=== PATIENT | male | born 1955 | race Caucasian/White ===

== ENCOUNTER 2017-05-28 07:50 | Outpatient (CLI) | payer OTHER ==
[2017-05-28 09:04] LABS: #Eosinphils 0.1 thou/uL (0.0-0.7); #Lymphocytes 1.3 thou/uL (1.20-3.40); #Monocytes 0.7 thou/uL (0.11-0.59); #Neutrophils 6.2 thou/uL (1.40-6.50); %Basophils 0.5 % (0.0-1.0); %Eosinophils 1.7 % (0.0-10.0); %Lymphocytes 15.6 % (21.0-51.0); %Monocytes 8.7 % (0.0-10.0); Hematocrit 50.6 % (42.0-52.0); Mean Platelet Volume 9.2 fL (7.4-10.4); Red Blood Cell (RBC) Count 5.65 mill/uL (4.70-6.10); White Blood Cell (WBC) Count 8.5 thou/uL (4.8-10.8)
[2017-05-28 09:27] LABS: Anion Gap 15 mmol/L (10-20); BUN (Urea Nitrogen) 13 mg/dL (8.4-25.7); Calc. Creatinine Clearance 0 mL/min (70-130); Calcium 10.2 mg/dL (7.8-10.44); Carbon Dioxide 27 mmol/L (23-31); Chloride 104 mmol/L (98-107); Estimated GFR-MDRD 80
--- NOTE | 2017-05-28 12:26 | EKG ---
Test Reason : Blood Pressure : / mmHG Vent. Rate : 074 BPM Atrial Rate : 074 BPM P-R Int : 146 ms QRS Dur : 100 ms QT Int : 386 ms P-R-T Axes : 024 037 -07 degrees QTc Int : 428 ms Normal sinus rhythm Normal ECG When compared with ECG of 24-APR-2015 13:36, Criteria for Inferior infarct are no longer Present Confirmed by ZELALEM DE LOS SANTOS ([id number]) on 05/28/2017 12:26:42 PM Referred By: [facility] Confirmed By:ZELALEM DE LOS SANTOS
== END 2017-05-28 07:51 | disposition home or self-care (01) ==
LOC: LABBT 07:50
PROVIDERS: ATTEND Surgery
DX: Z01.812 Encounter for preprocedural laboratory examination (principal); K56.699 Other intestinal obstruction unspecified as to partial versus complete obstruction
CPT/HCPCS: 80048; 85025; 93005; 93010

== ENCOUNTER 2017-05-28 08:00 | Inpatient (IN) | payer OTHER ==
[2017-05-28 08:17] VITALS: BMI 32.5
[2017-06-07] MEDS ORDERED: Propofol 200 MG/20 ML VIAL ONE (09:35)
[2017-06-07] MEDS ORDERED: Ondansetron HCl/PF 4 MG/2 ML Vial ONE (09:35)
[2017-06-07] MEDS ORDERED: Lidocaine 1% PF 5 ML VIAL ONE (09:35)
[2017-06-07] MEDS ORDERED: Dexamethasone 20 MG/5 ML VIAL ONE (09:35)
[2017-06-07] MEDS ORDERED: Ketorolac Tromethamine 30 MG/ML VIAL ONE (09:35)
[2017-06-07] MEDS ORDERED: cefOXitin Sodium 2 GM, Syringe 1 ML in Sterile Water 10 ML SLOW IVP SCH (13:00)
[2017-06-07] MEDS ORDERED: Fentanyl 250 MCG/5 ML VIAL ONE (13:18)
[2017-06-07] MEDS ORDERED: Ondansetron HCl/PF 4 MG/2 ML Vial IVP PRN ×2 (15:12→16:42)
[2017-06-07] MEDS ORDERED: HYDROmorphone 2 MG/ML VIAL SLOW IVP PRN (15:12)
[2017-06-07] MEDS ORDERED: Promethazine HCl 25 MG/ML VIAL SLOW IVP PRN (15:12)
[2017-06-07] MEDS ORDERED: Promethazine HCl 25 MG/ML VIAL IM PRN ×2 (15:12→16:42)
[2017-06-07] MEDS ORDERED: Fentanyl 100 MCG/2 ML VIAL ONE ×2 (15:18→16:03)
[2017-06-07] MEDS ORDERED: hydrALAZINE 20 MG/ML VIAL SLOW IVP PRN (16:42)
[2017-06-07] MEDS ORDERED: Ketorolac Tromethamine 30 MG/ML VIAL IVP PRN (16:42)
[2017-06-07] MEDS ORDERED: Fentanyl 100 MCG/2 ML VIAL SLOW IVP PRN (16:42)
[2017-06-07] MEDS ORDERED: Dextrose 5% in Water 1,000 ML IV PRN (18:13)
[2017-06-07] MEDS ORDERED: Dextrose 50% Abboject 50 ML SYRINGE IVP PRN (18:13)
[2017-06-07] MEDS: Acetaminophen 1,000 MG in Premix Bag 1 BAG IVPB SCH (18:27)
[2017-06-07] MEDS: Fentanyl 100 MCG/2 ML VIAL SLOW IVP PRN ×2 (18:57→21:20)
--- NOTE | 2017-06-07 19:03 | OP ---
PREOPERATIVE DIAGNOSES: History of colon cancer and rectal anastomotic stricture diverted with loop ileostomy. POSTOPERATIVE DIAGNOSES: History of colon cancer and rectal anastomotic stricture diverted with loop ileostomy. PROCEDURE: Loop ileostomy takedown with small-bowel resection and anastomosis. SURGEON: Jong Martinez M.D ANESTHESIA: General. ESTIMATED BLOOD LOSS: Minimal. COMPLICATIONS: None. SPECIMEN: Small-bowel. INDICATION: The patient is a 61-year-old male, who presents with a history of left colectomy for obs tructing colon cancer diverted with loop ileostomy. He did have a leak at that time even with the di version because his colon was not able to be prepped. He got over that surgery without any difficult y but developed a severe low rectal stricture. He had one attempted redo low anterior by . Nisha valladares the stricture was so tight, he was sent to Dr. Cannon in [place], where he had a stent placed, an d now the stricture is improved to the point where he is safe for ileostomy takedown. TECHNIQUE: The patient was taken to the operating room and placed supine on the operating table. Af ter general anesthetic was obtained, a Gracia was placed. The abdomen was shaved, prepped, and draped in a sterile fashion. The ileostomy mucosa was ellipsed out in the right lower quadrant. Cautery d issected down along the ileostomy and all the way to the level of the muscle. The abdominal cavity w as entered. All adhesions were taken down. A [id number] anastomosis was performed on the antimese nteric surface of the small-bowel proximal and distal to the skin mucosa. The common enterotomy was closed using TA-60. The skin segment and its mesentery was taken using Hannah clamps and silk ties. Crotch stitch in all corners were oversewn using silk pop-off. Silk was used to close the mesenteric defect. The small-bowel anastomosis was placed back into the abdominal cavity. The posterior fasci a was closed with #1 PDS. Anterior fascia closed with #1 PDS. Subcutaneous tissues were irrigated. The skin was closed using pursestring of Prolene. A [place] drain was left in the middle of the wou nd. Sterile dressings were placed. The patient was en route to recovery in stable condition. All i nstrument counts, needle counts, and lap counts were correct.
[2017-06-07] MEDS: Enoxaparin Sodium 40 MG/0.4 ML SYRINGE SC SCH (21:09)
[2017-06-07] MEDS: buPROPion HCl 75 MG TAB PO SCH (21:09)
[2017-06-07] MEDS: cefOXitin Sodium 2 GM, Syringe 1 ML in Sterile Water 10 ML SLOW IVP SCH (21:20)
[2017-06-08] MEDS: Acetaminophen 1,000 MG in Premix Bag 1 BAG IVPB SCH ×3 (00:02→12:14)
[2017-06-08] MEDS: Fentanyl 100 MCG/2 ML VIAL SLOW IVP PRN ×2 (01:44→04:51)
[2017-06-08] MEDS: Sodium Chloride 0.9% 1,000 ML IV SCH ×9 (05:28→21:08)
[2017-06-08] MEDS: cefOXitin Sodium 2 GM, Syringe 1 ML in Sterile Water 10 ML SLOW IVP SCH (05:28)
[2017-06-08 05:30] LABS: #Lymphocytes 0.8 thou/uL (1.20-3.40); #Monocytes 0.8 thou/uL (0.11-0.59); #Neutrophils 12.7 thou/uL (1.40-6.50); %Basophils 0.1 % (0.0-1.0); %Eosinophils 0.1 % (0.0-10.0); %Lymphocytes 5.8 % (21.0-51.0); %Monocytes 5.5 % (0.0-10.0); Mean Platelet Volume 10.6 fL (7.4-10.4); Red Blood Cell (RBC) Count 4.04 mill/uL (4.70-6.10); White Blood Cell (WBC) Count 14.4 thou/uL (4.8-10.8)
[2017-06-08 05:33] LABS: Anion Gap 14 mmol/L (10-20); BUN (Urea Nitrogen) 21 mg/dL (8.4-25.7); Calc. Creatinine Clearance 117 mL/min (70-130); Calcium 8.4 mg/dL (7.8-10.44); Carbon Dioxide 19 mmol/L (23-31); Chloride 107 mmol/L (98-107); Estimated GFR-MDRD 74
[2017-06-08] MEDS ORDERED: traMADol HCl 50 MG TAB PO PRN ×2 (08:27)
[2017-06-08] MEDS: Insulin Regular 300 UNITS/3 ML VIAL SC PRN ×2 (08:47→12:27)
[2017-06-08] MEDS ORDERED: Lisinopril/Hydrochlorothiazide 20 mg/12.5 mg Tablet PO SCH (09:00)
--- NOTE | 2017-06-08 09:10 | PRG ---
DATE OF SERVICE: 06/08/2017 SUBJECTIVE: Postop day #1, ileostomy takedown. Mr. Costa has had borderline blood pressures overnig ht, started when he rolled over in the middle of the night and felt faint. This morning, his blood p ressures are in the 80s to low 90s systolic. Pulse is right at 100. He denies pain. He has had 2 s mall voids, he does not think he voided that much. He does not feel urgency. He had mild nausea thi s morning and had Zofran for that. He had Fentanyl this morning for the pain. PHYSICAL EXAMINATION: VITAL SIGNS: His blood pressure 81/57, pulse 88, respirations 16. He is afebrile. HEART: Regular rate. CHEST: Clear. ABDOMEN: Minimally distended. Right lower quadrant dressings, the 4 x 4s were soaked with serosangu ineous fluid. LABORATORY: White blood cell count is 14, hemoglobin 11, platelet count is 194. Sodium 134, potassi um 5.7, creatinine 1.02, glucose is 226. ASSESSMENT: 1. Postop day #1 ileostomy takedown. 2. Hypotension, likely vasovagal but with IV fluids. Stop fentanyl. 3. Continue clear liquids. 4. His potassium was 5.7 this morning. His creatinine is normal. There is no potassium in his IV f luids. We will recheck a chemistry this afternoon. We will also bladder scan and if significant res idual urine will in and out cath.
[2017-06-08] MEDS: buPROPion HCl 75 MG TAB PO SCH ×2 (09:16→20:54)
[2017-06-08 15:51] LABS: Anion Gap 12 mmol/L (10-20); BUN (Urea Nitrogen) 25 mg/dL (8.4-25.7); Calc. Creatinine Clearance 100 mL/min (70-130); Calcium 8.1 mg/dL (7.8-10.44); Carbon Dioxide 23 mmol/L (23-31); Chloride 105 mmol/L (98-107); Estimated GFR-MDRD 62
[2017-06-08] MEDS ORDERED: Dextrose 5% in Water 1,000 ML IV PRN (16:16)
[2017-06-08] MEDS ORDERED: Dextrose 50% Abboject 50 ML SYRINGE SLOW IVP PRN (16:16)
[2017-06-08] MEDS: HumaLOG 300 UNITS/3 ML VIAL SC PRN (17:36)
[2017-06-08] MEDS: Enoxaparin Sodium 40 MG/0.4 ML SYRINGE SC SCH (20:54)
[2017-06-09 05:22] LABS: #Eosinphils 0.1 thou/uL (0.0-0.7); #Lymphocytes 1.8 thou/uL (1.20-3.40); #Monocytes 1.4 thou/uL (0.11-0.59); #Neutrophils 10.8 thou/uL (1.40-6.50); %Basophils 0.1 % (0.0-1.0); %Eosinophils 0.8 % (0.0-10.0); %Lymphocytes 12.4 % (21.0-51.0); %Monocytes 9.8 % (0.0-10.0); Hematocrit 23.4 % (42.0-52.0); Mean Platelet Volume 9.5 fL (7.4-10.4); Red Blood Cell (RBC) Count 2.59 mill/uL (4.70-6.10); White Blood Cell (WBC) Count 14.1 thou/uL (4.8-10.8)
[2017-06-09 05:29] LABS: Anion Gap 10 mmol/L (10-20); BUN (Urea Nitrogen) 19 mg/dL (8.4-25.7); Calc. Creatinine Clearance 147 mL/min (70-130); Calcium 8.1 mg/dL (7.8-10.44); Carbon Dioxide 23 mmol/L (23-31); Chloride 105 mmol/L (98-107); Estimated GFR-MDRD Greater than 90
[2017-06-09] MEDS: Sodium Chloride 0.9% 1,000 ML IV SCH (05:45)
[2017-06-09] MEDS: HumaLOG 300 UNITS/3 ML VIAL SC PRN ×4 (06:25→21:26)
[2017-06-09] MEDS: buPROPion HCl 75 MG TAB PO SCH ×2 (08:21→21:17)
[2017-06-09] MEDS ORDERED: HYDROcodone/Acetaminophen 10/325 mg Tablet PO PRN ×2 (09:18)
[2017-06-09] MEDS ORDERED: Tamsulosin HCl 0.4 MG CAP PO SCH (10:00)
--- NOTE | 2017-06-09 14:20 | PRG ---
DATE OF SERVICE: 06/09/2017 SUBJECTIVE: Mr. Costa is postop day #2, ileostomy takedown. Mr. Costa' pressures were in the 90s. He is urinating at easier now. He is tolerating the liquid diet without any nausea. He is passing g as. PHYSICAL EXAMINATION: VITAL SIGNS: Blood pressure is 90/62, his pulse is still 80. He is afebrile. ABDOMEN: Soft. He does have bowel sounds. Right lower quadrant dressings are intact. LABORATORY: Hemoglobin this morning was 7. ASSESSMENT: Postop day #2 ileostomy takedown, likely postop hypovolemia secondary to dehydration and blood loss. PLAN: We will check one more H&H tomorrow morning. If stable, he can be discharged then.
--- NOTE | 2017-06-09 15:21 | PQF ---
DATE: 06-09-17 ATTN: DR. DAVID RICHARDSON Please exercise your independent, professional judgment in responding to the clarification form. Clinical indicators are provided on the bottom of this form for your review Please check appropriate box(s): [ ] Acute blood loss anemia [ ] Post-op anemia related to acute blood loss [ ] Other diagnosis [ ] Unable to determine In addition, please specify: Present on Admission (POA): [ ] Yes [ ] No [ ] Unable to determine For continuity of documentation, please document condition throughout progress notes and discharge summary. Thank You. CLINICAL INDICATORS - SIGNS / SYMPTOMS / LABS PROGRESS NOTE DR. RICHARDSON 06-09-17: POSTOP DAY #2 ILEOSTOMY, LIKELY POSTOP HYPOVOLEMIA SECONDARY TO DEHYDRATION AND BLOOD LOSS HEMOGLOBIN: 06-08-17: 11.3, 9.1 06-09-17: 7.4 HEMATOCRIT: 06-08-17: 36.0 06-09-17: 23.4 TACHYCARDIA: 06-08-17: 107, 104 RISK FACTORS: 06-07-17: ILEOSTOMY CLOSURE/REVERSAL, ILEOSTOMY TAKEDOWN TREATMENTS: PROGRESS NOTE DR. RICHARDSON 06-09-17: WE WILL CHECK ONE MORE H&H TOMORROW MORNING PROGRESS NOTE DR. RICHARDSON 06-09-17: POSTOP DAY #2 ILEOSTOMY, LIKELY POSTOP HYPOVOLEMIA SECONDARY TO DEHYDRATION AND BLOOD LOSS (This form is maintained as a part of the permanent medical record) 2014 [employer] All Rights Reserved [email or web address] Office: [phone] [facility]
[2017-06-09] MEDS: Enoxaparin Sodium 40 MG/0.4 ML SYRINGE SC SCH (21:17)
[2017-06-10] MEDS: HumaLOG 300 UNITS/3 ML VIAL SC PRN ×3 (05:55→21:27)
[2017-06-10] MEDS: buPROPion HCl 75 MG TAB PO SCH ×2 (09:13→20:36)
[2017-06-10] MEDS: Tamsulosin HCl 0.4 MG CAP PO SCH (09:14)
[2017-06-10] MEDS ORDERED: Tamsulosin HCl 0.4 MG CAP PO SCH (09:19)
--- NOTE | 2017-06-10 12:52 | PRG ---
DATE OF SERVICE: 06/10/2017 SUBJECTIVE: Mr. Costa has some shortness of breath when he is up and ambulating, otherwise has no co mplaints. No pain. He is tolerating regular food, having multiple bowel movements. PHYSICAL EXAMINATION: VITAL SIGNS: Pulse is 100, blood pressure 104/64, temperature 98.2. Multiple voids, multiple bowel movements. ABDOMEN: Soft, nontender, nondistended with active bowel sounds. Right lower quadrant wounds are re dressed and the Diamond drain was removed. LABORATORY DATA: Hemoglobin was 7.4 yesterday, 6.5 today. ASSESSMENT: 1. Postop anemia from bleeding, most likely slow drop of H&H. Because of the symptoms, we will go a head and give him a unit of blood. 2. Resolved ileus. PLAN: Discharged home later today after unit of blood.
[2017-06-11] MEDS: HumaLOG 300 UNITS/3 ML VIAL SC PRN (05:58)
[2017-06-11 08:21] VITALS: BP 124/81; TEMP 99.1
--- NOTE | 2017-06-11 08:33 | DIS ---
DATE OF ADMISSION: 06/07/2017 DATE OF DISCHARGE: 06/11/2017 ADMISSION DIAGNOSES: History of colon stricture, status post loop ileostomy. POSTOPERATIVE DIAGNOSES: History of colon stricture, status post loop ileostomy. PROCEDURES: Ileostomy takedown by Dr. Martinez, complicated by postop anemia and required blood trans fusion. CONDITION ON DISCHARGE: Improved. STAFF: Dr. Jong Martinez . HOSPITAL COURSE: The patient was admitted postop on a clear liquid diet. His bowel function returne d very quickly. On postop day 2 and 3 his hemoglobin slowly decreased. Yesterday his hemoglobin was 6.5. He was stable, but did have some shortness of breath when he was trying to walk. The decision was made to give 1 unit of blood. Today his hemoglobin is improved. He feels better. He is ready for discharge. Prescriptions for [place] and Zofran sent to [facility] on [address]. The patient is okay to shower. He is going to change his dressing to the right lower quadrant wound after. He will follow up with me malachi gerard 2 weeks.
[2017-06-11] MEDS: Tamsulosin HCl 0.4 MG CAP PO SCH (08:58)
[2017-06-11] MEDS: buPROPion HCl 75 MG TAB PO SCH (08:58)
== END 2017-06-11 12:22 | disposition home or self-care (01) | DRG 330 ==
LOC: SURG A 06-07 11:33 → SURG B 06-07 16:04
PROVIDERS: ADMIT Surgery; ATTEND Surgery
PROC: 0DBB0ZZ Excision of Ileum, Open Approach (ICD-10-PCS; principal; 2017-06-07)
PROC: 30233N1 Transfusion of Nonautologous Red Blood Cells into Peripheral Vein, Percutaneous Approach (ICD-10-PCS; 2017-06-10)
DX: Z43.2 Encounter for attention to ileostomy (principal); K56.7 Ileus, unspecified; I95.9 Hypotension, unspecified; D64.9 Anemia, unspecified; E86.1 Hypovolemia; E86.0 Dehydration; Z85.038 Personal history of other malignant neoplasm of large intestine
CPT/HCPCS: 36415; 36416; 36430; 80048; 85018; 85025; 86850; 86900; 86901; 88304; A4216; J0131; J0694; J1100; J1650; J1885; J2001; J2405; J2704; J3010; P9016

== ENCOUNTER 2017-06-17 16:01 | Inpatient (IN) | payer OTHER ==
[~2017-06-17 16:01] MED LIST: Calcium Chloride 1 GM/10 ML Abboject SYRINGE ONE; Heparin 1,000 UNITS/ML VIAL ONE; ISOVUE-370 76%-LOCM 1 ML ONE; PHENYLEPHRINE-NS 100 MCG/ML 10 ML SYRINGE ONE; Succinylcholine Chloride 20 MG/ML 10 ml SYRINGE FS ONE; Vecuronium 10 MG VIAL ONE
[2017-06-17] MEDS ORDERED: Fentanyl 100 MCG/2 ML VIAL ONE ×3 (16:07→17:26)
[2017-06-17 16:42] LABS: Blood, Urine Moderate (Negative); Clarity CLOUDY (Clear); Leukocyte Small (Negative); Specific Gravity, Urine 1.028 (1.002-1.036)
[2017-06-17 16:45] LABS: Bacteria/HPF None Seen HPF (None Seen)
[2017-06-17 16:46] LABS: Glucose, Urine (Dipstick) 500 mg/dL (Negative); Nitrite Unable to Interpret (Negative); Pathc Cast-AUWi Flag 5.01 (0-2.49); Yeast-AUWi Flag 73.1 (0-25.0)
[2017-06-17 16:47] LABS: Bilirubin Large (Negative); Protein, Urine (Dipstick) 30 mg/dL (Neg-Trace)
[2017-06-17 16:53] LABS: Base Excess-Venous -6.1 mmol/L (-30.0-30.0); Bicarbonate (HCO3v) 17.8 mmol/L (1.0-85.0); CO2 Tension (PvCO2) 29.8 mmHg (41.0-51.0); Calcium, Ionized 1.04 mmol/L (1.12-1.32); Hemoglobin - Calc 12.7 g/dL (12.0-18.0); Potassium 3.9 mmol/L (3.4-4.7); T. Carbon Dioxide 18.7 mmol/L (1.0-85.0); pH (Venous) 7.384 (7.35-7.45); vO2 Saturation-calc 94.7 % (0.0-100.0)
[2017-06-17 17:08] LABS: Hemoglobin 10.9 g/dL (14.0-18.0); Mean Corpuscular HGB CONC 29.8 g/dL (32.0-36.0); Mean Corpuscular Hemoglobin 28.1 pg (27.0-31.0); Mean Corpuscular Volume 94.4 fl (80.0-94.0); Mean Platelet Volume 8.6 fL (7.4-10.4); Platelet Count 425 thou/uL (130-400); RBC Distribution Width 17.6 % (11.5-14.5); Red Blood Cell (RBC) Count 3.88 mill/uL (4.70-6.10); White Blood Cell (WBC) Count 19.8 thou/uL (4.8-10.8)
[2017-06-17 17:09] LABS: Crystals/HPF 1+ AMORPH URATES HPF (Negative); RBC/HPF 0-3 HPF (0-3); Yeast-All Forms None Seen HPF (None Seen)
[2017-06-17 17:10] LABS: Hyaline Casts/LPF 0-3 HYALINE CAST LPF (0-3 Hyaline); Other Casts/LPF 4-6 COARSE GRAN LPF (0-3 Hyaline)
--- NOTE | 2017-06-17 17:14 | RAD ---
PORTABLE CHEST ONE VIEW: 06/17/17 at 4:14 p.m. HISTORY: Chest pain. Sepsis, hypotension. FINDINGS/IMPRESSION: There is elevation of the right hemidiaphragm with air underneath the right hemidiaphragm which coul d either represent free air or air within the colon. This should be evaluated with CT scan. No lobar consolidation, pneumothoraces or large effusions are seen. the heart size is borderline. Discussed over the telephone with ER physician, Dr. Pisano at 4:22 p.m. POS: [facility]
[2017-06-17] MEDS ORDERED: Piperacillin/Tazobactam 4.5 GM in Sodium Chloride 0.9% 100 ML IVPB ONE (17:15)
[2017-06-17] MEDS ORDERED: Fentanyl 250 MCG/5 ML VIAL ONE (17:17)
[2017-06-17] MEDS ORDERED: Phenylephrine 10 MG/NS 250 ML 250 ML ONE (17:17)
[2017-06-17 17:24] LABS: Band 50 % (5-11); Burr Cells MODERATE= 6-15 cells (100X) (0-1/hpf); Lymphocytes 4 % (21-51); MDiff Complete? YES; Metamyelocyte 1 % (0-0); Monocytes 4 % (0-10); Neutrophil 41 % (42-75); Nucleated RBC 2 % (0); PLT Morphology Comment Appears Increased; Polychromasia MODERATE = 3-4 cells (100X) (0-2/hpf); Reflex for Review?? NO
[2017-06-17] MEDS ORDERED: Ketamine 50 MG/ML VIAL ONE (17:24)
[2017-06-17] MEDS ORDERED: Midazolam HCl 5 mg/5 ml Vial ONE (17:24)
[2017-06-17] MEDS ORDERED: Norepinephrine 8 MG/0.9% NS 250 ML ONE (17:25)
[2017-06-17 17:27] LABS: ALT (SGPT) 27 U/L (8-55); AST (SGOT) 37 U/L (5-34); Albumin 2.2 g/dL (3.4-4.8); Alkaline Phosphatase 109 U/L (40-150); Anion Gap 15 mmol/L (10-20); BUN (Urea Nitrogen) 21 mg/dL (8.4-25.7); Bilirubin, Total 5.5 mg/dL (0.2-1.2); Calc. Creatinine Clearance 0 mL/min (70-130); Calcium 7.8 mg/dL (7.8-10.44); Carbon Dioxide 18 mmol/L (23-31); Chloride 100 mmol/L (98-107); Estimated GFR-MDRD Greater than 90; Globulin 2.6 g/dL (2.4-3.5); Glucose 279 mg/dL (80-115); Protein, Total 4.8 g/dL (5.8-8.1); Sodium 129 mmol/L (136-145)
[2017-06-17 17:32] LABS: CKMB 0.6 ng/mL (0-6.6); Troponin I 0.013 ng/mL (< 0.028)
--- NOTE | 2017-06-17 17:36 | CT ---
CT ABDOMEN AND PELVIS WITH CONTRAST: 06/17/17 COMPARISON: 08/09/16 CLINICAL HISTORY: Hypotension. FINDINGS: There is diffuse abnormal free intra-abdominal air interspersed with complex ascites. Loops of dilate d bowel with wall thickening present, incompletely assessed given the unopacified state of the bowel. Findings do indicate perforated viscus. There is bilateral pleural effusion with adjacent atelectasi s, partially visualized. Gallbladder wall thickening cholelithiasis present. No hydronephrosis of eit her kidney. Redemonstration of bilateral renal hypodensities as well as punctate calcifications of ea ch kidney, nonobstructive. There are hyperdensities adjacent the aorta, nonspecific. IMPRESSION: Findings indicative of perforated viscus with diffuse free air as well as complex ascites. There are areas of dilated bowel with wall thickening notably involving colon, although the bowel is incomplete ly assessed without enteric contrast administration. Recommend emergent surgical consultation. Windy patel telephoned to care provider, Charmaine Elam in the ER at time of interpretation, 1702 hours, . Code CR
--- NOTE | 2017-06-17 17:41 | HP ---
CHIEF COMPLAINT: Abdominal pain and shock. HISTORY OF PRESENT ILLNESS: This is a 61-year-old male with 8-day status post ileostomy reversal. 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 This was complicated b y chronic anastomotic stricture. He did receive radiation post-surgery. He had redo low anterior re section and had another stenosis. I had performed ileostomy at some point in that process. The swapna ent most recently has had multiple stents placed in [place] and now has open pelvic anastomosis to e point where he was cleared by the gastrologist for ileostomy takedown. Ileostomy takedown was perf ormed on 06/07/2017. Postop, the patient did have hemoglobin that dropped and he became slightly tac hycardic. He did get 1 unit of blood. He has had increasing abdominal pain over the course of the l ast few days, became more severe this morning. He had a fall this morning, but straight down onto ut s backside not onto his side or to his front of his abdomen. Now presents in septic shock. PAST MEDICAL HISTORY: Includes hypertension, sigmoid colon cancer T3 N2. PAST SURGICAL HISTORY: Redo left colectomy with ileostomy, ileostomy takedown, back and lumbar spine surgery. ALLERGIES: Includes MORPHINE. SOCIAL HISTORY: No smoking, alcohol or other drugs. He is . REVIEW OF SYSTEMS: Otherwise, negative. PHYSICAL EXAMINATION: VITAL SIGNS: His blood pressure is 85/45, his pulse is 135, respirations are 18, temperature 101. HEENT: He has icteric sclerae. His oropharynx is clear. NECK: No lymphadenopathy. HEART: Increased rate, regular rhythm without murmur. ABDOMEN: Diffusely tender with peritoneal signs. Right lower quadrant wound shows no evidence of in fection. LABORATORY DATA: White blood cell count is 19, hemoglobin is 10, and platelet count is 425. Sodium 134, potassium 3.9, creatinine on quick check was 1.22. IMAGING DATA: CT scan shows evidence of free air or free fluid, likely perforation or anastomotic le ak. ASSESSMENT: Likely anastomotic leak status post ileostomy takedown. PLAN: Exploratory laparotomy, abdominal washout and associated with procedures. Risks, benefits wer e discussed with the patient and his family and his at the bedside. They understand the need fo r emergency surgery this afternoon. We will do this today.
[2017-06-17] MEDS ORDERED: Sedation Protocol FS ONE (20:39)
[2017-06-17] MEDS ORDERED: Dextrose 5% in Water 1,000 ML IV PRN (20:39)
[2017-06-17] MEDS ORDERED: Ondansetron ODT 4 MG TAB PO PRN (20:39)
[2017-06-17] MEDS ORDERED: Dextrose 50% Abboject 50 ML SYRINGE SLOW IVP PRN (20:39)
[2017-06-17] MEDS ORDERED: Promethazine HCl 25 MG/ML VIAL IM PRN (20:39)
[2017-06-17] MEDS ORDERED: hydrALAZINE 20 MG/ML VIAL SLOW IVP PRN (20:39)
[2017-06-17] MEDS ORDERED: Sodium Chloride 0.9% 1,000 ML IV SCH ×2 (20:39)
[2017-06-17] MEDS ORDERED: Ondansetron HCl/PF 4 MG/2 ML Vial IVP PRN (20:39)
[2017-06-17 20:41] LABS: Actual Bicarbonate (HCO3a) 21.1 mEq/L (22-26); Base Excess (BEa) -6.4 mEq/L (0 (+/-) 2.5); CO2 Tension 50.6 mmHg (35.0-45.0); Calcium, Ionized 1.1 mmol/L (1.12-1.30); Hemoglobin (Hb) 11.2 g/dL (14.0-18.0); O2 Tension (PaO2) 95.2 mmHg (80.0-100.0)
[2017-06-17 20:47] LABS: pH, Arterial 7.24 (7.35-7.45)
[2017-06-17 20:48] LABS: Puncture Site LINE
[2017-06-17] MEDS ORDERED: DISCONTINUE PREVIOUS NARCOTIC PAIN MEDICATIONS AND BENZODIAZEPINES FS SCH (20:48)
[2017-06-17] MEDS ORDERED: Morphine 4 MG/ML VIAL SLOW IVP PRN (21:00)
--- NOTE | 2017-06-17 21:02 | RAD ---
PORTABLE CHEST: 06/17/17 HISTORY: Line placement. COMPARISON: Earlier exam the same day. Endotracheal and NG tubes are in satisfactory position. A right jugular line is seen with catheter ti p overlying the superior vena cava. No signs of pneumothorax. Atelectatic changes are seen in the bas es. IMPRESSION: Endotracheal and NG tubes in satisfactory position. No signs of pneumothorax. POS: [facility]
[2017-06-17 21:07] LABS: Lactic Acid 3.6 mmol/L (0.5-2.2)
--- NOTE | 2017-06-17 21:22 | OP ---
PREOPERATIVE DIAGNOSIS: Peritonitis. POSTOPERATIVE DIAGNOSIS: Anastomotic leak from a prior ileostomy takedown with large infected intra- abdominal hematoma. PROCEDURE: Exploratory laparotomy, lysis of adhesions, repair of enterotomy, x2, oversew of leak at small bowel anastomosis with diverting loop ileostomy. SURGEON: Jong Martinez M.D. ANESTHESIA: General. ESTIMATED BLOOD LOSS: 50 mL of new blood. Large amount of old hematoma in the abdomen. INDICATION: The patient is a 61-year-old male with 8 days postop ileostomy takedown. He had a prior history of T3 N2 left colon cancer treated and everted. He had postop radiation and so he developed an anastomotic stricture. This was dilated and had a stent placed by GI doctor in [place]. He was cleared for ileostomy takedown. Earlier today, he developed more severe abdominal pain and seen in e mergency room where he was found to be septic this afternoon. TECHNIQUE: The patient was taken to the operating room emergently and laid on operating room table. After general anesthetic was obtained, a Gracia was placed, art-line, central line were placed by Tianna hirsch. Abdomen is prepped and draped in a sterile fashion. Midline incision is made on entering t abdomen and enterotomy was made in the small bowel, fused to the posterior midline. This was over sewn using 3-0 Vicryl suture and then 3-0 silk suture. The rest of the previous midline incision is able to be opened without further injury. There was a lot of old infected hematoma in the abdomen. This was all irrigated out. There was a foul smell. Multiple acute and chronic adhesions had to be taken down sharply in order to dissect into the right abdomen. The previous anastomosis was found. There was a pinpoint opening at the crotch of it where there was a leak. This was oversewn using Christos ryl suture. Small bowel proximal to this was freed up by lysing multiple adhesions in order to be br ought up for another ostomy. The abdomen was irrigated with 20 liters of sterile solution until retu rns were clear. All 4 quadrants and the abdomen were irrigated. NG tube was felt to be in good posi tion in the stomach. There was no intraabdominal bleeding. There was no other obvious injury to any intraabdominal structures. After the abdomen was irrigated, all returns became more clear. The pre vious right lower quadrant ostomy and a skin incision was opened. The muscle splitting incision was reopened and the PDS removed. A loop of more proximal small bowel was able to be brought up through this and held in place using a 16 [place] red rubber. All instrument counts, needle counts, and lap c ounts were correct. Midline fascia was closed using #1 PDS from the top and the bottom and tied in t he middle. Subcutaneous tissues were irrigated. A 2-0 Prolene was used to reapproximate the skin in the area of the umbilicus. The ostomy was matured in the usual fashion and loop fashion around the red rubber using 3-0 Vicryl suture. Wound VAC was placed intraoperatively and then an ostomy device was placed over the top of that dressing. The patient had 2 round 19 drains brought out through sepa rate stab incisions left in the right abdomen and up over the liver. The patient was en route to the ICU in critical condition.
[2017-06-17] MEDS ORDERED: Potassium Phosphate 15 MMOL in Sodium Chloride 0.9% 250 ML 250 ML IV PRN (21:42)
[2017-06-17] MEDS ORDERED: Potassium Chloride 40 MEQ in Sodium Chloride 0.9% 250 ML 250 ML IVPB PRN (21:42)
[2017-06-17] MEDS ORDERED: CCU ELECTROLYTE REPLACEMENT PROTOCOL FS PRN (21:42)
[2017-06-17] MEDS ORDERED: Potassium Phosphate 12 MMOL in Sodium Chloride 0.9% 250 ML 250 ML IV PRN (21:42)
[2017-06-17] MEDS ORDERED: Magnesium Oxide 400 MG TAB PO PRN ×2 (21:42)
[2017-06-17] MEDS ORDERED: Magnesium 2 GM/NS 0.9% 100 ML 2 GM in Premix Bag 1 BAG IVPB PRN (21:42)
[2017-06-17] MEDS: Phenylephrine 10 MG/NS 250 ML 250 ML IVPB PRN ×2 (21:55→23:25)
[2017-06-17] MEDS: Sodium Chloride 0.9% 1,000 ML IV SCH (22:08)
[2017-06-17] MEDS: Famotidine/PF 20 mg/2ml Vial SLOW IVP SCH (22:08)
[2017-06-17] MEDS: fentaNYL Citrate/PF 2,000 MCG in Sodium Chloride 0.9% 60 ML IV SCH (22:12)
[2017-06-17] MEDS: HumaLOG 300 UNITS/3 ML VIAL SC PRN (22:53)
[2017-06-17] MEDS: Piperacillin/Tazobactam 3.375 GM in Sodium Chloride 0.9% 100 ML IVPB SCH (23:28)
[2017-06-18] MEDS: Phenylephrine 10 MG/NS 250 ML 250 ML IVPB PRN ×3 (00:30→02:29)
[2017-06-18] MEDS: Norepinephrine 8 MG/0.9% NS 250 ML IVPB SCH ×5 (01:35→21:31)
[2017-06-18] MEDS ORDERED: Phenylephrine HCL 20 MG in Sodium Chloride 0.9% 250 ML 250 ML IVPB PRN (03:05)
[2017-06-18] MEDS: Sodium Chloride 0.9% 1,000 ML IV SCH ×6 (03:43→20:56)
[2017-06-18] MEDS: HumaLOG 300 UNITS/3 ML VIAL SC PRN ×4 (04:58→21:18)
[2017-06-18] MEDS: Piperacillin/Tazobactam 3.375 GM in Sodium Chloride 0.9% 100 ML IVPB SCH ×4 (05:28→23:42)
[2017-06-18 05:59] LABS: Band 43 % (5-11); Hemoglobin 10.3 g/dL (14.0-18.0); Lymphocytes 3 % (21-51); MDiff Complete? YES; Mean Corpuscular Hemoglobin 28.6 pg (27.0-31.0); Mean Corpuscular Volume 95.4 fl (80.0-94.0); Metamyelocyte 1 % (0-0); Monocytes 6 % (0-10); Myelocyte 1 % (0-0); Neutrophil 46 % (42-75); PLT Morphology Comment Appears Increased; Platelet Count 473 thou/uL (130-400); RBC Distribution Width 17.2 % (11.5-14.5); Red Blood Cell (RBC) Count 3.58 mill/uL (4.70-6.10); White Blood Cell (WBC) Count 26.4 thou/uL (4.8-10.8)
[2017-06-18 06:03] LABS: ALT (SGPT) 45 U/L (8-55); AST (SGOT) 74 U/L (5-34); Albumin 1.7 g/dL (3.4-4.8); Alkaline Phosphatase 93 U/L (40-150); Anion Gap 12 mmol/L (10-20); BUN (Urea Nitrogen) 22 mg/dL (8.4-25.7); Bilirubin, Total 7.3 mg/dL (0.2-1.2); Calc. Creatinine Clearance 182 mL/min (70-130); Calcium 7.1 mg/dL (7.8-10.44); Carbon Dioxide 18 mmol/L (23-31); Chloride 109 mmol/L (98-107); Estimated GFR-MDRD Greater than 90; Globulin 2.2 g/dL (2.4-3.5); Glucose 270 mg/dL (80-115); Potassium 4.2 mmol/L (3.5-5.1); Protein, Total 3.9 g/dL (5.8-8.1); Sodium 135 mmol/L (136-145)
[2017-06-18 07:11] LABS: Actual Bicarbonate (HCO3a) 16.9 mEq/L (22-26); Base Excess (BEa) -7.7 mEq/L (0 (+/-) 2.5); Hematocrit-ABG 35.8 % (42.0-52.0); Hemoglobin (Hb) 10.1 g/dL (14.0-18.0); O2 Tension (PaO2) 136.2 mmHg (80.0-100.0); pH, Arterial 7.35 (7.35-7.45)
[2017-06-18 07:13] LABS: Puncture Site LINE
[2017-06-18] MEDS ORDERED: Albumin 25% 25 GM/100 ML BOT IVPB SCH (07:48)
[2017-06-18] MEDS: Vasopressin 40 UNIT, Admixture Fee 1 EACH in Sodium Chloride 0.9% 100 ML IV SCH ×2 (08:04→22:32)
--- NOTE | 2017-06-18 08:22 | CON ---
DATE OF CONSULTATION: 06/18/2017 CONSULTING PHYSICIAN: Dr. Martinez. 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 HISTORY OF PRESENT ILLNESS: The patient is a 61-year-old male who had a leak of an anastomosis from a takedown of an ileostomy performed on 06/07/2017. He had to go back to the OR last night for an il eostomy and treatment of peritonitis. He was left on mechanical ventilation. He is requiring high d ose vasopressors. The patient is awake, but because he is intubated, he is unable to give me much in the way of history. PAST MEDICAL HISTORY: 1. Hypertension. 2. Sigmoid colon cancer. PAST SURGICAL HISTORY: 1. Recent left colectomy with ileostomy and subsequent ileostomy takedown. 2. Back and lumbar spine surgery. ALLERGIES: MORPHINE. SOCIAL HISTORY: Does not smoke, does not consume alcohol. REVIEW OF SYSTEMS: Cannot be obtained as the patient is on mechanical ventilation. MEDICATIONS: Prior to admission, metformin 1000 mg twice daily, bupropion 75 mg b.i.d., Protonix 40 mg daily, nifedipine 60 mg daily, melatonin 5 mg nightly, multivitamin 1 daily, Imodium 2 mg daily, l isinopril/hydrochlorothiazide 1 tablet daily, Lactobacillus 1 capsule daily, fish oil 1 capsule daily , atorvastatin 80 mg nightly, aspirin 81 mg daily. PHYSICAL EXAMINATION: VITAL SIGNS: Temperature 98.0, pulse 76, blood pressure 105/58, he is currently on 30 mcg per minute of vasopressin and 180 mcg per minute of phenylephrine. HEENT: Unremarkable. NECK: No JVD. LUNGS: Diminished breath sounds at both bases. CARDIAC: S1, S2, tachycardic without murmur. ABDOMEN: He has a large midline wound VAC. He has a right-sided ileostomy, he has bruising towards his pubis. His abdomen is not tender to deep palpation at this time. EXTREMITIES: Without clubbing, cyanosis or edema. NEUROLOGIC: His all 4 extremities without difficulty. He is able to follow commands without difficu lty. SKIN: No lesions, other than the bruising in the abdominal region. LABORATORY DATA: Sodium 135, potassium 4.2, chloride 109, CO2 18, BUN 22, creatinine 0.7, glucose 27 0. Lactate initially 4.9, now 3.6. Calcium 7.1, total bilirubin 7.3, AST 74, ALT 45, albumin 1.7. ABG, pH 7.35, PCO2 31, PO2 136 on SIMV rate 20, tidal volume 500, PEEP 5, pressure support 10, FIO2 6 0%. White blood cell count 26.4, hemoglobin 10, hematocrit 34.2, platelet count 473. X-RAY FINDINGS: Chest x-ray showed lower lobe infiltrates. ASSESSMENT: 1. Peritonitis. 2. Septic shock. 3. Acute respiratory failure with acute respiratory distress syndrome physiology. 4. Hyperglycemia. 5. Underlying diabetes mellitus. 6. Hypovolemia and third spacing. PLAN: 1. Empirically add corticosteroids, thiamine and vitamin C for the septic shock. 2. Vasopressin instead of Iggy-Synephrine. 3. Wean Levophed as tolerated. 4. Keep intubated until his vasopressor requirement has decreased. 5. Broad spectrum IV antibiotics to include Zosyn.
[2017-06-18] MEDS ORDERED: FLU VACC QS2017-18 36 mo. & older 0.5 ML SYRINGE IM ONE (09:00)
[2017-06-18] MEDS: Famotidine/PF 20 mg/2ml Vial SLOW IVP SCH ×2 (09:17→20:57)
--- NOTE | 2017-06-18 10:04 | PRG ---
DATE OF SERVICE: 06/17/2017 SUBJECTIVE: Mr. Costa is on Levophed and Iggy, pressures in the 90s-100 systolic. He is awake this m orning and trying to ask questions. Remains on the ventilator. PHYSICAL EXAMINATION: VITAL SIGNS: Pulse 117, blood pressure 98/64, respiratory rate is 20, O2 sat is 100% on vent, urine output 830 per shift. Drain output total is 310. No ostomy output yet. ABDOMEN: Distended with wound VAC. Ostomy is viable in the right lower quadrant. LABORATORY DATA AND IMAGING DATA: White cell count is 26, hemoglobin 10, platelet count is 473, 43 b ands. Sodium 135, potassium 4.2, creatinine 0.71, bilirubin is 7.3, AST is 74. Chest x-ray shows go od position of central line, ET tube and NG. ASSESSMENT: 1. Peritonitis, status post ileostomy takedown, now postop day #1 diverting ileostomy, abdominal was hout. 2. Hyperbilirubinemia, likely related to breakdown of large hematoma and sepsis, suspect this is to slowly improve. PLAN: Appreciate Dr. Alva's assistance in his care. Wean pressors as tolerated. Likely needs to remain intubated until more stable.
[2017-06-18] MEDS: Hydrocortisone Sod Succ/PF 100 mg/2 ml Vial IVP SCH ×3 (12:04→23:01)
[2017-06-18] MEDS: Albumin 25% 25 GM/100 ML BOT IVPB SCH ×2 (12:05→17:34)
[2017-06-18] MEDS: Lorazepam 2 MG/ML VIAL SLOW IVP PRN (12:11)
[2017-06-18] MEDS: fentaNYL Citrate/PF 2,000 MCG in Sodium Chloride 0.9% 60 ML IV SCH (13:53)
[2017-06-19] MEDS: Albumin 25% 25 GM/100 ML BOT IVPB SCH ×5 (00:48→23:41)
[2017-06-19 05:39] LABS: ALT (SGPT) 45 U/L (8-55); AST (SGOT) 75 U/L (5-34); Albumin 2.9 g/dL (3.4-4.8); Alkaline Phosphatase 97 U/L (40-150); Anion Gap 13 mmol/L (10-20); BUN (Urea Nitrogen) 19 mg/dL (8.4-25.7); Bilirubin, Total 8.1 mg/dL (0.2-1.2); Calc. Creatinine Clearance 185 mL/min (70-130); Carbon Dioxide 20 mmol/L (23-31); Chloride 111 mmol/L (98-107); Estimated GFR-MDRD Greater than 90; Globulin 2.1 g/dL (2.4-3.5); Glucose 213 mg/dL (80-115); Potassium 3.9 mmol/L (3.5-5.1); Sodium 140 mmol/L (136-145)
[2017-06-19] MEDS: fentaNYL Citrate/PF 2,000 MCG in Sodium Chloride 0.9% 60 ML IV SCH ×2 (05:50→21:26)
[2017-06-19 05:53] LABS: Band 25 % (5-11); Hemoglobin 8.4 g/dL (14.0-18.0); Lymphocytes 1 % (21-51); MDiff Complete? YES; Macrocytosis SLIGHT = 6-15 cells (100X) (0-5/hpf); Mean Corpuscular HGB CONC 30.2 g/dL (32.0-36.0); Mean Corpuscular Hemoglobin 28.7 pg (27.0-31.0); Mean Corpuscular Volume 94.9 fl (80.0-94.0); Mean Platelet Volume 7.6 fL (7.4-10.4); Metamyelocyte 4 % (0-0); Monocytes 4 % (0-10); Neutrophil 66 % (42-75); Nucleated RBC 3 % (0); PLT Morphology Comment Appears Adequate; Platelet Count 355 thou/uL (130-400); RBC Distribution Width 17.2 % (11.5-14.5); Red Blood Cell (RBC) Count 2.94 mill/uL (4.70-6.10); White Blood Cell (WBC) Count 20.2 thou/uL (4.8-10.8)
[2017-06-19] MEDS: Hydrocortisone Sod Succ/PF 100 mg/2 ml Vial IVP SCH ×4 (06:00→23:41)
[2017-06-19] MEDS: HumaLOG 300 UNITS/3 ML VIAL SC PRN ×4 (06:06→21:36)
[2017-06-19] MEDS: Piperacillin/Tazobactam 3.375 GM in Sodium Chloride 0.9% 100 ML IVPB SCH ×4 (06:07→23:42)
[2017-06-19] MEDS: Sodium Chloride 0.9% 1,000 ML IV SCH ×3 (06:39→17:58)
[2017-06-19 06:47] LABS: Actual Bicarbonate (HCO3a) 19.7 mEq/L (22-26); Base Excess (BEa) -4.9 mEq/L (0 (+/-) 2.5); Calcium, Ionized 1.1 mmol/L (1.12-1.30); Hematocrit-ABG 28.1 % (42.0-52.0); O2 Tension (PaO2) 103.7 mmHg (80.0-100.0); pH, Arterial 7.38 (7.35-7.45)
[2017-06-19 06:48] LABS: Puncture Site ALINE
[2017-06-19] MEDS: Famotidine/PF 20 mg/2ml Vial SLOW IVP SCH ×2 (08:26→21:35)
--- NOTE | 2017-06-19 08:45 | RAD ---
PORTABLE CHEST ONE VIEW: 06/19/2017 3:26 a.m. HISTORY: Respiratory failure. COMPARISON: 06/17/2017 FINDINGS: Line and tube placements remain in place. The heart size is stable. Bibasilar atelectatic changes a re again noted. No pneumothoraces are seen. POS: [facility]
[2017-06-19] MEDS: Fentanyl BOLUS 250 ML IVPB PRN (09:01)
--- NOTE | 2017-06-19 10:49 | PRG ---
DATE OF SERVICE: 06/19/2017 SUBJECTIVE: Postop day #2, abdominal washout ileostomy. Mr. Costa is doing well. He is off pressor s. OBJECTIVE: VITAL SIGNS: He is afebrile. His blood pressure is 91/51, pulse 107. Urine output is great at 2215 for the day and MIYA drains are old blood and 80 for the day each. ABDOMEN: Distended. His wound VAC was changed today. EXTREMITIES: No ostomy output yet. LABORATORY: White cell count is 20, hemoglobin 8.4, platelet count is 355. He has 25 bands, which i s down from 43 yesterday. Chemistry is within normal limits. Creatinine normal at 0.7 and glucose 2 13, bilirubin is up to 8.1 today. ASSESSMENT: 1. Status post abdominal washout ileostomy for leak after ileostomy takedown. 2. Sepsis, resolved. 3. Acute respiratory insufficiency. We will leave that up to Dr. Alva. 4. Hyperbilirubinemia, likely due to breakdown of the large intraabdominal hematoma he had. His alk yanelis phosphatase is normal. He does have a history of gallstones seen on previous CT, but unlikely this represents a cholangitis given that his alkaline phosphatase is normal. PLAN: Continue current care, antibiotics, and wean vent per Dr. Alva.
--- NOTE | 2017-06-19 11:08 | PRG ---
DATE OF SERVICE: 06/19/2017 Thirty five minutes critical care time. SUBJECTIVE: The patient remains intubated on mechanical ventilation. Currently undergoing a wound V AC change. PHYSICAL EXAMINATION: VITAL SIGNS: His temperature is 97.4 with T-max of 99.9, pulse is 106, blood pressure 121/81, intake 4351 and output 2415. HEENT: Remarkable for icteric sclera. Oropharynx clear. NECK: No JVD. LUNGS: Coarse rhonchi bilaterally. CARDIOVASCULAR: S1 and S2 regular. ABDOMEN: Distended. Wound is noted. EXTREMITIES: Edematous throughout. LABORATORY DATA AND IMAGING DATA: A pH 7.38, pCO2 34, pO2 103 on SIMV rate 20, tidal volume 500, PEE P 5, pressure support 10, FiO2 40%. Sodium 140, potassium 3.9, chloride 111, CO2 20, BUN 19, creatin ine 2.7, glucose 213, total bilirubin 8.1. Albumin 2.9. White blood cell count 20.2, hemoglobin 8.4 , hematocrit 28.0, and platelet count 355. Chest x-ray shows bilateral lower lobe infiltrate. Endot elgin tube is in good position. ASSESSMENT: 1. Acute respiratory failure requiring mechanical ventilation. 2. Abdominal sepsis after anastomotic leak. 3. Peritonitis. 4. Septic shock, which appears to be improved judging by the decrease in requirement of vasopressors . 5. Diabetes mellitus. PLAN: 1. Wean respiratory rate. 2. Continue IV antibiotics, albumin, IV fluids, thiamine, vitamin C, and hydrocortisone. 3. Adjust respiratory rate.
--- NOTE | 2017-06-19 11:19 | EKG ---
Test Reason : HYPOTENSION Blood Pressure : / mmHG Vent. Rate : 148 BPM Atrial Rate : 148 BPM P-R Int : 118 ms QRS Dur : 088 ms QT Int : 288 ms P-R-T Axes : 008 030 -41 degrees QTc Int : 452 ms Sinus tachycardia with occasional Premature ventricular complexes and Fusion complexes T wave abnormality, consider inferior ischemia Abnormal ECG Confirmed by SASKIA AYALA M.D. ([id number]), city editor GIGI PRECIADO ([id number]) on 06/19/2017 11:18:28 AM Referred By: Confirmed By:SASKIA AYALA M.D.
[2017-06-19] MEDS: Norepinephrine 8 MG/0.9% NS 250 ML IVPB SCH (17:49)
[2017-06-19] MEDS: Vasopressin 40 UNIT, Admixture Fee 1 EACH in Sodium Chloride 0.9% 100 ML IV SCH (20:01)
[2017-06-19] MEDS: NPH, Human Insulin Isophane 300 UNIT/3 ML VIAL SC SCH (21:36)
[2017-06-20] MEDS: Sodium Chloride 0.9% 1,000 ML IV SCH ×3 (02:54→16:36)
[2017-06-20] MEDS: HumaLOG 300 UNITS/3 ML VIAL SC PRN ×3 (04:35→22:25)
[2017-06-20] MEDS: Albumin 25% 25 GM/100 ML BOT IVPB SCH (05:32)
[2017-06-20] MEDS: Piperacillin/Tazobactam 3.375 GM in Sodium Chloride 0.9% 100 ML IVPB SCH ×4 (05:34→23:33)
[2017-06-20] MEDS: Hydrocortisone Sod Succ/PF 100 mg/2 ml Vial IVP SCH ×3 (05:34→17:46)
[2017-06-20 05:45] LABS: ALT (SGPT) 42 U/L (8-55); AST (SGOT) 81 U/L (5-34); Albumin 3.2 g/dL (3.4-4.8); Alkaline Phosphatase 99 U/L (40-150); Anion Gap 12 mmol/L (10-20); BUN (Urea Nitrogen) 26 mg/dL (8.4-25.7); Bilirubin, Total 7.4 mg/dL (0.2-1.2); Calc. Creatinine Clearance 170 mL/min (70-130); Calcium 8.4 mg/dL (7.8-10.44); Carbon Dioxide 23 mmol/L (23-31); Chloride 113 mmol/L (98-107); Estimated GFR-MDRD Greater than 90; Globulin 2.1 g/dL (2.4-3.5); Glucose 193 mg/dL (80-115); Potassium 4.3 mmol/L (3.5-5.1); Protein, Total 5.3 g/dL (5.8-8.1); Sodium 144 mmol/L (136-145)
[2017-06-20 06:09] LABS: Band 37 % (5-11); Hemoglobin 7.2 g/dL (14.0-18.0); Hypochromia SLIGHT = 6-15 cells (100X) (0-5/hpf); Lymphocytes 1 % (21-51); MDiff Complete? YES; Mean Corpuscular HGB CONC 29.6 g/dL (32.0-36.0); Mean Corpuscular Hemoglobin 28.5 pg (27.0-31.0); Mean Corpuscular Volume 96.2 fl (80.0-94.0); Monocytes 6 % (0-10); Neutrophil 56 % (42-75); Nucleated RBC 1 % (0); PLT Morphology Comment Appears Adequate; Platelet Count 284 thou/uL (130-400); RBC Distribution Width 17.3 % (11.5-14.5); Red Blood Cell (RBC) Count 2.53 mill/uL (4.70-6.10); White Blood Cell (WBC) Count 16.7 thou/uL (4.8-10.8)
[2017-06-20 06:36] LABS: ALV-art Gradient 159.875 (0-20); Actual Bicarbonate (HCO3a) 23.1 mEq/L (22-26); Base Excess (BEa) -2.9 mEq/L (0 (+/-) 2.5); CO2 Tension 46.5 mmHg (35.0-45.0); Calcium, Ionized 1.2 mmol/L (1.12-1.30); Hematocrit-ABG 22.4 % (42.0-52.0); Hemoglobin (Hb) 6.8 g/dL (14.0-18.0); O2 Tension (PaO2) 67.6 mmHg (80.0-100.0); Puncture Site ALINE; pH, Arterial 7.31 (7.35-7.45)
[2017-06-20] MEDS ORDERED: Furosemide 40 MG/4 ML VIAL SLOW IVP SCH (08:30)
[2017-06-20] MEDS: Famotidine/PF 20 mg/2ml Vial SLOW IVP SCH ×2 (08:30→21:52)
[2017-06-20] MEDS: NPH, Human Insulin Isophane 300 UNIT/3 ML VIAL SC SCH ×2 (08:31→21:52)
--- NOTE | 2017-06-20 08:53 | RAD ---
PORTABLE CHEST 1 VIEW: DATE: 06/20/17. TIME: 4:42 a.m. HISTORY: Respiratory failure. FINDINGS: Endotracheal and nasogastric tubes remain in place. Bibasilar atelectatic changes redemonstrated. N o pneumothoraces are seen. POS: [facility]
--- NOTE | 2017-06-20 10:23 | PRG ---
DATE OF SERVICE: 06/20/2017 SUBJECTIVE: Mr. Costa was on pressors temporarily, yesterday he was off again, making good urine out put. Vital signs are stable. PHYSICAL EXAMINATION: VITAL SIGNS: Blood pressure is 105/70, pulse is 109, respirations vent. GENITOURINARY: Urine output is good at 08:20 overnight. ABDOMEN: Drain output total of 60. Upper drain is serosanguineous. Bottom drain is old bloody look ing drainage. Midline wound VAC. Ileostomy mucosa is pink in the right lower quadrant, but no stool . LABORATORY DATA: White cell count is down to 16. Sodium 144, potassium is 4.3, creatinine 0.82, gl ucose 193. Bilirubin down to 7.4, alkaline phosphatase remains normal at 99. ASSESSMENT: Postoperative day #3, abdominal washout, loop ileostomy for leak after ileostomy elsa marcos PLAN: He is being weaned from the ventilator by Dr. Alva, do not expect him to be able to take p. o. anytime soon. He is likely to need TPN; however, we would like to wait till this bilirubin contin ues to trend down some more before starting it. Continue wound VAC, antibiotics.
--- NOTE | 2017-06-20 10:29 | PRG ---
DATE OF SERVICE: 06/20/2017 Thirty-five minutes critical care time. SUBJECTIVE: The patient remains intubated on mechanical ventilation. He will wake up and follow com mands. He has been weaned off the vasopressor overnight. OBJECTIVE: VITAL SIGNS: On exam, his pulse is 110, blood pressure 124/88, O2 sat 97%, CVP 20, total intake for 24 hours 4042, output 1815. Weight 279 pounds. HEENT: Unremarkable. NECK: No JVD. LUNGS: Clear breath sounds. CARDIAC: S1, S2, slightly tachycardic. ABDOMEN: Slightly distended. Wound VAC noted. EXTREMITIES: Generalized edema throughout. LABORATORY DATA: White blood cell count 16.7, hematocrit 24.4, platelet count 284. pH 7.31, pCO2 of 46, pO2 67 on SIMV rate 14, tidal volume 500, PEEP 5, pressure support 10, FIO2 40%. Sodium 144, po tassium 4.3, chloride 113, CO2 23, BUN 26, creatinine 0.8, glucose 193. ASSESSMENT: 1. Peritonitis/abdominal sepsis. 2. Acute respiratory failure requiring mechanical ventilation. 3. Septic shock, which appears to be improved. 4. Third spacing. 5. Diabetes mellitus. PLAN: 1. Spontaneous breathing trial. 2. I think he would benefit from some diuresis. 3. Consider extubation, he has passed a spontaneous breathing trial. 4. Slow down IV fluid rate.
[2017-06-20] MEDS: Lorazepam 2 MG/ML VIAL SLOW IVP PRN (12:17)
[2017-06-20] MEDS: fentaNYL Citrate/PF 2,000 MCG in Sodium Chloride 0.9% 60 ML IV SCH (18:46)
[2017-06-20] MEDS ORDERED: Hydrocortisone Sod Succ/PF 100 mg/2 ml Vial IVP SCH (23:30)
[2017-06-21] MEDS: HumaLOG 300 UNITS/3 ML VIAL SC PRN ×4 (04:37→21:49)
[2017-06-21 04:47] LABS: ALT (SGPT) 61 U/L (8-55); AST (SGOT) 121 U/L (5-34); Albumin 3.1 g/dL (3.4-4.8); Alkaline Phosphatase 100 U/L (40-150); Anion Gap 13 mmol/L (10-20); BUN (Urea Nitrogen) 32 mg/dL (8.4-25.7); Bilirubin, Total 7.1 mg/dL (0.2-1.2); Calc. Creatinine Clearance 176 mL/min (70-130); Calcium 8.6 mg/dL (7.8-10.44); Carbon Dioxide 25 mmol/L (23-31); Chloride 117 mmol/L (98-107); Estimated GFR-MDRD Greater than 90; Globulin 2.3 g/dL (2.4-3.5); Glucose 180 mg/dL (80-115); Potassium 4.2 mmol/L (3.5-5.1); Protein, Total 5.4 g/dL (5.8-8.1); Sodium 151 mmol/L (136-145)
[2017-06-21 05:03] LABS: Band 17 % (5-11); Hemoglobin 7.9 g/dL (14.0-18.0); Lymphocytes 2 % (21-51); MDiff Complete? YES; Mean Corpuscular Hemoglobin 28.5 pg (27.0-31.0); Mean Corpuscular Volume 95.1 fl (80.0-94.0); Mean Platelet Volume 8.4 fL (7.4-10.4); Monocytes 2 % (0-10); Neutrophil 79 % (42-75); Nucleated RBC 1 % (0); PLT Morphology Comment Appears Adequate; Platelet Count 292 thou/uL (130-400); RBC Distribution Width 17.4 % (11.5-14.5); Red Blood Cell (RBC) Count 2.78 mill/uL (4.70-6.10); White Blood Cell (WBC) Count 13.8 thou/uL (4.8-10.8)
[2017-06-21] MEDS: Piperacillin/Tazobactam 3.375 GM in Sodium Chloride 0.9% 100 ML IVPB SCH ×4 (05:04→23:09)
[2017-06-21] MEDS ORDERED: Hydrocortisone Sod Succ/PF 100 mg/2 ml Vial IVP SCH (06:00)
[2017-06-21 06:30] LABS: Actual Bicarbonate (HCO3a) 26.2 mEq/L (22-26); Base Excess (BEa) 0.1 mEq/L (0 (+/-) 2.5); CO2 Tension 51.2 mmHg (35.0-45.0); Calcium, Ionized 1.2 mmol/L (1.12-1.30); Hematocrit-ABG 22.8 % (42.0-52.0); Hemoglobin (Hb) 7.2 g/dL (14.0-18.0); pH, Arterial 7.33 (7.35-7.45)
[2017-06-21 06:32] LABS: Puncture Site ALINE
[2017-06-21] MEDS: Famotidine/PF 20 mg/2ml Vial SLOW IVP SCH ×2 (08:34→21:40)
[2017-06-21] MEDS: NPH, Human Insulin Isophane 300 UNIT/3 ML VIAL SC SCH ×2 (08:35→21:41)
--- NOTE | 2017-06-21 11:29 | PRG ---
DATE OF SERVICE: 06/21/2017 SERVICE: Pulmonary Medicine INTERVAL HISTORY: The patient is doing fine from a respiratory standpoint. His oxygen requirements are decreasing. He continues to have significant abdominal issues. CVP is elevated. There were oth erwise no events overnight. Currently, he is too sedated to get any additional information from him. He is currently on a sedation holiday. PHYSICAL EXAMINATION: VITAL SIGNS: Afebrile, pulse 92, blood pressure 121/71, respirations 14, saturation 100% on 27% FiO2 and PEEP of 5. GENERAL: Patient is intubated and sedated. HEENT: Normocephalic, atraumatic. Sclerae are white, conjunctivae pink. Oral mucosa is moist witho ut lesions. LUNGS: Decent air entry. Dependent crackles are minimal. HEART: Normal rate, regular. ABDOMEN: Soft. There is tenderness to palpation throughout without rebound or guarding. Bowel soun ds are absent. Wound VAC and [address] in [address] GENITOURINARY: Gracia catheter in place. NEUROLOGIC: Grossly nonfocal. MUSCULOSKELETAL: No cyanosis or clubbing. There is diffuse 1-2+ edema throughout. LABORATORY DATA: WBC 13.8, hemoglobin 7.9, platelets 292,000. PH 7.33, pCO2 51, pO2 74. Sodium 151 . Basic metabolic profile is otherwise unremarkable. AST is up trending to 121, ALT is up trending to 61. Bilirubin is stable at 7.1. Urinalysis is essentially unremarkable. Urine culture is growing S erratia, which is mostly pansensitive. Blood cultures x2 are negative to date. IMAGING: Chest x-ray demonstrates left-sided pleural parenchymal opacification, possibly consistent with an effusion versus infiltrate. There also appears to be a similar pattern on the right. Endotr acheal tube remains in good position. There is a right-sided IJ, which terminates in decent location . Otherwise, I do not appreciate any focal infiltrate. No change compared to prior. ASSESSMENT: 1. Septic shock, resolving. 2. Gross peritonitis secondary to perforated viscus. 3. Status post laparotomy, partial colectomy, and ileostomy creation. 4. Type 2 diabetes mellitus. 5. Hypernatremia. PLAN: We will back off of his salt containing fluids and give him primarily free water. I will give him an additional dose of Lasix today. Ventilator adjustments have been made. We will give him a s pontaneous breathing trial and if he meets criteria, extubation will be considered. Our goal is to k eep him negative 1-2 liters over the next 24 hours. Critical care time: 30 minutes.
[2017-06-21] MEDS ORDERED: Furosemide 40 MG/4 ML VIAL SLOW IVP SCH (11:30)
[2017-06-21] MEDS: Dextrose 5% in Water 1,000 ML IV SCH (12:31)
--- NOTE | 2017-06-21 14:34 | RAD ---
RADIOGRAPH CHEST 1 VIEW: Date: 06/21/17. Time: 4:49 a.m. HISTORY: A 61-year-old male in respiratory failure. COMPARISON: 06/20/17 at 4:42 a.m. FINDINGS: Endotracheal tube, NG tube, and right IJ central line, remain. Lungs remain hypoinflated. Interval worsening of silhouetting of the right hemidiaphragm by airspace density at the right base. Interval worsening of silhouetting of the left hemidiaphragm also by hazy pulmonary parenchymal densities in the left lower lobe. No pneumothorax. IMPRESSION: Interval worsening of aeration of the bilateral lung bases. JC [] POS: ANNIKA
[2017-06-21] MEDS: fentaNYL Citrate/PF 2,000 MCG in Sodium Chloride 0.9% 60 ML IV SCH (17:04)
[2017-06-22 04:33] LABS: ALT (SGPT) 69 U/L (8-55); AST (SGOT) 89 U/L (5-34); Albumin 2.8 g/dL (3.4-4.8); Alkaline Phosphatase 111 U/L (40-150); Anion Gap 10 mmol/L (10-20); BUN (Urea Nitrogen) 31 mg/dL (8.4-25.7); Bilirubin, Total 5.7 mg/dL (0.2-1.2); Calc. Creatinine Clearance 173 mL/min (70-130); Calcium 8.4 mg/dL (7.8-10.44); Carbon Dioxide 31 mmol/L (23-31); Chloride 114 mmol/L (98-107); Estimated GFR-MDRD Greater than 90; Globulin 2.2 g/dL (2.4-3.5); Glucose 142 mg/dL (80-115); Potassium 3.1 mmol/L (3.5-5.1); Sodium 152 mmol/L (136-145)
[2017-06-22 04:45] LABS: #Lymphocytes 0.8 thou/uL (1.20-3.40); #Monocytes 0.4 thou/uL (0.11-0.59); #Neutrophils 9.5 thou/uL (1.40-6.50); %Eosinophils 0.2 % (0.0-10.0); %Lymphocytes 7.7 % (21.0-51.0); %Monocytes 3.8 % (0.0-10.0); %Neutrophils 88.3 % (42.0-75.0); Hemoglobin 8.5 g/dL (14.0-18.0); Mean Corpuscular HGB CONC 30.5 g/dL (32.0-36.0); Mean Corpuscular Hemoglobin 29.2 pg (27.0-31.0); Mean Corpuscular Volume 95.4 fl (80.0-94.0); Mean Platelet Volume 8.8 fL (7.4-10.4); Platelet Count 300 thou/uL (130-400); RBC Distribution Width 17.5 % (11.5-14.5); White Blood Cell (WBC) Count 10.8 thou/uL (4.8-10.8)
[2017-06-22] MEDS: Piperacillin/Tazobactam 3.375 GM in Sodium Chloride 0.9% 100 ML IVPB SCH ×4 (05:22→23:25)
[2017-06-22] MEDS: HumaLOG 300 UNITS/3 ML VIAL SC PRN ×2 (05:23→09:26)
[2017-06-22] MEDS: Furosemide 40 MG/4 ML VIAL SLOW IVP SCH (05:30)
[2017-06-22] MEDS: Dextrose 5% in Water 1,000 ML IV SCH ×2 (05:31→15:24)
[2017-06-22] MEDS: Famotidine/PF 20 mg/2ml Vial SLOW IVP SCH ×2 (09:24→22:07)
[2017-06-22] MEDS: NPH, Human Insulin Isophane 300 UNIT/3 ML VIAL SC SCH ×2 (09:31→22:10)
[2017-06-22 11:05] LABS: Phosphorus 2.2 mg/dL (2.3-4.7)
[2017-06-22] MEDS: fentaNYL Citrate/PF 2,000 MCG in Sodium Chloride 0.9% 60 ML IV SCH (15:21)
--- NOTE | 2017-06-22 18:51 | PRG ---
DATE OF SERVICE: 06/22/2017 OBJECTIVE: VITAL SIGNS: Mr. Costa is afebrile with temperature maximum 99.4. Blood pressure 116/71 this evenin g. Heart rates in the 90s-100 range. Respiratory rate in the teens. GENERAL: Gets very agitated when he is not sedated. His intake and outputs negative 1966 this morni ng. LUNGS: Remarkable for coarse equal breath sounds. HEART: Regular rhythm. ABDOMEN: Soft. EXTREMITIES: Without asymmetry. LABORATORY DATA: White count 10.8, hemoglobin 8.5, platelets 300,000. Sodium 152, potassium 3.1, ch loride 114, bicarb 31, BUN 31, creatinine 1.8, glucose 142. There is no blood gas today. No chest x-ray today. IMPRESSION: 1. Respiratory failure after laparotomy. 2. Pulmonary edema and pleural effusions on negative fluid balance. 3. Encephalopathy and agitation when sedation is light. 4. Peritonitis secondary to leak. 5. Abdominal third spacing. 6. Diabetes. 7. Sepsis, which is clinically improved. We will continue spontaneous breathing trials q.a.m. Blood cultures from the have not grown any pathogens. He did have serratia growing from urine s jacy. He is currently not weanable. We will check radiograph and blood gas in the morning. Hopefully in t he next few days, we can wean to extubation. Critical care time was 30 minutes.
[2017-06-23 04:57] LABS: ALT (SGPT) 60 U/L (8-55); AST (SGOT) 56 U/L (5-34); Albumin 2.7 g/dL (3.4-4.8); Alkaline Phosphatase 103 U/L (40-150); BUN (Urea Nitrogen) 21 mg/dL (8.4-25.7); Bilirubin, Total 6.4 mg/dL (0.2-1.2); Calc. Creatinine Clearance 182 mL/min (70-130); Estimated GFR-MDRD Greater than 90; Globulin 2.2 g/dL (2.4-3.5); Glucose 130 mg/dL (80-115); Protein, Total 4.9 g/dL (5.8-8.1)
[2017-06-23 05:06] LABS: Anion Gap 13 mmol/L (10-20); Carbon Dioxide 36 mmol/L (23-31); Chloride 108 mmol/L (98-107); Sodium 154 mmol/L (136-145)
[2017-06-23 05:09] LABS: Potassium 2.6 mmol/L (3.5-5.1)
[2017-06-23 05:32] LABS: Band 19 % (5-11); Hemoglobin 9.1 g/dL (14.0-18.0); Hypochromia SLIGHT = 6-15 cells (100X) (0-5/hpf); Lymphocytes 9 % (21-51); MDiff Complete? YES; Mean Corpuscular Hemoglobin 28.4 pg (27.0-31.0); Mean Corpuscular Volume 94.6 fl (80.0-94.0); Mean Platelet Volume 9.3 fL (7.4-10.4); Metamyelocyte 2 % (0-0); Monocytes 1 % (0-10); Neutrophil 69 % (42-75); PLT Morphology Comment Appears Adequate; Platelet Count 326 thou/uL (130-400); RBC Distribution Width 17.6 % (11.5-14.5); White Blood Cell (WBC) Count 10.1 thou/uL (4.8-10.8)
[2017-06-23] MEDS: fentaNYL Citrate/PF 2,000 MCG in Sodium Chloride 0.9% 60 ML IV SCH ×2 (05:33→19:14)
[2017-06-23] MEDS: Furosemide 40 MG/4 ML VIAL SLOW IVP SCH (05:44)
[2017-06-23] MEDS: Piperacillin/Tazobactam 3.375 GM in Sodium Chloride 0.9% 100 ML IVPB SCH ×2 (05:44→12:50)
[2017-06-23] MEDS: Potassium Chloride 40 MEQ in Premix Bag 1 BAG IVPB PRN ×3 (05:44→18:33)
[2017-06-23] MEDS: Dextrose 5% in Water 1,000 ML IV SCH ×2 (06:02→16:59)
[2017-06-23] MEDS: Acetaminophen 650 MG Suppository PR PRN ×2 (06:02→17:35)
[2017-06-23 06:40] LABS: Actual Bicarbonate (HCO3a) 37.8 mEq/L (22-26); Base Excess (BEa) 12.4 mEq/L (0 (+/-) 2.5); CO2 Tension 54.3 mmHg (35.0-45.0); Calcium, Ionized 1.1 mmol/L (1.12-1.30); Hematocrit-ABG 30.9 % (42.0-52.0); Hemoglobin (Hb) 9.5 g/dL (14.0-18.0); pH, Arterial 7.46 (7.35-7.45)
[2017-06-23 06:42] LABS: O2 Tension (PaO2) 49.5 mmHg (80.0-100.0)
[2017-06-23 06:43] LABS: ALV-art Gradient 77.295 (0-20); Puncture Site RB
[2017-06-23] MEDS: Propofol 1,000 MG/100 ML VIAL IV PRN ×2 (08:43→22:00)
[2017-06-23] MEDS: Famotidine/PF 20 mg/2ml Vial SLOW IVP SCH ×2 (08:43→21:48)
[2017-06-23] MEDS: HumaLOG 300 UNITS/3 ML VIAL SC PRN (08:44)
--- NOTE | 2017-06-23 08:54 | PRG ---
DATE OF SERVICE: 06/23/2017 SUBJECTIVE: Mr. Costa remains ventilated. PHYSICAL EXAMINATION: VITAL SIGNS: He has been febrile this morning up to 100.9, heart rate 116, blood pressure 152/83, an d respiratory rate 16-20. LUNGS: Remarkable for mild rhonchi bilaterally. HEART: Regular rhythm. ABDOMEN: Soft. There is some purulent drainage coming out from one of his drains. LABORATORY DATA: White count 10.1, hemoglobin 9.1, platelets 326. Sodium 154, potassium 2.6, chloride 108, bicarbonate 36, BUN 21, and creatinine 0.7. IMPRESSION: 1. Respiratory failure after peritonitis. 2. Nutrition, probably needs to have total parenteral nutrition started. 3. Ongoing fever. I am hesitant to wean him because of the fever and also because of his exam. I d o not think he will be able to cough up his secretions at least at this point. I reviewed today his chest radiograph. He still has findings consistent with right-sided effusion as expected, although his radiograph compared to the first appears slightly improved. Critical care time was 30 minutes.
--- NOTE | 2017-06-23 08:55 | RAD ---
CHEST ONE VIEW: History: Ventilated patient. Comparison: 06-21-17 FINDINGS: Patient is ventilated with endotracheal tube tip above the anastacio approximately 4.5 cm. Enteric tube tip is below the diaphragm and out of the field of view. Central venous catheter tip is at the inferi or SVC. Layering bilateral pleural effusions are present. Compressive atelectasis in both lung bases with sup erimposed airspace opacities. IMPRESSION: No significant change in the radiographic appearance of the chest. POS: [facility]
[2017-06-23] MEDS: NPH, Human Insulin Isophane 300 UNIT/3 ML VIAL SC SCH ×2 (10:54→21:48)
[2017-06-23] MEDS ORDERED: ISOVUE-370 76%-LOCM 1 ML ONE (11:53)
[2017-06-23 11:59] LABS: Potassium 2.3 mmol/L (3.5-5.1)
--- NOTE | 2017-06-23 13:45 | CT ---
CT ABDOMEN AND PELVIS WITH CONTRAST: CLINICAL HISTORY: Fever. Sepsis. FINDINGS: Interval performance of right lower quadrant ostomy. There remains thick-walled bowel, as was demons trated on recent CT exam, indicating residua from the recently diagnosed acute enterocolitis. Correl ate with recent surgical findings. There has been interval placement of drainage catheters from the right ventral abdominal wall. No ev idence of portal venous gas. There has been marked reduction of prior complex ascites and free air. There remains scattered free fluid with a localized fluid and air collection of the ventral abdomina l compartment at the lower midline, measuring approximately 7.2 cm in diameter, as well as a smaller fluid collection with minute internal air of the right lower quadrant, anteriorly, immediately abutti ng a thick-walled right hemicolon, with a diameter of approximately 2.8 cm. Partially imaged consoli dation and pleural fluid seen at each lung base. There is cholelithiasis. Redemonstration of hyperd ensities of the periaortic region, stable appearing. Bilateral renal hypodensities are again seen. Contrast opacified small bowel loops are nondilated. The urinary bladder is decompressed with an ind welling catheter. IMPRESSION: 1. Interval post surgical changes with a right lower quadrant ostomy and indwelling drainage cathete rs with marked interval improvement of free fluid/complex ascites when comparing to prior exam. Ther e is residual bowel inflammation/thickening, as well as small residual fluid/air collections/developi ng abscesses; although, overall markedly improved when comparing to prior exam. Continued imaging fo llowup would prove useful. 2. Cholelithiasis. 3. Bibasilar consolidation and pleural fluid. POS: ANNIKA
[2017-06-23] MEDS: metroNIDAZOLE 500 MG in Premix Bag 1 BAG IVPB SCH ×2 (13:54→21:48)
[2017-06-23] MEDS: Fluconazole In NaCl,Iso-Osm 400 MG in Premix Bag 1 BAG IVPB SCH (16:34)
--- NOTE | 2017-06-23 16:53 | CON ---
DATE OF CONSULTATION: 06/23/2017 REASON FOR CONSULTATION: Sepsis, positive C. diff test. HISTORY OF PRESENT ILLNESS: A 61-year-old patient who has a history of type 2 diabetes, hypertension and rectosigmoid cancer who presented with a large mass and obstruction in 2011, following which he underwent chemoradiation therapy, developed rectal strictures and had a second surgery in 2014 with ileostomy. The patient required after that placement of a stent to dilate the area of stricture and then had an ileostomy takedown at the end of 05/2017 and unfortunately presented with evidence of acute peritonitis and sepsis, was admitted to the ICU and had an emergency surgical intervention by Dr. Martinez. This procedure carried out on 06/17. The operative report was reviewed and patient had a midline incision and had a small enterotomy, which was closed and the rest of the midline incision was opened with a lot of infected hematoma noticed which was irrigated. Foul odor was identified. Adhesions had to be taken down and the prior anastomosis found, there was a small pinpoint opening with a leak. This was oversewn. Adhesions were lysed again to shape another ostomy. The abdomen was irrigated and the ostomy was prepared. Patient had two drains left through separate incisions and he was transferred to the ICU. He had recrudescence of fever, he had some output in the rectal area and the C. diff test was positive from that output. The patient is sedated at this time and orotracheal intubation, has a right-sided neck line for IV access, Gracia catheter. PAST MEDICAL AND SURGICAL HISTORY: Includes diabetes, hypertension, rectosigmoid cancer, low anterior resection, chemoradiation therapy, complications including stricture. The cancer was a stage III with lymph node mets identified. There has been no evidence of recrudescence of the cancer following subsequent staging procedures. After the stricture development, he had an ileostomy placed. The stricture was dilated and had the ileostomy takedown. I think a segment of colon was resected as well. There is a history of lumbar spine surgery, probably laminectomy. ALLERGIES: MORPHINE reportedly. SOCIAL HISTORY: Never a smoker. FAMILY HISTORY: Noncontributory. PHYSICAL EXAMINATION: VITAL SIGNS: T-max recently was 101.0 at 4:00 a.m. today and is now 100, pulse 90, BP 94/60 and respiratory rate 12. SKIN: Shows the abdominal wounds from 12/30 with 2 areas approximated. There is a fat that appears as a normal appearance, little bit of areas of bruising in the anterior abdomen and he has a triple lumen catheter in the right side of the neck, Gracia catheter. HEENT: Some mild slight icterus in the scleral area. LUNGS: With symmetric coarse breath sounds. HEART: S1 and S2, regular rate. ABDOMEN: Somewhat distended. EXTREMITIES: He has normal pulses in lower extremities. No edema. No joint inflammatory activity noted. NEUROLOGIC: Not feasible. LABORATORY DATA: White cell count down from 26-10,000 as of today. Hemoglobin is down from 10 to 9 and platelets stable at 326. Differential shows neutrophils of 69%, bands are down from 43% to 19%. Sodium 154, creatinine 0.74 , potassium 2.6, bilirubin 6.4, AST 56, ALT 60 and albumin 2.7. Urinalysis with 4-6 wbc's. Microbiology with a positive C. diff PCR. The C. diff antigen was positive, but toxin was not done and I suggested the antigen and reflexed to the PCR test. Radiology studies included abdomen and pelvis CT done on admission, which showed the evidence of a perforated bowel with gas, liquid and the thickened bowel wall. The repeat CT done today showed indwelling drains, improvement in the free fluid and complex ascites, residual bowel inflammatory changes and area of small residual fluid collections. ASSESSMENT: 1. Diabetes and hypertension. 2. Rectosigmoid cancer T3 N2 with resection and then chemoradiation. 3. Stricture development, which let to ileostomy before diversion, resection of the stricture and eventually had another area of the stricture that was dilated in [place]. 4. Takedown of ileostomy of leakage and peritonitis. 5. Positive Clostridium difficile test in the rectal output. DISCUSSION: The patient's original process that led to the current decompensation obviously was the leakage area with peritonitis with the usual pathogens, added coverage for Marisa species needs to be considered at this time in view of the recrudescence of fever. Possibility of Clostridium difficile colitis is another consideration. He has a diverting ileostomy and will ask the nurse to submit repeat antigen and toxin test in the ileostomy output as well as again a repeat chest toxin and antigen test in the rectum output. C. diff involving small bowel has been described although not common. For treatment, we could add the vancomycin given in the antegrade ileostomy loop and we will discuss that with Dr. Rascon regarding the feasibility of doing that. In general, the inflammatory process seems to be improving, which goes along with the major role played by the peritonitis component rather than any possible added C. difficile colitis component. ANA ROSA
[2017-06-23] MEDS: Piperacillin-Tazo-Dextrose,Iso 3.375 GM in Premix Bag 1 BAG IVPB SCH ×2 (17:34→23:33)
[2017-06-23 18:32] LABS: Potassium 2.8 mmol/L (3.5-5.1)
[2017-06-23] MEDS: Sodium Chloride 0.9% 1,000 ML IV SCH (20:15)
[2017-06-24 05:25] LABS: Band 15 % (5-11); Hemoglobin 8.9 g/dL (14.0-18.0); Lymphocytes 7 % (21-51); MDiff Complete? YES; Mean Corpuscular HGB CONC 29.4 g/dL (32.0-36.0); Mean Corpuscular Volume 95.2 fl (80.0-94.0); Mean Platelet Volume 10.2 fL (7.4-10.4); Monocytes 2 % (0-10); Neutrophil 76 % (42-75); Nucleated RBC 4 % (0); Platelet Count 320 thou/uL (130-400); Polychromasia SLIGHT = 2-3 cells (100X) (0-2/hpf); RBC Distribution Width 18.1 % (11.5-14.5); Red Blood Cell (RBC) Count 3.16 mill/uL (4.70-6.10); Target Cells SLIGHT = 2-5 cells (100X) (0-1/hpf); White Blood Cell (WBC) Count 11.3 thou/uL (4.8-10.8)
[2017-06-24 05:35] LABS: Anion Gap 11 mmol/L (10-20); Chloride 105 mmol/L (98-107); Sodium 155 mmol/L (136-145)
[2017-06-24 06:03] LABS: BUN (Urea Nitrogen) 17 mg/dL (8.4-25.7); Calc. Creatinine Clearance 172 mL/min (70-130); Calcium 8.2 mg/dL (7.8-10.44); Carbon Dioxide 42 mmol/L (23-31); Estimated GFR-MDRD Greater than 90; Glucose 106 mg/dL (80-115); Potassium 2.9 mmol/L (3.5-5.1)
[2017-06-24] MEDS: Piperacillin-Tazo-Dextrose,Iso 3.375 GM in Premix Bag 1 BAG IVPB SCH ×2 (06:27→12:00)
[2017-06-24] MEDS: Furosemide 40 MG/4 ML VIAL SLOW IVP SCH ×2 (06:27→10:50)
[2017-06-24] MEDS: metroNIDAZOLE 500 MG in Premix Bag 1 BAG IVPB SCH ×3 (06:28→21:10)
[2017-06-24 08:44] LABS: Actual Bicarbonate (HCO3a) 41.7 mEq/L (22-26); Base Excess (BEa) 15.5 mEq/L (0 (+/-) 2.5); CO2 Tension 61.3 mmHg (35.0-45.0); Calcium, Ionized 1.1 mmol/L (1.12-1.30); Hematocrit-ABG 32.2 % (42.0-52.0); Hemoglobin (Hb) 9.6 g/dL (14.0-18.0); O2 Tension (PaO2) 58.2 mmHg (80.0-100.0); Puncture Site RR; pH, Arterial 7.45 (7.35-7.45)
[2017-06-24 08:45] LABS: ALV-art Gradient 116.825 (0-20)
--- NOTE | 2017-06-24 08:55 | RAD ---
CHEST 1 VIEW: HISTORY: Ventilated patient. COMPARISON: Chest 1 view prior day. FINDINGS: The patient has intubated with the tip below the level of the clavicles. This is above the anastacio 3. 1 cm. Small effusions. Right hemithorax opacification is worse, likely due to layering effusion. Dense calcifications of the aorta. The central venous catheter tip is not well seen, although likely unchanged in position. The enteric tube tip is in the gastric body. IMPRESSION: Increased opacification of right hemithorax likely sequelae of redistribution of pleural fluid. The remainder of the findings are unchanged. POS: [facility]
[2017-06-24] MEDS: fentaNYL Citrate/PF 2,000 MCG in Sodium Chloride 0.9% 60 ML IV SCH ×2 (08:56→20:33)
[2017-06-24] MEDS: Potassium Chloride 40 MEQ in Premix Bag 1 BAG IVPB SCH ×3 (10:28→17:23)
[2017-06-24] MEDS: Acetaminophen 650 MG Suppository PR PRN ×2 (10:28→20:29)
[2017-06-24] MEDS: NPH, Human Insulin Isophane 300 UNIT/3 ML VIAL SC SCH ×2 (10:33→20:30)
[2017-06-24] MEDS: Famotidine 40 MG/4 ML VIAL SLOW IVP SCH ×2 (10:39→21:10)
[2017-06-24] MEDS: Famotidine/PF 20 mg/2ml Vial SLOW IVP SCH (10:50)
[2017-06-24] MEDS: Dextrose 5% in Water 1,000 ML IV SCH (10:50)
--- NOTE | 2017-06-24 14:56 | PRG ---
DATE OF SERVICE: 06/24/2017 SUBJECTIVE: Mr. Costa is in the ICU, intubated and sedated. His T-max continues to be elevated, las t recorded measurement was 100.7 at 8 a.m. today and was 101.7 at 8:00 p.m. yesterday. He is tachyca rdic at 103, O2 saturation 100%, 35 and 5 of settings. His fluid balance with negative 2200 yesterda y, negative 5600 two days before, and urinary output 2900 yesterday. The lines are the same. He has the drains in the right lower and right upper quadrant with 10 mL drainage on the right side lower d rain and 30 mL in the right upper drain which is similar to prior amounts. The overall exam is uncha nged from yesterday otherwise. His white cell count is a bit up to 11.3, hemoglobin 8.9, platelets 3 20 with 76% neutrophils, 15% bands. Chemistry with creatinine 0.73, sodium 155. Microbiology report s; we have the C. diff from the ileostomy output which was positive for the antigen and the PCR toxin . The repeat stool positive for the antigen PCR toxin. The blood culture thus far negative in 5 day s. The chest x-ray done today with increased opacification of right hemithorax, probably from pleura l effusion. ASSESSMENT: Type 2 diabetes, hypertension, rectosigmoid cancer, T3 N2 resection, chemoradiation, str icture development of his complications noted previously, which led to the ostomy diversion, resectio n of stricture, and then takedown of ileostomy with peritonitis following leakage. Positive Clostrid ium difficile test in the rectal and ileostomy outputs. DISCUSSION: The patient has had Diflucan added to his regimen of Zosyn and Flagyl, which will be con tinued. He continues to have fever and the CD4 is positive from all the outputs and will discuss wit h GI about placing a tube via colonoscopy for irrigation of the colon segments with vancomycin and we will start vancomycin via tube as well.
[2017-06-24 15:21] LABS: INR-International Normal Ratio 1.3; PTT 29.9 SEC (22.9-36.1); Prothrombin Time 16.1 SEC (12.0-14.7)
[2017-06-24] MEDS: Fluconazole In NaCl,Iso-Osm 400 MG in Premix Bag 1 BAG IVPB SCH (15:31)
[2017-06-24 15:37] LABS: ALT (SGPT) 51 U/L (8-55); AST (SGOT) 52 U/L (5-34); Albumin 2.3 g/dL (3.4-4.8); Alkaline Phosphatase 108 U/L (40-150); BUN (Urea Nitrogen) 17 mg/dL (8.4-25.7); Calc. Creatinine Clearance 174 mL/min (70-130); Calcium 8.1 mg/dL (7.8-10.44); Cholesterol 72 mg/dl (< 200 Desired); Estimated GFR-MDRD Greater than 90; Globulin 2.5 g/dL (2.4-3.5); Glucose 115 mg/dL (80-115); HDL Cholesterol Less than 8 mg/dL (>60 Neg Risk); Magnesium 1.6 mg/dL (1.6-2.6); Phosphorus 2.4 mg/dL (2.3-4.7); Protein, Total 4.8 g/dL (5.8-8.1); Triglycerides 286 mg/dL (Less than 150)
[2017-06-24 15:49] LABS: Anion Gap 13 mmol/L (10-20); Carbon Dioxide 38 mmol/L (23-31); Chloride 104 mmol/L (98-107); Potassium 3.3 mmol/L (3.5-5.1); Sodium 152 mmol/L (136-145)
[2017-06-24] MEDS: Vancomycin HCl 25 MG/ML Oral PER TUBE SCH ×2 (17:24→20:29)
[2017-06-24] MEDS: Meropenem 1 GM in Sterile Water 20 ML SLOW IVP SCH (18:30)
[2017-06-24] MEDS: Propofol 1,000 MG/100 ML VIAL IV PRN (19:34)
[2017-06-24] MEDS ORDERED: Meropenem 1 GM in Sodium Chloride 0.9% 100 ML IVPB SCH (22:00)
[2017-06-24] MEDS: Multivitamins, Adult 10 ML, TRACE ELEMENT CONCENTRATE 1 ML in D15W-AA 5% with Lytes 2,0... IV SCH (22:11)
[2017-06-24] MEDS: Sodium Chloride 38.44 MEQ in Sterile Water Injection 990.39 ML IV SCH (22:14)
--- NOTE | 2017-06-24 22:17 | PRG ---
DATE OF SERVICE: 06/24/2017 SUBJECTIVE: Igor remains mechanically ventilated. If he is allowed to awaken, he becomes very tach ypneic. OBJECTIVE: VITAL SIGNS: His heart rate is 114, blood pressure 105/68 this evening, respiratory rate is per [facility] anical ventilation, oximetry is in the mid 90s. LUNGS: Remarkable for coarse equal breath sounds. Rhonchi were noted today. They were little worse than yesterday. Nebulizer treatments were added. HEART: Regular rhythm. ABDOMEN: Distended. EXTREMITIES: Without asymmetry. LABORATORY DATA: White count 11.3, hemoglobin 8.9, platelets 320. Sodium 152, potassium 3.3, chloride 104, bicarb 38, BUN 17, creatinine 0.7. Blood gas, pH 7.45, pCO2 61, pO2 58. He has a C. diff antigen positive. Apparently, the toxin was not performed for some reason. I met with the and answered all of her questions. Chest radiograph reviewed by me shows a right effusion. I do not think this is a pulmonary infiltrate or pneumonia. I believe this is reactive effusion asso ciated with his peritonitis. CT scan done within the last 24 hours shows improvement of the free fluid in his abdomen. IMPRESSION: 1. Respiratory failure associated with peritonitis 2. History of colon cancer, status post resection, ileostomy, and radiation. 3. Status post takedown of an ileostomy with a leak leading to peritonitis leading to this admission . I agree with TPN, which was started today by General Surgery. I have explained to the that this will be a several week hospitalization at minimum. Hopefully, we will start seeing some gradual improvement. Infectious Disease has been consulted to guide antim icrobial therapy. He is not weanable at this time. Critical care time: 30 minutes.
[2017-06-25] MEDS: Meropenem 1 GM in Sterile Water 20 ML SLOW IVP SCH ×3 (02:06→17:59)
[2017-06-25] MEDS: Acetaminophen 650 MG Suppository PR PRN ×2 (03:30→21:36)
[2017-06-25 05:39] LABS: BUN (Urea Nitrogen) 17 mg/dL (8.4-25.7); Calc. Creatinine Clearance 181 mL/min (70-130); Calcium 8.1 mg/dL (7.8-10.44); Estimated GFR-MDRD Greater than 90; Glucose 265 mg/dL (80-115); Magnesium 1.9 mg/dL (1.6-2.6); Phosphorus 2.1 mg/dL (2.3-4.7)
[2017-06-25 05:48] LABS: Anion Gap 8 mmol/L (10-20); Carbon Dioxide 40 mmol/L (23-31); Chloride 104 mmol/L (98-107); Potassium 3.9 mmol/L (3.5-5.1); Sodium 148 mmol/L (136-145)
[2017-06-25 05:49] LABS: Band 18 % (5-11); Hemoglobin 8.7 g/dL (14.0-18.0); Lymphocytes 4 % (21-51); MDiff Complete? YES; Mean Corpuscular HGB CONC 30.9 g/dL (32.0-36.0); Mean Corpuscular Hemoglobin 29.6 pg (27.0-31.0); Mean Corpuscular Volume 95.8 fl (80.0-94.0); Monocytes 5 % (0-10); Neutrophil 73 % (42-75); Nucleated RBC 2 % (0); Platelet Count 337 thou/uL (130-400); RBC Distribution Width 17.8 % (11.5-14.5); Red Blood Cell (RBC) Count 2.94 mill/uL (4.70-6.10); White Blood Cell (WBC) Count 10.9 thou/uL (4.8-10.8)
[2017-06-25] MEDS ORDERED: Furosemide 40 MG/4 ML VIAL SLOW IVP SCH (06:00)
[2017-06-25] MEDS: metroNIDAZOLE 500 MG in Premix Bag 1 BAG IVPB SCH ×3 (06:12→21:24)
[2017-06-25] MEDS: HumaLOG 300 UNITS/3 ML VIAL SC PRN ×4 (06:14→22:29)
[2017-06-25] MEDS: fentaNYL Citrate/PF 2,000 MCG in Sodium Chloride 0.9% 60 ML IV SCH ×2 (06:36→18:30)
[2017-06-25] MEDS: Fentanyl BOLUS 250 ML IVPB PRN ×2 (08:38→17:00)
--- NOTE | 2017-06-25 09:07 | RAD ---
PORTABLE AP CHEST: Date: 06-25-17 History: On ventilator. Follow up evaluation. Comparison: 06-24-17 FINDINGS: Nasogastric tube, endotracheal tube, right internal jugular vein with central venous catheter remains in place and unchanged in position. Again noted is increased density at each lung base, probably rel ated to bilateral pleural effusions and associated atelectasis. Superimposed pneumonia cannot be enti rely excluded. No other interval change. IMPRESSION: 1. Stable chest with bibasilar areas of increased density, probably related to bilateral pleural effu sions and atelectasis. Superimposed pneumonia cannot be entirely excluded. 2. Lines and tubes stable in position. POS: [facility]
[2017-06-25] MEDS: Famotidine 40 MG/4 ML VIAL SLOW IVP SCH ×2 (09:14→21:34)
[2017-06-25] MEDS: Vancomycin HCl 25 MG/ML Oral PER TUBE SCH ×4 (09:14→21:34)
[2017-06-25] MEDS: NPH, Human Insulin Isophane 300 UNIT/3 ML VIAL SC SCH ×2 (09:15→21:26)
[2017-06-25] MEDS ORDERED: Sodium Chloride 0.9% 1,000 ML IV SCH ×2 (12:15→12:45)
[2017-06-25 13:35] LABS: Potassium 3.6 mmol/L (3.5-5.1)
--- NOTE | 2017-06-25 13:54 | PRG ---
DATE OF SERVICE: 06/25/2017 SUBJECTIVE: Mr. Costa has a new finding of purulent exudate leaking out of his lower part of his wou nd. This was left packed with saline gauze for the surgeon to inspect. PHYSICAL EXAMINATION: VITAL SIGNS: His heart rate is 120, blood pressure 102/58, respiratory rate is in the teens. LUNGS: Remarkable for coarse equal breath sounds. HEART: Regular rhythm, rapid rate. ABDOMEN: Distended. EXTREMITIES: Mildly edematous. LABORATORY DATA AND IMAGING DATA: White count 10.9, hemoglobin 8.7, platelets 337, he has 18% bands on his peripheral smear. Sodium 148, potassium 3.9, chloride 104, bicarbonate 40, BUN 17, creatinine 0.69. Blood gas shows pH 7.5, pCO2 61, and pO2 58. Chest radiograph still shows bibasilar effusions and atelectasis. Intake and output is positive 1521. He was given Lasix this morning and I have discontinued this. W e will give him a liter of saline at this time if his blood pressures drifting downward. It is uncle ar if he will need an operative procedure today, but he will obviously need aggressive volume resusci tation if he does have an operative procedure. We will continue with his broad antimicrobial therapy . Critical care time was 30 minutes.
[2017-06-25] MEDS: Fluconazole In NaCl,Iso-Osm 400 MG in Premix Bag 1 BAG IVPB SCH (17:03)
[2017-06-25] MEDS: Sodium Chloride 38.44 MEQ in Sterile Water Injection 990.39 ML IV SCH (18:30)
[2017-06-25] MEDS: Propofol 1,000 MG/100 ML VIAL IV PRN (21:24)
[2017-06-25] MEDS: Multivitamins, Adult 10 ML, TRACE ELEMENT CONCENTRATE 1 ML in D15W-AA 5% with Lytes 2,0... IV SCH (22:28)
[2017-06-26] MEDS: Meropenem 1 GM in Sterile Water 20 ML SLOW IVP SCH ×3 (02:39→17:44)
[2017-06-26] MEDS: metroNIDAZOLE 500 MG in Premix Bag 1 BAG IVPB SCH ×3 (05:30→21:17)
[2017-06-26 05:41] LABS: BUN (Urea Nitrogen) 17 mg/dL (8.4-25.7); Calc. Creatinine Clearance 207 mL/min (70-130); Calcium 8.3 mg/dL (7.8-10.44); Estimated GFR-MDRD Greater than 90; Glucose 207 mg/dL (80-115)
[2017-06-26 05:42] LABS: Anisocytosis SLIGHT = 6-15 cells (100X) (0-5/hpf); Band 10 % (5-11); Eosinophils 2 % (0-10); Hemoglobin 8.7 g/dL (14.0-18.0); Hypochromia MODERATE=16-30 cells (100X) (0-5/hpf); Lymphocytes 5 % (21-51); MDiff Complete? YES; Mean Corpuscular HGB CONC 29.1 g/dL (32.0-36.0); Mean Corpuscular Hemoglobin 28.4 pg (27.0-31.0); Mean Corpuscular Volume 97.4 fl (80.0-94.0); Mean Platelet Volume 10.2 fL (7.4-10.4); Monocytes 3 % (0-10); Neutrophil 80 % (42-75); Nucleated RBC 1 % (0); Platelet Count 379 thou/uL (130-400); RBC Distribution Width 17.9 % (11.5-14.5); Red Blood Cell (RBC) Count 3.08 mill/uL (4.70-6.10); White Blood Cell (WBC) Count 12.2 thou/uL (4.8-10.8)
[2017-06-26 05:50] LABS: Anion Gap 9 mmol/L (10-20); Carbon Dioxide 39 mmol/L (23-31); Chloride 105 mmol/L (98-107); Potassium 3.7 mmol/L (3.5-5.1); Sodium 149 mmol/L (136-145)
[2017-06-26] MEDS: fentaNYL Citrate/PF 2,000 MCG in Sodium Chloride 0.9% 60 ML IV SCH (06:04)
[2017-06-26] MEDS: HumaLOG 300 UNITS/3 ML VIAL SC PRN ×3 (06:05→21:18)
[2017-06-26 06:10] LABS: Actual Bicarbonate (HCO3a) 39.2 mEq/L (22-26); Base Excess (BEa) 12.5 mEq/L (0 (+/-) 2.5); Calcium, Ionized 1.1 mmol/L (1.12-1.30); Hematocrit-ABG 27.8 % (42.0-52.0); Hemoglobin (Hb) 8.3 g/dL (14.0-18.0); O2 Tension (PaO2) 80.9 mmHg (80.0-100.0); pH, Arterial 7.39 (7.35-7.45)
[2017-06-26 06:13] LABS: ALV-art Gradient 87.025 (0-20); CO2 Tension 66.7 mmHg (35.0-45.0); Puncture Site RRA
--- NOTE | 2017-06-26 06:17 | CON ---
DATE OF CONSULTATION: 06/25/2017 HISTORY OF PRESENT ILLNESS: The patient is a 61-year-old male, patient of Dr. Ramsay, who un derwent a colonoscopy in 03/2012 and was diagnosed with sigmoid colon cancer. Subsequent colonoscopy on 08/11/[address] Enriquez showed an ulcer to rectosigmoid junction, ulcerations in the descend ing and sigmoid colon and in 09/2016, the patient underwent a colonoscopy and dilation of a rectal st ricture. Those biopsies were negative. The patient presented on 06/17/2017 with acute abdominal kierra n and peritonitis. On 06/07/2017, the patient underwent a loop ileostomy takedown with small-bowel r esection and anastomosis. On 06/17/2017, the patient underwent exploratory laparotomy, lysis of adhe sions, repair of enterotomy, oversew of leak at the small bowel anastomosis with a diverting loop ile ostomy. The patient was discharged on 06/11/2017. The patient underwent abdominal pelvic CT on 08/2017 which showed interval post-surgical changes in the right lower quadrant and indwelling drainag e catheters and marked improvement in free fluid and complex ascites. There is residual bowel inflam mation and thickening as well as small residual fluid air in the collecting system, cholelithiasis, a nd bibasilar consolidation. The patient has nothing to history of present illness. PAST MEDICAL HISTORY: Includes hypertension, sigmoid colon cancer status post surgical intervention and chemotherapy. PAST SURGICAL HISTORY: Includes ileostomy takedown, lumbar surgery. ALLERGIES: Include MORPHINE. HOME MEDICATIONS: Include Metformin 1000 mg p.o. b.i.d., Wellbutrin 75 mg p.o. b.i.d., Protonix 40 m g p.o. daily, nifedipine 50 mg p.o. daily, lisinopril/hydrochlorothiazide one p.o. daily, atorvastati n 80 mg p.o. daily, aspirin 81 mg p.o. daily. SOCIAL HISTORY: Unobtainable. FAMILY HISTORY: Unobtainable. REVIEW OF SYSTEMS: Unobtainable. PHYSICAL EXAMINATION: GENERAL: Shows an ill-appearing, intubated white female, in no acute distress. VITAL SIGNS: Temperature 100.1, pulse is 92, respiratory rate 13, blood pressure 90/53. CHEST: Clear. CARDIOVASCULAR: Regular rate and rhythm. ABDOMEN: Soft and when palpated, there was a midline bandage. There is an ileostomy in the right lo wer quadrant. Draining some greenish-colored material. EXTREMITIES: Normal. LABORATORY: Shows a white blood cell count of 10.9, hemoglobin 8.7, hematocrit of 28.2. PT is 16.1 with an INR of 1.3. Sodium is 148, CO2 of 40, glucose 265, phosphorous 2.1, magnesium 1.9. Total bi lirubin 5.0, AST of 52, albumin 2.3, triglycerides 286. Clostridium difficile collections from 06/23 and 06/21 show Clostridium difficile antigen positive toxin was not performed; however, on 8, the patient did have a positive antigen. ASSESSMENT: 1. Anastomotic leak with subsequent peritonitis and ileostomy indwelling catheter placement. 2. History of rectosigmoid cancer with chemoradiation. 3. History of rectal stricture. 4. Positive Clostridium difficile. RECOMMENDATIONS: With the patient's anatomy, the difficulty here is getting appropriate treatment to the colon. This may be alleviated by placement of a catheter to which to give infusion or to give a vancomycin enema. I will discuss with Dr. Rascon, his anatomy in the a.m. Continue IV metronidazole.
[2017-06-26] MEDS: Fentanyl BOLUS 250 ML IVPB PRN ×2 (08:00→16:00)
--- NOTE | 2017-06-26 09:04 | RAD ---
FRONTAL VIEW CHEST: COMPARISON: Previous day. INDICATION: Ventilated patient. FINDINGS: There is a right IJ catheter again seen as well as endotracheal tube and enteric catheter, grossly st able. Numerous extrinsic artifact limit detail. There is increasing pleural-based density of the ri ght chest. Pleural-based density at the inferior left hemithorax remains. Cardiac silhouette is enl arged. IMPRESSION: Progressive right effusion. Mild left effusion remains. POS: [facility]
--- NOTE | 2017-06-26 09:54 | PRG ---
DATE OF SERVICE: 06/26/2017 SERVICE: Pulmonary Medicine. INTERVAL HISTORY: The patient is doing okay from a respiratory standpoint. He is breathing comforta kristie. He seems to have some sort of central sleep apnea component. Otherwise, there were no signific ant overnight events. PHYSICAL EXAMINATION: VITAL SIGNS: Afebrile currently. T-max overnight was 100.4. Pulse 110, blood pressure 163/82, resp irations 12, saturation 100% on 31% FiO2 and PEEP of 5. GENERAL: The patient is intubated and sedated. HEENT: Normocephalic and atraumatic. Sclerae are white, conjunctivae pink. Oral mucosa is moist wi thout lesions. Endotracheal tube is in good position with excessive secretions that are cleared. HEART: Tachycardic. Regular. ABDOMEN: Soft. Nontender, nondistended. Bowel sounds are positive. MUSCULOSKELETAL: No cyanosis or clubbing. There is diffuse pitting throughout. It is most predomin antly displayed in the sacral region. GENITOURINARY: Gracia catheter in place. NEUROLOGIC: Grossly nonfocal. He nods yes and no appropriately. He is moving all 4 extremities spo ntaneously. LABORATORY DATA: WBC 12.2, hemoglobin 8.7, platelets 80,000. INR 1.3. A pH 7.39, pCO2 66, and pO2 80.9. Sodium 149 and trending upward. Bicarbonate 39 and roughly stable. Basic metabolic profile i s otherwise unremarkable. Blood sugars ranged from 241-288. Urinalysis is unremarkable. C. diff an tigen and toxin are positive by PCR. Urine culture was previously growing Serratia, which was essent ially pansensitive. IMAGING: Chest x-ray demonstrates progressive right-sided effusion. There is mild left-sided effusi on, which persist. There is a right-sided IJ central venous catheter in decent position. Endotrache al tube terminates 4 cm above the anastacio. Lung volumes are reduced accentuating interstitial marking s. ASSESSMENT: 1. Acute hypoxic respiratory failure. 2. Severe sepsis. 3. Urinary tract infection, complicated. 4. Clostridium difficile colitis. 5. Severe protein calorie malnutrition. 6. Metabolic encephalopathy. 7. Metabolic alkalosis with appropriate respiratory compensation. PLAN: We will see if we can back off of the bicarbonate and TPN. Continue replacing free water wilma use of his hypernatremia. Acetazolamide will be provided. The patient does remain volume overloaded and his blood pressures are quite elevated. Otherwise, support with ventilator, and antibiotics fernanda l be continued. Pulmonary or Critical Care will continue to follow while he remains in this location . CRITICAL CARE TIME: 30 minutes.
[2017-06-26] MEDS ORDERED: acetaZOLAMIDE Sodium 500 mg Vial IVP SCH (10:00)
[2017-06-26] MEDS: Vancomycin HCl 25 MG/ML Oral PER TUBE SCH ×4 (10:15→21:17)
[2017-06-26] MEDS: acetaZOLAMIDE Sodium 500 mg Vial IVP SCH (10:16)
[2017-06-26] MEDS: Famotidine 40 MG/4 ML VIAL SLOW IVP SCH ×2 (10:18→21:19)
[2017-06-26] MEDS: NPH, Human Insulin Isophane 300 UNIT/3 ML VIAL SC SCH ×2 (10:20→21:18)
[2017-06-26] MEDS: Propofol 1,000 MG/100 ML VIAL IV PRN ×2 (10:28→22:15)
[2017-06-26] MEDS ORDERED: Potassium Phosphate 30 MMOL in Sodium Chloride 0.9% 500 ML IVPB SCH (10:30)
--- NOTE | 2017-06-26 16:37 | PRG ---
DATE OF SERVICE: 06/26/2017 SUBJECTIVE: Mr. Costa is a 61-year-old who is status post takedown of anastomotic leak with divertin g colostomy. The patient is sedated on mechanical ventilatory support. Abdominal wound is opened. There is a significant amount of gross purulence from the wound itself. I removed the sutures at the umbilicus. The wound was irrigated with saline and turned over to the wound care nursing for wound VAC reapplication. PHYSICAL EXAMINATION: VITAL SIGNS: Today includes blood pressure 81/51, pulse 103, respiratory rate is 12, temperature 100 .1 degrees Fahrenheit, oxygen saturation 100% on mechanical ventilatory support. ABDOMEN: Soft and obese. ASSESSMENT AND PLAN: Fascia sutures visible. Subcutaneous tissues are slightly necrotic. Gross pur ulence as explained were irrigated with saline. There is viable ostomy with output of stool. The pa tient otherwise is hemodynamically stable. No further surgical intervention. Care is per Pulmonary and Critical Care Service.
[2017-06-26] MEDS: Fluconazole In NaCl,Iso-Osm 400 MG in Premix Bag 1 BAG IVPB SCH (16:58)
--- NOTE | 2017-06-26 17:35 | PRG ---
DATE OF SERVICE: 06/26/2017 SUBJECTIVE: The patient is ventilated adding nothing to history of present illness. OBJECTIVE: VITAL SIGNS: Temperature is 101.1, T-max is 100.4, present temperature is 100.1, pulse was 103, bloo d pressure 85/54, respiratory rate is 11. Physical exam is unchanged from yesterday. He is having less output per rectum. LABORATORY DATA: Shows white blood cell count of 12.2, hemoglobin 8.7, hematocrit 29.9, sodium 149, CO2 of 39, and glucose 207. ASSESSMENT: 1. Anastomotic leak with subsequent peritonitis. 2. History of rectosigmoid cancer. 3. Positive Clostridium difficile diarrhea -- the patient's diarrhea seems to be slowing and he seem s to be fairly stable, not showing any signs of sepsis. The difficulty hear is reaching his colon wi th intraluminal antibiotics, presently is being covered by oral vancomycin, which probably has little chance of reaching the colon. PLAN: Metronidazole being given IV which will have some benefit. Patient is also on other broad spe ctrum antibiotics, possibly here for installation of vancomycin via tube in the colon or enema. Befo re these were considered, I would want to discuss these with Dr. Epstein. He would being stable at thi s time. I am inclined just to continue present management. RECOMMENDATIONS: We will discuss with Dr. Epstein.
[2017-06-26] MEDS: Multivitamins, Adult 10 ML, TRACE ELEMENT CONCENTRATE 1 ML in D15W-AA 5% with Lytes 2,0... IV SCH (22:15)
[2017-06-27] MEDS: Meropenem 1 GM in Sterile Water 20 ML SLOW IVP SCH ×3 (02:28→17:59)
[2017-06-27] MEDS: fentaNYL Citrate/PF 2,000 MCG in Sodium Chloride 0.9% 60 ML IV SCH ×2 (03:42→19:21)
[2017-06-27 04:26] LABS: Anion Gap 7 mmol/L (10-20); BUN (Urea Nitrogen) 19 mg/dL (8.4-25.7); Calc. Creatinine Clearance 207 mL/min (70-130); Calcium 8.1 mg/dL (7.8-10.44); Carbon Dioxide 37 mmol/L (23-31); Chloride 105 mmol/L (98-107); Estimated GFR-MDRD Greater than 90; Glucose 222 mg/dL (80-115); Magnesium 1.8 mg/dL (1.6-2.6); Phosphorus 2.3 mg/dL (2.3-4.7); Potassium 4.1 mmol/L (3.5-5.1); Sodium 145 mmol/L (136-145)
[2017-06-27 04:41] LABS: Anisocytosis SLIGHT = 6-15 cells (100X) (0-5/hpf); Band 7 % (5-11); Eosinophils 2 % (0-10); Hemoglobin 7.8 g/dL (14.0-18.0); Hypochromia SLIGHT = 6-15 cells (100X) (0-5/hpf); Lymphocytes 6 % (21-51); MDiff Complete? YES; Mean Corpuscular HGB CONC 29.6 g/dL (32.0-36.0); Mean Corpuscular Hemoglobin 28.7 pg (27.0-31.0); Mean Platelet Volume 9.7 fL (7.4-10.4); Neutrophil 85 % (42-75); Nucleated RBC 5 % (0); Platelet Count 374 thou/uL (130-400); RBC Distribution Width 17.8 % (11.5-14.5); Red Blood Cell (RBC) Count 2.72 mill/uL (4.70-6.10); White Blood Cell (WBC) Count 9.6 thou/uL (4.8-10.8)
[2017-06-27] MEDS: HumaLOG 300 UNITS/3 ML VIAL SC PRN ×4 (06:19→22:20)
[2017-06-27] MEDS: metroNIDAZOLE 500 MG in Premix Bag 1 BAG IVPB SCH ×3 (06:19→21:40)
[2017-06-27 07:49] LABS: Actual Bicarbonate (HCO3a) 34.7 mEq/L (22-26); Base Excess (BEa) 8.4 mEq/L (0 (+/-) 2.5); Calcium, Ionized 1.2 mmol/L (1.12-1.30); Hematocrit-ABG 26.4 % (42.0-52.0); Hemoglobin (Hb) 7.4 g/dL (14.0-18.0); O2 Tension (PaO2) 73.6 mmHg (80.0-100.0); pH, Arterial 7.37 (7.35-7.45)
[2017-06-27 07:50] LABS: CO2 Tension 61.4 mmHg (35.0-45.0); Puncture Site RRA
[2017-06-27] MEDS: Furosemide 20 MG/2 ML VIAL SLOW IVP SCH (08:17)
[2017-06-27] MEDS: Famotidine 40 MG/4 ML VIAL SLOW IVP SCH ×2 (08:18→21:39)
[2017-06-27] MEDS: Vancomycin HCl 25 MG/ML Oral PER TUBE SCH (08:19)
[2017-06-27] MEDS: acetaZOLAMIDE Sodium 500 mg Vial IVP SCH (08:19)
[2017-06-27] MEDS: NPH, Human Insulin Isophane 300 UNIT/3 ML VIAL SC SCH ×2 (08:25→21:40)
[2017-06-27] MEDS ORDERED: Magnesium Sulfate 2 GM in Sodium Chloride 0.9% 100 ML IVPB SCH (10:15)
[2017-06-27] MEDS ORDERED: Vancomycin HCl 25 MG/ML Oral PER TUBE SCH (10:17)
--- NOTE | 2017-06-27 10:35 | RAD ---
PORTABLE CHEST: HISTORY: Dyspnea. CCU followup. COMPARISON: 06/26/2017 FINDINGS: Evidence of bilateral effusions and bibasilar atelectasis and/or infiltrates. Mild cardiomegaly. ET tube, NG tube, and central line unchanged. IMPRESSION: No acute interval change apparent. POS: [facility]
--- NOTE | 2017-06-27 10:38 | PRG ---
DATE OF SERVICE: 06/27/2017 SUBJECTIVE: The patient is poorly responsive and nursing personnel told me that the patient denies a ny abdominal pain. He is having a lot of purulent drainage from the wound according to wound care te am. OBJECTIVE: VITAL SIGNS: Temperature 99.2, pulse is 94 and blood pressure 83/43. CHEST: Clear. ABDOMEN: Unchanged. LABORATORY DATA: Shows a white blood cell count of 9.6, hemoglobin of 7.8, hematocrit of 26.3 and 7 bands. Chemistry shows CO2 of 37 and glucose of 222. ASSESSMENT: 1. Clostridium difficile - this seems to be partially treated with ileostomy and no access to the co haylie. The patient seems to be stable. He is showing no signs of toxicity on IV metronidazole. 2. Anastomotic leak. 3. Respiratory failure. 4. History of rectosigmoid cancer. RECOMMENDATIONS: 1. Continue metronidazole IV. 2. We will discuss with Dr. Martinez on Wednesday for possibly vancomycin enemas versus tube placement v ersus continue present course.
[2017-06-27] MEDS: Sodium Chloride 38.44 MEQ in Sterile Water Injection 990.39 ML IV SCH (11:18)
--- NOTE | 2017-06-27 11:47 | PRG ---
DATE OF SERVICE: 06/27/2017 SERVICE: Pulmonary Medicine. INTERVAL HISTORY: The patient is doing a little bit better from a cardiovascular and respiratory sta ndpoint. He cannot provide any additional elements of the history because he is simply too sleepy un reena the influence of multiple sedating medications. He is on 175 of fentanyl and 20 of propofol. Wi th some stimulation, he will try to open his eyes, but then drifts right back off to sleep. PHYSICAL EXAMINATION: VITAL SIGNS: Afebrile currently. T-max overnight was 100.4. Pulse 99, blood pressure 76/47, respir ations 13, saturation 99% on 27% FiO2 and a PEEP of 5. GENERAL: Patient is intubated and sedated. HEENT: Normocephalic and atraumatic. Sclerae are white, conjunctivae pink. Oral nasal mucosa is mo ist without lesions. LUNGS: Decent air entry. There is no prolonged expiratory phase or wheezing. No crackles are appre ciated. HEART: Normal rate and regular. ABDOMEN: Soft, nontender and nondistended. Bowel sounds are positive. MUSCULOSKELETAL: No cyanosis or clubbing. There is 2+ pitting throughout. GENITOURINARY: Gracia catheter in place. NEUROLOGIC: Grossly nonfocal. LABORATORY DATA: WBC 9.6, hemoglobin 7.8 and platelets 374,000. Basic metabolic profile is essentia lly unremarkable. Bicarbonate is 37. Sodium has improved to 145. Creatinine 0.61 and stable. Gluc ose 222. Magnesium and phosphorus all within the normal limits, but magnesium is at the lower limits of normal. Ammonia is 32. C. diff antigen and toxin are positive. IMAGING DATA: Chest x-ray demonstrates endotracheal tube is in good position, roughly 4 cm above the anastacio. There is a right-sided IJ in good position. There is fluid in the fissure, and evidence of a layering effusion on the right. There is also a left-sided pleural effusion. Otherwise, I do not see any acute opacification. ASSESSMENT: 1. Acute hypoxic respiratory failure. 2. Severe sepsis. 3. Urinary tract infection, complicated. 4. Clostridium difficile colitis. 5. Severe protein-calorie malnutrition. 6. Metabolic encephalopathy. 7. Metabolic alkalosis with appropriate respiratory compensation. PLAN: We will continue replacing free water. He remains a touch volume overloaded and is slightly a lkalotic. As such, we will continue our acetazolamide, and Lasix. We will back off on the sedation as the patient is currently a little too sleepy. Magnesium will be replaced today. I will once agai n discontinue our chest x-rays, which will not need to be repeated unless we have a significant incre ase in oxygen requirements. Pulmonary Critical Care will continue to follow. I have made multiple a djustments to the ventilator in order to improve patient comfort and minimize dyssynchrony. Hopefull y, this will allow us to liberate him from some sedation. CRITICAL CARE TIME: 30 minutes.
[2017-06-27] MEDS ORDERED: Magnesium 2 GM/NS 0.9% 100 ML 2 GM in Premix Bag 1 BAG IVPB SCH (12:00)
[2017-06-27] MEDS: Vancomycin HCl 500 MG, Sodium Chloride 0.9% 100 ML PR SCH ×4 (12:29→22:53)
[2017-06-27] MEDS: Fluconazole In NaCl,Iso-Osm 400 MG in Premix Bag 1 BAG IVPB SCH (16:12)
[2017-06-27] MEDS ORDERED: Propofol 1,000 MG/100 ML VIAL IV ONE (16:32)
[2017-06-27] MEDS: Propofol 1,000 MG/100 ML VIAL IV PRN (16:32)
--- NOTE | 2017-06-27 17:27 | PRG ---
DATE OF SERVICE: 06/27/2017 SUBJECTIVE: Mr. Costa remains on mechanical ventilatory support. He awakens to voice. Abdominal wound is now dressed with a wound VAC. There is some bile-tinged moderate amount of fluid returned into the canister. Abdominal examination, however, on palpation reveals no peritoneal signs . LABORATORY DATA: Includes CBC with 9600 white blood cells, hemoglobin and hematocrit are 7.8 and 26. 3 respectively, platelet count 274,000. Metabolic profile: Sodium 145, potassium 4.1, chloride is 1 05, bicarbonate 37, BUN 19, creatinine 0.61, glucose 221, magnesium 1.8, and phosphorus is 2.3. IMPRESSION: 1. Postoperative day #10 status post ileostomy takedown and oversew of previous anastomotic leak. 2. Postoperative wound infection. 3. Postoperative respiratory failure. PLAN: Continue with wound VAC and local wound care. There is no acute surgical indication for this patient at this time. The patient's primary surgeon, Dr. Martinez, will be reevaluating tomorrow.
--- NOTE | 2017-06-27 21:34 | RAD ---
CHEST ONE VIEW: History: Desaturation. Respiratory distress. Comparison: Earlier same day. FINDINGS: Central venous catheter is in place. The tip is in the superior SVC. There are right main layering pl eural effusions and bibasilar airspace opacity. Endotracheal tube tip appears to be at the level of t he clavicles. Enteric tube tip below the diaphragm and out of the field of view. IMPRESSION: No significant interval change. POS: [facility]
[2017-06-27] MEDS: Multivitamins, Adult 10 ML, TRACE ELEMENT CONCENTRATE 1 ML in D15W-AA 5% with Lytes 2,0... IV SCH (22:51)
--- NOTE | 2017-06-28 01:28 | PRG ---
DATE OF SERVICE: 06/27/2017 SUBJECTIVE: The patient continues in the ICU. OBJECTIVE: VITAL SIGNS: T-max 100.2 yesterday at 8:00 a.m., it is currently 99.6; pulse 113; blood pressure 90/ 50; FIO2 is 35; PEEP of 5. I's and O's have been positive 1999 today thus far. Urine output ranging between 1000 and 2900 daily. SKIN: Shows the same of vascular access, ET tube, Gracia catheter, the midline incision, the drains a nd the ileostomy. HEENT: The sclerae with evidence of icterus. LUNGS: With symmetric coarse breath sounds. HEART: S1 and S2. ABDOMEN: Mild to moderately distended. Bowel sounds are present. The output of the ileostomy has s ome consistency to it, it is not totally liquid. EXTREMITIES: Appeared to be well perfused, but he has anasarca. LABORATORY DATA: White cell count down to 9.6, hemoglobin 7.8, platelets 374 with 85% neutrophils, b ands are down to 7%. A pH of 7.37, pCO2 of 61, pO2 of 73. Sodium 145, creatinine 0.61, calcium 8.1. Last albumin was 2.3 two days ago, last bilirubin was 5.0, AST was 52 a bit lower than before, ALT normal and now is 51, alkaline phosphatase is normal at 108. Microbiology with C. diff results with negative blood cultures in 5 days. We do not have any samples from the peritoneal area for cultures yet and Dr. Epstein followed up the patient yesterday. He noted that there was gross purulent, which w as irrigated with saline and VAC was reapplied. No further surgical intervention was recommended. Neo Martinez saw the patient as well regarding the possibility of treating locally the colon for C. diffic ile. He is currently receiving meropenem and Diflucan as well as oral vancomycin through the enteric tube and IV Flagyl. ASSESSMENT AND DISCUSSION: Type 2 diabetes, hypertension, rectosigmoid cancer T3 N2 with resection, chemoradiation, stricture development with the complications noted previously which led to ostomy for diversion, resection of stricture and then takedown of ileostomy with peritonitis following leakage. This was repaired and now the patient is undergoing treatment for the aftermath of the peritonitis and sepsis. In addition to that, he has positive Clostridium difficile test from both the ileostomy and the rectal output and we will continue treatment for those.
[2017-06-28] MEDS: Meropenem 1 GM in Sterile Water 20 ML SLOW IVP SCH ×3 (02:37→19:02)
[2017-06-28 05:26] LABS: Band 7 % (5-11); Basophilic Stippling SLIGHT = 1-2 cells (100X) (None Seen); Eosinophils 4 % (0-10); Hemoglobin 8.4 g/dL (14.0-18.0); Hypochromia SLIGHT = 6-15 cells (100X) (0-5/hpf); Lymphocytes 4 % (21-51); MDiff Complete? YES; Mean Corpuscular HGB CONC 29.2 g/dL (32.0-36.0); Mean Corpuscular Hemoglobin 28.7 pg (27.0-31.0); Mean Corpuscular Volume 98.2 fl (80.0-94.0); Mean Platelet Volume 9.4 fL (7.4-10.4); Monocytes 1 % (0-10); Neutrophil 84 % (42-75); Platelet Count 440 thou/uL (130-400); Polychromasia SLIGHT = 2-3 cells (100X) (0-2/hpf); RBC Distribution Width 18.5 % (11.5-14.5); Red Blood Cell (RBC) Count 2.93 mill/uL (4.70-6.10); Stomatocytes SLIGHT = 2-5 cells (100X) (0-1/hpf); White Blood Cell (WBC) Count 10.5 thou/uL (4.8-10.8)
[2017-06-28 05:28] LABS: Anion Gap 9 mmol/L (10-20); BUN (Urea Nitrogen) 18 mg/dL (8.4-25.7); Calc. Creatinine Clearance 203 mL/min (70-130); Calcium 8.4 mg/dL (7.8-10.44); Carbon Dioxide 34 mmol/L (23-31); Chloride 106 mmol/L (98-107); Estimated GFR-MDRD Greater than 90; Glucose 291 mg/dL (80-115); Magnesium 2.1 mg/dL (1.6-2.6); Potassium 4.5 mmol/L (3.5-5.1); Sodium 144 mmol/L (136-145)
[2017-06-28] MEDS: metroNIDAZOLE 500 MG in Premix Bag 1 BAG IVPB SCH ×3 (05:55→21:33)
[2017-06-28] MEDS: Vancomycin HCl 500 MG, Sodium Chloride 0.9% 100 ML PR SCH ×3 (05:56→19:22)
[2017-06-28] MEDS: Propofol 1,000 MG/100 ML VIAL IV PRN ×2 (05:57→16:30)
[2017-06-28] MEDS: HumaLOG 300 UNITS/3 ML VIAL SC PRN ×3 (05:57→21:39)
[2017-06-28 06:54] LABS: Actual Bicarbonate (HCO3a) 34.3 mEq/L (22-26); Base Excess (BEa) 7.4 mEq/L (0 (+/-) 2.5); Calcium, Ionized 1.2 mmol/L (1.12-1.30); Hemoglobin (Hb) 7.8 g/dL (14.0-18.0); O2 Tension (PaO2) 91.1 mmHg (80.0-100.0); pH, Arterial 7.34 (7.35-7.45)
[2017-06-28 06:58] LABS: CO2 Tension 65.7 mmHg (35.0-45.0)
[2017-06-28 06:59] LABS: Puncture Site RR
[2017-06-28 07:00] LABS: ALV-art Gradient 160.475 (0-20)
[2017-06-28] MEDS: Furosemide 20 MG/2 ML VIAL SLOW IVP SCH (08:34)
[2017-06-28] MEDS: acetaZOLAMIDE Sodium 500 mg Vial IVP SCH (08:34)
[2017-06-28] MEDS: Famotidine/PF 20 mg/2ml Vial SLOW IVP SCH ×2 (08:48→21:34)
[2017-06-28] MEDS: NPH, Human Insulin Isophane 300 UNIT/3 ML VIAL SC SCH ×2 (08:58→21:34)
[2017-06-28] MEDS: Sodium Chloride 38.44 MEQ in Sterile Water Injection 990.39 ML IV SCH (14:48)
[2017-06-28] MEDS: Acetaminophen 650 MG Suppository PR PRN (15:15)
--- NOTE | 2017-06-28 15:31 | PRG ---
DATE OF SERVICE: 06/28/2017 SUBJECTIVE: Mr. Costa is still on the ventilator. Attempts at tube feeds were unsuccessful. He is now just on the TPN. There was question of some stool in his wound yesterday. PHYSICAL EXAMINATION: He is afebrile. His vital signs are stable. Urine output remains adequate. He has got some liquid stool in his ileostomy bag and found to be C. diff positive. His wound is see n on dressing change. There is a small amount of green stool appearing fluid in the wound but no act miley significant continuous drainage. The fascial sutures are seen. LABORATORY DATA: White blood cell count is 10, hemoglobin 8.4. Sodium 144, potassium 4.5, creatinin e 0.65, and glucose 291. ASSESSMENT: Peritonitis, status post anastomotic leak after washout end ileostomy. PLAN: There is some stool in the wound VAC, but it is not continuous since or significant in quantit y. Continue to wean vent as tolerated per pulmonary. Not concerned about the stool in his wound. C ontinue wound VAC for now in fact likely we will restart tube feeds in the next 24-48 hours.
[2017-06-28] MEDS: fentaNYL Citrate/PF 2,000 MCG in Sodium Chloride 0.9% 60 ML IV SCH (15:46)
[2017-06-28] MEDS: Fluconazole In NaCl,Iso-Osm 400 MG in Premix Bag 1 BAG IVPB SCH (16:29)
[2017-06-28] MEDS: SODIUM PHOSPHATE IV SCH (22:09)
[2017-06-28] MEDS: SODIUM ACETATE IV SCH (22:09)
[2017-06-28] MEDS: POTASSIUM ACETATE IV SCH (22:09)
[2017-06-28] MEDS: [UNRECOGNIZED DRUG - OTHER] IV SCH (22:09)
--- NOTE | 2017-06-29 00:58 | PRG ---
DATE OF SERVICE: 06/28/2017 SUBJECTIVE: Mr. Costa remains sedated for ventilation. His wound was opened and has a wound VAC in place. OBJECTIVE: VITAL SIGNS: Heart rate 100, blood pressure is 157/70, respiratory rate in the teens. LUNGS: Remarkable for coarse equal breath sounds. HEART: Regular rhythm. ABDOMEN: Soft. LABORATORY DATA: White count . CBC today, sodium 144, potassium 4.5, chloride 106, bicarbonate 34, BUN 18, creatinine 0.65. PH 7.4, CO2 of 65, pO2 of 91. IMPRESSION: Status post peritonitis, ongoing requirement for mechanical ventilation. Chest x-ray do ne today had significant effusions bilaterally. We will probably begin slow weaning as it is anticip ated that no operative procedure will be required. Fluid balance remains positive, but not as much f or the last 24 hours. He did not tolerate diuresis . Critical care time 30 minutes.
[2017-06-29] MEDS: Meropenem 1 GM in Sterile Water 20 ML SLOW IVP SCH ×3 (02:56→17:11)
[2017-06-29] MEDS: metroNIDAZOLE 500 MG in Premix Bag 1 BAG IVPB SCH ×3 (05:07→21:16)
[2017-06-29] MEDS: Vancomycin HCl 500 MG, Sodium Chloride 0.9% 100 ML PR SCH ×4 (05:07→19:25)
[2017-06-29 05:21] LABS: Anion Gap 7 mmol/L (10-20); BUN (Urea Nitrogen) 20 mg/dL (8.4-25.7); Calc. Creatinine Clearance 220 mL/min (70-130); Calcium 8.2 mg/dL (7.8-10.44); Carbon Dioxide 33 mmol/L (23-31); Chloride 108 mmol/L (98-107); Estimated GFR-MDRD Greater than 90; Glucose 195 mg/dL (80-115); Magnesium 1.9 mg/dL (1.6-2.6); Sodium 144 mmol/L (136-145)
[2017-06-29 05:25] LABS: Phosphorus 1.7 mg/dL (2.3-4.7)
[2017-06-29] MEDS: Propofol 1,000 MG/100 ML VIAL IV PRN ×2 (05:41→20:22)
[2017-06-29 06:00] LABS: Band 17 % (5-11); Hemoglobin 7.2 g/dL (14.0-18.0); Lymphocytes 7 % (21-51); MDiff Complete? YES; Mean Corpuscular HGB CONC 29.2 g/dL (32.0-36.0); Mean Corpuscular Hemoglobin 29.1 pg (27.0-31.0); Mean Corpuscular Volume 99.5 fl (80.0-94.0); Mean Platelet Volume 9.5 fL (7.4-10.4); Monocytes 2 % (0-10); Neutrophil 74 % (42-75); Platelet Count 411 thou/uL (130-400); RBC Distribution Width 19.3 % (11.5-14.5); Red Blood Cell (RBC) Count 2.47 mill/uL (4.70-6.10); White Blood Cell (WBC) Count 8.2 thou/uL (4.8-10.8)
[2017-06-29 06:09] LABS: Polychromasia SLIGHT = 2-3 cells (100X) (0-2/hpf); Stomatocytes SLIGHT = 2-5 cells (100X) (0-1/hpf)
[2017-06-29 07:27] LABS: Actual Bicarbonate (HCO3a) 32.8 mEq/L (22-26); Base Excess (BEa) 6.2 mEq/L (0 (+/-) 2.5); Calcium, Ionized 1.2 mmol/L (1.12-1.30); Hemoglobin (Hb) 7.1 g/dL (14.0-18.0); O2 Tension (PaO2) 104.8 mmHg (80.0-100.0); pH, Arterial 7.34 (7.35-7.45)
[2017-06-29] MEDS: Potassium Phosphate 9 MMOL in Sodium Chloride 0.9% 100 ML IVPB PRN (07:37)
[2017-06-29 07:38] LABS: Puncture Site RB
[2017-06-29] MEDS: Famotidine/PF 20 mg/2ml Vial SLOW IVP SCH ×2 (09:03→20:22)
[2017-06-29] MEDS: Furosemide 20 MG/2 ML VIAL SLOW IVP SCH (09:03)
[2017-06-29] MEDS: NPH, Human Insulin Isophane 300 UNIT/3 ML VIAL SC SCH ×2 (09:04→21:17)
[2017-06-29] MEDS: HumaLOG 300 UNITS/3 ML VIAL SC PRN ×3 (09:20→21:33)
--- NOTE | 2017-06-29 10:19 | PRG ---
DATE OF SERVICE: 06/29/2017 SUBJECTIVE: The patient has his eyes open. He follows commands although he is weak. There was some concern with a fistulous drainage in the skin close to the midline earlier. He is having liquid sto ols in the bag, the ileostomy and some soft mucoid stool in the rectal area. PHYSICAL EXAMINATION: VITAL SIGNS: T-max was 100.7 on 06/28/2017 at 8:00 a.m. and his temperature curve is downward trend since. BP 146/86, pulse 117, O2 sat 100% on 40 and 10 of settings. HEENT: Ocular movements are wide open and symmetric. Sclerae are white. NECK: Right IJ triple-lumen. RESPIRATORY: Symmetric air entry. CARDIAC: S1, S2, regular rate. ABDOMEN: Soft, midline negative pressure dressing, right-sided ileostomy. : Gracia catheter in place. EXTREMITIES: He has some anasarca, diffusely weak, but able to move extremities. LABORATORY DATA: White cell count 8.2, hemoglobin 7.2, platelets 411. Sodium 144, creatinine 0.59, phosphorus 1.7. No new microbiology information. ASSESSMENT AND DISCUSSION: Type 2 diabetes, hypertension, rectosigmoid cancer, T3 and 2 with resecti on, chemoradiation, stricture development with noted complications which led to diversion with ostomy , resection of stricture and then takedown of ileostomy followed by peritonitis associated with leaka ge. This was repaired and the patient developed sepsis and slowly recovering from it. Now he has C. diff on top of that, both from the ileostomy and rectal output. Continue current management, Difluc an, meropenem and oral vancomycin or G-tube vancomycin plus Flagyl. It looks like no interventions a re planned at least in the short term until he stabilizes further.
[2017-06-29] MEDS: Fluconazole In NaCl,Iso-Osm 400 MG in Premix Bag 1 BAG IVPB SCH (16:05)
[2017-06-29] MEDS: fentaNYL Citrate/PF 2,000 MCG in Sodium Chloride 0.9% 60 ML IV SCH (16:35)
[2017-06-29] MEDS: Sodium Chloride 38.44 MEQ in Sterile Water Injection 990.39 ML IV SCH (21:16)
[2017-06-29] MEDS: POTASSIUM ACETATE IV SCH (22:11)
[2017-06-29] MEDS: [UNRECOGNIZED DRUG - OTHER] IV SCH (22:11)
[2017-06-29] MEDS: SODIUM ACETATE IV SCH (22:11)
[2017-06-29] MEDS: SODIUM PHOSPHATE IV SCH (22:11)
--- NOTE | 2017-06-29 23:47 | PRG ---
DATE OF SERVICE: 06/29/2017 Mr. Costa remains stable. His vital signs are stable. His heart rate is 102, blood pressure 139/78, respiratory rate is 15, oximetry is 100%. Intake and output is positive 888. OBJECTIVE: LUNGS: Remarkable for coarse equal breath sounds. HEART: Regular rhythm. ABDOMEN: Has a wound VAC in place. He has new positive cultures. LABORATORY DATA: Blood gas pH 7.34, CO2 of 62, pO2 of 104. IMPRESSION: Respiratory failure after peritonitis with wound dehiscence. PLAN: Continue supportive care. He is currently marginal from weaning standpoint. Reviewing weights and his weight is 263, where his admission weight was reportedly in May 260. In June, he got down to apparently 252, but I cannot believe from 06/22/2017 to 06/23/2017, he had an 18 pound drop in weight. It is unclear to me what his dry weight is. We will continue the curre nt supportive care, mechanical ventilation. Critical care time was 30 minutes.
[2017-06-30] MEDS: Vancomycin HCl 500 MG, Sodium Chloride 0.9% 100 ML PR SCH ×4 (00:25→19:23)
[2017-06-30] MEDS: Meropenem 1 GM in Sterile Water 20 ML SLOW IVP SCH ×3 (01:40→18:20)
[2017-06-30] MEDS: HumaLOG 300 UNITS/3 ML VIAL SC PRN ×4 (04:25→21:34)
[2017-06-30] MEDS: metroNIDAZOLE 500 MG in Premix Bag 1 BAG IVPB SCH ×3 (05:25→21:24)
[2017-06-30 05:31] LABS: Anion Gap 9 mmol/L (10-20); BUN (Urea Nitrogen) 19 mg/dL (8.4-25.7); Calc. Creatinine Clearance 242 mL/min (70-130); Calcium 8.2 mg/dL (7.8-10.44); Carbon Dioxide 35 mmol/L (23-31); Chloride 106 mmol/L (98-107); Estimated GFR-MDRD Greater than 90; Glucose 195 mg/dL (80-115); Magnesium 1.8 mg/dL (1.6-2.6); Potassium 3.9 mmol/L (3.5-5.1); Sodium 146 mmol/L (136-145)
[2017-06-30 05:43] LABS: Phosphorus 1.6 mg/dL (2.3-4.7)
[2017-06-30 06:02] LABS: Band 11 % (5-11); Eosinophils 4 % (0-10); Hemoglobin 7.4 g/dL (14.0-18.0); Lymphocytes 11 % (21-51); MDiff Complete? YES; Mean Corpuscular HGB CONC 29.2 g/dL (32.0-36.0); Mean Corpuscular Hemoglobin 28.7 pg (27.0-31.0); Mean Corpuscular Volume 98.5 fl (80.0-94.0); Mean Platelet Volume 9.9 fL (7.4-10.4); Monocytes 3 % (0-10); Neutrophil 71 % (42-75); PLT Morphology Comment Appears Increased; Platelet Count 452 thou/uL (130-400); Polychromasia SLIGHT = 2-3 cells (100X) (0-2/hpf); Red Blood Cell (RBC) Count 2.58 mill/uL (4.70-6.10); White Blood Cell (WBC) Count 7.6 thou/uL (4.8-10.8)
[2017-06-30] MEDS: Potassium Phosphate 9 MMOL in Sodium Chloride 0.9% 100 ML IVPB PRN (06:32)
[2017-06-30 06:51] LABS: Base Excess (BEa) 8.3 mEq/L (0 (+/-) 2.5); CO2 Tension 55.3 mmHg (35.0-45.0); Hematocrit-ABG 25.8 % (42.0-52.0); Hemoglobin (Hb) 7.6 g/dL (14.0-18.0); pH, Arterial 7.41 (7.35-7.45)
[2017-06-30 06:54] LABS: ALV-art Gradient 161.105 (0-20); Puncture Site LR
--- NOTE | 2017-06-30 07:42 | PDOC.PULCC ---
CCU Progress Note: Subj/Obj - Subjective Date: 06/30/17 Time: 07:40 Subjective: On Vent. Sedated with propofol and fentanyl. Not spontaneously breathing over vent. - Objective Allergies/Adverse Reactions: Allergies Allergy/AdvReac Type Severity Reaction Status Date / Time morphine Allergy Verified 05/28/17 08:18 Medications: Current Medications Acetaminophen (Tylenol) 650 mg RI Q4H PRN PRN Reason: Headache/Fever or Pain Last Admin: 06/28/17 15:15 Dose: 650 mg Albuterol/Ipratropium (Duoneb) 3 ml NEB Q4H PRN PRN Reason: Wheezing Albuterol/Ipratropium (Duoneb) 3 ml NEB [id number] [facility] Last Admin: 06/30/17 06:32 Dose: 3 ml Vancomycin HCl 500 mg/ Sodium (Chloride 100 ml) 0 mg RI Q6HR [facility] Last Admin: 06/30/17 05:25 Dose: 100 ml Dextrose/Water (Dextrose 50%) 25 gm SLOW IVP PRN PRN PRN Reason: Hypoglycemia Famotidine (Pepcid) 20 mg SLOW IVP Q12HR [facility] Last Admin: 06/29/17 20:22 Dose: 20 mg Furosemide (Lasix) 20 mg SLOW IVP DAILY [facility] Last Admin: 06/29/17 09:03 Dose: 20 mg Glucagon (Glucagon) 1 mg IM PRN PRN PRN Reason: Hypoglycemia Hydralazine HCl (Apresoline) 10 mg SLOW IVP Q4H PRN PRN Reason: SBP > 170 or DBP > 100 Dextrose/Water (D5w) 1,000 mls @ 0 mls/hr IV .Q0M PRN; As Directed PRN Reason: Hypoglycemia Fentanyl Citrate 2,000 mcg/ (Sodium Chloride) 100 mls @ 0 mls/hr IV INF [facility]; Per Protocol PRN Reason: Protocol Stop: 07/17/17 20:48 Last Admin: 06/29/17 16:35 Dose: 100 mls Fentanyl Citrate (Fentanyl Bolus) 250 mls @ 0 mls/hr IVPB PRN PRN; As Directed PRN Reason: Breakthrough pain Stop: 07/17/17 20:48 Last Admin: 06/26/17 16:00 Dose: 2.5 mls Potassium Chloride 40 meq/ (Sodium Chloride) 270 mls @ 135 mls/hr IVPB ASDIR PRN PRN Reason: FOR SERUM K+ 2.5 - 3.5 Potassium Chloride 40 meq/ (Device) 100 mls @ 50 mls/hr IVPB ASDIR PRN PRN Reason: FOR SERUM K+ 2.5 - 3.5 Last Admin: 06/23/17 18:33 Dose: 100 mls Magnesium Sulfate 1 gm/ Sodium (Chloride) 102 mls @ 102 mls/hr IV PRN PRN PRN Reason: MAG LEVEL 1.4 - 2.0 Last Admin: 06/27/17 06:19 Dose: 102 mls Magnesium Sulfate 2 gm/ Device 100 mls @ 100 mls/hr IVPB ASDIR PRN PRN Reason: MAGNESIUM < 1.4 Last Admin: 06/27/17 11:16 Dose: 100 mls Potassium Phosphate 9 mmol/ (Sodium Chloride) 103 mls @ 25.75 mls/hr IVPB ASDIR PRN PRN Reason: Phosphate 1.0-1.8 Last Admin: 06/30/17 06:32 Dose: 103 mls Potassium Phosphate 12 mmol/ (Sodium Chloride) 254 mls @ 63.5 mls/hr IV ASDIR PRN PRN Reason: Serum phosphate 0.5-0.9 Potassium Phosphate 15 mmol/ (Sodium Chloride) 255 mls @ 63.75 mls/hr IV ASDIR PRN PRN Reason: Serum Phos < 0.5 Metronidazole 500 mg/ Device 100 mls @ 100 mls/hr IVPB Q8HR [facility] Last Admin: 06/30/17 05:25 Dose: 100 mls Fluconazole/Sodium Chloride (400 mg/ Device) 200 mls @ 100 mls/hr IVPB 1600 [facility] Last Admin: 06/29/17 16:05 Dose: 200 mls Sodium Chloride 38.44 meq/ (Sterile Water) 1,000 mls @ 125 mls/hr IV INF [facility] Last Admin: 06/29/17 21:16 Dose: 1,000 mls Meropenem 1 gm/ Sterile Water 20 mls @ 240 mls/hr SLOW IVP 0200,1000,1800 [facility] Last Admin: 06/30/17 01:40 Dose: 20 mls Sodium Acetate 40 meq/ Sodium Phosphate 30 mmol/ Potassium Acetate 20 meq/ Potassium Chloride 30 meq/ Calcium Gluconate 10 meq/ Magnesium Sulfate 10 meq/ Multivitamins 10 ml/ TRACE ELEMENT CONCENTRATE 1 ml/ Insulin Human Regular 10 units/Dextrose/Water/ Amino Acids/Sterile Water 1,440.3021 mls @ 60.013 mls/hr IV 2200 [facility] Last Admin: 06/29/17 22:11 Dose: 1,440.3021 mls Insulin Human Lispro (Humalog) 0 units SC .AGGRESSIVE SLIDING PRN; Protocol PRN Reason: AGGRESSIVE SLIDING SCALE Last Admin: 06/30/17 04:25 Dose: 3 unit Insulin Human NPH (Humulin N) 20 unit SC Q12HR [facility] Last Admin: 06/29/17 21:17 Dose: 20 unit Magnesium Oxide (Magnesium Oxide) 400 mg PO BIDPRN PRN PRN Reason: FOR SERUM MAG 1.4 - 2.0 Magnesium Oxide (Magnesium Oxide) 800 mg PO PRN PRN PRN Reason: FOR SERUM MAG < 1.4 Miscellaneous Medication (Phos-Nak) 1 pkt PO TIDPRN PRN PRN Reason: FOR PHOS LEVEL 1.0 - 1.8 Miscellaneous Medication (Phos-Nak) 2 pkt PO TIDPRN PRN PRN Reason: FOR PHOS LEVEL 0.5 - 1.0 Ondansetron HCl (Zofran Odt) 4 mg PO Q6H PRN PRN Reason: Nausea/Vomiting Ondansetron HCl (Zofran) 4 mg IVP Q6H PRN PRN Reason: Nausea Potassium Chloride (K-Dur) 40 meq PO ASDIR PRN PRN Reason: FOR SERUM K+ 2.5 - 3.5 Potassium Chloride (Klor-Con) 40 meq PER TUBE ASDIR PRN PRN Reason: FOR SERUM K+ 2.5-3.5 Promethazine HCl (Phenergan) 12.5 mg IM Q4H PRN PRN Reason: Nausea Propofol (Diprivan) 1,000 mg IV INF PRN; Protocol PRN Reason: TO ACHIEVE PERAZA SCORE 2-3 Stop: 07/17/17 20:48 Last Admin: 06/29/17 20:22 Dose: 1,000 mg Sodium Chloride (Flush - Normal Saline) 10 ml IVF PRN PRN PRN Reason: Saline Flush MAR Reviewed: Yes Vital Signs and I&O: Vital Signs Temp 99.6 F 06/30/17 04:00 Pulse 106 H 06/30/17 06:34 Resp 11 L 01/10/18 06:00 BP 139/78 06/30/17 06:34 Pulse Ox 100 06/30/17 02:26 Intake & Output 06/29/17 06/30/17 06/30/17 18:59 06:59 18:59 Intake Total 1450.4 1591.9 Output Total 1977 1180 115 Balance -526.6 411.9 -115 Weight 262 lb 5.601 oz Intake: Intake, IV Amount 1450.4 1591.9 Propofol 1000 mg (See 65.6 65 Protocol) IV INF PRN Rx#: [id number] Sodium Acetate 2 mEq/ml 684 658 40 meq Sodium Phosphate 30 mmol Potassium ACETATE 20 meq Potassium Chloride 30 meq Calcium Gluconate 10 meq Magnesium Sulfate 10 meq Multivitamins, Adult 10 ml Trace Element Concentrate 1 ml Insulin Regular 10 units In Dextrose 70% in Water 286 ml In Amino Acids 15% 950 ml In Sterile Water Injection 114 ml @ 60.013 mls/hr IV 2200 [facility] Rx#: [id number] Sodium Chloride 38.44 meq 616 825 In Sterile Water Injection 990.39 ml @ 125 mls/hr IV INF [facility] Rx#: [id number] fentaNYL Citrate/PF 2,000 84.8 43.9 mcg In Sodium Chloride 0 .9% 60 ml @ Per Protocol IV INF [facility] Rx#:[id number] Output: Drainage 70 30 ABD.WC 50 10 RLQ MIYA drain B 15 10 RUQ MIYA drain A 5 10 Ostomy Output 70 20 Ileostomy 70 20 Output, Gracia 1837 1130 115 Other: Voiding Method Indwelling Catheter Indwelling Catheter # Bowel Movements 2 Vent Setting: On pressure control with PS 17, fiO2 40% Spontaneous Breathing Test: not done (pt heavily sedated) CCU Progress Note: Exam - Physical Exam Constitutional: NAD HEENT: PERRLA, moist MMs, sclera anicteric Neck: no nodes, no JVD Cardiovascular: RRR Focused Respiratory Location: rhonchi: Right, Left Gastrointestinal: soft Deviation from normal: ileostomy with green stool. wound vac in place Musculoskeletal: edema present Neurological: non-focal, moves all 4 limbs Lymphatic: no nodes Deviation from normal: sedated Skin: no rash - Labs Result Diagrams: 06/30/17 03:45 06/30/17 03:45 Lab results: Laboratory Results - last 24 hr 06/29/17 06/29/17 06/29/17 09:15 18:42 21:28 WBC RBC Hgb Hct MCV MCH MCHC RDW Plt Count MPV Neutrophils % (Manual) Band Neuts % (Manual) Lymphocytes % (Manual) Monocytes % (Manual) Eosinophils % (Manual) Plt Morphology Comment Polychromasia Specimen Type Puncture Site Bicarbonate Actual ABG pH ABG pCO2 ABG pO2 ABG O2 Sat Calc/Maryan ABG O2 Content ABG Base Excess ABG Hematocrit ABG Hemoglobin ABG Oxyhemoglobin ABG Carboxyhemoglobin ABG Methemoglobin ABG Deoxyhemoglobin Helder Test A-a O2 Gradient Mode of Support Mechanical Rate Inspired O2 Tidal Volume Pressure Support PEEP or CPAP Sodium Potassium Chloride Carbon Dioxide Anion Gap BUN Creatinine Estimated GFR (MDRD) Glucose POC Glucose 202 H 195 H 175 H Calcium Phosphorus Magnesium 06/30/17 06/30/17 06/30/17 03:45 03:45 04:01 WBC 7.6 RBC 2.58 L Hgb 7.4 L Hct 25.4 L MCV 98.5 H MCH 28.7 MCHC 29.2 L RDW 19.0 H Plt Count 452 H MPV 9.9 Neutrophils % (Manual) 71 Band Neuts % (Manual) 11 Lymphocytes % (Manual) 11 L Monocytes % (Manual) 3 Eosinophils % (Manual) 4 Plt Morphology Comment Appears Increased H Polychromasia SLIGHT = 2-3 cells Specimen Type Puncture Site Bicarbonate Actual ABG pH ABG pCO2 ABG pO2 ABG O2 Sat Calc/Maryan ABG O2 Content ABG Base Excess ABG Hematocrit ABG Hemoglobin ABG Oxyhemoglobin ABG Carboxyhemoglobin ABG Methemoglobin ABG Deoxyhemoglobin Helder Test A-a O2 Gradient Mode of Support Mechanical Rate Inspired O2 Tidal Volume Pressure Support PEEP or CPAP Sodium 146 H Potassium 3.9 Chloride 106 Carbon Dioxide 35 H Anion Gap 9 L BUN 19 Creatinine 0.54 L Estimated GFR (MDRD) Greater than 90 Glucose 195 H POC Glucose 197 H Calcium 8.2 Phosphorus 1.6 L Magnesium 1.8 06/30/17 06:40 WBC RBC Hgb Hct MCV MCH MCHC RDW Plt Count MPV Neutrophils % (Manual) Band Neuts % (Manual) Lymphocytes % (Manual) Monocytes % (Manual) Eosinophils % (Manual) Plt Morphology Comment Polychromasia Specimen Type ARTERIAL Puncture Site LR Bicarbonate Actual 34.0 H ABG pH 7.41 ABG pCO2 55.3 H ABG pO2 103.0 H ABG O2 Sat Calc/Maryan 97.8 ABG O2 Content 10.5 L ABG Base Excess 8.3 H ABG Hematocrit 25.8 L ABG Hemoglobin 7.6 L ABG Oxyhemoglobin 95.8 ABG Carboxyhemoglobin 1.5 ABG Methemoglobin 0.6 ABG Deoxyhemoglobin 2.2 Helder Test POSITIVE A-a O2 Gradient 161.105 H Mode of Support SIMV/PI=13 Mechanical Rate 11 Inspired O2 47 Tidal Volume 651 Pressure Support 17 PEEP or CPAP 10.0 Sodium Potassium Chloride Carbon Dioxide Anion Gap BUN Creatinine Estimated GFR (MDRD) Glucose POC Glucose Calcium Phosphorus Magnesium CCU Progress Note: A/P - Problems (1) Acute respiratory failure Current Visit: Yes Status: Acute Code(s): J96.00 - ACUTE RESPIRATORY FAILURE , UNSP W HYPOXIA OR HYPERCAPNIA Qualifiers: Respiratory failure complication: hypoxia and hypercapnia Qualified Code(s) : J96.01 - Acute respiratory failure with hypoxia; J96.02 - Acute respiratory failure with hypercapnia; J96.02 - Acute respiratory failure with hypercapnia; J96.02 - Acute respiratory failure with hypercapnia - Time Spent with Patient Time: 30 min cc time - Plan Plan: Begin converting to volume ventilation and decrease PS Continue IV ABX and enteral vancomycin May end up needing trach if not weaned by next week continue TPN Reduce sedation
[2017-06-30] MEDS: Furosemide 20 MG/2 ML VIAL SLOW IVP SCH (09:13)
[2017-06-30] MEDS: Famotidine/PF 20 mg/2ml Vial SLOW IVP SCH ×2 (09:13→21:24)
[2017-06-30] MEDS: NPH, Human Insulin Isophane 300 UNIT/3 ML VIAL SC SCH ×2 (09:14→21:25)
[2017-06-30] MEDS ORDERED: Labetalol HCl 100 MG/20 ML VIAL SLOW IVP PRN (10:53)
[2017-06-30] MEDS ORDERED: Acetaminophen 1,000 MG in Premix Bag 1 BAG IVPB PRN (10:54)
[2017-06-30] MEDS: Labetalol HCl 100 MG/20 ML VIAL SLOW IVP PRN ×2 (11:02→12:06)
[2017-06-30] MEDS: Ketorolac Tromethamine 30 MG/ML VIAL IVP PRN (12:07)
[2017-06-30] MEDS ORDERED: acetaZOLAMIDE Sodium 500 mg Vial IVP SCH (12:30)
[2017-06-30] MEDS ORDERED: Sodium Chloride 0.9% 10 ML ONE (12:44)
[2017-06-30] MEDS ORDERED: Sterile Water 10 ML VIAL FS SCH (12:45)
[2017-06-30] MEDS: Fluconazole In NaCl,Iso-Osm 400 MG in Premix Bag 1 BAG IVPB SCH (16:32)
--- NOTE | 2017-06-30 19:22 | PRG ---
DATE OF SERVICE: 06/30/2017 Mr. Costa remains ventilated, trying to wean him from sedation, but he gets pretty agitated and this is limiting the weaning process. Wound VAC was changed today. The pictures for the wound VAC reveal there to be no enteric contents, discussed with Cheyanne Maritno. The patient has not been on tube feed s in a few days secondary to high residuals. OBJECTIVE: GENERAL: He is afebrile. VITAL SIGNS: Stable. ABDOMEN: Distended. His ostomy mucosa is pink. Small amount of stool in the bag with abdominal wou nd VAC. LABORATORY: His white count is 7.6. ASSESSMENT: History of peritonitis and anastomotic leak from ileostomy takedown. Septic shock has r esolved now. Respiratory insufficiency. PLAN: If he is not more weanable from the ventilator and less agitated in next 24-48, we will perfor m tracheostomy, probably I can perform on Wednesday if not markedly improved tomorrow. We will restart tube feeds at trickle amounts at 10 mL an hour.
[2017-06-30] MEDS: fentaNYL Citrate/PF 2,000 MCG in Sodium Chloride 0.9% 60 ML IV SCH (19:49)
[2017-06-30] MEDS: SODIUM PHOSPHATE IV SCH ×3 (22:06→23:10)
[2017-06-30] MEDS: POTASSIUM PHOSPHATE IV SCH ×2 (22:06→23:08)
[2017-06-30] MEDS: SODIUM ACETATE IV SCH ×3 (22:06→23:10)
[2017-06-30] MEDS: [UNRECOGNIZED DRUG - OTHER] IV SCH ×2 (22:06→23:08)
--- NOTE | 2017-06-30 22:11 | PRG ---
DATE OF SERVICE: 06/30/2017 Mr. Costa is a little more awake. He seems to be tolerating decreased ventilatory support a little b lucila than he has in the past. OBJECTIVE: VITAL SIGNS: His heart rate is 87, respiratory rate 19, oximetry is 100%, blood pressure 172/87. LUNGS: Coarse and equal. HEART: Regular rhythm. ABDOMEN: Soft. LABORATORY DATA: White count 8.2, hemoglobin 7.2, platelets 111,000 yesterday. Sodium 146, potassium 3.9, chloride 106, bicarb 35, BUN 19, creatinine 0.5, pH 7.41, CO2 of 55, pO2 o f 103. IMPRESSION: 1. Metabolic alkalosis, probably contributing to difficulty with weaning. Diamox is ordered today. 2. Severe blood loss anemia. He is on the border of needing transfusion and given that we are drawi ng blood everyday, he will likely benefit from transfusion at this point in my opinion. 3. Bibasilar pleural effusions secondary to recent peritonitis, there is no indication for chest tub es or thoracentesis. 4. Status post wound dehiscence. 5. Status post peritonitis after leak with an ileostomy in place. PLAN: Continue slow attempts at weaning from mechanical ventilation, nutritional support, antimicrob ial therapy. Critical care time 30 minutes.
[2017-06-30] MEDS: POTASSIUM ACETATE IV SCH (23:10)
[2017-06-30] MEDS: [UNRECOGNIZED DRUG - OTHER] IV SCH (23:10)
[2017-07-01] MEDS: Vancomycin HCl 500 MG, Sodium Chloride 0.9% 100 ML PR SCH ×4 (00:32→17:57)
[2017-07-01] MEDS: Meropenem 1 GM in Sterile Water 20 ML SLOW IVP SCH ×3 (02:15→18:39)
[2017-07-01] MEDS: Propofol 1,000 MG/100 ML VIAL IV PRN ×2 (02:15→21:00)
[2017-07-01] MEDS: HumaLOG 300 UNITS/3 ML VIAL SC PRN ×4 (05:14→21:07)
[2017-07-01] MEDS: metroNIDAZOLE 500 MG in Premix Bag 1 BAG IVPB SCH ×3 (05:19→21:00)
[2017-07-01 05:41] LABS: Anion Gap 8 mmol/L (10-20); BUN (Urea Nitrogen) 19 mg/dL (8.4-25.7); Calc. Creatinine Clearance 229 mL/min (70-130); Calcium 8.4 mg/dL (7.8-10.44); Carbon Dioxide 32 mmol/L (23-31); Chloride 107 mmol/L (98-107); Estimated GFR-MDRD Greater than 90; Glucose 215 mg/dL (80-115); Potassium 3.5 mmol/L (3.5-5.1); Sodium 143 mmol/L (136-145)
[2017-07-01 05:50] LABS: Phosphorus 1.8 mg/dL (2.3-4.7)
[2017-07-01 05:51] LABS: Band 16 % (5-11); Eosinophils 2 % (0-10); Hemoglobin 7.6 g/dL (14.0-18.0); Lymphocytes 7 % (21-51); MDiff Complete? YES; Mean Corpuscular HGB CONC 29.6 g/dL (32.0-36.0); Mean Corpuscular Volume 97.8 fl (80.0-94.0); Mean Platelet Volume 9.4 fL (7.4-10.4); Monocytes 3 % (0-10); Neutrophil 72 % (42-75); Nucleated RBC 3 % (0); PLT Morphology Comment Appears Increased; Platelet Count 487 thou/uL (130-400); RBC Distribution Width 19.3 % (11.5-14.5); Red Blood Cell (RBC) Count 2.61 mill/uL (4.70-6.10); White Blood Cell (WBC) Count 9.1 thou/uL (4.8-10.8)
[2017-07-01] MEDS: Potassium Phosphate 9 MMOL in Sodium Chloride 0.9% 100 ML IVPB PRN (06:36)
--- NOTE | 2017-07-01 08:38 | RAD ---
AP VIEW CHEST: HISTORY: Ventilator-dependent patient. FINDINGS: AP view chest was obtained on 07/01/17. Comparison is made to previous exam from 06/27/17. AP view chest demonstrates nasogastric and endotracheal tubes to be in good position. A right jugula r central line is again seen. There is continued presence of a right-sided pleural effusion. There is some development of a small left-sided pleural effusion which has developed since the previous exam. Some areas of airspace opacities seen in the right mid and right lung bases as well as in the left pe rihilar regions. IMPRESSION: Bilateral pleural effusions and right mid lung base and left mid lung areas of airspace opacities con cerning for possible pneumonia or pulmonary edema. POS: FOR[facility]
[2017-07-01] MEDS: Sterile Water 10 ML VIAL FS SCH (09:18)
[2017-07-01] MEDS: Famotidine/PF 20 mg/2ml Vial SLOW IVP SCH ×2 (09:19→21:00)
[2017-07-01] MEDS: Furosemide 20 MG/2 ML VIAL SLOW IVP SCH (09:19)
[2017-07-01] MEDS: acetaZOLAMIDE Sodium 500 mg Vial IVP SCH (09:19)
--- NOTE | 2017-07-01 09:23 | PRG ---
DATE OF SERVICE: 07/01/2017 The patient remains intubated on mechanical ventilation. He is actually much more calm today. I was able to put him on CPAP this morning. PHYSICAL EXAMINATION: VITAL SIGNS: Temperature 99.2, pulse 108, respirations 12, O2 sat 94%, blood pressure 145/81, 24 int rosendo 2564, output 5720. HEENT: Unremarkable. NECK: No JVD. LUNGS: Fairly clear anteriorly. CARDIOVASCULAR: S1, S2 regular. ABDOMEN: Wound VAC noted. EXTREMITIES: Edematous. Chest x-ray shows layering pleural effusions. LABORATORY DATA: White blood cell count 9.1, hemoglobin 7.6, hematocrit 25.6, platelet count 47. AB G is pending. Sodium 143, potassium 3.5, chloride 107, CO2 32, BUN 19, creatinine 0.6, glucose 215. ASSESSMENT: 1. Acute respiratory failure requiring mechanical ventilation. 2. Status post laparotomy for bowel. PLAN: 1. CPAP today, see how he tolerates. Consider extubation by tomorrow if he does well today. 2. Co ntinue with diuresis - currently on acetazolamide. 3. Continue NPH insulin for hyperglycemia.
[2017-07-01] MEDS: NPH, Human Insulin Isophane 300 UNIT/3 ML VIAL SC SCH ×2 (09:46→21:00)
--- NOTE | 2017-07-01 14:16 | PRG ---
DATE OF SERVICE: 07/01/2017 SUBJECTIVE: Mr. Costa is on CPAP and has been on CPAP throughout the day without any difficulty. He has not gotten tachypneic. OBJECTIVE: VITAL SIGNS: He is afebrile. His vital signs are stable. ABDOMEN: His abdominal drains are purulent, but there is no enteric contents. His ostomy is putting out some stool now. He has tolerated tube feeds at 10 mL an hour. Midline wound VAC has minimal dr villalobos and no obvious stool in the wound. LABORATORY DATA: His white count is 9, hemoglobin 7.6, creatinine is 0.57. ASSESSMENT: Peritonitis, status post washout ileostomy wound VAC. PLAN: He does stay with CPAP, still deciding whether to do a tracheostomy or not. If needed, could do tomorrow.
[2017-07-01] MEDS: Fluconazole In NaCl,Iso-Osm 400 MG in Premix Bag 1 BAG IVPB SCH (16:05)
[2017-07-01] MEDS: [UNRECOGNIZED DRUG - OTHER] IV SCH (22:34)
[2017-07-01] MEDS: SODIUM ACETATE IV SCH (22:34)
[2017-07-01] MEDS: SODIUM PHOSPHATE IV SCH (22:34)
[2017-07-01] MEDS: POTASSIUM PHOSPHATE IV SCH (22:34)
[2017-07-02] MEDS: Acetaminophen 650 MG Suppository PR PRN (00:18)
[2017-07-02] MEDS: Ketorolac Tromethamine 30 MG/ML VIAL IVP PRN ×2 (00:45→21:18)
[2017-07-02] MEDS: Vancomycin HCl 500 MG, Sodium Chloride 0.9% 100 ML PR SCH ×5 (00:46→23:57)
[2017-07-02] MEDS: Meropenem 1 GM in Sterile Water 20 ML SLOW IVP SCH ×3 (01:36→17:56)
[2017-07-02] MEDS: HumaLOG 300 UNITS/3 ML VIAL SC PRN ×3 (04:20→21:14)
[2017-07-02 05:20] LABS: Anion Gap 9 mmol/L (10-20); BUN (Urea Nitrogen) 24 mg/dL (8.4-25.7); Calc. Creatinine Clearance 0 mL/min (70-130); Calcium 8.5 mg/dL (7.8-10.44); Carbon Dioxide 30 mmol/L (23-31); Chloride 109 mmol/L (98-107); Estimated GFR-MDRD Greater than 90; Glucose 202 mg/dL (80-115); Phosphorus 2.5 mg/dL (2.3-4.7); Potassium 3.9 mmol/L (3.5-5.1); Sodium 144 mmol/L (136-145)
[2017-07-02] MEDS: metroNIDAZOLE 500 MG in Premix Bag 1 BAG IVPB SCH ×3 (05:22→21:01)
[2017-07-02 05:40] LABS: Anisocytosis SLIGHT = 6-15 cells (100X) (0-5/hpf); Band 6 % (5-11); Eosinophils 2 % (0-10); Hemoglobin 7.6 g/dL (14.0-18.0); Lymphocytes 4 % (21-51); MDiff Complete? YES; Macrocytosis SLIGHT = 6-15 cells (100X) (0-5/hpf); Mean Corpuscular HGB CONC 30.2 g/dL (32.0-36.0); Mean Corpuscular Hemoglobin 29.7 pg (27.0-31.0); Mean Corpuscular Volume 98.2 fl (80.0-94.0); Mean Platelet Volume 9.4 fL (7.4-10.4); Monocytes 6 % (0-10); Neutrophil 82 % (42-75); PLT Morphology Comment Appears Increased; Platelet Count 498 thou/uL (130-400); RBC Distribution Width 19.8 % (11.5-14.5); Red Blood Cell (RBC) Count 2.56 mill/uL (4.70-6.10); Stomatocytes SLIGHT = 2-5 cells (100X) (0-1/hpf); White Blood Cell (WBC) Count 9.9 thou/uL (4.8-10.8)
[2017-07-02] MEDS: fentaNYL Citrate/PF 2,000 MCG in Sodium Chloride 0.9% 60 ML IV SCH (05:45)
[2017-07-02] MEDS ORDERED: DC Sedation Protocol FS ONE (07:20)
--- NOTE | 2017-07-02 07:23 | PDOC.PULCC ---
CCU Progress Note: Subj/Obj - Subjective Date: 07/02/17 Time: 07:22 Subjective: Follows commands. No distress - Objective Allergies/Adverse Reactions: Allergies Allergy/AdvReac Type Severity Reaction Status Date / Time morphine Allergy Verified 05/28/17 08:18 Medications: Current Medications Acetaminophen (Tylenol) 650 mg VT Q4H PRN PRN Reason: Headache/Fever or Pain Last Admin: 06/28/17 15:15 Dose: 650 mg Acetazolamide Sodium (Diamox) 500 mg IVP DAILY [facility] Last Admin: 07/01/17 09:19 Dose: 500 mg Albuterol/Ipratropium (Duoneb) 3 ml NEB Q4H PRN PRN Reason: Wheezing Albuterol/Ipratropium (Duoneb) 3 ml NEB [id number] [facility] Last Admin: 07/02/17 02:18 Dose: 3 ml Vancomycin HCl 500 mg/ Sodium (Chloride 100 ml) 0 mg VT Q6HR [facility] Last Admin: 07/02/17 05:45 Dose: 100 ml Dextrose/Water (Dextrose 50%) 25 gm SLOW IVP PRN PRN PRN Reason: Hypoglycemia Famotidine (Pepcid) 20 mg SLOW IVP Q12HR [facility] Last Admin: 07/01/17 21:00 Dose: 20 mg Furosemide (Lasix) 20 mg SLOW IVP DAILY [facility] Last Admin: 07/01/17 09:19 Dose: 20 mg Glucagon (Glucagon) 1 mg IM PRN PRN PRN Reason: Hypoglycemia Hydralazine HCl (Apresoline) 10 mg SLOW IVP Q4H PRN PRN Reason: SBP > 170 or DBP > 100 Last Admin: 06/30/17 09:34 Dose: 10 mg Dextrose/Water (D5w) 1,000 mls @ 0 mls/hr IV .Q0M PRN; As Directed PRN Reason: Hypoglycemia Fentanyl Citrate 2,000 mcg/ (Sodium Chloride) 100 mls @ 0 mls/hr IV INF [facility]; Per Protocol PRN Reason: Protocol Stop: 07/17/17 20:48 Last Admin: 07/02/17 05:45 Dose: 100 mls Fentanyl Citrate (Fentanyl Bolus) 250 mls @ 0 mls/hr IVPB PRN PRN; As Directed PRN Reason: Breakthrough pain Stop: 07/17/17 20:48 Last Admin: 06/26/17 16:00 Dose: 2.5 mls Potassium Chloride 40 meq/ (Sodium Chloride) 270 mls @ 135 mls/hr IVPB ASDIR PRN PRN Reason: FOR SERUM K+ 2.5 - 3.5 Potassium Chloride 40 meq/ (Device) 100 mls @ 50 mls/hr IVPB ASDIR PRN PRN Reason: FOR SERUM K+ 2.5 - 3.5 Last Admin: 06/23/17 18:33 Dose: 100 mls Magnesium Sulfate 1 gm/ Sodium (Chloride) 102 mls @ 102 mls/hr IV PRN PRN PRN Reason: MAG LEVEL 1.4 - 2.0 Last Admin: 06/27/17 06:19 Dose: 102 mls Magnesium Sulfate 2 gm/ Device 100 mls @ 100 mls/hr IVPB ASDIR PRN PRN Reason: MAGNESIUM < 1.4 Last Admin: 06/27/17 11:16 Dose: 100 mls Potassium Phosphate 9 mmol/ (Sodium Chloride) 103 mls @ 25.75 mls/hr IVPB ASDIR PRN PRN Reason: Phosphate 1.0-1.8 Last Admin: 07/01/17 06:36 Dose: 103 mls Potassium Phosphate 12 mmol/ (Sodium Chloride) 254 mls @ 63.5 mls/hr IV ASDIR PRN PRN Reason: Serum phosphate 0.5-0.9 Potassium Phosphate 15 mmol/ (Sodium Chloride) 255 mls @ 63.75 mls/hr IV ASDIR PRN PRN Reason: Serum Phos < 0.5 Metronidazole 500 mg/ Device 100 mls @ 100 mls/hr IVPB Q8HR [facility] Last Admin: 07/02/17 05:22 Dose: 100 mls Fluconazole/Sodium Chloride (400 mg/ Device) 200 mls @ 100 mls/hr IVPB 1600 [facility] Last Admin: 07/01/17 16:05 Dose: 200 mls Meropenem 1 gm/ Sterile Water 20 mls @ 240 mls/hr SLOW IVP 0200,1000,1800 [facility] Last Admin: 07/02/17 01:36 Dose: 20 mls Sodium Acetate 40 meq/ Sodium Phosphate 10 mmol/ Potassium Phosphate 30 mmol/ Potassium Chloride 20 meq/ Calcium Gluconate 10 meq/ Magnesium Sulfate 15 meq/ Multivitamins 10 ml/ TRACE ELEMENT CONCENTRATE 1 ml/ Insulin Human Regular 10 units/Dextrose/Water/ Amino Acids/Sterile Water 1,429.8669 mls @ 60.013 mls/hr IV 2200 [facility] Last Admin: 07/01/17 22:34 Dose: 1,429.8669 mls Insulin Human Lispro (Humalog) 0 units SC .AGGRESSIVE SLIDING PRN; Protocol PRN Reason: AGGRESSIVE SLIDING SCALE Last Admin: 07/02/17 04:20 Dose: 3 unit Insulin Human NPH (Humulin N) 20 unit SC Q12HR [facility] Last Admin: 07/01/17 21:00 Dose: 20 unit Ketorolac Tromethamine (Toradol) 30 mg IVP Q6H PRN PRN Reason: Pain Stop: 07/05/17 10:56 Last Admin: 07/02/17 00:45 Dose: 30 mg Labetalol HCl (Normodyne) 10 mg SLOW IVP Q4H PRN PRN Reason: SBP Greater Than 180 Last Admin: 06/30/17 12:06 Dose: 10 mg Labetalol HCl (Normodyne) 20 mg SLOW IVP Q4H PRN PRN Reason: SBP Greater Than 180 Magnesium Oxide (Magnesium Oxide) 400 mg PO BIDPRN PRN PRN Reason: FOR SERUM MAG 1.4 - 2.0 Magnesium Oxide (Magnesium Oxide) 800 mg PO PRN PRN PRN Reason: FOR SERUM MAG < 1.4 Miscellaneous Medication (Phos-Nak) 1 pkt PO TIDPRN PRN PRN Reason: FOR PHOS LEVEL 1.0 - 1.8 Miscellaneous Medication (Phos-Nak) 2 pkt PO TIDPRN PRN PRN Reason: FOR PHOS LEVEL 0.5 - 1.0 Miscellaneous Medication (Dc Sedation Protocol) 1 each FS ONE ONE Stop: 07/02/17 07:21 Ondansetron HCl (Zofran Odt) 4 mg PO Q6H PRN PRN Reason: Nausea/Vomiting Ondansetron HCl (Zofran) 4 mg IVP Q6H PRN PRN Reason: Nausea Potassium Chloride (K-Dur) 40 meq PO ASDIR PRN PRN Reason: FOR SERUM K+ 2.5 - 3.5 Potassium Chloride (Klor-Con) 40 meq PER TUBE ASDIR PRN PRN Reason: FOR SERUM K+ 2.5-3.5 Promethazine HCl (Phenergan) 12.5 mg IM Q4H PRN PRN Reason: Nausea Propofol (Diprivan) 1,000 mg IV INF PRN; Protocol PRN Reason: TO ACHIEVE PERAZA SCORE 2-3 Stop: 07/17/17 20:48 Last Admin: 07/01/17 21:00 Dose: 1,000 mg Sodium Chloride (Flush - Normal Saline) 10 ml IVF PRN PRN PRN Reason: Saline Flush Sterile Water (Water For Injection) 5 ml FS DAILY [facility] Last Admin: 07/01/17 09:18 Dose: 5 ml MAR Reviewed: Yes Vital Signs and I&O: Vital Signs Temp 99.6 F 07/02/17 04:00 Pulse 88 07/02/17 02:19 Resp 7 L 07/02/17 06:00 BP 114/70 07/01/17 14:47 Pulse Ox 98 07/02/17 02:18 Intake & Output 07/01/17 07/02/17 07/02/17 18:59 06:59 18:59 Intake Total 741.8 395.9 Output Total 1540 1290 Balance -798.2 -894.1 Weight 250 lb 3.594 oz Intake: Intake, IV Amount 537.8 311.9 Fluconazole In NaCl,Iso- 200 Osm 400 mg In Premix Bag 1 bag @ 100 mls/hr IVPB 1600 [facility] Rx#:[id number] Potassium Phosphate 9 100 mmol In Sodium Chloride 0 .9% 100 ml @ 25.75 mls/hr IVPB [facility] PRN Rx#: [id number] Propofol 1000 mg (See 103 78 Protocol) IV INF PRN Rx#: [id number] fentaNYL Citrate/PF 2,000 34.8 33.9 mcg In Sodium Chloride 0 .9% 60 ml @ Per Protocol IV INF [facility] Rx#:[id number] metroNIDAZOLE 500 mg In 100 200 Premix Bag 1 bag @ 100 mls/hr IVPB Q8HR [facility] Rx#: [id number] Tube Feeding 124 54 Tube Irrigant 80 30 Output: Drainage 30 85 ABD.WC 75 RLQ MIYA drain B 10 10 RUQ MIYA drain A 20 0 Ostomy Output 30 Ileostomy 30 Output, Gracia 1510 1175 Other: Voiding Method Indwelling Catheter Indwelling Catheter # Bowel Movements 0 Vent Setting: SIMV 4/500/40% Spontaneous Breathing Test: done (pass) CCU Progress Note: Exam - Physical Exam Constitutional: NAD HEENT: PERRLA, sclera anicteric Neck: no nodes, no JVD Cardiovascular: RRR, no significant murmur, no rub Respiratory: clear to auscultation anteriorly Gastrointestinal: soft, non-tender Deviation from normal: wound vac noted, ileostomy functioning Musculoskeletal: edema present Neurological: moves all 4 limbs Lymphatic: no nodes Deviation from normal: intubated and sedated Skin: no rash - Labs Result Diagrams: 07/02/17 04:20 07/02/17 04:20 Lab results: Laboratory Results - last 24 hr 07/01/17 07/01/17 07/01/17 05:13 09:39 16:46 WBC RBC Hgb Hct MCV MCH MCHC RDW Plt Count MPV Neutrophils % (Manual) Band Neuts % (Manual) Lymphocytes % (Manual) Monocytes % (Manual) Eosinophils % (Manual) Plt Morphology Comment Anisocytosis Macrocytosis Stomatocytes Sodium Potassium Chloride Carbon Dioxide Anion Gap BUN Creatinine Estimated GFR (MDRD) Glucose POC Glucose 197 H 218 H 231 H Calcium Phosphorus Magnesium 07/01/17 07/02/17 07/02/17 21:06 04:20 04:20 WBC 9.9 RBC 2.56 L Hgb 7.6 L Hct 25.2 L MCV 98.2 H MCH 29.7 MCHC 30.2 L RDW 19.8 H Plt Count 498 H MPV 9.4 Neutrophils % (Manual) 82 H Band Neuts % (Manual) 6 Lymphocytes % (Manual) 4 L Monocytes % (Manual) 6 Eosinophils % (Manual) 2 Plt Morphology Comment Appears Increased H Anisocytosis SLIGHT = 6-15 cells Macrocytosis SLIGHT = 6-15 cells Stomatocytes SLIGHT = 2-5 cells Sodium 144 Potassium 3.9 Chloride 109 H Carbon Dioxide 30 Anion Gap 9 L BUN 24 Creatinine 0.61 Estimated GFR (MDRD) Greater than 90 Glucose 202 H POC Glucose 182 H Calcium 8.5 Phosphorus 2.5 Magnesium 2.0 CCU Progress Note: A/P - Problems (1) Acute respiratory failure Current Visit: Yes Status: Acute Code(s): J96.00 - ACUTE RESPIRATORY FAILURE , UNSP W HYPOXIA OR HYPERCAPNIA Qualifiers: Respiratory failure complication: hypoxia and hypercapnia Qualified Code(s) : J96.01 - Acute respiratory failure with hypoxia; J96.02 - Acute respiratory failure with hypercapnia; J96.02 - Acute respiratory failure with hypercapnia; J96.02 - Acute respiratory failure with hypercapnia - Time Spent with Patient Time: 50% of the time was spent in coordination of care (as documented) at patient's floor/unit and/or counseling patient. 30 min CC time - Plan Plan: DC sedation Extubation trial If fails extubation then tracheostomy ABX per Francisco
--- NOTE | 2017-07-02 08:45 | PRG ---
DATE OF SERVICE: 07/01/2017 HISTORY: Mr. Costa continues in the ICU, he is very weak, according to the nurse he will wake up and try to follows some commands. The patient is receiving vancomycin enemas in addition to the other treatments for C. diff and continues to receive the broad spectrum coverage as well for the peritonitis. There is a noticeable decrease in the amount of drainage from all the sites and the drainage characteristics are improving as well. The T-max was 101 on 2017 at 12 o'clock. Most of the day he has been afebrile, today on 07/01/2017. Blood pressure 94/50, pulse 92, O2 saturation 100%, 45 and 10 of ventilatory settings. Scleral icterus is noted. Orotracheal intubation. Symmetric air entry. S1, S2, regular rate, midline negative pressure dressing and ileostomy with dark liquid in the bag. LABORATORY DATA: White cell count is 9.1, hemoglobin 7.6, platelets 487, it is a bit higher than previously and bands are a little bit up to 16%. Chemistry with sodium 143, creatinine 0.57, glucose 215, and phosphorus 1.8. The last liver profile is from 06/24/2017 with a bilirubin of 5.0, AST 52 and ALT 51, alkaline phosphatase 108. His last albumin is 2.3. Microbiology data; we do not have any new findings. ASSESSMENT: Type 2 diabetes, hypertension, rectosigmoid cancer T3 M2, resection , chemoradiation and stricture development with the noted complications which led to diversion ostomy, resection of stricture and then takedown of ileostomy followed by peritonitis development associated with leakage. This has been repaired. The patient developed sepsis and now has C. difficile colitis on top of that and steadily improving. MTDD
--- NOTE | 2017-07-02 09:03 | RAD ---
SINGLE VIEW OF CHEST: Date: 07/02/17 COMPARISON: 07/01/17. HISTORY: Ventilated patient. FINDINGS: Single view of the chest shows an enlarged cardiomediastinal silhouette. The lines and tubes are unch anged in position. There is improved aeration of the lungs with less opacity in the right lung base. There may be a small right pleural effusion. IMPRESSION: Improving small right pleural effusion. POS: [facility]
[2017-07-02] MEDS ORDERED: Fentanyl 100 MCG/2 ML VIAL SLOW IVP PRN ×2 (09:15)
[2017-07-02] MEDS: Famotidine/PF 20 mg/2ml Vial SLOW IVP SCH ×2 (09:42→21:00)
[2017-07-02] MEDS: Furosemide 20 MG/2 ML VIAL SLOW IVP SCH (09:42)
[2017-07-02] MEDS: acetaZOLAMIDE Sodium 500 mg Vial IVP SCH (09:50)
[2017-07-02] MEDS: Sterile Water 10 ML VIAL FS SCH (09:51)
[2017-07-02] MEDS: NPH, Human Insulin Isophane 300 UNIT/3 ML VIAL SC SCH ×2 (09:59→21:01)
[2017-07-02] MEDS: Fluconazole In NaCl,Iso-Osm 400 MG in Premix Bag 1 BAG IVPB SCH (17:16)
--- NOTE | 2017-07-02 17:38 | PRG ---
DATE OF SERVICE: 07/02/2017 SUBJECTIVE: Mr. Costa is extubated. He is doing well. He is able to answer questions. He is awake and alert. OBJECTIVE: VITAL SIGNS: Vital signs are stable. ABDOMEN: His wound is seen on dressing change today. There is some dehiscence of the muscles. Ther e is no evisceration. There is no exposed bowel. There is no enteric contents. No significant puru lence. Wound VAC is replaced. ASSESSMENT: Doing better after peritonitis, washout and ileostomy. PLAN: Potentially even start clear liquids tomorrow if tolerates extubation.
[2017-07-02] MEDS: FAT EMULSION IV SCH (21:55)
[2017-07-02] MEDS: SODIUM PHOSPHATE IV SCH (21:55)
[2017-07-02] MEDS: [UNRECOGNIZED DRUG - OTHER] IV SCH (21:55)
[2017-07-02] MEDS: POTASSIUM PHOSPHATE IV SCH (21:55)
--- NOTE | 2017-07-02 22:59 | PRG ---
DATE OF SERVICE: 07/02/2017 Mr. Costa has been extubated, is awake, follows commands, appears to be in no distress. OBJECTIVE: VITAL SIGNS: T-max 100.6 at midnight and is down to 99.3, blood pressure 170/87, pulse 104, O2 sat 9 8%. HEENT: Ocular movements are conjugate. Scleral icterus. LUNGS: Symmetric air entry. HEART: S1, S2, regular rate. ABDOMEN: Soft, without tenderness. Midline negative pressure dressing, right-sided ileostomy with d ark fluid content, a Gracia catheter. LABORATORY DATA: White cell count 9.9, hemoglobin 7.6, platelets 498. Bands are down to 6%. Creati nine 0.61. No new microbiology information. Chest x-ray with some improving small right pleural eff usion. ASSESSMENT: Type 2 diabetes, hypertension, rectosigmoid cancer T3 N2 with resection, chemoradiation and stricture development, noted complications, subsequent diversion ileostomy with resection of stri cture and then takedown of ileostomy followed by peritonitis associated with leakage which has been r epaired. DISCUSSION: Patient now has been extubated successfully, which is a nice surprise, seems to be lorenzo ating it very well. C. diff colitis has been the diagnosis, and he is receiving treatment with enema s and oral tube administered vancomycin plus IV Flagyl.
[2017-07-03] MEDS: Meropenem 1 GM in Sterile Water 20 ML SLOW IVP SCH ×3 (01:23→18:34)
[2017-07-03] MEDS: HumaLOG 300 UNITS/3 ML VIAL SC PRN ×4 (04:28→22:01)
[2017-07-03 04:54] LABS: Band 7 % (5-11); Hypochromia SLIGHT = 6-15 cells (100X) (0-5/hpf); Lymphocytes 5 % (21-51); MDiff Complete? YES; Mean Corpuscular HGB CONC 29.3 g/dL (32.0-36.0); Mean Corpuscular Hemoglobin 28.4 pg (27.0-31.0); Mean Corpuscular Volume 96.7 fl (80.0-94.0); Mean Platelet Volume 9.1 fL (7.4-10.4); Monocytes 3 % (0-10); Neutrophil 85 % (42-75); PLT Morphology Comment Appears Increased; Platelet Count 536 thou/uL (130-400); RBC Distribution Width 19.1 % (11.5-14.5); Red Blood Cell (RBC) Count 2.82 mill/uL (4.70-6.10); White Blood Cell (WBC) Count 9.3 thou/uL (4.8-10.8)
[2017-07-03 05:06] LABS: Anion Gap 11 mmol/L (10-20); BUN (Urea Nitrogen) 22 mg/dL (8.4-25.7); Calc. Creatinine Clearance 201 mL/min (70-130); Calcium 8.4 mg/dL (7.8-10.44); Carbon Dioxide 28 mmol/L (23-31); Chloride 112 mmol/L (98-107); Estimated GFR-MDRD Greater than 90; Glucose 235 mg/dL (80-115); Phosphorus 2.3 mg/dL (2.3-4.7); Potassium 3.5 mmol/L (3.5-5.1); Sodium 147 mmol/L (136-145)
[2017-07-03] MEDS: Vancomycin HCl 500 MG, Sodium Chloride 0.9% 100 ML PR SCH ×3 (05:15→18:31)
[2017-07-03] MEDS: metroNIDAZOLE 500 MG in Premix Bag 1 BAG IVPB SCH ×2 (05:15→13:10)
--- NOTE | 2017-07-03 08:12 | PDOC.GSPN ---
Surgery Progress Note: Subj - Subjective Narrative: Doing well s/p extubation. States he is thirsty Surgery Progress Note: Obj - Vital signs Vital signs: Vital Signs - Most Recent Temp Pulse Resp BP Pulse Ox 100.5 F H 103 H 20 114/70 98 07/03/17 04:00 07/03/17 06:39 07/03/17 06:39 07/01/17 14:47 07/03/17 06:40 - Physical Exam General: no distress Respiratory: clear to auscultation Abdomen: non tender Wound: drainage (from MIYA drains purulent), wound vac (in place), other (ostomy with stool) Surgery Progress Note: Results - Labs Result Diagrams: 07/03/17 04:25 07/03/17 04:25 Lab results: Laboratory Results WBC 9.3 thou/uL (4.8-10.8) 07/03/17 04:25 RBC 2.82 mill/uL (4.70-6.10) L 07/03/17 04:25 Hgb 8.0 g/dL (14.0-18.0) L 07/03/17 04:25 Hct 27.3 % (42.0-52.0) L 07/03/17 04:25 POC Venous Hct 37.0 % (36-52) 06/17/17 16:35 MCV 96.7 fl (80.0-94.0) H 07/03/17 04:25 MCH 28.4 pg (27.0-31.0) 07/03/17 04:25 MCHC 29.3 g/dL (32.0-36.0) L 07/03/17 04:25 RDW 19.1 % (11.5-14.5) H 07/03/17 04:25 Plt Count 536 thou/uL (130-400) H 07/03/17 04:25 MPV 9.1 fL (7.4-10.4) 07/03/17 04:25 Neutrophils % 88.3 % (42.0-75.0) H 06/22/17 03:48 Neutrophils % (Manual) 85 % (42-75) H 07/03/17 04:25 Band Neuts % (Manual) 7 % (5-11) 07/03/17 04:25 Lymphocytes % 7.7 % (21.0-51.0) L 06/22/17 03:48 Lymphocytes % (Manual) 5 % (21-51) L 07/03/17 04:25 Monocytes % 3.8 % (0.0-10.0) 06/22/17 03:48 Monocytes % (Manual) 3 % (0-10) 07/03/17 04:25 Eosinophils % 0.2 % (0.0-10.0) 06/22/17 03:48 Eosinophils % (Manual) 2 % (0-10) 07/02/17 04:20 Basophils % 0.0 % (0.0-1.0) 06/22/17 03:48 Metamyelocytes % (Man) 2 % (0-0) H 06/23/17 04:16 Myelocytes % 1 % (0-0) H 06/18/17 05:00 Neutrophils # 9.5 thou/uL (1.40-6.50) H 06/22/17 03:48 Lymphocytes # 0.8 thou/uL (1.20-3.40) L 06/22/17 03:48 Monocytes # 0.4 thou/uL (0.11-0.59) 06/22/17 03:48 Eosinophils # 0.0 thou/uL (0.0-0.7) 06/22/17 03:48 Basophils # 0.0 thou/uL (0.0-0.2) 06/22/17 03:48 Nucleated RBCs # (Man) 3 % (0) H 07/01/17 04:30 Hypochromia SLIGHT = 6-15 cells (100X) (0-5/hpf) 07/03/17 04:25 Plt Morphology Comment Appears Increased H 07/03/17 04:25 Polychromasia SLIGHT = 2-3 cells (100X) (0-2/hpf) 06/30/17 03:45 Basophilic Stippling SLIGHT = 1-2 cells (100X) (None Seen) 06/28/17 04:35 Anisocytosis SLIGHT = 6-15 cells (100X) (0-5/hpf) 07/02/17 04:20 Macrocytosis SLIGHT = 6-15 cells (100X) (0-5/hpf) 07/02/17 04:20 Target Cells SLIGHT = 2-5 cells (100X) (0-1/hpf) 06/24/17 03:45 Stomatocytes SLIGHT = 2-5 cells (100X) (0-1/hpf) 07/02/17 04:20 Memo Cells MODERATE= 6-15 cells (100X) (0-1/hpf) 06/17/17 16:47 PT 16.1 SEC (12.0-14.7) H 06/24/17 15:00 INR 1.3 06/24/17 15:00 APTT 29.9 SEC (22.9-36.1) 06/24/17 15:00 Specimen Type ARTERIAL 06/30/17 06:40 Puncture Site LR 06/30/17 06:40 Bicarbonate Actual 34.0 mEq/L (22-26) H 06/30/17 06:40 POC Bicarbonate Calc 17.8 mmol/L (1.0-85.0) 06/17/17 16:35 ABG pH 7.41 (7.35-7.45) 06/30/17 06:40 ABG pCO2 55.3 mmHg (35.0-45.0) H 06/30/17 06:40 ABG pO2 103.0 mmHg (80.0-100.0) H 06/30/17 06:40 ABG O2 Sat Calc/Maryan 97.8 % (94.0-100.0) 06/30/17 06:40 ABG O2 Content 10.5 vol% (17.5-23.0) L 06/30/17 06:40 ABG Base Excess 8.3 mEq/L (0 (+/-) 2.5) H 06/30/17 06:40 ABG Hematocrit 25.8 % (42.0-52.0) L 06/30/17 06:40 ABG Hemoglobin 7.6 g/dL (14.0-18.0) L 06/30/17 06:40 ABG Oxyhemoglobin 95.8 % (94.0-97.0) 06/30/17 06:40 ABG Carboxyhemoglobin 1.5 gm% (0.0-3.0) 06/30/17 06:40 ABG Methemoglobin 0.6 gm% (0.0-1.5) 06/30/17 06:40 ABG Deoxyhemoglobin 2.2 % (0.0-5.0) 06/30/17 06:40 Helder Test POSITIVE 06/30/17 06:40 POC VBG pH 7.384 (7.35-7.45) 06/17/17 16:35 VBG pCO2 29.8 mmHg (41.0-51.0) L 06/17/17 16:35 VBG pO2 74.0 mmHg (35.0-45.0) H 06/17/17 16:35 POC VBG CO2 (Calc) 18.7 mmol/L (1.0-85.0) 06/17/17 16:35 POC VBG O2 Sat (Calc) 94.7 % (0.0-100.0) 06/17/17 16:35 POC VBG Hemoglobin Calc 12.7 g/dL (12.0-18.0) 06/17/17 16:35 A-a O2 Gradient 161.105 (0-20) H 06/30/17 06:40 Sodium 143 mmol/L (135-148) 06/29/17 06:47 Potassium 3.9 mmol/L (3.70-5.30) 06/29/17 06:47 Chloride 104 mmol/L (98-106) 06/29/17 06:47 Ionized Calcium 1.2 mmol/L (1.12-1.30) 06/29/17 06:47 Mode of Support SIMV/PI=13 06/30/17 06:40 % Minute Volume 5.5 L 06/27/17 07:47 Mechanical Rate 11 min 06/30/17 06:40 Spontaneous Rate 500 min 06/17/17 20:33 Inspired O2 47 % 06/30/17 06:40 Tidal Volume 651 ml 06/30/17 06:40 Peak Inspir Pressure 19 cmH2O 06/27/17 07:47 Pressure Support 17 cmH2O 06/30/17 06:40 PEEP or CPAP 10.0 cmH2O 06/30/17 06:40 POC Venous Sodium 134.0 mmol/L (138-145) L 06/17/17 16:35 Sodium 147 mmol/L (136-145) H 07/03/17 04:25 POC Venous Potassium 3.9 mmol/L (3.4-4.7) 06/17/17 16:35 Potassium 3.5 mmol/L (3.5-5.1) 07/03/17 04:25 POC Venous Chloride 98.0 mmol/L (98-113) 06/17/17 16:35 Chloride 112 mmol/L (98-107) H 07/03/17 04:25 Carbon Dioxide 28 mmol/L (23-31) 07/03/17 04:25 Anion Gap 11 mmol/L (10-20) 07/03/17 04:25 POC Anton Anion Gap Calc 18 mmol/L (-14-95) 06/17/17 16:35 BUN 22 mg/dL (8.4-25.7) 07/03/17 04:25 Creatinine 0.62 mg/dL (0.6-1.3) 07/03/17 04:25 POC Venous Creatinine 1.22 mg/dL (0.60-1.30) 06/17/17 16:35 POC eGFR Amer Greater than 60 06/17/17 16:35 POC eGFR Non-Afric Amer 60 06/17/17 16:35 Estimated GFR (MDRD) Greater than 90 07/03/17 04:25 Glucose 235 mg/dL (80-115) H 07/03/17 04:25 POC Venous Glucose 319.0 mg/dL (70-105) H 06/17/17 16:35 POC Glucose 216 mg/dL (70-110) H 07/03/17 04:30 Lactic Acid 3.6 mmol/L (0.5-2.2) H 06/17/17 20:29 POC Venous Lactate 5.00 mmol/L (0.50-2.20) H* 06/17/17 16:35 Calcium 8.4 mg/dL (7.8-10.44) 07/03/17 04:25 POC Venous Ion Calcium 1.04 mmol/L (1.12-1.32) L 06/17/17 16:35 Phosphorus 2.3 mg/dL (2.3-4.7) 07/03/17 04:25 Magnesium 2.0 mg/dL (1.6-2.6) 07/03/17 04:25 Total Bilirubin 5.0 mg/dL (0.2-1.2) H 06/24/17 15:00 AST 52 U/L (5-34) H 06/24/17 15:00 ALT 51 U/L (8-55) 06/24/17 15:00 Alkaline Phosphatase 108 U/L (40-150) 06/24/17 15:00 Ammonia 32 umol/L (18-72) 06/27/17 03:39 CK-MB (CK-2) 0.6 ng/mL (0-6.6) 06/17/17 16:47 Troponin I 0.013 ng/mL (< 0.028) 06/17/17 16:47 Serum Total Protein 4.8 g/dL (5.8-8.1) L 06/24/17 15:00 Albumin 2.3 g/dL (3.4-4.8) L 06/24/17 15:00 Globulin 2.5 g/dL (2.4-3.5) 06/24/17 15:00 Albumin/Globulin Ratio 0.9 g/dL (1.2-2.2) L 06/24/17 15:00 Prealbumin 8.0 mg/dL (16-42) L 06/24/17 15:00 Triglycerides 286 mg/dL (Less than 150) H 06/24/17 15:00 Cholesterol 72 mg/dl (< 200 Desired) 06/24/17 15:00 LDL Cholesterol, Calc TNP 06/24/17 15:00 HDL Cholesterol Less than 8 mg/dL (>60 Neg Risk) 06/24/17 15:00 Heart Disease Risk Ratio TNP 06/24/17 15:00 Urine Color [place] (Yellow) H 06/17/17 16:25 Urine Clarity CLOUDY (Clear) 06/17/17 16:25 Urine pH 6.0 (5.0-9.0) 06/17/17 16:25 Ur Specific [place] 1.028 (1.002-1.036) 06/17/17 16:25 Urine Protein 30 mg/dL (Neg-Trace) H 06/17/17 16:25 Urine Glucose (UA) 500 mg/dL (Negative) 06/17/17 16:25 Urine Ketones Unable to Interpret mg/dL (Negative) 06/17/17 16:25 Urine Blood Moderate (Negative) H 06/17/17 16:25 Urine Nitrite Unable to Interpret (Negative) 06/17/17 16:25 Urine Bilirubin Large (Negative) H 06/17/17 16:25 Urine Urobilinogen 2.0 mg/dL (0.2-1.0) H 06/17/17 16:25 Ur Leukocyte Esterase Small (Negative) H 06/17/17 16:25 Urine RBC 0-3 HPF (0-3) 06/17/17 16:25 Urine WBC 4-6 HPF (0-3) H 06/17/17 16:25 Ur Squamous Epith Cells 4-6 HPF (0-3) H 06/17/17 16:25 Urine Crystals 1+ AMORPH URATES HPF (Negative) 06/17/17 16:25 Urine Bacteria None Seen HPF (None Seen) 06/17/17 16:25 Hyaline Casts 0-3 HYALINE CAST LPF (0-3 Hyaline) 06/17/17 16:25 Other Casts 4-6 COARSE GRAN LPF (0-3 Hyaline) H 06/17/17 16:25 Urine Yeast None Seen HPF (None Seen) 06/17/17 16:25 Blood Type A POSITIVE 06/17/17 16:50 Antibody Screen NEGATIVE 06/17/17 16:50 Crossmatch See Detail 06/17/17 16:50 Surgery Progress Note: A/P - Problem (1) Peritonitis Current Visit: Yes Code(s): K65.9 - PERITONITIS, UNSPECIFIED Status: Acute Assessment and Plan: Try clear liquids, continue abx, tpn Possible transfer to floor tomorrow if still doing well.
[2017-07-03] MEDS: acetaZOLAMIDE Sodium 500 mg Vial IVP SCH (09:17)
[2017-07-03] MEDS: Furosemide 20 MG/2 ML VIAL SLOW IVP SCH (09:17)
[2017-07-03] MEDS: Famotidine/PF 20 mg/2ml Vial SLOW IVP SCH ×2 (09:17→22:01)
[2017-07-03] MEDS: Sterile Water 10 ML VIAL FS SCH (09:18)
[2017-07-03] MEDS: NPH, Human Insulin Isophane 300 UNIT/3 ML VIAL SC SCH ×2 (09:18→22:01)
--- NOTE | 2017-07-03 09:28 | PRG ---
DATE OF SERVICE: 07/03/2017 This morning, awake, alert, responsive, extubated. PHYSICAL EXAMINATION: VITAL SIGNS: Pulse 101, blood pressure is 148/83, sats 98%, respirations 14. His I's and O's are 11 37 in, 2830 out. NEUROLOGIC: He is awake, responsive. CHEST: Chest reveals decreased breath sounds, no wheezing. CARDIAC: Normal S1-S2. No gallops. ABDOMEN: No masses. LABORATORY: White count 9,000, H&H 8 and 27, platelet count 536. Electrolytes are normal. X-ray ye sterday showed bibasilar atelectatic changes. IMPRESSION: 1. Abdominal sepsis status post lap. 2. Respiratory failure with atelectasis. 3. Encephalopathy. 4. Deconditioning. PLAN: Continue observation in the ICU. Continue antibiotics, continue TPN. Aggressive PT. We will follow while in the ICU.
[2017-07-03] MEDS: Fluconazole In NaCl,Iso-Osm 400 MG in Premix Bag 1 BAG IVPB SCH (15:09)
[2017-07-03] MEDS: FAT EMULSION IV SCH (23:37)
[2017-07-03] MEDS: SODIUM PHOSPHATE IV SCH ×2 (23:37→23:38)
[2017-07-03] MEDS: [UNRECOGNIZED DRUG - OTHER] IV SCH (23:37)
[2017-07-03] MEDS: POTASSIUM PHOSPHATE IV SCH ×2 (23:37→23:38)
[2017-07-03] MEDS: [UNRECOGNIZED DRUG - OTHER] IV SCH (23:38)
[2017-07-03] MEDS: SODIUM ACETATE IV SCH (23:38)
[2017-07-03] MEDS ORDERED: SODIUM PHOSPHATE IV SCH (23:59)
[2017-07-03] MEDS ORDERED: POTASSIUM PHOSPHATE IV SCH (23:59)
[2017-07-03] MEDS ORDERED: [UNRECOGNIZED DRUG - OTHER] IV SCH (23:59)
[2017-07-03] MEDS ORDERED: FAT EMULSION IV SCH (23:59)
[2017-07-04] MEDS: Vancomycin HCl 500 MG, Sodium Chloride 0.9% 100 ML PR SCH ×3 (00:47→11:16)
[2017-07-04] MEDS: Meropenem 1 GM in Sterile Water 20 ML SLOW IVP SCH ×3 (02:22→18:27)
[2017-07-04] MEDS: HumaLOG 300 UNITS/3 ML VIAL SC PRN ×4 (06:04→21:32)
[2017-07-04 06:43] LABS: Anion Gap 9 mmol/L (10-20); BUN (Urea Nitrogen) 19 mg/dL (8.4-25.7); Calc. Creatinine Clearance 0 mL/min (70-130); Calcium 8.6 mg/dL (7.8-10.44); Carbon Dioxide 28 mmol/L (23-31); Chloride 109 mmol/L (98-107); Estimated GFR-MDRD Greater than 90; Glucose 257 mg/dL (80-115); Magnesium 2.1 mg/dL (1.6-2.6); Phosphorus 2.3 mg/dL (2.3-4.7); Potassium 3.3 mmol/L (3.5-5.1); Sodium 143 mmol/L (136-145)
[2017-07-04] MEDS: Potassium Chloride 40 MEQ in Premix Bag 1 BAG IVPB PRN (07:21)
[2017-07-04 07:50] LABS: Band 3 % (5-11); Hemoglobin 8.6 g/dL (14.0-18.0); Hypochromia SLIGHT = 6-15 cells (100X) (0-5/hpf); Lymphocytes 9 % (21-51); MDiff Complete? YES; Mean Corpuscular HGB CONC 29.9 g/dL (32.0-36.0); Mean Corpuscular Hemoglobin 28.7 pg (27.0-31.0); Mean Corpuscular Volume 96.1 fl (80.0-94.0); Mean Platelet Volume 10.1 fL (7.4-10.4); Monocytes 1 % (0-10); Neutrophil 87 % (42-75); PLT Morphology Comment Appears Increased; Platelet Count 535 thou/uL (130-400); Polychromasia SLIGHT = 2-3 cells (100X) (0-2/hpf); RBC Distribution Width 19.5 % (11.5-14.5); Red Blood Cell (RBC) Count 2.99 mill/uL (4.70-6.10); White Blood Cell (WBC) Count 9.5 thou/uL (4.8-10.8)
[2017-07-04] MEDS: Famotidine/PF 20 mg/2ml Vial SLOW IVP SCH ×2 (08:16→21:32)
[2017-07-04] MEDS: Furosemide 20 MG/2 ML VIAL SLOW IVP SCH (08:16)
[2017-07-04] MEDS: NPH, Human Insulin Isophane 300 UNIT/3 ML VIAL SC SCH ×2 (08:17→21:32)
[2017-07-04] MEDS: acetaZOLAMIDE Sodium 500 mg Vial IVP SCH (08:17)
[2017-07-04] MEDS: Sterile Water 10 ML VIAL FS SCH (08:17)
--- NOTE | 2017-07-04 12:27 | PDOC.GSPN ---
Surgery Progress Note: Subj - Subjective Patient reports: no new complaints, tolerating liquids well (OOB to chair for an hour yesterday) Surgery Progress Note: Obj - Vital signs Vital signs: Vital Signs - Most Recent Temp Pulse Resp BP Pulse Ox 99.0 F 95 18 114/70 98 07/04/17 12:00 07/04/17 08:00 07/04/17 08:00 07/01/17 14:47 07/04/17 08:00 - Physical Exam General: no distress Respiratory: clear to auscultation Abdomen: non tender, other (Wound vac in place. Stool in ostomy bag. Barron's purulent) Surgery Progress Note: Results - Labs Result Diagrams: 07/04/17 06:03 07/04/17 06:03 Lab results: Laboratory Results WBC 9.5 thou/uL (4.8-10.8) 07/04/17 06:03 RBC 2.99 mill/uL (4.70-6.10) L 07/04/17 06:03 Hgb 8.6 g/dL (14.0-18.0) L 07/04/17 06:03 Hct 28.8 % (42.0-52.0) L 07/04/17 06:03 POC Venous Hct 37.0 % (36-52) 06/17/17 16:35 MCV 96.1 fl (80.0-94.0) H 07/04/17 06:03 MCH 28.7 pg (27.0-31.0) 07/04/17 06:03 MCHC 29.9 g/dL (32.0-36.0) L 07/04/17 06:03 RDW 19.5 % (11.5-14.5) H 07/04/17 06:03 Plt Count 535 thou/uL (130-400) H 07/04/17 06:03 MPV 10.1 fL (7.4-10.4) 07/04/17 06:03 Neutrophils % 88.3 % (42.0-75.0) H 06/22/17 03:48 Neutrophils % (Manual) 87 % (42-75) H 07/04/17 06:03 Band Neuts % (Manual) 3 % (5-11) L 07/04/17 06:03 Lymphocytes % 7.7 % (21.0-51.0) L 06/22/17 03:48 Lymphocytes % (Manual) 9 % (21-51) L 07/04/17 06:03 Monocytes % 3.8 % (0.0-10.0) 06/22/17 03:48 Monocytes % (Manual) 1 % (0-10) 07/04/17 06:03 Eosinophils % 0.2 % (0.0-10.0) 06/22/17 03:48 Eosinophils % (Manual) 2 % (0-10) 07/02/17 04:20 Basophils % 0.0 % (0.0-1.0) 06/22/17 03:48 Metamyelocytes % (Man) 2 % (0-0) H 06/23/17 04:16 Myelocytes % 1 % (0-0) H 06/18/17 05:00 Neutrophils # 9.5 thou/uL (1.40-6.50) H 06/22/17 03:48 Lymphocytes # 0.8 thou/uL (1.20-3.40) L 06/22/17 03:48 Monocytes # 0.4 thou/uL (0.11-0.59) 06/22/17 03:48 Eosinophils # 0.0 thou/uL (0.0-0.7) 06/22/17 03:48 Basophils # 0.0 thou/uL (0.0-0.2) 06/22/17 03:48 Nucleated RBCs # (Man) 3 % (0) H 07/01/17 04:30 Hypochromia SLIGHT = 6-15 cells (100X) (0-5/hpf) 07/04/17 06:03 Plt Morphology Comment Appears Increased H 07/04/17 06:03 Polychromasia SLIGHT = 2-3 cells (100X) (0-2/hpf) 07/04/17 06:03 Basophilic Stippling SLIGHT = 1-2 cells (100X) (None Seen) 06/28/17 04:35 Anisocytosis SLIGHT = 6-15 cells (100X) (0-5/hpf) 07/02/17 04:20 Macrocytosis SLIGHT = 6-15 cells (100X) (0-5/hpf) 07/02/17 04:20 Target Cells SLIGHT = 2-5 cells (100X) (0-1/hpf) 06/24/17 03:45 Stomatocytes SLIGHT = 2-5 cells (100X) (0-1/hpf) 07/02/17 04:20 Memo Cells MODERATE= 6-15 cells (100X) (0-1/hpf) 06/17/17 16:47 PT 16.1 SEC (12.0-14.7) H 06/24/17 15:00 INR 1.3 06/24/17 15:00 APTT 29.9 SEC (22.9-36.1) 06/24/17 15:00 Specimen Type ARTERIAL 06/30/17 06:40 Puncture Site LR 06/30/17 06:40 Bicarbonate Actual 34.0 mEq/L (22-26) H 06/30/17 06:40 POC Bicarbonate Calc 17.8 mmol/L (1.0-85.0) 06/17/17 16:35 ABG pH 7.41 (7.35-7.45) 06/30/17 06:40 ABG pCO2 55.3 mmHg (35.0-45.0) H 06/30/17 06:40 ABG pO2 103.0 mmHg (80.0-100.0) H 06/30/17 06:40 ABG O2 Sat Calc/Maryan 97.8 % (94.0-100.0) 06/30/17 06:40 ABG O2 Content 10.5 vol% (17.5-23.0) L 06/30/17 06:40 ABG Base Excess 8.3 mEq/L (0 (+/-) 2.5) H 06/30/17 06:40 ABG Hematocrit 25.8 % (42.0-52.0) L 06/30/17 06:40 ABG Hemoglobin 7.6 g/dL (14.0-18.0) L 06/30/17 06:40 ABG Oxyhemoglobin 95.8 % (94.0-97.0) 06/30/17 06:40 ABG Carboxyhemoglobin 1.5 gm% (0.0-3.0) 06/30/17 06:40 ABG Methemoglobin 0.6 gm% (0.0-1.5) 06/30/17 06:40 ABG Deoxyhemoglobin 2.2 % (0.0-5.0) 06/30/17 06:40 Helder Test POSITIVE 06/30/17 06:40 POC VBG pH 7.384 (7.35-7.45) 06/17/17 16:35 VBG pCO2 29.8 mmHg (41.0-51.0) L 06/17/17 16:35 VBG pO2 74.0 mmHg (35.0-45.0) H 06/17/17 16:35 POC VBG CO2 (Calc) 18.7 mmol/L (1.0-85.0) 06/17/17 16:35 POC VBG O2 Sat (Calc) 94.7 % (0.0-100.0) 06/17/17 16:35 POC VBG Hemoglobin Calc 12.7 g/dL (12.0-18.0) 06/17/17 16:35 A-a O2 Gradient 161.105 (0-20) H 06/30/17 06:40 Sodium 143 mmol/L (135-148) 06/29/17 06:47 Potassium 3.9 mmol/L (3.70-5.30) 06/29/17 06:47 Chloride 104 mmol/L (98-106) 06/29/17 06:47 Ionized Calcium 1.2 mmol/L (1.12-1.30) 06/29/17 06:47 Mode of Support SIMV/PI=13 06/30/17 06:40 % Minute Volume 5.5 L 06/27/17 07:47 Mechanical Rate 11 min 06/30/17 06:40 Spontaneous Rate 500 min 06/17/17 20:33 Inspired O2 47 % 06/30/17 06:40 Tidal Volume 651 ml 06/30/17 06:40 Peak Inspir Pressure 19 cmH2O 06/27/17 07:47 Pressure Support 17 cmH2O 06/30/17 06:40 PEEP or CPAP 10.0 cmH2O 06/30/17 06:40 POC Venous Sodium 134.0 mmol/L (138-145) L 06/17/17 16:35 Sodium 143 mmol/L (136-145) 07/04/17 06:03 POC Venous Potassium 3.9 mmol/L (3.4-4.7) 06/17/17 16:35 Potassium 3.3 mmol/L (3.5-5.1) L 07/04/17 06:03 POC Venous Chloride 98.0 mmol/L (98-113) 06/17/17 16:35 Chloride 109 mmol/L (98-107) H 07/04/17 06:03 Carbon Dioxide 28 mmol/L (23-31) 07/04/17 06:03 Anion Gap 9 mmol/L (10-20) L 07/04/17 06:03 POC Anton Anion Gap Calc 18 mmol/L (-14-95) 06/17/17 16:35 BUN 19 mg/dL (8.4-25.7) 07/04/17 06:03 Creatinine 0.63 mg/dL (0.6-1.3) 07/04/17 06:03 POC Venous Creatinine 1.22 mg/dL (0.60-1.30) 06/17/17 16:35 POC eGFR Amer Greater than 60 06/17/17 16:35 POC eGFR Non-Afric Amer 60 06/17/17 16:35 Estimated GFR (MDRD) Greater than 90 07/04/17 06:03 Glucose 257 mg/dL (80-115) H 07/04/17 06:03 POC Venous Glucose 319.0 mg/dL (70-105) H 06/17/17 16:35 POC Glucose 243 mg/dL (70-110) H 07/04/17 09:43 Lactic Acid 3.6 mmol/L (0.5-2.2) H 06/17/17 20:29 POC Venous Lactate 5.00 mmol/L (0.50-2.20) H* 06/17/17 16:35 Calcium 8.6 mg/dL (7.8-10.44) 07/04/17 06:03 POC Venous Ion Calcium 1.04 mmol/L (1.12-1.32) L 06/17/17 16:35 Phosphorus 2.3 mg/dL (2.3-4.7) 07/04/17 06:03 Magnesium 2.1 mg/dL (1.6-2.6) 07/04/17 06:03 Total Bilirubin 5.0 mg/dL (0.2-1.2) H 06/24/17 15:00 AST 52 U/L (5-34) H 06/24/17 15:00 ALT 51 U/L (8-55) 06/24/17 15:00 Alkaline Phosphatase 108 U/L (40-150) 06/24/17 15:00 Ammonia 32 umol/L (18-72) 06/27/17 03:39 CK-MB (CK-2) 0.6 ng/mL (0-6.6) 06/17/17 16:47 Troponin I 0.013 ng/mL (< 0.028) 06/17/17 16:47 Serum Total Protein 4.8 g/dL (5.8-8.1) L 06/24/17 15:00 Albumin 2.3 g/dL (3.4-4.8) L 06/24/17 15:00 Globulin 2.5 g/dL (2.4-3.5) 06/24/17 15:00 Albumin/Globulin Ratio 0.9 g/dL (1.2-2.2) L 06/24/17 15:00 Prealbumin 8.0 mg/dL (16-42) L 06/24/17 15:00 Triglycerides 286 mg/dL (Less than 150) H 06/24/17 15:00 Cholesterol 72 mg/dl (< 200 Desired) 06/24/17 15:00 LDL Cholesterol, Calc TNP 06/24/17 15:00 HDL Cholesterol Less than 8 mg/dL (>60 Neg Risk) 06/24/17 15:00 Heart Disease Risk Ratio TNP 06/24/17 15:00 Urine Color [place] (Yellow) H 06/17/17 16:25 Urine Clarity CLOUDY (Clear) 06/17/17 16:25 Urine pH 6.0 (5.0-9.0) 06/17/17 16:25 Ur Specific [place] 1.028 (1.002-1.036) 06/17/17 16:25 Urine Protein 30 mg/dL (Neg-Trace) H 06/17/17 16:25 Urine Glucose (UA) 500 mg/dL (Negative) 06/17/17 16:25 Urine Ketones Unable to Interpret mg/dL (Negative) 06/17/17 16:25 Urine Blood Moderate (Negative) H 06/17/17 16:25 Urine Nitrite Unable to Interpret (Negative) 06/17/17 16:25 Urine Bilirubin Large (Negative) H 06/17/17 16:25 Urine Urobilinogen 2.0 mg/dL (0.2-1.0) H 06/17/17 16:25 Ur Leukocyte Esterase Small (Negative) H 06/17/17 16:25 Urine RBC 0-3 HPF (0-3) 06/17/17 16:25 Urine WBC 4-6 HPF (0-3) H 06/17/17 16:25 Ur Squamous Epith Cells 4-6 HPF (0-3) H 06/17/17 16:25 Urine Crystals 1+ AMORPH URATES HPF (Negative) 06/17/17 16:25 Urine Bacteria None Seen HPF (None Seen) 06/17/17 16:25 Hyaline Casts 0-3 HYALINE CAST LPF (0-3 Hyaline) 06/17/17 16:25 Other Casts 4-6 COARSE GRAN LPF (0-3 Hyaline) H 06/17/17 16:25 Urine Yeast None Seen HPF (None Seen) 06/17/17 16:25 Blood Type A POSITIVE 06/17/17 16:50 Antibody Screen NEGATIVE 06/17/17 16:50 Crossmatch See Detail 06/17/17 16:50 Surgery Progress Note: A/P - Problem (1) Peritonitis Current Visit: Yes Code(s): K65.9 - PERITONITIS, UNSPECIFIED Status: Acute Assessment and Plan: He can try full liquids. Will be more aggressive on PT. Hopefully to surgical tomorrow.
--- NOTE | 2017-07-04 14:12 | PRG ---
DATE OF SERVICE: 07/04/2017 SUBJECTIVE: Awake, alert, responsive, weak. OBJECTIVE: VITAL SIGNS: Sats are 90% on supplemental oxygen 2 liters, pulse 89, blood pressure is 138/74, respi ratory rate 14. His I's and O's have been 1396 in and 5082 out. GENERAL: He is weak, but denies any pain or difficulty breathing. CHEST: Decreased breath sounds, no wheezing. CARDIAC: Normal S1 and S2. No gallops. ABDOMEN: Soft. No masses. LABORATORY DATA: White count 9000, H&H 8 and 28, platelet count is normal. Electrolytes are normal. IMPRESSION: 1. Status post respiratory failure, extubated. 2. Sleep apnea, apparently on CPAP. 3. Depression. 4. Status post laparotomy with sepsis syndrome. PLAN: Aggressive PT, supportive care, TPN, and antibiotics as per Infectious Disease. He can probably be transferred out of the ICU in the next 24-48 hours.
--- NOTE | 2017-07-04 18:54 | PRG ---
DATE OF SERVICE: 07/04/2017 SUBJECTIVE: The patient is awake, alert, oriented. Diffusely weak but progressively better, able to eat and still on TPN, but being transitioned, probably by tomorrow will be on oral feedings only. B eing readied for transfer to the floor later today or tomorrow. OBJECTIVE: VITAL SIGNS: T-max 100.6 on the 12th, he has been afebrile since yesterday 4:00 p.m. Other vital si gns are normal. GENERAL: Awake, alert, oriented. Triple lumen in the right IJ location. The drains with very minim al output. The ileostomy working well. Minimal drainage from the rectal area. HEART: Lungs clear. S1, S2, regular rate. ABDOMEN: Nontender. EXTREMITIES: Moves all extremities, but he is diffusely weak. White cell count 9.5, hemoglobin 8.6, platelets 535, 87% neutrophils. Bands are down to 3%. Creatin ine 0.63. No new microbiology data. Last chest x-ray from two days ago with improving pleural effus ion. ASSESSMENT AND DISCUSSION: Type 2 diabetes, hypertension, rectosigmoid cancer, T3 N2, with resection , chemoradiation and stricture development, noted complications with subsequent diversion, ileostomy with resection, stricture and then takedown of ileostomy and subsequent complications including perit onitis and sepsis. The leakage should that led to peritonitis has been repaired. The patient is perez adily improving. Successfully extubated. Developed C. diff complication, which probably was not the predominant factor in his decompensation compared with the peritonitis. He has been receiving treat ment for that, but I think we can discontinue at least the enemas. Continue broad-spectrum coverage otherwise.
[2017-07-04] MEDS ORDERED: FAT EMULSION IV SCH (22:00)
[2017-07-04] MEDS ORDERED: SODIUM PHOSPHATE IV SCH (22:00)
[2017-07-04] MEDS ORDERED: [UNRECOGNIZED DRUG - OTHER] IV SCH (22:00)
[2017-07-04] MEDS ORDERED: POTASSIUM PHOSPHATE IV SCH (22:00)
[2017-07-05 04:11] LABS: Band 2 % (5-11); Eosinophils 2 % (0-10); Hemoglobin 9.4 g/dL (14.0-18.0); Lymphocytes 9 % (21-51); MDiff Complete? YES; Mean Corpuscular HGB CONC 29.9 g/dL (32.0-36.0); Mean Corpuscular Hemoglobin 28.7 pg (27.0-31.0); Mean Corpuscular Volume 95.9 fl (80.0-94.0); Mean Platelet Volume 9.9 fL (7.4-10.4); Monocytes 2 % (0-10); Neutrophil 85 % (42-75); PLT Morphology Comment Appears Increased; Platelet Count 503 thou/uL (130-400); RBC Distribution Width 19.9 % (11.5-14.5); Red Blood Cell (RBC) Count 3.28 mill/uL (4.70-6.10); White Blood Cell (WBC) Count 8.8 thou/uL (4.8-10.8)
[2017-07-05 04:16] LABS: Anion Gap 12 mmol/L (10-20); BUN (Urea Nitrogen) 16 mg/dL (8.4-25.7); Calc. Creatinine Clearance 0 mL/min (70-130); Calcium 8.3 mg/dL (7.8-10.44); Carbon Dioxide 25 mmol/L (23-31); Chloride 109 mmol/L (98-107); Estimated GFR-MDRD Greater than 90; Glucose 180 mg/dL (80-115); Magnesium 1.9 mg/dL (1.6-2.6); Potassium 3.1 mmol/L (3.5-5.1); Sodium 143 mmol/L (136-145)
[2017-07-05] MEDS: HumaLOG 300 UNITS/3 ML VIAL SC PRN ×2 (04:28→11:12)
[2017-07-05 04:35] LABS: Phosphorus 1.9 mg/dL (2.3-4.7)
[2017-07-05] MEDS: Potassium Chloride 20 MEQ TAB PO PRN (06:07)
--- NOTE | 2017-07-05 07:29 | PDOC.PULCC ---
CCU Progress Note: Subj/Obj - Subjective Date: 07/05/17 Time: 07:27 Subjective: Less confused, although he pulled out IJ this morning - Objective Allergies/Adverse Reactions: Allergies Allergy/AdvReac Type Severity Reaction Status Date / Time morphine Allergy Verified 05/28/17 08:18 Medications: Current Medications Acetaminophen (Tylenol) [address] Q4H PRN PRN Reason: Headache/Fever or Pain Last Admin: 06/28/17 15:15 Dose: 650 mg Albuterol/Ipratropium (Duoneb) 3 ml NEB Q4H PRN PRN Reason: Wheezing Albuterol/Ipratropium (Duoneb) 3 ml NEB [id number] ALA[facility] Last Admin: 07/05/17 06:25 Dose: 3 ml Dextrose/Water (Dextrose 50%) 25 gm SLOW IVP PRN PRN PRN Reason: Hypoglycemia Famotidine (Pepcid) 20 mg SLOW IVP Q12HR A[facility] Last Admin: 07/04/17 21:32 Dose: 20 mg Fentanyl (Sublimaze) 25 mcg SLOW IVP Q2H PRN PRN Reason: Moderate to Severe Pain (6-10) Fentanyl (Sublimaze) 50 mcg SLOW IVP Q2H PRN PRN Reason: Moderate to Severe Pain (6-10) Glucagon (Glucagon) 1 mg IM PRN PRN PRN Reason: Hypoglycemia Hydralazine HCl (Apresoline) 10 mg SLOW IVP Q4H PRN PRN Reason: SBP > 170 or DBP > 100 Last Admin: 06/30/17 09:34 Dose: 10 mg Dextrose/Water (D5w) 1,000 mls @ 0 mls/hr IV .Q0M PRN; As Directed PRN Reason: Hypoglycemia Potassium Chloride 40 meq/ (Sodium Chloride) 270 mls @ 135 mls/hr IVPB ASDIR PRN PRN Reason: FOR SERUM K+ 2.5 - 3.5 Potassium Chloride 40 meq/ (Device) 100 mls @ 50 mls/hr IVPB ASDIR PRN PRN Reason: FOR SERUM K+ 2.5 - 3.5 Last Admin: 07/04/17 07:21 Dose: 100 mls Magnesium Sulfate 1 gm/ Sodium (Chloride) 102 mls @ 102 mls/hr IV PRN PRN PRN Reason: MAG LEVEL 1.4 - 2.0 Last Admin: 07/03/17 12:29 Dose: 102 mls Magnesium Sulfate 2 gm/ Device 100 mls @ 100 mls/hr IVPB ASDIR PRN PRN Reason: MAGNESIUM < 1.4 Last Admin: 06/27/17 11:16 Dose: 100 mls Potassium Phosphate 9 mmol/ (Sodium Chloride) 103 mls @ 25.75 mls/hr IVPB ASDIR PRN PRN Reason: Phosphate 1.0-1.8 Last Admin: 07/01/17 06:36 Dose: 103 mls Potassium Phosphate 12 mmol/ (Sodium Chloride) 254 mls @ 63.5 mls/hr IV ASDIR PRN PRN Reason: Serum phosphate 0.5-0.9 Potassium Phosphate 15 mmol/ (Sodium Chloride) 255 mls @ 63.75 mls/hr IV ASDIR PRN PRN Reason: Serum Phos < 0.5 Fat Emulsion Intravenous 250 ml/ Sodium Phosphate 10 mmol/Potassium Phosphate 30 mmol/Calcium Chloride 10 meq/Magnesium Sulfate 15 meq/Multivitamins 10 ml/ TRACE ELEMENT CONCENTRATE 1 ml/Insulin Human Regular 20 units / Dextrose/Water/ Sterile Water/ Amino Acids 2,235.5807 mls @ 93.149 mls/hr IV 2200 A[facility] Last Admin: 07/04/17 22:25 Dose: 2,235.5807 mls Insulin Human Lispro (Humalog) 0 units SC .AGGRESSIVE SLIDING PRN; Protocol PRN Reason: AGGRESSIVE SLIDING SCALE Last Admin: 07/05/17 04:28 Dose: 3 unit Insulin Human NPH (Humulin N) 20 unit SC Q12HR [facility] Last Admin: 07/04/17 21:32 Dose: 20 unit Ketorolac Tromethamine (Toradol) 30 mg IVP Q6H PRN PRN Reason: Pain Stop: 07/05/17 10:56 Last Admin: 07/02/17 21:18 Dose: 30 mg Labetalol HCl (Normodyne) 10 mg SLOW IVP Q4H PRN PRN Reason: SBP Greater Than 180 Last Admin: 06/30/17 12:06 Dose: 10 mg Labetalol HCl (Normodyne) 20 mg SLOW IVP Q4H PRN PRN Reason: SBP Greater Than 180 Magnesium Oxide (Magnesium Oxide) 400 mg PO BIDPRN PRN PRN Reason: FOR SERUM MAG 1.4 - 2.0 Magnesium Oxide (Magnesium Oxide) 800 mg PO PRN PRN PRN Reason: FOR SERUM MAG < 1.4 Miscellaneous Medication (Phos-Nak) 1 pkt PO TIDPRN PRN PRN Reason: FOR PHOS LEVEL 1.0 - 1.8 Miscellaneous Medication (Phos-Nak) 2 pkt PO TIDPRN PRN PRN Reason: FOR PHOS LEVEL 0.5 - 1.0 Ondansetron HCl (Zofran Odt) 4 mg PO Q6H PRN PRN Reason: Nausea/Vomiting Ondansetron HCl (Zofran) 4 mg IVP Q6H PRN PRN Reason: Nausea Potassium Chloride (K-Dur) 40 meq PO ASDIR PRN PRN Reason: FOR SERUM K+ 2.5 - 3.5 Last Admin: 07/05/17 06:07 Dose: 40 meq Potassium Chloride (Klor-Con) 40 meq PER TUBE ASDIR PRN PRN Reason: FOR SERUM K+ 2.5-3.5 Promethazine HCl (Phenergan) 12.5 mg IM Q4H PRN PRN Reason: Nausea Propofol (Diprivan) 1,000 mg IV INF PRN; Protocol PRN Reason: TO ACHIEVE PERAZA SCORE 2-3 Stop: 07/17/17 20:48 Last Admin: 07/01/17 21:00 Dose: 1,000 mg Sodium Chloride (Flush - Normal Saline) 10 ml IVF PRN PRN PRN Reason: Saline Flush Sterile Water (Water For Injection) 5 ml FS DAILY A[facility] Last Admin: 07/04/17 08:17 Dose: 5 ml MAR Reviewed: Yes Vital Signs and I&O: Vital Signs Temp 98.7 F 07/05/17 04:00 Pulse 89 07/05/17 06:25 Resp 20 07/05/17 06:25 BP 114/70 07/01/17 14:47 Pulse Ox 100 07/05/17 06:25 Intake & Output 07/04/17 07/05/17 07/05/17 18:59 06:59 18:59 Intake Total 1711 720 Output Total 9790 3376 Balance -2147 1157 Intake: Intake, IV Amount 1141 Fat Emulsion 250 ml 1021 Sodium Phosphate 10 mmol Potassium Phosphate 30 mmol Calcium Chloride 10 meq Magnesium Sulfate 15 meq Multivitamins, Adult 10 ml Trace Element Concentrate 1 ml Insulin Regular (Human) 20 units In Dextrose 70% in Water 428.6 ml In Sterile Water Injection 571.4 ml In Amino Acids 15% 950 ml @ 93.149 mls/hr IV 2200 [facility] Rx#:[id number] Meropenem 1 gm In Sterile 20 Water 20 ml @ 240 mls/hr SLOW IVP 0200,1000,1800 [facility] Rx#:[id number] Potassium Chloride 40 meq 100 In Premix Bag 1 bag @ 50 mls/hr IVPB ASDIR PRN Rx #:[id number] Oral 570 720 Output: Drainage 8 RLQ MIYA drain B 5 RUQ MIYA drain A 3 Ostomy Output 550 Ileostomy 550 Output, Gracia 3300 1875 Other: Voiding Method Indwelling Catheter Indwelling Catheter Vent Setting: extubated 07/02 CCU Progress Note: Exam - Physical Exam Constitutional: NAD HEENT: PERRLA, moist MMs, sclera anicteric, oral pharynx no lesions Neck: no nodes, no JVD Cardiovascular: RRR, no significant murmur Respiratory: clear to auscultation bilaterally Gastrointestinal: soft, non-tender Deviation from normal: surgical wounds healing well Musculoskeletal: edema present Neurological: non-focal, normal sensation, moves all 4 limbs Lymphatic: no nodes Psychiatric: normal affect Skin: no rash, normal turgor - Labs Result Diagrams: 07/05/17 03:06 07/05/17 03:06 Lab results: Laboratory Results - last 24 hr 07/04/17 07/04/17 07/04/17 06:03 09:43 16:59 WBC 9.5 RBC 2.99 L Hgb 8.6 L Hct 28.8 L MCV 96.1 H MCH 28.7 MCHC 29.9 L RDW 19.5 H Plt Count 535 H MPV 10.1 Neutrophils % (Manual) 87 H Band Neuts % (Manual) 3 L Lymphocytes % (Manual) 9 L Monocytes % (Manual) 1 Eosinophils % (Manual) Hypochromia SLIGHT = 6-15 cells Plt Morphology Comment Appears Increased H Polychromasia SLIGHT = 2-3 cells Sodium Potassium Chloride Carbon Dioxide Anion Gap BUN Creatinine Estimated GFR (MDRD) Glucose POC Glucose 243 H 270 H Calcium Phosphorus Magnesium 07/05/17 07/05/17 03:06 03:06 WBC 8.8 RBC 3.28 L Hgb 9.4 L Hct 31.5 L MCV 95.9 H MCH 28.7 MCHC 29.9 L RDW 19.9 H Plt Count 503 H MPV 9.9 Neutrophils % (Manual) 85 H Band Neuts % (Manual) 2 L Lymphocytes % (Manual) 9 L Monocytes % (Manual) 2 Eosinophils % (Manual) 2 Hypochromia Plt Morphology Comment Appears Increased H Polychromasia Sodium 143 Potassium 3.1 L Chloride 109 H Carbon Dioxide 25 Anion Gap 12 BUN 16 Creatinine 0.55 L Estimated GFR (MDRD) Greater than 90 Glucose 180 H POC Glucose Calcium 8.3 Phosphorus 1.9 L Magnesium 1.9 CCU Progress Note: A/P - Problems (1) Acute respiratory failure Current Visit: Yes Status: Resolved Code(s): J96.00 - ACUTE RESPIRATORY FAILURE, UNSP W HYPOXIA OR HYPERCAPNIA Qualifiers: Respiratory failure complication: hypoxia and hypercapnia Qualified Code(s) : J96.01 - Acute respiratory failure with hypoxia; J96.02 - Acute respiratory failure with hypercapnia; J96.02 - Acute respiratory failure with hypercapnia; J96.02 - Acute respiratory failure with hypercapnia (2) Hypokalemia Current Visit: Yes Status: Acute Code(s): E87.6 - HYPOKALEMIA - Plan Plan: OK to go to floor from my standpoint K will be replaced needs PT/OT
[2017-07-05] MEDS: NPH, Human Insulin Isophane 300 UNIT/3 ML VIAL SC SCH ×2 (08:43→20:09)
[2017-07-05] MEDS: Famotidine/PF 20 mg/2ml Vial SLOW IVP SCH ×2 (08:43→20:06)
[2017-07-05] MEDS: Sterile Water 10 ML VIAL FS SCH (11:14)
[2017-07-05] MEDS: Meropenem 1 GM in Sterile Water 20 ML SLOW IVP SCH ×2 (12:56→17:02)
[2017-07-05] MEDS: metroNIDAZOLE 500 MG in Premix Bag 1 BAG IVPB SCH ×2 (13:14→21:24)
[2017-07-05] MEDS: Fluconazole In NaCl,Iso-Osm 400 MG in Premix Bag 1 BAG IVPB SCH (16:17)
[2017-07-05] MEDS: Acetaminophen 650 MG/20.3 ML UDCUP PO PRN (17:02)
[2017-07-05] MEDS ORDERED: [UNRECOGNIZED DRUG - OTHER] IV SCH (22:00)
[2017-07-05] MEDS ORDERED: POTASSIUM PHOSPHATE IV SCH (22:00)
[2017-07-05] MEDS ORDERED: SODIUM PHOSPHATE IV SCH (22:00)
[2017-07-05] MEDS ORDERED: FAT EMULSION IV SCH (22:00)
[2017-07-06] MEDS: Meropenem 1 GM in Sterile Water 20 ML SLOW IVP SCH ×3 (02:23→18:55)
[2017-07-06 04:17] LABS: Anion Gap 10 mmol/L (10-20); BUN (Urea Nitrogen) 11 mg/dL (8.4-25.7); Calc. Creatinine Clearance 0 mL/min (70-130); Calcium 8.6 mg/dL (7.8-10.44); Carbon Dioxide 27 mmol/L (23-31); Chloride 105 mmol/L (98-107); Estimated GFR-MDRD Greater than 90; Glucose 126 mg/dL (80-115); Magnesium 1.6 mg/dL (1.6-2.6); Phosphorus 2.4 mg/dL (2.3-4.7); Potassium 3.3 mmol/L (3.5-5.1); Sodium 139 mmol/L (136-145)
[2017-07-06 05:09] LABS: Anisocytosis SLIGHT = 6-15 cells (100X) (0-5/hpf); Band 7 % (5-11); Hemoglobin 8.9 g/dL (14.0-18.0); Hypochromia SLIGHT = 6-15 cells (100X) (0-5/hpf); Lymphocytes 6 % (21-51); MDiff Complete? YES; Mean Corpuscular HGB CONC 29.3 g/dL (32.0-36.0); Mean Corpuscular Hemoglobin 27.8 pg (27.0-31.0); Mean Corpuscular Volume 94.6 fl (80.0-94.0); Mean Platelet Volume 9.7 fL (7.4-10.4); Monocytes 4 % (0-10); Neutrophil 83 % (42-75); PLT Morphology Comment Appears Adequate; Platelet Count 519 thou/uL (130-400); Polychromasia SLIGHT = 2-3 cells (100X) (0-2/hpf); RBC Distribution Width 19.5 % (11.5-14.5); White Blood Cell (WBC) Count 9.8 thou/uL (4.8-10.8)
[2017-07-06] MEDS: metroNIDAZOLE 500 MG in Premix Bag 1 BAG IVPB SCH ×3 (05:30→21:58)
[2017-07-06] MEDS: Potassium Chloride 20 MEQ TAB PO PRN (05:31)
--- NOTE | 2017-07-06 07:40 | PDOC.PULPN ---
Progress Note: Subj/Obj - Subjective Date: 07/06/17 Time: 07:39 Narrative: No complaints. Accidently rolled out of bed last night - ROS All systems: reviewed and no additional remarkable complaints except as stated Respiratory: no reported symptoms - Objective Allergies/Adverse Reactions: Allergies Allergy/AdvReac Type Severity Reaction Status Date / Time morphine Allergy Verified 05/28/17 08:18 Medications: Current Medications Acetaminophen (Tylenol) 650 mg MT Q4H PRN PRN Reason: Headache/Fever or Pain Last Admin: 06/28/17 15:15 Dose: 650 mg Acetaminophen (Tylenol Elixir) 650 mg PO Q4H PRN PRN Reason: Headache/Fever or Pain Last Admin: 07/05/17 17:02 Dose: 650 mg Albuterol/Ipratropium (Duoneb) 3 ml NEB Q4H PRN PRN Reason: Wheezing Albuterol/Ipratropium (Duoneb) 3 ml NEB [id number] [facility] Last Admin: 07/06/17 06:35 Dose: 3 ml Dextrose/Water (Dextrose 50%) 25 gm SLOW IVP PRN PRN PRN Reason: Hypoglycemia Famotidine (Pepcid) 20 mg SLOW IVP Q12HR [facility] Last Admin: 07/05/17 20:06 Dose: 20 mg Fentanyl (Sublimaze) 25 mcg SLOW IVP Q2H PRN PRN Reason: Moderate to Severe Pain (6-10) Fentanyl (Sublimaze) 50 mcg SLOW IVP Q2H PRN PRN Reason: Moderate to Severe Pain (6-10) Glucagon (Glucagon) 1 mg IM PRN PRN PRN Reason: Hypoglycemia Hydralazine HCl (Apresoline) 10 mg SLOW IVP Q4H PRN PRN Reason: SBP > 170 or DBP > 100 Last Admin: 06/30/17 09:34 Dose: 10 mg Dextrose/Water (D5w) 1,000 mls @ 0 mls/hr IV .Q0M PRN; As Directed PRN Reason: Hypoglycemia Potassium Chloride 40 meq/ (Sodium Chloride) 270 mls @ 135 mls/hr IVPB ASDIR PRN PRN Reason: FOR SERUM K+ 2.5 - 3.5 Potassium Chloride 40 meq/ (Device) 100 mls @ 50 mls/hr IVPB ASDIR PRN PRN Reason: FOR SERUM K+ 2.5 - 3.5 Last Admin: 07/04/17 07:21 Dose: 100 mls Magnesium Sulfate 1 gm/ Sodium (Chloride) 102 mls @ 102 mls/hr IV PRN PRN PRN Reason: MAG LEVEL 1.4 - 2.0 Last Admin: 07/03/17 12:29 Dose: 102 mls Magnesium Sulfate 2 gm/ Device 100 mls @ 100 mls/hr IVPB ASDIR PRN PRN Reason: MAGNESIUM < 1.4 Last Admin: 06/27/17 11:16 Dose: 100 mls Potassium Phosphate 9 mmol/ (Sodium Chloride) 103 mls @ 25.75 mls/hr IVPB ASDIR PRN PRN Reason: Phosphate 1.0-1.8 Last Admin: 07/01/17 06:36 Dose: 103 mls Potassium Phosphate 12 mmol/ (Sodium Chloride) 254 mls @ 63.5 mls/hr IV ASDIR PRN PRN Reason: Serum phosphate 0.5-0.9 Potassium Phosphate 15 mmol/ (Sodium Chloride) 255 mls @ 63.75 mls/hr IV ASDIR PRN PRN Reason: Serum Phos < 0.5 Metronidazole 500 mg/ Device 100 mls @ 100 mls/hr IVPB Q8HR [facility] Last Admin: 07/06/17 05:30 Dose: 100 mls Fluconazole/Sodium Chloride (400 mg/ Device) 200 mls @ 100 mls/hr IVPB 1600 [facility] Last Admin: 07/05/17 16:17 Dose: 200 mls Meropenem 1 gm/ Sterile Water 20 mls @ 240 mls/hr SLOW IVP 0200,1000,1800 [facility] Last Admin: 07/06/17 02:23 Dose: 20 mls Insulin Human Lispro (Humalog) 0 units SC .AGGRESSIVE SLIDING PRN; Protocol PRN Reason: AGGRESSIVE SLIDING SCALE Last Admin: 07/05/17 11:12 Dose: 9 unit Insulin Human NPH (Humulin N) 20 unit SC Q12HR [facility] Last Admin: 07/05/17 20:09 Dose: Not Given Labetalol HCl (Normodyne) 10 mg SLOW IVP Q4H PRN PRN Reason: SBP Greater Than 180 Last Admin: 06/30/17 12:06 Dose: 10 mg Labetalol HCl (Normodyne) 20 mg SLOW IVP Q4H PRN PRN Reason: SBP Greater Than 180 Magnesium Oxide (Magnesium Oxide) 400 mg PO BIDPRN PRN PRN Reason: FOR SERUM MAG 1.4 - 2.0 Last Admin: 07/06/17 05:31 Dose: 400 mg Magnesium Oxide (Magnesium Oxide) 800 mg PO PRN PRN PRN Reason: FOR SERUM MAG < 1.4 Miscellaneous Medication (Phos-Nak) 1 pkt PO TIDPRN PRN PRN Reason: FOR PHOS LEVEL 1.0 - 1.8 Miscellaneous Medication (Phos-Nak) 2 pkt PO TIDPRN PRN PRN Reason: FOR PHOS LEVEL 0.5 - 1.0 Ondansetron HCl (Zofran Odt) 4 mg PO Q6H PRN PRN Reason: Nausea/Vomiting Ondansetron HCl (Zofran) 4 mg IVP Q6H PRN PRN Reason: Nausea Potassium Chloride (K-Dur) 40 meq PO ASDIR PRN PRN Reason: FOR SERUM K+ 2.5 - 3.5 Last Admin: 07/06/17 05:31 Dose: 40 meq Potassium Chloride (Klor-Con) 40 meq PER TUBE ASDIR PRN PRN Reason: FOR SERUM K+ 2.5-3.5 Promethazine HCl (Phenergan) 12.5 mg IM Q4H PRN PRN Reason: Nausea Propofol (Diprivan) 1,000 mg IV INF PRN; Protocol PRN Reason: TO ACHIEVE PERAZA SCORE 2-3 Stop: 07/17/17 20:48 Last Admin: 07/01/17 21:00 Dose: 1,000 mg Sodium Chloride (Flush - Normal Saline) 10 ml IVF PRN PRN PRN Reason: Saline Flush Sterile Water (Water For Injection) 5 ml FS DAILY A[facility] Last Admin: 07/05/17 11:14 Dose: Not Given MAR Reviewed: Yes Vital Signs: Vital Signs Temp 99.2 F 07/06/17 04:00 Pulse 97 07/06/17 06:35 Resp 17 07/06/17 06:35 BP 143/82 H 07/05/17 09:39 Pulse Ox 98 07/06/17 06:35 Intake & Output 07/05/17 07/06/17 07/06/17 18:59 06:59 18:59 Intake Total 0801 947 Output Total 1102 1110 Balance 562 -163 Intake: Intake, IV Amount 554 707 Sodium Chloride 0.9% 1, 277 000 ml @ 75 mls/hr IV . [id number] [facility] Rx#:[id number] Sodium Chloride 0.9% 1, 277 000 ml @ 9999 mls/hr IV . Q6M [facility] Rx#:[id number] Sodium Chloride 0.9% 10 707 ml IVF PRN PRN Rx#: [id number] Oral 1110 240 Output: Drainage 2 RLQ MIYA drain B 1 RUQ MIYA drain A 1 Ostomy Output 200 Ileostomy 200 Output, Gracia 900 1110 Other: Voiding Method Indwelling Catheter Indwelling Catheter Progress Note: Exam - Physical Exam Constitutional: NAD HEENT: PERRLA, sclera anicteric Neck: no JVD Cardiovascular: RRR Respiratory: clear to auscultation bilaterally Gastrointestinal: soft, non-tender -: wounds look ok Musculoskeletal: edema present Neurological: non-focal, moves all 4 limbs Psychiatric: normal affect, A&O x 3 Skin: no rash - Labs Result Diagrams: 07/06/17 03:33 07/06/17 03:33 Lab results: Laboratory Results - last 24 hr 07/04/17 07/05/17 07/05/17 21:26 11:06 16:15 WBC RBC Hgb Hct MCV MCH MCHC RDW Plt Count MPV Neutrophils % (Manual) Band Neuts % (Manual) Lymphocytes % (Manual) Monocytes % (Manual) Hypochromia Plt Morphology Comment Polychromasia Anisocytosis Sodium Potassium Chloride Carbon Dioxide Anion Gap BUN Creatinine Estimated GFR (MDRD) Glucose POC Glucose 250 H 269 H 159 H Calcium Phosphorus Magnesium 07/05/17 07/06/17 07/06/17 20:09 03:33 03:33 WBC 9.8 RBC 3.20 L Hgb 8.9 L Hct 30.3 L MCV 94.6 H MCH 27.8 MCHC 29.3 L RDW 19.5 H Plt Count 519 H MPV 9.7 Neutrophils % (Manual) 83 H Band Neuts % (Manual) 7 Lymphocytes % (Manual) 6 L Monocytes % (Manual) 4 Hypochromia SLIGHT = 6-15 cells Plt Morphology Comment Appears Adequate Polychromasia SLIGHT = 2-3 cells Anisocytosis SLIGHT = 6-15 cells Sodium 139 Potassium 3.3 L Chloride 105 Carbon Dioxide 27 Anion Gap 10 BUN 11 Creatinine 0.62 Estimated GFR (MDRD) Greater than 90 Glucose 126 H POC Glucose 165 H Calcium 8.6 Phosphorus 2.4 Magnesium 1.6 Progress Note: A/P - Problems (1) Acute respiratory failure Current Visit: Yes Status: Resolved Code(s): J96.00 - ACUTE RESPIRATORY FAILURE, UNSP W HYPOXIA OR HYPERCAPNIA Qualifiers: Respiratory failure complication: hypoxia and hypercapnia Qualified Code(s) : J96.01 - Acute respiratory failure with hypoxia; J96.02 - Acute respiratory failure with hypercapnia; J96.02 - Acute respiratory failure with hypercapnia; J96.02 - Acute respiratory failure with hypercapnia (2) Hypokalemia Current Visit: Yes Status: Acute Code(s): E87.6 - HYPOKALEMIA - Plan Plan: stable for transfer to floor continuing antibiotics fall risk
[2017-07-06] MEDS: Famotidine/PF 20 mg/2ml Vial SLOW IVP SCH ×2 (08:20→21:57)
[2017-07-06] MEDS: Sterile Water 10 ML VIAL FS SCH (09:16)
[2017-07-06] MEDS: NPH, Human Insulin Isophane 300 UNIT/3 ML VIAL SC SCH ×2 (10:05→21:58)
--- NOTE | 2017-07-06 13:46 | PDOC.GSPN ---
Surgery Progress Note: Subj - Subjective Patient reports: no new complaints (tolerating full liquids, fell last night trying to get out of bed.) Surgery Progress Note: Obj - Vital signs Vital signs: Vital Signs - Most Recent Temp Pulse Resp BP Pulse Ox 99.3 F 110 H 22 H 143/95 H 100 07/06/17 08:00 07/06/17 09:31 07/06/17 08:00 07/06/17 09:31 07/06/17 09:31 - Physical Exam General: no distress Abdomen: non tender, wound (vac), other (ostomy with liquid stool) Surgery Progress Note: Results - Labs Result Diagrams: 07/06/17 03:33 07/06/17 03:33 Lab results: Laboratory Results WBC 9.8 thou/uL (4.8-10.8) 07/06/17 03:33 RBC 3.20 mill/uL (4.70-6.10) L 07/06/17 03:33 Hgb 8.9 g/dL (14.0-18.0) L 07/06/17 03:33 Hct 30.3 % (42.0-52.0) L 07/06/17 03:33 POC Venous Hct 37.0 % (36-52) 06/17/17 16:35 MCV 94.6 fl (80.0-94.0) H 07/06/17 03:33 MCH 27.8 pg (27.0-31.0) 07/06/17 03:33 MCHC 29.3 g/dL (32.0-36.0) L 07/06/17 03:33 RDW 19.5 % (11.5-14.5) H 07/06/17 03:33 Plt Count 519 thou/uL (130-400) H 07/06/17 03:33 MPV 9.7 fL (7.4-10.4) 07/06/17 03:33 Neutrophils % 88.3 % (42.0-75.0) H 06/22/17 03:48 Neutrophils % (Manual) 83 % (42-75) H 07/06/17 03:33 Band Neuts % (Manual) 7 % (5-11) 07/06/17 03:33 Lymphocytes % 7.7 % (21.0-51.0) L 06/22/17 03:48 Lymphocytes % (Manual) 6 % (21-51) L 07/06/17 03:33 Monocytes % 3.8 % (0.0-10.0) 06/22/17 03:48 Monocytes % (Manual) 4 % (0-10) 07/06/17 03:33 Eosinophils % 0.2 % (0.0-10.0) 06/22/17 03:48 Eosinophils % (Manual) 2 % (0-10) 07/05/17 03:06 Basophils % 0.0 % (0.0-1.0) 06/22/17 03:48 Metamyelocytes % (Man) 2 % (0-0) H 06/23/17 04:16 Myelocytes % 1 % (0-0) H 06/18/17 05:00 Neutrophils # 9.5 thou/uL (1.40-6.50) H 06/22/17 03:48 Lymphocytes # 0.8 thou/uL (1.20-3.40) L 06/22/17 03:48 Monocytes # 0.4 thou/uL (0.11-0.59) 06/22/17 03:48 Eosinophils # 0.0 thou/uL (0.0-0.7) 06/22/17 03:48 Basophils # 0.0 thou/uL (0.0-0.2) 06/22/17 03:48 Nucleated RBCs # (Man) 3 % (0) H 07/01/17 04:30 Hypochromia SLIGHT = 6-15 cells (100X) (0-5/hpf) 07/06/17 03:33 Plt Morphology Comment Appears Adequate 07/06/17 03:33 Polychromasia SLIGHT = 2-3 cells (100X) (0-2/hpf) 07/06/17 03:33 Basophilic Stippling SLIGHT = 1-2 cells (100X) (None Seen) 06/28/17 04:35 Anisocytosis SLIGHT = 6-15 cells (100X) (0-5/hpf) 07/06/17 03:33 Macrocytosis SLIGHT = 6-15 cells (100X) (0-5/hpf) 07/02/17 04:20 Target Cells SLIGHT = 2-5 cells (100X) (0-1/hpf) 06/24/17 03:45 Stomatocytes SLIGHT = 2-5 cells (100X) (0-1/hpf) 07/02/17 04:20 [place] Cells MODERATE= 6-15 cells (100X) (0-1/hpf) 06/17/17 16:47 PT 16.1 SEC (12.0-14.7) H 06/24/17 15:00 INR 1.3 06/24/17 15:00 APTT 29.9 SEC (22.9-36.1) 06/24/17 15:00 Specimen Type ARTERIAL 06/30/17 06:40 Puncture Site LR 06/30/17 06:40 Bicarbonate Actual 34.0 mEq/L (22-26) H 06/30/17 06:40 POC Bicarbonate Calc 17.8 mmol/L (1.0-85.0) 06/17/17 16:35 ABG pH 7.41 (7.35-7.45) 06/30/17 06:40 ABG pCO2 55.3 mmHg (35.0-45.0) H 06/30/17 06:40 ABG pO2 103.0 mmHg (80.0-100.0) H 06/30/17 06:40 ABG O2 Sat Calc/Maryan 97.8 % (94.0-100.0) 06/30/17 06:40 ABG O2 Content 10.5 vol% (17.5-23.0) L 06/30/17 06:40 ABG Base Excess 8.3 mEq/L (0 (+/-) 2.5) H 06/30/17 06:40 ABG Hematocrit 25.8 % (42.0-52.0) L 06/30/17 06:40 ABG Hemoglobin 7.6 g/dL (14.0-18.0) L 06/30/17 06:40 ABG Oxyhemoglobin 95.8 % (94.0-97.0) 06/30/17 06:40 ABG Carboxyhemoglobin 1.5 gm% (0.0-3.0) 06/30/17 06:40 ABG Methemoglobin 0.6 gm% (0.0-1.5) 06/30/17 06:40 ABG Deoxyhemoglobin 2.2 % (0.0-5.0) 06/30/17 06:40 Helder Test POSITIVE 06/30/17 06:40 POC VBG pH 7.384 (7.35-7.45) 06/17/17 16:35 VBG pCO2 29.8 mmHg (41.0-51.0) L 06/17/17 16:35 VBG pO2 74.0 mmHg (35.0-45.0) H 06/17/17 16:35 POC VBG CO2 (Calc) 18.7 mmol/L (1.0-85.0) 06/17/17 16:35 POC VBG O2 Sat (Calc) 94.7 % (0.0-100.0) 06/17/17 16:35 POC VBG Hemoglobin Calc 12.7 g/dL (12.0-18.0) 06/17/17 16:35 A-a O2 Gradient 161.105 (0-20) H 06/30/17 06:40 Sodium 143 mmol/L (135-148) 06/29/17 06:47 Potassium 3.9 mmol/L (3.70-5.30) 06/29/17 06:47 Chloride 104 mmol/L (98-106) 06/29/17 06:47 Ionized Calcium 1.2 mmol/L (1.12-1.30) 06/29/17 06:47 Mode of Support SIMV/PI=13 06/30/17 06:40 % Minute Volume 5.5 L 06/27/17 07:47 Mechanical Rate 11 min 06/30/17 06:40 Spontaneous Rate 500 min 06/17/17 20:33 Inspired O2 47 % 06/30/17 06:40 Tidal Volume 651 ml 06/30/17 06:40 Peak Inspir Pressure 19 cmH2O 06/27/17 07:47 Pressure Support 17 cmH2O 06/30/17 06:40 PEEP or CPAP 10.0 cmH2O 06/30/17 06:40 POC Venous Sodium 134.0 mmol/L (138-145) L 06/17/17 16:35 Sodium 139 mmol/L (136-145) 07/06/17 03:33 POC Venous Potassium 3.9 mmol/L (3.4-4.7) 06/17/17 16:35 Potassium 3.3 mmol/L (3.5-5.1) L 07/06/17 03:33 POC Venous Chloride 98.0 mmol/L (98-113) 06/17/17 16:35 Chloride 105 mmol/L (98-107) 07/06/17 03:33 Carbon Dioxide 27 mmol/L (23-31) 07/06/17 03:33 Anion Gap 10 mmol/L (10-20) 07/06/17 03:33 POC Anton Anion Gap Calc 18 mmol/L (-14-95) 06/17/17 16:35 BUN 11 mg/dL (8.4-25.7) 07/06/17 03:33 Creatinine 0.62 mg/dL (0.6-1.3) 07/06/17 03:33 POC Venous Creatinine 1.22 mg/dL (0.60-1.30) 06/17/17 16:35 POC eGFR Amer Greater than 60 06/17/17 16:35 POC eGFR Non-Afric Amer 60 06/17/17 16:35 Estimated GFR (MDRD) Greater than 90 07/06/17 03:33 Glucose 126 mg/dL (80-115) H 07/06/17 03:33 POC Venous Glucose 319.0 mg/dL (70-105) H 06/17/17 16:35 POC Glucose 208 mg/dL (70-110) H 07/06/17 12:06 Lactic Acid 3.6 mmol/L (0.5-2.2) H 06/17/17 20:29 POC Venous Lactate 5.00 mmol/L (0.50-2.20) H* 06/17/17 16:35 Calcium 8.6 mg/dL (7.8-10.44) 07/06/17 03:33 POC Venous Ion Calcium 1.04 mmol/L (1.12-1.32) L 06/17/17 16:35 Phosphorus 2.4 mg/dL (2.3-4.7) 07/06/17 03:33 Magnesium 1.6 mg/dL (1.6-2.6) 07/06/17 03:33 Total Bilirubin 5.0 mg/dL (0.2-1.2) H 06/24/17 15:00 AST 52 U/L (5-34) H 06/24/17 15:00 ALT 51 U/L (8-55) 06/24/17 15:00 Alkaline Phosphatase 108 U/L (40-150) 06/24/17 15:00 Ammonia 32 umol/L (18-72) 06/27/17 03:39 CK-MB (CK-2) 0.6 ng/mL (0-6.6) 06/17/17 16:47 Troponin I 0.013 ng/mL (< 0.028) 06/17/17 16:47 Serum Total Protein 4.8 g/dL (5.8-8.1) L 06/24/17 15:00 Albumin 2.3 g/dL (3.4-4.8) L 06/24/17 15:00 Globulin 2.5 g/dL (2.4-3.5) 06/24/17 15:00 Albumin/Globulin Ratio 0.9 g/dL (1.2-2.2) L 06/24/17 15:00 Prealbumin 8.0 mg/dL (16-42) L 06/24/17 15:00 Triglycerides 286 mg/dL (Less than 150) H 06/24/17 15:00 Cholesterol 72 mg/dl (< 200 Desired) 06/24/17 15:00 LDL Cholesterol, Calc TNP 06/24/17 15:00 HDL Cholesterol Less than 8 mg/dL (>60 Neg Risk) 06/24/17 15:00 Heart Disease Risk Ratio TNP 06/24/17 15:00 Urine Color [place] (Yellow) H 06/17/17 16:25 Urine Clarity CLOUDY (Clear) 06/17/17 16:25 Urine pH 6.0 (5.0-9.0) 06/17/17 16:25 Ur Specific [place] 1.028 (1.002-1.036) 06/17/17 16:25 Urine Protein 30 mg/dL (Neg-Trace) H 06/17/17 16:25 Urine Glucose (UA) 500 mg/dL (Negative) 06/17/17 16:25 Urine Ketones Unable to Interpret mg/dL (Negative) 06/17/17 16:25 Urine Blood Moderate (Negative) H 06/17/17 16:25 Urine Nitrite Unable to Interpret (Negative) 06/17/17 16:25 Urine Bilirubin Large (Negative) H 06/17/17 16:25 Urine Urobilinogen 2.0 mg/dL (0.2-1.0) H 06/17/17 16:25 Ur Leukocyte Esterase Small (Negative) H 06/17/17 16:25 Urine RBC 0-3 HPF (0-3) 06/17/17 16:25 Urine WBC 4-6 HPF (0-3) H 06/17/17 16:25 Ur Squamous Epith Cells 4-6 HPF (0-3) H 06/17/17 16:25 Urine Crystals 1+ AMORPH URATES HPF (Negative) 06/17/17 16:25 Urine Bacteria None Seen HPF (None Seen) 06/17/17 16:25 Hyaline Casts 0-3 HYALINE CAST LPF (0-3 Hyaline) 06/17/17 16:25 Other Casts 4-6 COARSE GRAN LPF (0-3 Hyaline) H 06/17/17 16:25 Urine Yeast None Seen HPF (None Seen) 06/17/17 16:25 Blood Type A POSITIVE 06/17/17 16:50 Antibody Screen NEGATIVE 06/17/17 16:50 Crossmatch See Detail 06/17/17 16:50 Surgery Progress Note: A/P - Problem (1) Peritonitis Current Visit: Yes Code(s): K65.9 - PERITONITIS, UNSPECIFIED Status: Acute Assessment and Plan: Advance to GI soft diet Start more aggressive PT Picc line placement for prolonged IV needs
--- NOTE | 2017-07-06 15:49 | SPC ---
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 Comparison: None. FINDINGS: Patient brought to the fluoroscopy suite where all questions were answered. Initially the patient's left arm was prepped and draped in normal sterile fashion. Of note, the patie nt did have a left mid port placed years prior. The left basilic vein was accessed. Using a wire, the wire was able to extend centrally to the level of the central subclavian vein. Wire was not able to pass into the SVC. Subsequently, the right arm was prepped and draped in sterile fashion. Right basil ic vein was accessed with a micropuncture kit. The wire was placed in the IVC. Over the wire and thro ugh the sheath, a 50 cm dual-lumen PICC was placed. Patient tolerated the procedure well. Fluoro time: 3.5 minutes. IMPRESSION: Technically successful right PICC placement. Of note, there is narrowing of the left subclavian vein centrally. POS: [facility]
[2017-07-06] MEDS: Fluconazole In NaCl,Iso-Osm 400 MG in Premix Bag 1 BAG IVPB SCH (16:07)
[2017-07-06] MEDS: Acetaminophen 650 MG/20.3 ML UDCUP PO PRN (21:57)
[2017-07-07] MEDS: Meropenem 1 GM in Sterile Water 20 ML SLOW IVP SCH ×3 (02:47→18:17)
[2017-07-07 05:51] LABS: Band 6 % (5-11); Eosinophils 6 % (0-10); Hemoglobin 9.9 g/dL (14.0-18.0); Lymphocytes 10 % (21-51); MDiff Complete? YES; Mean Corpuscular HGB CONC 30.7 g/dL (32.0-36.0); Mean Corpuscular Hemoglobin 29.6 pg (27.0-31.0); Mean Corpuscular Volume 96.4 fl (80.0-94.0); Mean Platelet Volume 10.2 fL (7.4-10.4); Metamyelocyte 1 % (0-0); Monocytes 2 % (0-10); Myelocyte 1 % (0-0); Neutrophil 74 % (42-75); PLT Morphology Comment Appears Increased; Platelet Count 449 thou/uL (130-400); RBC Distribution Width 20.1 % (11.5-14.5); Red Blood Cell (RBC) Count 3.33 mill/uL (4.70-6.10)
[2017-07-07 06:30] LABS: Anion Gap 11 mmol/L (10-20); BUN (Urea Nitrogen) 9 mg/dL (8.4-25.7); Calc. Creatinine Clearance 0 mL/min (70-130); Calcium 8.7 mg/dL (7.8-10.44); Carbon Dioxide 25 mmol/L (23-31); Chloride 105 mmol/L (98-107); Estimated GFR-MDRD Greater than 90; Glucose 90 mg/dL (80-115); Magnesium 1.7 mg/dL (1.6-2.6); Phosphorus 3.1 mg/dL (2.3-4.7); Potassium 3.4 mmol/L (3.5-5.1); Sodium 138 mmol/L (136-145)
[2017-07-07] MEDS: metroNIDAZOLE 500 MG in Premix Bag 1 BAG IVPB SCH ×3 (06:51→21:17)
[2017-07-07] MEDS: Famotidine/PF 20 mg/2ml Vial SLOW IVP SCH ×2 (08:27→21:16)
[2017-07-07] MEDS: NPH, Human Insulin Isophane 300 UNIT/3 ML VIAL SC SCH ×2 (08:28→21:17)
[2017-07-07] MEDS: Sterile Water 10 ML VIAL FS SCH (08:28)
[2017-07-07 10:14] VITALS: BMI 33.5
[2017-07-07] MEDS ORDERED: NPH, Human Insulin Isophane 300 UNIT/3 ML VIAL SC SCH (10:30)
--- NOTE | 2017-07-07 11:05 | PRG ---
DATE OF SERVICE: 07/07/2017 He is feeling better. He is ready to get up and start trying to exercise. PHYSICAL EXAMINATION: VITAL SIGNS: Temperature 98.2, pulse 83, respirations 14, O2 sats 93%, blood pressure 130/84. HEENT: Unremarkable. NECK: No JVD. CHEST: Fairly clear without wheezing. CARDIAC: S1 and S2 regular. ABDOMEN: Soft. Wound VAC appears to be narrowing. EXTREMITIES: No edema. LABORATORY DATA: White blood cell count 7, hematocrit 32.1, platelet count 449. Sodium 130, potassi um 3.4, BUN 9, creatinine 0.6, glucose 90. ASSESSMENT: 1. Status post peritonitis. 1. Status post acute respiratory failure requiring mechanical ventilation. PLAN: Mainly rehab issue at this point. He is continuing antibiotics per Dr. Singh. His respirator y status is stable. I do not have anything else to add at this time. His insulin dose can be reduce d and his metformin can be restarted when he is felt stable from an abdominal standpoint.
[2017-07-07] MEDS: HumaLOG 300 UNITS/3 ML VIAL SC PRN (13:31)
[2017-07-07] MEDS ORDERED: HYDROcodone/Acetaminophen 10/325 mg Tablet PO PRN ×2 (15:30)
--- NOTE | 2017-07-07 15:32 | PDOC.GSPN ---
Surgery Progress Note: Subj - Subjective Narrative: Tolerated soft diet, still very weak when working with PT Surgery Progress Note: Obj - Vital signs Vital signs: Vital Signs - Most Recent Temp Pulse Resp BP Pulse Ox 98 F 85 14 133/85 97 07/07/17 11:07 07/07/17 11:07 07/07/17 11:07 07/07/17 11:07 07/07/17 11:07 - Physical Exam General: no distress Respiratory: clear to auscultation Abdomen: non tender, soft, other (ostomy: liquid stool) Surgery Progress Note: Results - Labs Result Diagrams: 07/07/17 04:45 07/07/17 04:45 Lab results: Laboratory Results WBC 7.0 thou/uL (4.8-10.8) 07/07/17 04:45 RBC 3.33 mill/uL (4.70-6.10) L 07/07/17 04:45 Hgb 9.9 g/dL (14.0-18.0) L 07/07/17 04:45 Hct 32.1 % (42.0-52.0) L 07/07/17 04:45 POC Venous Hct 37.0 % (36-52) 06/17/17 16:35 MCV 96.4 fl (80.0-94.0) H 07/07/17 04:45 MCH 29.6 pg (27.0-31.0) 07/07/17 04:45 MCHC 30.7 g/dL (32.0-36.0) L 07/07/17 04:45 RDW 20.1 % (11.5-14.5) H 07/07/17 04:45 Plt Count 449 thou/uL (130-400) H 07/07/17 04:45 MPV 10.2 fL (7.4-10.4) 07/07/17 04:45 Neutrophils % 88.3 % (42.0-75.0) H 06/22/17 03:48 Neutrophils % (Manual) 74 % (42-75) 07/07/17 04:45 Band Neuts % (Manual) 6 % (5-11) 07/07/17 04:45 Lymphocytes % 7.7 % (21.0-51.0) L 06/22/17 03:48 Lymphocytes % (Manual) 10 % (21-51) L 07/07/17 04:45 Monocytes % 3.8 % (0.0-10.0) 06/22/17 03:48 Monocytes % (Manual) 2 % (0-10) 07/07/17 04:45 Eosinophils % 0.2 % (0.0-10.0) 06/22/17 03:48 Eosinophils % (Manual) 6 % (0-10) 07/07/17 04:45 Basophils % 0.0 % (0.0-1.0) 06/22/17 03:48 Metamyelocytes % (Man) 1 % (0-0) H 07/07/17 04:45 Myelocytes % 1 % (0-0) H 07/07/17 04:45 Neutrophils # 9.5 thou/uL (1.40-6.50) H 06/22/17 03:48 Lymphocytes # 0.8 thou/uL (1.20-3.40) L 06/22/17 03:48 Monocytes # 0.4 thou/uL (0.11-0.59) 06/22/17 03:48 Eosinophils # 0.0 thou/uL (0.0-0.7) 06/22/17 03:48 Basophils # 0.0 thou/uL (0.0-0.2) 06/22/17 03:48 Nucleated RBCs # (Man) 3 % (0) H 07/01/17 04:30 Hypochromia SLIGHT = 6-15 cells (100X) (0-5/hpf) 07/06/17 03:33 Plt Morphology Comment Appears Increased H 07/07/17 04:45 Polychromasia SLIGHT = 2-3 cells (100X) (0-2/hpf) 07/06/17 03:33 Basophilic Stippling SLIGHT = 1-2 cells (100X) (None Seen) 06/28/17 04:35 Anisocytosis SLIGHT = 6-15 cells (100X) (0-5/hpf) 07/06/17 03:33 Macrocytosis SLIGHT = 6-15 cells (100X) (0-5/hpf) 07/02/17 04:20 Target Cells SLIGHT = 2-5 cells (100X) (0-1/hpf) 06/24/17 03:45 Stomatocytes SLIGHT = 2-5 cells (100X) (0-1/hpf) 07/02/17 04:20 [place] Cells MODERATE= 6-15 cells (100X) (0-1/hpf) 06/17/17 16:47 PT 16.1 SEC (12.0-14.7) H 06/24/17 15:00 INR 1.3 06/24/17 15:00 APTT 29.9 SEC (22.9-36.1) 06/24/17 15:00 Specimen Type ARTERIAL 06/30/17 06:40 Puncture Site LR 06/30/17 06:40 Bicarbonate Actual 34.0 mEq/L (22-26) H 06/30/17 06:40 POC Bicarbonate Calc 17.8 mmol/L (1.0-85.0) 06/17/17 16:35 ABG pH 7.41 (7.35-7.45) 06/30/17 06:40 ABG pCO2 55.3 mmHg (35.0-45.0) H 06/30/17 06:40 ABG pO2 103.0 mmHg (80.0-100.0) H 06/30/17 06:40 ABG O2 Sat Calc/Maryan 97.8 % (94.0-100.0) 06/30/17 06:40 ABG O2 Content 10.5 vol% (17.5-23.0) L 06/30/17 06:40 ABG Base Excess 8.3 mEq/L (0 (+/-) 2.5) H 06/30/17 06:40 ABG Hematocrit 25.8 % (42.0-52.0) L 06/30/17 06:40 ABG Hemoglobin 7.6 g/dL (14.0-18.0) L 06/30/17 06:40 ABG Oxyhemoglobin 95.8 % (94.0-97.0) 06/30/17 06:40 ABG Carboxyhemoglobin 1.5 gm% (0.0-3.0) 06/30/17 06:40 ABG Methemoglobin 0.6 gm% (0.0-1.5) 06/30/17 06:40 ABG Deoxyhemoglobin 2.2 % (0.0-5.0) 06/30/17 06:40 Helder Test POSITIVE 06/30/17 06:40 POC VBG pH 7.384 (7.35-7.45) 06/17/17 16:35 VBG pCO2 29.8 mmHg (41.0-51.0) L 06/17/17 16:35 VBG pO2 74.0 mmHg (35.0-45.0) H 06/17/17 16:35 POC VBG CO2 (Calc) 18.7 mmol/L (1.0-85.0) 06/17/17 16:35 POC VBG O2 Sat (Calc) 94.7 % (0.0-100.0) 06/17/17 16:35 POC VBG Hemoglobin Calc 12.7 g/dL (12.0-18.0) 06/17/17 16:35 A-a O2 Gradient 161.105 (0-20) H 06/30/17 06:40 Sodium 143 mmol/L (135-148) 06/29/17 06:47 Potassium 3.9 mmol/L (3.70-5.30) 06/29/17 06:47 Chloride 104 mmol/L (98-106) 06/29/17 06:47 Ionized Calcium 1.2 mmol/L (1.12-1.30) 06/29/17 06:47 Mode of Support SIMV/PI=13 06/30/17 06:40 % Minute Volume 5.5 L 06/27/17 07:47 Mechanical Rate 11 min 06/30/17 06:40 Spontaneous Rate 500 min 06/17/17 20:33 Inspired O2 47 % 06/30/17 06:40 Tidal Volume 651 ml 06/30/17 06:40 Peak Inspir Pressure 19 cmH2O 06/27/17 07:47 Pressure Support 17 cmH2O 06/30/17 06:40 PEEP or CPAP 10.0 cmH2O 06/30/17 06:40 POC Venous Sodium 134.0 mmol/L (138-145) L 06/17/17 16:35 Sodium 138 mmol/L (136-145) 07/07/17 04:45 POC Venous Potassium 3.9 mmol/L (3.4-4.7) 06/17/17 16:35 Potassium 3.4 mmol/L (3.5-5.1) L 07/07/17 04:45 POC Venous Chloride 98.0 mmol/L (98-113) 06/17/17 16:35 Chloride 105 mmol/L (98-107) 07/07/17 04:45 Carbon Dioxide 25 mmol/L (23-31) 07/07/17 04:45 Anion Gap 11 mmol/L (10-20) 07/07/17 04:45 POC Anton Anion Gap Calc 18 mmol/L (-14-95) 06/17/17 16:35 BUN 9 mg/dL (8.4-25.7) 07/07/17 04:45 Creatinine 0.61 mg/dL (0.6-1.3) 07/07/17 04:45 POC Venous Creatinine 1.22 mg/dL (0.60-1.30) 06/17/17 16:35 POC eGFR Amer Greater than 60 06/17/17 16:35 POC eGFR Non-Afric Amer 60 06/17/17 16:35 Estimated GFR (MDRD) Greater than 90 07/07/17 04:45 Glucose 90 mg/dL (80-115) 07/07/17 04:45 POC Venous Glucose 319.0 mg/dL (70-105) H 06/17/17 16:35 POC Glucose 165 mg/dL (70-110) H 07/07/17 11:09 Lactic Acid 3.6 mmol/L (0.5-2.2) H 06/17/17 20:29 POC Venous Lactate 5.00 mmol/L (0.50-2.20) H* 06/17/17 16:35 Calcium 8.7 mg/dL (7.8-10.44) 07/07/17 04:45 POC Venous Ion Calcium 1.04 mmol/L (1.12-1.32) L 06/17/17 16:35 Phosphorus 3.1 mg/dL (2.3-4.7) 07/07/17 04:45 Magnesium 1.7 mg/dL (1.6-2.6) 07/07/17 04:45 Total Bilirubin 5.0 mg/dL (0.2-1.2) H 06/24/17 15:00 AST 52 U/L (5-34) H 06/24/17 15:00 ALT 51 U/L (8-55) 06/24/17 15:00 Alkaline Phosphatase 108 U/L (40-150) 06/24/17 15:00 Ammonia 32 umol/L (18-72) 06/27/17 03:39 CK-MB (CK-2) 0.6 ng/mL (0-6.6) 06/17/17 16:47 Troponin I 0.013 ng/mL (< 0.028) 06/17/17 16:47 Serum Total Protein 4.8 g/dL (5.8-8.1) L 06/24/17 15:00 Albumin 2.3 g/dL (3.4-4.8) L 06/24/17 15:00 Globulin 2.5 g/dL (2.4-3.5) 06/24/17 15:00 Albumin/Globulin Ratio 0.9 g/dL (1.2-2.2) L 06/24/17 15:00 Prealbumin 8.0 mg/dL (16-42) L 06/24/17 15:00 Triglycerides 286 mg/dL (Less than 150) H 06/24/17 15:00 Cholesterol 72 mg/dl (< 200 Desired) 06/24/17 15:00 LDL Cholesterol, Calc TNP 06/24/17 15:00 HDL Cholesterol Less than 8 mg/dL (>60 Neg Risk) 06/24/17 15:00 Heart Disease Risk Ratio TNP 06/24/17 15:00 Urine Color [place] (Yellow) H 06/17/17 16:25 Urine Clarity CLOUDY (Clear) 06/17/17 16:25 Urine pH 6.0 (5.0-9.0) 06/17/17 16:25 Ur Specific [place] 1.028 (1.002-1.036) 06/17/17 16:25 Urine Protein 30 mg/dL (Neg-Trace) H 06/17/17 16:25 Urine Glucose (UA) 500 mg/dL (Negative) 06/17/17 16:25 Urine Ketones Unable to Interpret mg/dL (Negative) 06/17/17 16:25 Urine Blood Moderate (Negative) H 06/17/17 16:25 Urine Nitrite Unable to Interpret (Negative) 06/17/17 16:25 Urine Bilirubin Large (Negative) H 06/17/17 16:25 Urine Urobilinogen 2.0 mg/dL (0.2-1.0) H 06/17/17 16:25 Ur Leukocyte Esterase Small (Negative) H 06/17/17 16:25 Urine RBC 0-3 HPF (0-3) 06/17/17 16:25 Urine WBC 4-6 HPF (0-3) H 06/17/17 16:25 Ur Squamous Epith Cells 4-6 HPF (0-3) H 06/17/17 16:25 Urine Crystals 1+ AMORPH URATES HPF (Negative) 06/17/17 16:25 Urine Bacteria None Seen HPF (None Seen) 06/17/17 16:25 Hyaline Casts 0-3 HYALINE CAST LPF (0-3 Hyaline) 06/17/17 16:25 Other Casts 4-6 COARSE GRAN LPF (0-3 Hyaline) H 06/17/17 16:25 Urine Yeast None Seen HPF (None Seen) 06/17/17 16:25 Blood Type A POSITIVE 06/17/17 16:50 Antibody Screen NEGATIVE 06/17/17 16:50 Crossmatch See Detail 06/17/17 16:50 Surgery Progress Note: A/P - Problem (1) Peritonitis Current Visit: Yes Code(s): K65.9 - PERITONITIS, UNSPECIFIED Status: Acute Assessment and Plan: Add lomotil for high output ostomy (2) Physical deconditioning Current Visit: Yes Code(s): R53.81 - OTHER MALAISE Status: Acute Assessment and Plan: Continue PT
[2017-07-07] MEDS: Fluconazole In NaCl,Iso-Osm 400 MG in Premix Bag 1 BAG IVPB SCH (16:18)
[2017-07-07] MEDS: Diphenoxylate HCl/Atropine Tablet PO SCH (21:16)
[2017-07-08] MEDS: Meropenem 1 GM in Sterile Water 20 ML SLOW IVP SCH ×3 (02:53→18:25)
[2017-07-08] MEDS: metroNIDAZOLE 500 MG in Premix Bag 1 BAG IVPB SCH ×3 (07:03→21:15)
[2017-07-08] MEDS: Sterile Water 10 ML VIAL FS SCH (07:36)
[2017-07-08] MEDS: Diphenoxylate HCl/Atropine Tablet PO SCH ×3 (08:18→20:07)
[2017-07-08] MEDS: Famotidine/PF 20 mg/2ml Vial SLOW IVP SCH ×2 (08:18→20:08)
[2017-07-08] MEDS: NPH, Human Insulin Isophane 300 UNIT/3 ML VIAL SC SCH ×2 (08:18→20:08)
--- NOTE | 2017-07-08 08:33 | PRG ---
DATE OF SERVICE: 07/08/2017 SUBJECTIVE: Mr. Costa is feeling better and better each day. I think that they are looking at trans sonia to rehabilitation, but he will have to improve his functional ability before transfer. No headac hes, no respiratory symptoms, no abdominal pain and he has been transitioned to oral feedings. PHYSICAL EXAMINATION: VITAL SIGNS: Not remarkable, he is not tachycardic awake, alert, and oriented. LUNGS: Lungs with symmetric air entry. HEART: S1, S2, regular rate. ABDOMEN: Soft, midline negative pressure dressing, ileostomy. The drain output is minimal from each quadrant. EXTREMITIES: He is able to move extremities, but is diffusely weak. LABORATORY DATA: White cell count 7.0, hemoglobin 9.9, platelets 449, which is an improvement. Diff erential has normalized pretty much. The chemistries are fairly normal except for mild decrease in p otassium. ASSESSMENT AND DISCUSSION: Type 2 diabetes, hypertension rectosigmoid cancer T3 N2 with resection, c hemoradiation and stricture development, noted complications with diversion, ileostomy with resection of stricture and then takedown ileostomy and subsequent further complications including peritonitis, sepsis due to leakage. The patient's leakage was repaired. The patient had another ileostomy place d and now has recovered from his sepsis, to be continued on antimicrobial therapy. Drains probably s hould be able to be removed soon. Follow up CT scans, eventual discontinuation of antimicrobial ther apy probably at rehab. The end point will be resolution of the intra-abdominal abscess/peritonitis. We are very close to that end-point I believe.
[2017-07-08 10:13] LABS: Actual Bicarbonate (HCO3a) 19.8 mEq/L (22-26); Base Excess (BEa) -6.6 mEq/L (0 (+/-) 2.5); CO2 Tension 42.8 mmHg (35.0-45.0); Hematocrit-ABG 43.5 % (42.0-52.0); Hemoglobin (Hb) 11.5 g/dL (14.0-18.0); pH, Arterial 7.28 (7.35-7.45)
[2017-07-08 10:14] LABS: Analyzer IN Cardio OR; Calcium, Ionized 1.2 mmol/L (1.12-1.30); Puncture Site ALINE
[2017-07-08] MEDS ORDERED: Enoxaparin Sodium 40 MG/0.4 ML SYRINGE SC SCH (12:00)
--- NOTE | 2017-07-08 13:11 | PDOC.GSPN ---
Surgery Progress Note: Subj - Subjective Narrative: Doing well. carlene diet Surgery Progress Note: Obj - Vital signs Vital signs: Vital Signs - Most Recent Temp Pulse Resp BP Pulse Ox 98.3 F 94 20 103/69 95 07/08/17 12:00 07/08/17 12:00 07/08/17 12:00 07/08/17 12:00 07/08/17 12:00 - Physical Exam General: no distress Respiratory: clear to auscultation Abdomen: non tender, other (wound vac in place. ostomy seen with wound care. the edges have from the skin edge but there is good granulation tissue present) Surgery Progress Note: Results - Labs Result Diagrams: 07/07/17 04:45 07/07/17 04:45 Lab results: Laboratory Results WBC 7.0 thou/uL (4.8-10.8) 07/07/17 04:45 RBC 3.33 mill/uL (4.70-6.10) L 07/07/17 04:45 Hgb 9.9 g/dL (14.0-18.0) L 07/07/17 04:45 Hct 32.1 % (42.0-52.0) L 07/07/17 04:45 POC Venous Hct 37.0 % (36-52) 06/17/17 16:35 MCV 96.4 fl (80.0-94.0) H 07/07/17 04:45 MCH 29.6 pg (27.0-31.0) 07/07/17 04:45 MCHC 30.7 g/dL (32.0-36.0) L 07/07/17 04:45 RDW 20.1 % (11.5-14.5) H 07/07/17 04:45 Plt Count 449 thou/uL (130-400) H 07/07/17 04:45 MPV 10.2 fL (7.4-10.4) 07/07/17 04:45 Neutrophils % 88.3 % (42.0-75.0) H 06/22/17 03:48 Neutrophils % (Manual) 74 % (42-75) 07/07/17 04:45 Band Neuts % (Manual) 6 % (5-11) 07/07/17 04:45 Lymphocytes % 7.7 % (21.0-51.0) L 06/22/17 03:48 Lymphocytes % (Manual) 10 % (21-51) L 07/07/17 04:45 Monocytes % 3.8 % (0.0-10.0) 06/22/17 03:48 Monocytes % (Manual) 2 % (0-10) 07/07/17 04:45 Eosinophils % 0.2 % (0.0-10.0) 06/22/17 03:48 Eosinophils % (Manual) 6 % (0-10) 07/07/17 04:45 Basophils % 0.0 % (0.0-1.0) 06/22/17 03:48 Metamyelocytes % (Man) 1 % (0-0) H 07/07/17 04:45 Myelocytes % 1 % (0-0) H 07/07/17 04:45 Neutrophils # 9.5 thou/uL (1.40-6.50) H 06/22/17 03:48 Lymphocytes # 0.8 thou/uL (1.20-3.40) L 06/22/17 03:48 Monocytes # 0.4 thou/uL (0.11-0.59) 06/22/17 03:48 Eosinophils # 0.0 thou/uL (0.0-0.7) 06/22/17 03:48 Basophils # 0.0 thou/uL (0.0-0.2) 06/22/17 03:48 Nucleated RBCs # (Man) 3 % (0) H 07/01/17 04:30 Hypochromia SLIGHT = 6-15 cells (100X) (0-5/hpf) 07/06/17 03:33 Plt Morphology Comment Appears Increased H 07/07/17 04:45 Polychromasia SLIGHT = 2-3 cells (100X) (0-2/hpf) 07/06/17 03:33 Basophilic Stippling SLIGHT = 1-2 cells (100X) (None Seen) 06/28/17 04:35 Anisocytosis SLIGHT = 6-15 cells (100X) (0-5/hpf) 07/06/17 03:33 Macrocytosis SLIGHT = 6-15 cells (100X) (0-5/hpf) 07/02/17 04:20 Target Cells SLIGHT = 2-5 cells (100X) (0-1/hpf) 06/24/17 03:45 Stomatocytes SLIGHT = 2-5 cells (100X) (0-1/hpf) 07/02/17 04:20 Memo Cells MODERATE= 6-15 cells (100X) (0-1/hpf) 06/17/17 16:47 PT 16.1 SEC (12.0-14.7) H 06/24/17 15:00 INR 1.3 06/24/17 15:00 APTT 29.9 SEC (22.9-36.1) 06/24/17 15:00 Specimen Type ARTERIAL 06/30/17 06:40 Puncture Site LR 06/30/17 06:40 Bicarbonate Actual 34.0 mEq/L (22-26) H 06/30/17 06:40 POC Bicarbonate Calc 17.8 mmol/L (1.0-85.0) 06/17/17 16:35 ABG pH 7.41 (7.35-7.45) 06/30/17 06:40 ABG pCO2 55.3 mmHg (35.0-45.0) H 06/30/17 06:40 ABG pO2 103.0 mmHg (80.0-100.0) H 06/30/17 06:40 ABG O2 Sat Calc/Maryan 97.8 % (94.0-100.0) 06/30/17 06:40 ABG O2 Content 10.5 vol% (17.5-23.0) L 06/30/17 06:40 ABG Base Excess 8.3 mEq/L (0 (+/-) 2.5) H 06/30/17 06:40 ABG Hematocrit 25.8 % (42.0-52.0) L 06/30/17 06:40 ABG Hemoglobin 7.6 g/dL (14.0-18.0) L 06/30/17 06:40 ABG Oxyhemoglobin 95.8 % (94.0-97.0) 06/30/17 06:40 ABG Carboxyhemoglobin 1.5 gm% (0.0-3.0) 06/30/17 06:40 ABG Methemoglobin 0.6 gm% (0.0-1.5) 06/30/17 06:40 ABG Deoxyhemoglobin 2.2 % (0.0-5.0) 06/30/17 06:40 Helder Test POSITIVE 06/30/17 06:40 POC VBG pH 7.384 (7.35-7.45) 06/17/17 16:35 VBG pCO2 29.8 mmHg (41.0-51.0) L 06/17/17 16:35 VBG pO2 74.0 mmHg (35.0-45.0) H 06/17/17 16:35 POC VBG CO2 (Calc) 18.7 mmol/L (1.0-85.0) 06/17/17 16:35 POC VBG O2 Sat (Calc) 94.7 % (0.0-100.0) 06/17/17 16:35 POC VBG Hemoglobin Calc 12.7 g/dL (12.0-18.0) 06/17/17 16:35 A-a O2 Gradient 161.105 (0-20) H 06/30/17 06:40 Sodium 143 mmol/L (135-148) 06/29/17 06:47 Potassium 3.9 mmol/L (3.70-5.30) 06/29/17 06:47 Chloride 104 mmol/L (98-106) 06/29/17 06:47 Ionized Calcium 1.2 mmol/L (1.12-1.30) 06/29/17 06:47 Mode of Support SIMV/PI=13 06/30/17 06:40 % Minute Volume 5.5 L 06/27/17 07:47 Mechanical Rate 11 min 06/30/17 06:40 Spontaneous Rate 500 min 06/17/17 20:33 Inspired O2 47 % 06/30/17 06:40 Tidal Volume 651 ml 06/30/17 06:40 Peak Inspir Pressure 19 cmH2O 06/27/17 07:47 Pressure Support 17 cmH2O 06/30/17 06:40 PEEP or CPAP 10.0 cmH2O 06/30/17 06:40 POC Venous Sodium 134.0 mmol/L (138-145) L 06/17/17 16:35 Sodium 138 mmol/L (136-145) 07/07/17 04:45 POC Venous Potassium 3.9 mmol/L (3.4-4.7) 06/17/17 16:35 Potassium 3.4 mmol/L (3.5-5.1) L 07/07/17 04:45 POC Venous Chloride 98.0 mmol/L (98-113) 06/17/17 16:35 Chloride 105 mmol/L (98-107) 07/07/17 04:45 Carbon Dioxide 25 mmol/L (23-31) 07/07/17 04:45 Anion Gap 11 mmol/L (10-20) 07/07/17 04:45 POC Anton Anion Gap Calc 18 mmol/L (-14-95) 06/17/17 16:35 BUN 9 mg/dL (8.4-25.7) 07/07/17 04:45 Creatinine 0.61 mg/dL (0.6-1.3) 07/07/17 04:45 POC Venous Creatinine 1.22 mg/dL (0.60-1.30) 06/17/17 16:35 POC eGFR Amer Greater than 60 06/17/17 16:35 POC eGFR Non-Afric Amer 60 06/17/17 16:35 Estimated GFR (MDRD) Greater than 90 07/07/17 04:45 Glucose 90 mg/dL (80-115) 07/07/17 04:45 POC Venous Glucose 319.0 mg/dL (70-105) H 06/17/17 16:35 POC Glucose 169 mg/dL (70-110) H 07/08/17 10:40 Lactic Acid 3.6 mmol/L (0.5-2.2) H 06/17/17 20:29 POC Venous Lactate 5.00 mmol/L (0.50-2.20) H* 06/17/17 16:35 Calcium 8.7 mg/dL (7.8-10.44) 07/07/17 04:45 POC Venous Ion Calcium 1.04 mmol/L (1.12-1.32) L 06/17/17 16:35 Phosphorus 3.1 mg/dL (2.3-4.7) 07/07/17 04:45 Magnesium 1.7 mg/dL (1.6-2.6) 07/07/17 04:45 Total Bilirubin 5.0 mg/dL (0.2-1.2) H 06/24/17 15:00 AST 52 U/L (5-34) H 06/24/17 15:00 ALT 51 U/L (8-55) 06/24/17 15:00 Alkaline Phosphatase 108 U/L (40-150) 06/24/17 15:00 Ammonia 32 umol/L (18-72) 06/27/17 03:39 CK-MB (CK-2) 0.6 ng/mL (0-6.6) 06/17/17 16:47 Troponin I 0.013 ng/mL (< 0.028) 06/17/17 16:47 Serum Total Protein 4.8 g/dL (5.8-8.1) L 06/24/17 15:00 Albumin 2.3 g/dL (3.4-4.8) L 06/24/17 15:00 Globulin 2.5 g/dL (2.4-3.5) 06/24/17 15:00 Albumin/Globulin Ratio 0.9 g/dL (1.2-2.2) L 06/24/17 15:00 Prealbumin 8.0 mg/dL (16-42) L 06/24/17 15:00 Triglycerides 286 mg/dL (Less than 150) H 06/24/17 15:00 Cholesterol 72 mg/dl (< 200 Desired) 06/24/17 15:00 LDL Cholesterol, Calc TNP 06/24/17 15:00 HDL Cholesterol Less than 8 mg/dL (>60 Neg Risk) 06/24/17 15:00 Heart Disease Risk Ratio TNP 06/24/17 15:00 Urine Color [place] (Yellow) H 06/17/17 16:25 Urine Clarity CLOUDY (Clear) 06/17/17 16:25 Urine pH 6.0 (5.0-9.0) 06/17/17 16:25 Ur Specific [place] 1.028 (1.002-1.036) 06/17/17 16:25 Urine Protein 30 mg/dL (Neg-Trace) H 06/17/17 16:25 Urine Glucose (UA) 500 mg/dL (Negative) 06/17/17 16:25 Urine Ketones Unable to Interpret mg/dL (Negative) 06/17/17 16:25 Urine Blood Moderate (Negative) H 06/17/17 16:25 Urine Nitrite Unable to Interpret (Negative) 06/17/17 16:25 Urine Bilirubin Large (Negative) H 06/17/17 16:25 Urine Urobilinogen 2.0 mg/dL (0.2-1.0) H 06/17/17 16:25 Ur Leukocyte Esterase Small (Negative) H 06/17/17 16:25 Urine RBC 0-3 HPF (0-3) 06/17/17 16:25 Urine WBC 4-6 HPF (0-3) H 06/17/17 16:25 Ur Squamous Epith Cells 4-6 HPF (0-3) H 06/17/17 16:25 Urine Crystals 1+ AMORPH URATES HPF (Negative) 06/17/17 16:25 Urine Bacteria None Seen HPF (None Seen) 06/17/17 16:25 Hyaline Casts 0-3 HYALINE CAST LPF (0-3 Hyaline) 06/17/17 16:25 Other Casts 4-6 COARSE GRAN LPF (0-3 Hyaline) H 06/17/17 16:25 Urine Yeast None Seen HPF (None Seen) 06/17/17 16:25 Blood Type A POSITIVE 06/17/17 16:50 Antibody Screen NEGATIVE 06/17/17 16:50 Crossmatch See Detail 06/17/17 16:50 Surgery Progress Note: A/P - Problem (1) Peritonitis Current Visit: Yes Code(s): K65.9 - PERITONITIS, UNSPECIFIED Status: Acute Assessment and Plan: Overall doing well. Added lomotil for high ouput ileostomy. To [facility] next week (2) Physical deconditioning Current Visit: Yes Code(s): R53.81 - OTHER MALAISE Status: Acute
[2017-07-08] MEDS: HumaLOG 300 UNITS/3 ML VIAL SC PRN (13:21)
[2017-07-08] MEDS: Fluconazole In NaCl,Iso-Osm 400 MG in Premix Bag 1 BAG IVPB SCH (16:10)
[2017-07-09] MEDS: Meropenem 1 GM in Sterile Water 20 ML SLOW IVP SCH ×3 (01:08→18:49)
[2017-07-09] MEDS: metroNIDAZOLE 500 MG in Premix Bag 1 BAG IVPB SCH ×3 (05:17→22:58)
[2017-07-09] MEDS: Diphenoxylate HCl/Atropine Tablet PO SCH ×3 (09:16→20:39)
[2017-07-09] MEDS: Sterile Water 10 ML VIAL FS SCH (09:16)
[2017-07-09] MEDS: Famotidine/PF 20 mg/2ml Vial SLOW IVP SCH ×2 (09:16→20:39)
[2017-07-09] MEDS: NPH, Human Insulin Isophane 300 UNIT/3 ML VIAL SC SCH ×2 (09:18→20:39)
[2017-07-09] MEDS ORDERED: Enoxaparin Sodium 40 MG/0.4 ML SYRINGE SC SCH (09:59)
[2017-07-09] MEDS: Enoxaparin Sodium 40 MG/0.4 ML SYRINGE SC SCH (10:38)
[2017-07-09] MEDS: HumaLOG 300 UNITS/3 ML VIAL SC PRN (12:41)
--- NOTE | 2017-07-09 16:16 | PDOC.GSPN ---
Surgery Progress Note: Subj - Subjective Patient reports: no new complaints, feels better, tolerating a regular diet Surgery Progress Note: Obj - Vital signs Vital signs: Vital Signs - Most Recent Temp Pulse Resp BP Pulse Ox 97.8 F 96 21 H 131/86 94 L 07/09/17 15:00 07/09/17 15:00 07/09/17 15:00 07/09/17 15:00 07/09/17 15:00 - Physical Exam General: no distress Cardiovascular: regular rate and rhythm Respiratory: clear to auscultation Abdomen: soft, non tender, nondistended Wound: wound vac (in place), ostomy/colostomy (more solid stool) Surgery Progress Note: Results - Labs Result Diagrams: 07/07/17 04:45 07/07/17 04:45 Lab results: Laboratory Results - last 24 hr 07/09/17 07/09/17 05:50 12:05 POC Glucose 117 H 307 H Surgery Progress Note: A/P - Problem (1) Peritonitis Current Visit: Yes Code(s): K65.9 - PERITONITIS, UNSPECIFIED Status: Acute Assessment and Plan: Overall doing well. Continue PT/OT. shelter/rehab next week (2) Physical deconditioning Current Visit: Yes Code(s): R53.81 - OTHER MALAISE Status: Acute
[2017-07-09] MEDS: Fluconazole In NaCl,Iso-Osm 400 MG in Premix Bag 1 BAG IVPB SCH (16:31)
[2017-07-10] MEDS: Meropenem 1 GM in Sterile Water 20 ML SLOW IVP SCH ×3 (02:19→17:42)
[2017-07-10] MEDS: metroNIDAZOLE 500 MG in Premix Bag 1 BAG IVPB SCH ×3 (06:07→22:25)
[2017-07-10] MEDS: Diphenoxylate HCl/Atropine Tablet PO SCH ×3 (09:17→22:25)
[2017-07-10] MEDS: Enoxaparin Sodium 40 MG/0.4 ML SYRINGE SC SCH (09:18)
[2017-07-10] MEDS: Famotidine/PF 20 mg/2ml Vial SLOW IVP SCH ×2 (09:18→22:25)
[2017-07-10] MEDS: Sterile Water 10 ML VIAL FS SCH (09:19)
[2017-07-10 09:22] LABS: #Eosinphils 0.3 thou/uL (0.0-0.7); #Lymphocytes 0.9 thou/uL (1.20-3.40); #Monocytes 0.7 thou/uL (0.11-0.59); #Neutrophils 7.9 thou/uL (1.40-6.50); %Basophils 0.2 % (0.0-1.0); %Eosinophils 2.6 % (0.0-10.0); %Monocytes 6.8 % (0.0-10.0); %Neutrophils 81.4 % (42.0-75.0); Hemoglobin 10.7 g/dL (14.0-18.0); Mean Corpuscular HGB CONC 30.2 g/dL (32.0-36.0); Mean Corpuscular Hemoglobin 28.5 pg (27.0-31.0); Mean Corpuscular Volume 94.6 fl (80.0-94.0); Mean Platelet Volume 9.1 fL (7.4-10.4); Platelet Count 605 thou/uL (130-400); RBC Distribution Width 19.2 % (11.5-14.5); Red Blood Cell (RBC) Count 3.75 mill/uL (4.70-6.10); White Blood Cell (WBC) Count 9.7 thou/uL (4.8-10.8)
[2017-07-10 09:34] LABS: Anion Gap 13 mmol/L (10-20); BUN (Urea Nitrogen) 7 mg/dL (8.4-25.7); Calc. Creatinine Clearance 181 mL/min (70-130); Calcium 8.8 mg/dL (7.8-10.44); Carbon Dioxide 26 mmol/L (23-31); Chloride 98 mmol/L (98-107); Estimated GFR-MDRD Greater than 90; Glucose 214 mg/dL (80-115); Potassium 3.8 mmol/L (3.5-5.1); Sodium 133 mmol/L (136-145)
[2017-07-10] MEDS: NPH, Human Insulin Isophane 300 UNIT/3 ML VIAL SC SCH ×2 (09:42→22:28)
--- NOTE | 2017-07-10 11:31 | PRG ---
DATE OF SERVICE: 07/10/2017 SUBJECTIVE: Mr. Leo Costa is doing well status post ileostomy reversal. The patient is very d econditioned. I talked to him about getting out of bed several times a day, but he states he could n ot and physical therapy would not be around today over the weekend. He agreed to get out of bed and his nurse and I helped him into a chair. This was a total lift almost. Patient is very weak. The p atient has a Gracia catheter left in place, so his mobility is better. He is tolerating his diet. OBJECTIVE: VITAL SIGNS: Temperature 98.5 degrees, pulse 92 and blood pressure 149/95. LUNGS: Clear to auscultation. CARDIAC: Regular rate and rhythm without murmur or gallop. ABDOMEN: Soft and nontender. Ileostomy healthy with good output. LABORATORY DATA: Labs were checked today. White count 9 and hemoglobin 10.7. Sodium 133, potassium 3.8, BUN 7 and creatinine 0.68. Accu-Cheks have been 150-250. ASSESSMENT AND PLAN: Overall, the patient is doing well, severely deconditioned, awaiting insurance approval for rehabilitation. He is tolerating his diet. His MIYA drain is not putting out anything an d we will remove those today. His Gracia should be able to come out in the next 24-48 hours. Continu e wound VAC midline wound and ileostomy care and aggressive physical therapy.
[2017-07-10] MEDS: HumaLOG 300 UNITS/3 ML VIAL SC PRN ×2 (13:19→17:49)
[2017-07-10] MEDS: Fluconazole In NaCl,Iso-Osm 400 MG in Premix Bag 1 BAG IVPB SCH (15:20)
[2017-07-11] MEDS: Meropenem 1 GM in Sterile Water 20 ML SLOW IVP SCH ×3 (01:16→18:36)
[2017-07-11] MEDS: metroNIDAZOLE 500 MG in Premix Bag 1 BAG IVPB SCH ×3 (05:16→21:50)
[2017-07-11] MEDS: Famotidine/PF 20 mg/2ml Vial SLOW IVP SCH (09:03)
[2017-07-11] MEDS: Diphenoxylate HCl/Atropine Tablet PO SCH ×3 (09:04→21:50)
[2017-07-11] MEDS: Enoxaparin Sodium 40 MG/0.4 ML SYRINGE SC SCH (09:07)
[2017-07-11] MEDS: NPH, Human Insulin Isophane 300 UNIT/3 ML VIAL SC SCH ×2 (09:10→21:51)
[2017-07-11] MEDS: Sterile Water 10 ML VIAL FS SCH (09:10)
[2017-07-11] MEDS: HumaLOG 300 UNITS/3 ML VIAL SC PRN (13:12)
[2017-07-11] MEDS ORDERED: traMADol HCl 50 MG TAB PO PRN ×2 (14:29)
[2017-07-11] MEDS ORDERED: Ibuprofen 600 MG TAB PO PRN (14:29)
[2017-07-11] MEDS: Fluconazole In NaCl,Iso-Osm 400 MG in Premix Bag 1 BAG IVPB SCH (15:31)
--- NOTE | 2017-07-11 15:54 | PRG ---
DATE OF SERVICE: 07/11/2017 SUBJECTIVE: Mr. Costa is doing well. He is tolerating a regular diet. He has a very good deconditi oning. He did spend about 3 hours up in a chair yesterday and it took quite a bit of combined effort to get him back in the bed due to his limited weightbearing his lack of strength. He has not been o ut of bed today. OBJECTIVE: LUNGS: Clear to auscultation. CARDIAC: Regular rate and rhythm without murmur, or gallop. ABDOMEN: Soft, nontender, no masses. Ostomy is healthy. VITAL SIGNS: Temperature 98.3 degrees, 95, 127/86. EXTREMITIES: Unremarkable. LABORATORY DATA: None today. Accu-Cheks are normal. ASSESSMENT AND PLAN: The patient is doing well with severe deconditioning. We will plan to remove h is Gracia catheter in the morning. He is on a regular diet. We will reconcile his medications to res ume his home medications.
[2017-07-11] MEDS: metFORMIN 500 MG TAB PO SCH (17:37)
[2017-07-11] MEDS ORDERED: Non-Formulary Item 1 EACH (Atorvastatin Calcium [Lipitor] 80 MG) PO SCH (21:00)
[2017-07-11] MEDS: buPROPion 75 MG TAB PO SCH (21:50)
[2017-07-11] MEDS: Melatonin 3 MG TAB PO SCH (22:05)
[2017-07-12] MEDS: Meropenem 1 GM in Sterile Water 20 ML SLOW IVP SCH ×3 (01:12→17:18)
[2017-07-12] MEDS: metroNIDAZOLE 500 MG in Premix Bag 1 BAG IVPB SCH ×3 (05:30→20:43)
[2017-07-12] MEDS: Enoxaparin Sodium 40 MG/0.4 ML SYRINGE SC SCH (09:25)
[2017-07-12] MEDS: metFORMIN 500 MG TAB PO SCH ×2 (09:26→17:12)
[2017-07-12] MEDS: Diphenoxylate HCl/Atropine Tablet PO SCH ×3 (09:26→20:42)
[2017-07-12] MEDS: buPROPion 75 MG TAB PO SCH ×2 (09:28→20:42)
[2017-07-12] MEDS: Fish Oil 1,000 MG CAP PO SCH (09:28)
[2017-07-12] MEDS: Lactinex Tablet PO SCH (09:28)
[2017-07-12] MEDS: Lisinopril/Hydrochlorothiazide 20 mg/12.5 mg Tablet PO SCH (09:28)
[2017-07-12] MEDS: NIFEdipine XL 60 MG TAB PO SCH (09:28)
[2017-07-12] MEDS: Multivitamin W/ Minerals 1 TAB PO SCH (09:28)
[2017-07-12] MEDS: Aspirin 81 mg Enteric Coated Tablet PO SCH (09:29)
[2017-07-12] MEDS: NPH, Human Insulin Isophane 300 UNIT/3 ML VIAL SC SCH ×2 (09:33→22:59)
[2017-07-12] MEDS: Sterile Water 10 ML VIAL FS SCH (09:49)
[2017-07-12] MEDS: HumaLOG 300 UNITS/3 ML VIAL SC PRN ×2 (12:33→17:12)
--- NOTE | 2017-07-12 13:56 | PDOC.GSPN ---
Surgery Progress Note: Subj - Subjective Patient reports: no new complaints, tolerating a regular diet Surgery Progress Note: Obj - Vital signs Vital signs: Vital Signs - Most Recent Temp Pulse Resp BP Pulse Ox 97.8 F 97 16 138/92 H 96 07/12/17 11:10 07/12/17 11:10 07/12/17 11:10 07/12/17 11:10 07/12/17 11:10 - Physical Exam General: no distress Cardiovascular: regular rate and rhythm Respiratory: clear to auscultation Abdomen: soft Wound: wound vac, ostomy/colostomy (with stool) Surgery Progress Note: Results - Labs Result Diagrams: 07/10/17 09:05 07/10/17 09:05 Lab results: Laboratory Results - last 24 hr 07/12/17 07/12/17 06:18 11:13 POC Glucose 101 208 H Surgery Progress Note: A/P - Problem (1) Peritonitis Current Visit: Yes Code(s): K65.9 - PERITONITIS, UNSPECIFIED Status: Acute Assessment and Plan: continue PT, assisted next week (2) Physical deconditioning Current Visit: Yes Code(s): R53.81 - OTHER MALAISE Status: Acute
[2017-07-12] MEDS: Fluconazole In NaCl,Iso-Osm 400 MG in Premix Bag 1 BAG IVPB SCH (15:05)
[2017-07-12] MEDS: Melatonin 3 MG TAB PO SCH (22:59)
[2017-07-13] MEDS: Meropenem 1 GM in Sterile Water 20 ML SLOW IVP SCH ×3 (01:46→18:37)
[2017-07-13] MEDS: metroNIDAZOLE 500 MG in Premix Bag 1 BAG IVPB SCH ×3 (05:33→21:39)
[2017-07-13] MEDS: Multivitamin W/ Minerals 1 TAB PO SCH (08:59)
[2017-07-13] MEDS: Lactinex Tablet PO SCH (08:59)
[2017-07-13] MEDS: Diphenoxylate HCl/Atropine Tablet PO SCH ×3 (08:59→21:43)
[2017-07-13] MEDS: Aspirin 81 mg Enteric Coated Tablet PO SCH (08:59)
[2017-07-13] MEDS: Enoxaparin Sodium 40 MG/0.4 ML SYRINGE SC SCH (08:59)
[2017-07-13] MEDS: metFORMIN 500 MG TAB PO SCH ×2 (08:59→17:11)
[2017-07-13] MEDS: Fish Oil 1,000 MG CAP PO SCH (08:59)
[2017-07-13] MEDS: buPROPion 75 MG TAB PO SCH ×2 (08:59→21:42)
[2017-07-13] MEDS: NIFEdipine XL 60 MG TAB PO SCH (09:00)
[2017-07-13] MEDS: NPH, Human Insulin Isophane 300 UNIT/3 ML VIAL SC SCH ×2 (09:00→21:42)
[2017-07-13] MEDS: Lisinopril/Hydrochlorothiazide 20 mg/12.5 mg Tablet PO SCH (09:00)
[2017-07-13] MEDS: Sterile Water 10 ML VIAL FS SCH (09:01)
--- NOTE | 2017-07-13 09:48 | PDOC.GSPN ---
Surgery Progress Note: Subj - Subjective Patient reports: no new complaints, tolerating a regular diet Narrative: Sitting in chair but still not able to stand/walk Surgery Progress Note: Obj - Vital signs Vital signs: Vital Signs - Most Recent Temp Pulse Resp BP Pulse Ox 98.0 F 116 H 18 106/73 96 07/13/17 08:10 07/13/17 09:00 07/13/17 08:10 07/13/17 08:10 07/13/17 08:10 - Physical Exam General: no distress Cardiovascular: regular rate and rhythm Respiratory: clear to auscultation Wound: wound vac Surgery Progress Note: Results - Labs Result Diagrams: 07/10/17 09:05 07/10/17 09:05 Lab results: Laboratory Results - last 24 hr 07/12/17 07/13/17 22:58 05:34 POC Glucose 122 H 104 Surgery Progress Note: A/P - Problem (1) Peritonitis Current Visit: Yes Code(s): K65.9 - PERITONITIS, UNSPECIFIED Status: Acute Assessment and Plan: no evidence of persistent infection, dc drains soon (2) Physical deconditioning Current Visit: Yes Code(s): R53.81 - OTHER MALAISE Status: Acute Assessment and Plan: Not walking yet. If not making progress by end of week will plan care home. If progress made will try rehab evaluation
[2017-07-13] MEDS: HumaLOG 300 UNITS/3 ML VIAL SC PRN (11:40)
[2017-07-13] MEDS: Fluconazole In NaCl,Iso-Osm 400 MG in Premix Bag 1 BAG IVPB SCH (17:11)
[2017-07-13] MEDS: Melatonin 3 MG TAB PO SCH (21:43)
[2017-07-14] MEDS: Meropenem 1 GM in Sterile Water 20 ML SLOW IVP SCH ×3 (01:44→18:54)
[2017-07-14] MEDS: metroNIDAZOLE 500 MG in Premix Bag 1 BAG IVPB SCH ×3 (05:55→21:15)
[2017-07-14] MEDS: Fish Oil 1,000 MG CAP PO SCH (09:07)
[2017-07-14] MEDS: Enoxaparin Sodium 40 MG/0.4 ML SYRINGE SC SCH (09:08)
[2017-07-14] MEDS: Diphenoxylate HCl/Atropine Tablet PO SCH ×3 (09:08→21:15)
[2017-07-14] MEDS: Lisinopril/Hydrochlorothiazide 20 mg/12.5 mg Tablet PO SCH (09:08)
[2017-07-14] MEDS: buPROPion 75 MG TAB PO SCH ×2 (09:09→21:15)
[2017-07-14] MEDS: Multivitamin W/ Minerals 1 TAB PO SCH (09:09)
[2017-07-14] MEDS: NIFEdipine XL 60 MG TAB PO SCH (09:09)
[2017-07-14] MEDS: Aspirin 81 mg Enteric Coated Tablet PO SCH (09:09)
[2017-07-14] MEDS: metFORMIN 500 MG TAB PO SCH ×2 (09:09→16:30)
[2017-07-14] MEDS: Lactinex Tablet PO SCH (09:09)
[2017-07-14] MEDS: NPH, Human Insulin Isophane 300 UNIT/3 ML VIAL SC SCH ×2 (09:10→21:17)
--- NOTE | 2017-07-14 13:38 | PDOC.GSPN ---
Surgery Progress Note: Subj - Subjective Patient reports: no new complaints, tolerating a regular diet Surgery Progress Note: Obj - Vital signs Vital signs: Vital Signs - Most Recent Temp Pulse Resp BP Pulse Ox 98.2 F 117 H 18 105/74 97 07/14/17 11:50 07/14/17 11:50 07/14/17 11:50 07/14/17 11:50 07/14/17 11:50 - Physical Exam General: no distress Cardiovascular: regular rate and rhythm Abdomen: soft, non tender, nondistended Wound: wound vac Surgery Progress Note: Results - Labs Result Diagrams: 07/10/17 09:05 07/10/17 09:05 Lab results: Laboratory Results - last 24 hr 07/14/17 07/14/17 05:43 11:53 POC Glucose 89 202 H Surgery Progress Note: A/P - Problem (1) Peritonitis Current Visit: Yes Code(s): K65.9 - PERITONITIS, UNSPECIFIED Status: Acute Assessment and Plan: continue PT, rehab soon (2) Physical deconditioning Current Visit: Yes Code(s): R53.81 - OTHER MALAISE Status: Acute
[2017-07-14] MEDS: Sterile Water 10 ML VIAL FS SCH (14:52)
[2017-07-14] MEDS: Fluconazole In NaCl,Iso-Osm 400 MG in Premix Bag 1 BAG IVPB SCH (16:30)
[2017-07-14] MEDS: Melatonin 3 MG TAB PO SCH (21:15)
[2017-07-15] MEDS: Meropenem 1 GM in Sterile Water 20 ML SLOW IVP SCH ×2 (02:06→10:29)
[2017-07-15] MEDS: metroNIDAZOLE 500 MG in Premix Bag 1 BAG IVPB SCH (05:41)
[2017-07-15] MEDS: Acetaminophen 500 MG TAB PO PRN ×3 (05:55→17:26)
[2017-07-15 08:27] LABS: #Basophils 0.1 thou/uL (0.0-0.2); #Eosinphils 0.3 thou/uL (0.0-0.7); #Monocytes 0.8 thou/uL (0.11-0.59); #Neutrophils 7.7 thou/uL (1.40-6.50); %Basophils 1.1 % (0.0-1.0); %Lymphocytes 9.9 % (21.0-51.0); %Monocytes 8.4 % (0.0-10.0); %Neutrophils 77.7 % (42.0-75.0); Hemoglobin 11.1 g/dL (14.0-18.0); Mean Corpuscular HGB CONC 30.3 g/dL (32.0-36.0); Mean Corpuscular Hemoglobin 28.4 pg (27.0-31.0); Mean Corpuscular Volume 93.7 fl (80.0-94.0); Mean Platelet Volume 9.4 fL (7.4-10.4); Platelet Count 462 thou/uL (130-400); RBC Distribution Width 18.4 % (11.5-14.5); White Blood Cell (WBC) Count 9.9 thou/uL (4.8-10.8)
[2017-07-15] MEDS: Lisinopril/Hydrochlorothiazide 20 mg/12.5 mg Tablet PO SCH (08:44)
[2017-07-15] MEDS: NIFEdipine XL 60 MG TAB PO SCH (08:45)
[2017-07-15] MEDS: Lactinex Tablet PO SCH (08:46)
[2017-07-15] MEDS: Fish Oil 1,000 MG CAP PO SCH (08:46)
[2017-07-15] MEDS: buPROPion 75 MG TAB PO SCH ×2 (08:46→20:46)
[2017-07-15] MEDS: metFORMIN 500 MG TAB PO SCH ×2 (08:46→17:26)
[2017-07-15] MEDS: Diphenoxylate HCl/Atropine Tablet PO SCH ×3 (08:47→20:46)
[2017-07-15] MEDS: Aspirin 81 mg Enteric Coated Tablet PO SCH (08:47)
[2017-07-15] MEDS: Multivitamin W/ Minerals 1 TAB PO SCH (08:47)
[2017-07-15] MEDS: Enoxaparin Sodium 40 MG/0.4 ML SYRINGE SC SCH (08:47)
[2017-07-15 08:49] LABS: Anion Gap 16 mmol/L (10-20); BUN (Urea Nitrogen) 8 mg/dL (8.4-25.7); Calc. Creatinine Clearance 189 mL/min (70-130); Calcium 9.7 mg/dL (7.8-10.44); Carbon Dioxide 26 mmol/L (23-31); Chloride 98 mmol/L (98-107); Estimated GFR-MDRD Greater than 90; Glucose 83 mg/dL (80-115); Potassium 4.1 mmol/L (3.5-5.1); Sodium 136 mmol/L (136-145)
[2017-07-15] MEDS: Sterile Water 10 ML VIAL FS SCH (09:59)
[2017-07-15] MEDS: NPH, Human Insulin Isophane 300 UNIT/3 ML VIAL SC SCH (09:59)
--- NOTE | 2017-07-15 10:32 | PDOC.GSPN ---
Surgery Progress Note: Subj - Subjective Patient reports: no new complaints, tolerating a regular diet (Able to stand more) Surgery Progress Note: Obj - Vital signs Vital signs: Vital Signs - Most Recent Temp Pulse Resp BP Pulse Ox 98.0 F 87 18 119/83 96 07/15/17 08:00 07/15/17 08:45 07/15/17 08:00 07/15/17 08:45 07/15/17 08:00 - Physical Exam General: no distress Cardiovascular: regular rate and rhythm Respiratory: clear to auscultation Wound: wound vac, ostomy/colostomy Surgery Progress Note: Results - Labs Result Diagrams: 07/15/17 05:41 07/15/17 05:41 Lab results: Laboratory Results - last 24 hr 07/15/17 07/15/17 07/15/17 05:41 05:41 05:41 WBC 9.9 RBC 3.90 L Hgb 11.1 L Hct 36.6 L MCV 93.7 MCH 28.4 MCHC 30.3 L RDW 18.4 H Plt Count 462 H MPV 9.4 Neutrophils % 77.7 H Lymphocytes % 9.9 L Monocytes % 8.4 Eosinophils % 3.0 Basophils % 1.1 H Neutrophils # 7.7 H Lymphocytes # 1.0 L Monocytes # 0.8 H Eosinophils # 0.3 Basophils # 0.1 Sodium 136 Potassium 4.1 Chloride 98 Carbon Dioxide 26 Anion Gap 16 BUN 8 L Creatinine 0.65 Estimated GFR (MDRD) Greater than 90 Glucose 83 POC Glucose 101 Calcium 9.7 Surgery Progress Note: A/P - Problem (1) Peritonitis Current Visit: Yes Code(s): K65.9 - PERITONITIS, UNSPECIFIED Status: Acute (2) Physical deconditioning Current Visit: Yes Code(s): R53.81 - OTHER MALAISE Status: Acute Assessment and Plan: Rehab evaluation. Change to oral antibiotics
[2017-07-15] MEDS: metroNIDAZOLE 500 MG TAB PO SCH ×2 (15:38→20:46)
[2017-07-15 20:30] VITALS: BP 113/80; TEMP 98.1
[2017-07-15] MEDS: Melatonin 3 MG TAB PO SCH (20:46)
--- NOTE | 2017-07-16 14:23 | DIS ---
ADMIT DIAGNOSES: 1. Peritonitis. 2. Anastomotic leak after ileostomy reversal. 3. History of colon cancer. 4. Acute respiratory failure. DISCHARGE DIAGNOSIS: 1. Peritonitis. 2. Anastomotic leak after ileostomy reversal. 3. History of colon cancer. 4. Acute respiratory failure. 5. Deconditioning. PROCEDURES: Exploratory laparotomy, abdominal washout, ileostomy by Dr. Martinez. HOSPITAL COURSE: The patient came in in septic shock, was found to have an anastomotic leak after il eostomy takedown. The patient had prior history of radiation to his low abdomen, and history of colo n cancer treated with chemoradiation. He was in septic shock on presentation. He underwent washout a nd replacement of ileostomy. He was in the unit on the ventilator for several days. He was able to be extubated and transferred to the floor. The patient was horribly deconditioned. His diet was abl e to be advanced fairly quickly. Wound was healing well, it was left open at the time of surgery wit h wound VAC. Slowly the patient increased his p.o. intake and was able to be off of the TPN. He was found to be a good candidate for rehab. He was transferred to rehab where he will get continued wou nd care with wound VAC there. He will follow up with me 1 week after discharge from rehab.
--- NOTE | 2017-08-02 14:14 | PQF ---
RADHA KHAN, DAVID WALTON MD [id number] CLINICAL DOCUMENTATION CLARIFICATION FORM: POST DISCHARGE Addendum to original discharge summary date: ____ Late entry note date: __ DATE: 08/02/2017 ATTN: DR. RICHARDSON Please exercise your independent, professional judgment in responding to the clarification form. Clinical indicators are provided on the bottom of this form for your review Please check appropriate box(s): Conflicting documentation was noted in the Medical Record, please clarify if patient is being treated/monitored for: [ ] __POST-OP RESPIRATORY FAILURE ( diagnosis #1) [ X]____ACUTE RESPIRATORY FAILURE ( diagnosis #2) [ ] Other diagnosis [ ] Unable to determine In addition, please specify: Present on Admission (POA): [ X ] Yes [ ] No [ ] Unable to determine For continuity of documentation, please document condition throughout progress notes and discharge summary. Thank You. CLINICAL INDICATORS - SIGNS / SYMPTOMS/ LABS: ER: SEPTIC SHOCK SEPSIS ALERT ACTIVATED IN ER TEMP: 102.6 - CORE RESP: 20-35 - BREATH SOUNDS DIMINISHED, O2 SAT 95- 97% ON 3LNC, PULSE: 112-150, SBP: 71-116, DBP: 53-74 H&P: PRESENTS WITH SEPTIC SHOCK; LIKELY ANASTOMOTIC LEAK POST ILEOSTOMY TAKEDOWN 06-17 WENT FOR EMERGENT EXPLORATORY LAPAROTOMY PULM CONSULT 06/18: ACUTE RESP FAILURE W/ ACUTE RESP DISTRESS SYNDROME; HYPOVOLEMIA AND 3RD SPACING RISK FACTORS: SURGERY ENROOT TO ICU IN CRITICAL CONDITION-LEFT ON VENT AFTER SURGERY TREATMENT: LEVOPHED, KEEP INTUBATED UNTIL VASOPRESSOR REQUIREMENT DECREASES (This form is maintained as a part of the permanent medical record) 2014 [employer]. All Rights Reserved Kathryn Pham C[employer], [employer]-H [email or web address] [phone] MTDD
== END 2017-07-15 21:01 | DRG 856 ==
LOC: ERS 16:01 → CCU 17:40 → SURG A 07-06 10:40
PROVIDERS: ADMIT Surgery; ATTEND Surgery
PROC: 0D1B0Z4 Bypass Ileum to Cutaneous, Open Approach (ICD-10-PCS; principal; 2017-06-17)
PROC: 5A1955Z Respiratory Ventilation, Greater than 96 Consecutive Hours (ICD-10-PCS; 2017-06-17)
PROC: 0DN80ZZ Release Small Intestine, Open Approach (ICD-10-PCS; 2017-06-17)
PROC: 0DQ80ZZ Repair Small Intestine, Open Approach (ICD-10-PCS; 2017-06-17)
PROC: 0JN80ZZ Release Abdomen Subcutaneous Tissue and Fascia, Open Approach (ICD-10-PCS; 2017-06-17)
PROC: 0W9F00Z Drainage of Abdominal Wall with Drainage Device, Open Approach (ICD-10-PCS; 2017-06-17)
PROC: 30233N1 Transfusion of Nonautologous Red Blood Cells into Peripheral Vein, Percutaneous Approach (ICD-10-PCS; 2017-06-17)
PROC: 3E0436Z Introduction of Nutritional Substance into Central Vein, Percutaneous Approach (ICD-10-PCS; 2017-06-24)
PROC: 02HV33Z Insertion of Infusion Device into Superior Vena Cava, Percutaneous Approach (ICD-10-PCS; 2017-07-06)
DX: T81.4XXA Infection following a procedure, initial encounter (principal); T81.12XA Postprocedural septic shock, initial encounter; J96.00 Acute respiratory failure, unspecified whether with hypoxia or hypercapnia; E43 Unspecified severe protein-calorie malnutrition; G93.41 Metabolic encephalopathy; E87.3 Alkalosis; A04.72 Enterocolitis due to Clostridium difficile, not specified as recurrent; K65.9 Peritonitis, unspecified; J90 Pleural effusion, not elsewhere classified; C19 Malignant neoplasm of rectosigmoid junction; K91.870 Postprocedural hematoma of a digestive system organ or structure following a digestive system procedure; J98.11 Atelectasis; N39.0 Urinary tract infection, site not specified; E87.0 Hyperosmolality and hypernatremia; K66.0 Peritoneal adhesions (postprocedural) (postinfection); F32.9 Major depressive disorder, single episode, unspecified; G47.30 Sleep apnea, unspecified; I10 Essential (primary) hypertension; Y83.8 Other surgical procedures as the cause of abnormal reaction of the patient, or of later complication, without mention of misadventure at the time of the procedure; Z79.84 Long term (current) use of oral hypoglycemic drugs; E11.65 Type 2 diabetes mellitus with hyperglycemia; E87.6 Hypokalemia; D50.0 Iron deficiency anemia secondary to blood loss (chronic); Z68.37 Body mass index [BMI] 37.0-37.9, adult
CPT/HCPCS: 36415; 36416; 36430; 36569; 51702; 71010; 71045; 74177; 80048; 80053; 80061; 81003; 81015; 82140; 82330; 82553; 82803; 82805; 83605; 83735; 84100; 84134; 84484; 85007; 85025; 85027; 85610; 85730; 86850; 86900; 86901; 87040; 87077; 87086; 87186; 87324; 87449; 87493; 93005; 94002; 94003; 94640; 96361; 96365; 96375; 96376; A4216; A4217; C1751; G8978-GP-CN; G8979-GP-CL; G8987-GO-CL; G8988-GO-CI; J0131; J0360; J1120; J1450; J1644; J1650; J1720; J1815; J1885; J1940; J2060; J2185; J2250; J2270; J2370; J2405; J2543; J2704; J3010; J3370; J3411; J3475; J3480; J7050; J7070; J7620; P9016; P9047; S0028

== ENCOUNTER 2017-08-02 12:23 | Day surgery (SDC) | payer OTHER | END 2017-08-02 14:50 | disposition home or self-care (01) | LOC: SCSER 12:23 → EDSTATUS 12:30 → SDC 12:50 → SCSER 15:45 | PROVIDERS: ATTEND Surgery | DX: I95.1 Orthostatic hypotension (principal); E78.5 Hyperlipidemia, unspecified; I10 Essential (primary) hypertension; Z79.84 Long term (current) use of oral hypoglycemic drugs; Z79.82 Long term (current) use of aspirin; Z79.899 Other long term (current) drug therapy; Z88.5 Allergy status to narcotic agent; Z93.2 Ileostomy status; Z90.89 Acquired absence of other organs; Z90.49 Acquired absence of other specified parts of digestive tract; Z98.890 Other specified postprocedural states; Z85.038 Personal history of other malignant neoplasm of large intestine; Z92.21 Personal history of antineoplastic chemotherapy; Z92.3 Personal history of irradiation ==

== ENCOUNTER 2018-04-27 14:18 | Inpatient (IN) | payer OTHER ==
[2018-04-27 15:17] LABS: #Basophils 0.1 thou/uL (0.0-0.2); #Eosinphils 0.1 thou/uL (0.0-0.7); #Lymphocytes 0.9 thou/uL (1.20-3.40); #Monocytes 1.4 thou/uL (0.11-0.59); #Neutrophils 13.3 thou/uL (1.40-6.50); %Basophils 0.7 % (0.0-1.0); %Eosinophils 0.7 % (0.0-10.0); %Lymphocytes 5.9 % (21.0-51.0); %Monocytes 8.6 % (0.0-10.0); Hemoglobin 13.3 g/dL (14.0-18.0); Mean Corpuscular Hemoglobin 27.5 pg (27.0-31.0); Mean Corpuscular Volume 88.7 fL (78.0-98.0); Mean Platelet Volume 8.9 fL (7.4-10.4); Platelet Count 253 thou/uL (130-400); RBC Distribution Width 15.3 % (11.5-14.5); Red Blood Cell (RBC) Count 4.82 mill/uL (4.70-6.10); White Blood Cell (WBC) Count 15.8 thou/uL (4.8-10.8)
[2018-04-27 15:35] LABS: ALT (SGPT) 26 U/L (8-55); AST (SGOT) 22 U/L (5-34); Albumin 3.8 g/dL (3.4-4.8); Alkaline Phosphatase 116 U/L (40-150); Anion Gap 16 mmol/L (10-20); BUN (Urea Nitrogen) 16 mg/dL (8.4-25.7); Bilirubin, Total 1.6 mg/dL (0.2-1.2); Calc. Creatinine Clearance 0 mL/min (70-130); Calcium 9.8 mg/dL (7.8-10.44); Carbon Dioxide 25 mmol/L (23-31); Chloride 105 mmol/L (98-107); Estimated GFR-MDRD 77; Globulin 3.6 g/dL (2.4-3.5); Glucose 170 mg/dL (80-115); Potassium 3.7 mmol/L (3.5-5.1); Protein, Total 7.4 g/dL (5.8-8.1); Sodium 142 mmol/L (136-145)
[2018-04-27] MEDS ORDERED: methylPREDNISolone Sod Succ/PF 125 MG/2 ML VIAL ONE (16:42)
[2018-04-27] MEDS ORDERED: Fentanyl 100 MCG/2 ML VIAL ONE (16:42)
[2018-04-27] MEDS ORDERED: Ondansetron PF 4 MG/2 ML Vial ONE (16:42)
[2018-04-27] MEDS ORDERED: MEROPENEM 1 GM/50 ML 1 GM in Premix Bag 1 BAG IVPB SCH (17:00)
--- NOTE | 2018-04-27 17:39 | RAD ---
CHEST ONE VIEW 04/27/18 HISTORY: Rectal bleeding. Chest pain. COMPARISON: 07/02/17. FINDINGS: The cardiac silhouette is magnified by projection. Pulmonary vasculature are unremarkable. Mediastinu m is midline. No lobar consolidation or evidence of pneumothorax. awake overnight monitor leads overlie the c hest. IMPRESSION: No active cardiopulmonary abnormalities are demonstrated. POS: [facility]
[2018-04-27] MEDS ORDERED: Acetaminophen 325 MG TAB PO PRN (17:41)
[2018-04-27] MEDS ORDERED: Ondansetron PF 4 MG/2 ML Vial IVP PRN (17:41)
[2018-04-27] MEDS ORDERED: Dextrose 50% Abboject 50 ML SYRINGE SLOW IVP PRN (17:43)
[2018-04-27] MEDS ORDERED: Dextrose 5% in Water 1,000 ML IV PRN (17:43)
[2018-04-27 18:07] LABS: Hemoglobin 12.1 g/dL (14.0-18.0)
[2018-04-27] MEDS ORDERED: hydrALAZINE 20 MG/ML VIAL SLOW IVP PRN (18:19)
--- NOTE | 2018-04-27 19:00 | HP ---
PRIMARY CARE PROVIDER: Jayy Vila M.D. CHIEF COMPLAINT: Bleeding into ileostomy bag. HISTORY OF PRESENT ILLNESS: Mr. Ragland is a pleasant 62-year-old gentleman who was seen at [facility] on 04/27/2018. He has a history of colon cancer treated with chemotherapy, r adiation and surgery. He has a right-sided ileostomy. He reports having most of the output into his ostomy. Occasionally, he has a small bowel movement. He reports having colonoscopy a few weeks ago in [place]. Over the last week, he has had daily mucoid bowel movements through his rectum. Today morning also, he had a mucoid bowel movement. He subsequently noticed that his ostomy bag was filling up with bloo d. He reports feeling lightheaded, but denies having any chest pain, nausea or vomiting. He also reports having subjective fevers over the last one week. He denies any other complaints. He came to the emergency room because he was concerned about the bleeding into the ostomy bag. He al so reports having blood his stools with his second bowel movement today, the bloody bowel movement in cluding several blood clots. REVIEW OF SYSTEMS: All other systems reviewed and found to be negative. PAST MEDICAL HISTORY: Dyslipidemia, hypertension, colon cancer, status post chemotherapy, status pos t radiation therapy and status post surgery. I should note that in 07/2016, he had an ulcer at the r ectosigmoid junction without any active bleeding. In 05/2017, he underwent ileostomy takedown, compl icated by postoperative anemia. In 07/2017, he was hospitalized for peritonitis, anastomotic leak of ileostomy reversal, during which he underwent exploratory laparotomy and abdominal washout as well a s ileostomy. PAST SURGICAL HISTORY: Tonsillectomy, colon resection x2, laminectomy, ileostomy, ileostomy reversal and new ileostomy placement. SOCIAL HISTORY: Patient denies tobacco use, alcohol use or recreational drug use. FAMILY HISTORY: Patient denies any family history of colon cancer. ALLERGIES: MORPHINE. CURRENT MEDICATIONS: Metformin 1000 mg 2 times a day, nifedipine 10 mg daily, lisinopril/hydrochloro thiazide 20/25 mg daily, bupropion 75 mg 2 times a day, Centrum Silver 1 tablet daily, melatonin 5 mg daily, Protonix 40 mg daily, atorvastatin 80 mg daily, aspirin 162 mg daily and Imodium 2 mg 2 times a day. PHYSICAL EXAMINATION: GENERAL: Mr. Costa is awake and alert, not in acute distress. VITAL SIGNS: Blood pressure is 136/91, pulse 104, respiratory rate 18, and oxygen saturation 100% on room air. He is afebrile. When he presented to the emergency room, he had a pulse of 121. EYES: No scleral icterus. No conjunctival pallor. ENT: Moist mucosal membranes, no oropharyngeal erythema or exudates. NECK: Supple, nontender. Trachea is midline. RESPIRATORY: Accessory muscles of breathing are not active. Chest wall movements are symmetric bila terally. LUNGS: Clear to auscultation, without wheeze, rhonchi or crepitations. CARDIOVASCULAR: S1 and S2 are heard, regular. Peripheral pulses palpable. No carotid bruit, no per icardial rub. ABDOMEN: Soft, distended, nontender, bowel sounds heard, he has a right-sided ileostomy. He also brewster s a mid abdominal scar. Ileostomy bag is filled with dark red blood. NEUROLOGIC: Cranial nerves II-XII intact. Deep tendon reflexes 2+. MUSCULOSKELETAL: Power is 5/5 in all 4 extremities. SKIN: No rashes or subcutaneous nodules. LYMPHATIC: No cervical lymphadenopathy. PSYCHIATRIC: Normal mood, normal affect, patient is oriented to person, place, and time. DATABASE: Mr. Costa' labs and investigations were reviewed. I reviewed his electrocardiogram, which shows sinus tachycardia, no ST changes to suggest an acute coronary syndrome. He has occasional pre mature ventricular complexes. I also reviewed his chest x-ray, which does not show any pulmonary inf iltrates. Urine studies are pending. He has leukocytosis with 15,800 white cells, of which 84% are neutrophils, normocytic anemia with hemoglobin 13.3, last known hemoglobin was 13.1 on 07/25/2017, no rmal platelet count, normal electrolytes, normal creatinine, elevated lactic acid level of 2.3, eleva ian total bilirubin of 1.6, otherwise unremarkable liver profile and a normal albumin. ASSESSMENT AND PLAN: Mr. Cooper is a pleasant 62-year-old gentleman who was seen at [facility] on 04/27/2018. His problem list includes: 1. Anemia of acute blood loss. Mr. Costa is presenting with acute blood loss in his ostomy bag as w ell as by rectum. He will be admitted to the hospital for further management. He also has symptomat ic anemia, with lightheadedness. We will recheck his H&H and transfuse as needed. Gastroenterology service is being consulted for opinion and help with management. 2. Sepsis: Mr. Costa' presentation meets the criteria for sepsis, given his history of subjective f yohan, leukocytosis and tachycardia. He is being started on empiric antibiotics in the form of merop enem. We will await blood cultures. We will also await urine studies. 3. Dyslipidemia: Continue statin. 4. Hypertension: Monitor vital signs, titrate home antihypertensives as needed after resuming them. 5. Diabetes mellitus: Start Accu-Cheks and insulin sliding scale. Many thanks for allowing me to participate in your patient's care. Please feel free to contact me wi th any questions or concerns. LEVEL OF RISK: High. LEVEL OF COMPLEXITY: High.
[2018-04-27 19:42] LABS: Lactic Acid 1.6 mmol/L (0.5-2.2)
[2018-04-27] MEDS: Fentanyl 100 MCG/2 ML VIAL SLOW IVP PRN (21:32)
[2018-04-27] MEDS: Pantoprazole 40 MG VIAL IVP SCH (21:32)
[2018-04-27 22:12] VITALS: BMI 32.8
[2018-04-27 22:19] LABS: Bilirubin Small (Negative); Blood, Urine Negative (Negative); Clarity CLEAR (Clear); Glucose, Urine (Dipstick) Negative (Negative); Leukocyte Negative (Negative); Nitrite Negative (Negative); Protein, Urine (Dipstick) 100 mg/dL (Neg-Trace); Specific Gravity, Urine 1.032 (1.002-1.036); Urobilinogen 0.2 mg/dL (0.2-1.0); pH, Urine 5.5 (5.0-9.0)
[2018-04-27 22:20] LABS: Bacteria/HPF None Seen HPF (None Seen); Hyaline Casts/LPF 0-3 HYALINE CAST LPF (0-3 Hyaline); Pathc Cast-AUWi Flag 0.72 (0-2.49); Squamous Epithelial 0-3 HPF (0-3); WBC/HPF 0-3 HPF (0-3)
[2018-04-27] MEDS ORDERED: Fleet Enema 133 ML BOT PR SCH (22:30)
[2018-04-27] MEDS: MEROPENEM 1 GM/50 ML 1 GM in Premix Bag 1 BAG IVPB SCH (22:40)
--- NOTE | 2018-04-28 01:11 | CON ---
DATE OF CONSULTATION: 04/27/2018 REASON: Rectal bleeding and blood through the ileostomy bag. HISTORY: Mr. Costa is a 62-year-old male who presented to the emergency room this evening, because of sudden onset of rectal bleeding characterized as dark and fresh blood through his rectum in addition to bloody effluent through the ileostomy bag that began approximately 1:30 this afternoon. Patient denies any localizing abdominal pain or discomfort, although he has had some crampy abdominal pain for the last 2 weeks. Patient has a fairly complicated history of abdominal surgeries. He had rectosigmoid cancer in 2011, for which he underwent chemoradiation therapy following by resection that was complicated by severe anastomotic stricture. Patient had revision at that time, but we develop of severe stricturing. Patient had multiple attempts at outpatient balloon dilation by me that was unsuccessful. Patient subsequently went to [place] and had stent placement for remodeling and had an ileostomy takedown in 05/2017. However, he had an anastomotic leak requiring with peritonitis requiring repeat laparotomy with washout and closure of the leak. He had a diverting loop ileostomy since that time. In 07/2016, patient was admitted for similar bleed through his rectum in ileostomy bag. Endoscopy performed by Dr. Enriquez at that time showed ulcerations with nondiagnostic biopsy involving the rectosigmoid and some in the right colon when visualized through the ileostomy as the bleeding stopped at that time. He had a repeat flexible sigmoidoscopy is done patient in 09/2016 that did show severe stenosis 10 cm of requiring balloon dilatation and scattered area of ulcerated mucosa without any bleeding. Currently, patient feels well without any pain or discomfort. 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 He had anastomotic few days later requiring exploratory laparotomy, repair of an enterotomy with diverting loop ileostomy. Back surgery. Adult onset diabetes. Hyperlipidemia and hypertension. ALLERGIES: MORPHINE. MEDICATIONS: At home include metformin, nifedipine, lisinopril/ hydrochlorothiazide, BuSpar, multivitamins, melatonin, pantoprazole, atorvastatin, and aspirin. SOCIAL HISTORY: Patient is , has no tobacco or alcohol usage. FAMILY HISTORY: Negative for any known GI problem, liver disease, GI malignancy. REVIEW OF SYSTEMS: A 10-point review of systems did not show any other pertinent positive or negative. PHYSICAL EXAMINATION: VITAL SIGNS: Temperature is 98.6, blood pressure 118/80, pulse of 98. GENERAL: He is alert, conversant, in no distress. HEENT: Shows anicteric sclerae. Oropharynx clear. NECK: Supple. CARDIOVASCULAR: Shows normal S1, S2. Regular rate and rhythm. CHEST: Shows breath sounds. ABDOMEN: Protuberant at his midline, large scar. Stoma through the right ileostomy appears healthy. Bag is full of dark liquid blood, bloody fluid. There is no palpable mass or organomegaly, but this exam is limited secondary to size. There is no tenderness. EXTREMITIES: Not performed. LABORATORY DATA: WBC is 15.8, hemoglobin 13.3, platelet count of 253. Sodium 142, potassium 3.7, chloride 105, CO2 of 25, creatinine is 0.99. Lactic acid is 2.3, bilirubin 1.6, AST 22, ALT 26, alkaline phosphatase 116. ASSESSMENT: Patient with complicated history of abdominal surgery that included initial radiation therapy followed by resection of rectosigmoid tumor complicated by severe stricturing of the anastomosis. Patient did have subsequent stent placement in the ileostomy takedown, but that was complicated by anastomotic leak requiring repeat surgery and diverting ileostomy. Patient now presents with similar bleeding, as he had back in July of last year. At which time, scattered ulcerations were seen in the sigmoid colon. Reportedly , he did have a colonoscopy in [place] 8 weeks ago that did not show any significant findings. Presently, he is hemodynamically stable and blood count is good. PLAN: 1. We will plan on repeat colonoscopy tomorrow with enemas tonight and in the morning. 2. Serial blood count monitoring in the meantime. 3. Further recommendations to follow pending above findings. TEODORAD
[2018-04-28] MEDS: MEROPENEM 1 GM/50 ML 1 GM in Premix Bag 1 BAG IVPB SCH ×3 (02:35→20:05)
[2018-04-28] MEDS: Fentanyl 100 MCG/2 ML VIAL SLOW IVP PRN ×2 (03:11→09:50)
[2018-04-28 06:15] LABS: #Lymphocytes 1.1 thou/uL (1.20-3.40); #Monocytes 1.4 thou/uL (0.11-0.59); #Neutrophils 12.2 thou/uL (1.40-6.50); %Basophils 0.1 % (0.0-1.0); %Eosinophils 0.3 % (0.0-10.0); %Lymphocytes 7.7 % (21.0-51.0); %Monocytes 9.4 % (0.0-10.0); %Neutrophils 82.6 % (42.0-75.0); Hemoglobin 10.6 g/dL (14.0-18.0); Mean Corpuscular HGB CONC 30.5 g/dL (32.0-36.0); Mean Corpuscular Hemoglobin 27.2 pg (27.0-31.0); Mean Corpuscular Volume 89.2 fL (78.0-98.0); Mean Platelet Volume 9.5 fL (7.4-10.4); Platelet Count 244 thou/uL (130-400); RBC Distribution Width 15.4 % (11.5-14.5); Red Blood Cell (RBC) Count 3.89 mill/uL (4.70-6.10); White Blood Cell (WBC) Count 14.8 thou/uL (4.8-10.8)
[2018-04-28 06:28] LABS: Anion Gap 13 mmol/L (10-20); BUN (Urea Nitrogen) 18 mg/dL (8.4-25.7); Calc. Creatinine Clearance 111 mL/min (70-130); Calcium 8.7 mg/dL (7.8-10.44); Carbon Dioxide 24 mmol/L (23-31); Chloride 105 mmol/L (98-107); Estimated GFR-MDRD 70; Glucose 180 mg/dL (80-115); Potassium 3.6 mmol/L (3.5-5.1); Sodium 138 mmol/L (136-145)
[2018-04-28] MEDS: Pantoprazole 40 MG VIAL IVP SCH ×2 (08:12→20:05)
[2018-04-28] MEDS ORDERED: PROPOFOL 200 MG/20 ML VIAL ONE (10:43)
[2018-04-28] MEDS ORDERED: PHENYLEPHRINE-NS 100 MCG/ML 10 ML SYRINGE ONE (10:43)
[2018-04-28] MEDS ORDERED: Lidocaine 1% PF 5 ML VIAL ONE (10:43)
[2018-04-28] MEDS ORDERED: Fleet Enema 133 ML BOT PR SCH ×2 (11:30→14:15)
[2018-04-28] MEDS: Fleet Enema 133 ML BOT PR SCH ×2 (12:05→12:32)
--- NOTE | 2018-04-28 15:05 | PDOC.PN ---
- Subjective Encounter Start Date: 04/28/18 Encounter Start Time: 15:04 Mr. Costa was seen today in follow-up of GI bleed. He says he had some bleeding through the ostomy today. He had some cramping pain as well. - Objective MAR Reviewed: Yes Vital Signs & Weight: Vital Signs (12 hours) Temp Pulse Resp BP Pulse Ox 04/28/18 11:30 99.1 F 110 H 18 120/85 92 L 04/28/18 09:55 108 H 95 04/28/18 08:12 95 04/28/18 08:11 99.1 F 112 H 16 109/77 95 04/28/18 04:59 98.8 F 106 H 18 111/76 94 L Weight Admit Weight 242 lb 3.2 oz Weight 242 lb 3.2 oz I&O: 04/27/18 04/28/18 04/29/18 06:59 06:59 06:59 Intake Total 360 Output Total 300 Balance 60 Result Diagrams: 04/28/18 05:31 04/28/18 05:31 Additional Labs: Accuchecks 04/28/18 04/28/18 04/27/18 11:34 04:56 22:23 POC Glucose 160 H 176 H 189 H Phys Exam - Physical Examination HEENT: PERRLA Respiratory: no wheezing, no rales, no rhonchi, clear to auscultation bilateral Cardiovascular: RRR, no significant murmur, no rub Gastrointestinal: soft, non-tender + Ostomy site noted, with blackish stool Musculoskeletal: no edema, pulses present Dx/Plan (1) GIB (gastrointestinal bleeding) Code(s): K92.2 - GASTROINTESTINAL HEMORRHAGE, UNSPECIFIED Status: Acute (2) Anemia due to blood loss, acute Code(s): D62 - ACUTE POSTHEMORRHAGIC ANEMIA Status: Acute (3) Colon cancer Code(s): C18.9 - MALIGNANT NEOPLASM OF COLON, UNSPECIFIED Status: Chronic (4) HTN (hypertension) Code(s): I10 - ESSENTIAL (PRIMARY) HYPERTENSION Status: Chronic (5) Ileostomy present Code(s): Z93.2 - ILEOSTOMY STATUS Status: Chronic - Plan * GI Bleed- awaiting GI evaluation- continue to monitor his H&H. * HTN- blood pressure has improved * DM- blood glucose is stable * Sepsis- ? Leukocytosis, and tachycardia- could be related to GI bleed. His cultures are negative so far. Can consider discontinuing Antibiotics if he cultures remain negative, and there is no fever in the AM
[2018-04-28] MEDS ORDERED: Promethazine HCl 25 MG/ML VIAL IM PRN (18:07)
[2018-04-28] MEDS ORDERED: Ondansetron HCl/PF 4 MG/2 ML Vial IVP PRN (18:07)
[2018-04-28] MEDS ORDERED: Promethazine HCl 25 MG/ML VIAL SLOW IVP PRN (18:07)
--- NOTE | 2018-04-29 00:48 | OP ---
DATE OF PROCEDURE: 04/28/2018 PROCEDURE PERFORMED: Flexible sigmoidoscopy with biopsy. PREOPERATIVE DIAGNOSIS: Gastrointestinal bleed and hematochezia. PROCEDURE IN DETAIL: Informed consent was obtained from the patient. He was sedated with total intr avenous anesthesia. The rectal exam was performed and was unremarkable. The colonoscope was advance d to the rectum and then distal colon. There were multiple deep ulcers in the rectum and up to the a nastomosis with inflamed mucosa diffusely with narrowing in the rectum. Above this narrowing, it was a large firm stool ball. This was broken out partially and grasped and partially removed with a Rot h net. There is still a large hard stool above the rectal stenosis or narrowed area. There was diff use colitis. Biopsies were obtained. IMPRESSION: 1. Multiple deep ulcers in the rectum and distal colon with colitis with diffuse erythematous friabl e grainy mucosa. This may represent diversion colitis, ischemic ulcerations, viral ulcerations, radi ation colitis, or inflammatory bowel disease. Biopsies were obtained. 2. Large hard stool was above the rectal narrowing and was partially broken up and retrieved with a net. RECOMMENDATIONS: Await histopathology.
[2018-04-29 02:46] LABS: #Eosinphils 0.1 thou/uL (0.0-0.7); #Lymphocytes 1.4 thou/uL (1.20-3.40); #Monocytes 1.3 thou/uL (0.11-0.59); #Neutrophils 8.2 thou/uL (1.40-6.50); %Basophils 0.1 % (0.0-1.0); %Eosinophils 1.3 % (0.0-10.0); %Lymphocytes 12.3 % (21.0-51.0); %Monocytes 11.5 % (0.0-10.0); %Neutrophils 74.8 % (42.0-75.0); Hemoglobin 8.3 g/dL (14.0-18.0); Mean Corpuscular HGB CONC 31.6 g/dL (32.0-36.0); Mean Corpuscular Hemoglobin 28.2 pg (27.0-31.0); Mean Corpuscular Volume 89.3 fL (78.0-98.0); Mean Platelet Volume 8.5 fL (7.4-10.4); Platelet Count 214 thou/uL (130-400); RBC Distribution Width 15.2 % (11.5-14.5); Red Blood Cell (RBC) Count 2.93 mill/uL (4.70-6.10)
[2018-04-29] MEDS: MEROPENEM 1 GM/50 ML 1 GM in Premix Bag 1 BAG IVPB SCH ×3 (03:58→20:54)
[2018-04-29] MEDS: Pantoprazole 40 MG VIAL IVP SCH ×2 (08:17→20:55)
[2018-04-29] MEDS: HumaLOG 300 UNITS/3 ML VIAL SC PRN ×2 (13:00→17:07)
--- NOTE | 2018-04-29 15:02 | PDOC.PN ---
- Subjective Encounter Start Date: 04/29/18 Encounter Start Time: 12:45 Igor Dave was seen today in follow-up of GI bleed. He says he had some dark stools earlier this moring, but it has since stopped. He also says the abdominal cramping has also improved. - Objective MAR Reviewed: Yes Vital Signs & Weight: Vital Signs (12 hours) Temp Pulse Resp BP Pulse Ox 04/29/18 08:05 98.6 F 100 16 120/78 96 04/29/18 08:00 96 04/29/18 04:00 98.6 F 86 18 105/71 96 Weight Admit Weight 242 lb 3.2 oz Weight 242 lb 3.2 oz I&O: 04/28/18 04/29/18 04/30/18 06:59 06:59 06:59 Intake Total 360 500 Output Total 300 Balance 60 500 Result Diagrams: 04/29/18 02:36 04/28/18 05:31 Additional Labs: Accuchecks 04/29/18 04/29/18 04/28/18 11:45 05:01 20:31 POC Glucose 218 H 151 H 140 H 04/28/18 15:48 POC Glucose 174 H Phys Exam - Physical Examination Respiratory: no wheezing, no rales, no rhonchi, clear to auscultation bilateral Cardiovascular: RRR, no significant murmur, no rub no gallop Gastrointestinal: soft, non-tender, no distention, positive bowel sounds Ileostomy site is intact, no drainage Musculoskeletal: no edema Neurological: non-focal, moves all 4 limbs Dx/Plan (1) GIB (gastrointestinal bleeding) Code(s): K92.2 - GASTROINTESTINAL HEMORRHAGE, UNSPECIFIED Status: Acute (2) Anemia due to blood loss, acute Code(s): D62 - ACUTE POSTHEMORRHAGIC ANEMIA Status: Acute (3) Colon cancer Code(s): C18.9 - MALIGNANT NEOPLASM OF COLON, UNSPECIFIED Status: Chronic (4) HTN (hypertension) Code(s): I10 - ESSENTIAL (PRIMARY) HYPERTENSION Status: Chronic (5) Ileostomy present Code(s): Z93.2 - ILEOSTOMY STATUS Status: Chronic - Plan * Lower GI bleed- Flexible sigmoidoscopy results were noted. He had multiple deep ulcerations in the colon, and rectum, and some evidence of diversion colitis. Biopsies were taken- and await the results. * Acute blood loss anemia- he had a significant drop in his H&H, however so far he is not symptomatic- will continue to trend his H&H, and transfuse if necessary * HTN- blood pressure is stable.
--- NOTE | 2018-04-29 22:57 | PRG ---
DATE OF SERVICE: 04/29/2018 SUBJECTIVE: Mr. Costa had 1 large red bloody stool this morning. He had a small red bloody stool at 3:00 this afternoon. This is markedly improved from when he was first admitted having bloody diarrh ea every 10 minutes. He has no ongoing abdominal pain. He has brown stool output into his ostomy. OBJECTIVE: VITAL SIGNS: Temperature 98.4, pulse 99, blood pressure 99/64. GENERAL: He is in no acute distress, alert and oriented x3. LUNGS: Clear to auscultation bilaterally. HEART: Regular rate and rhythm without murmur. ABDOMEN: Soft, nontender, nondistended. Bowel sounds are present. EXTREMITIES: No lower extremity edema. LABORATORY DATA: His hemoglobin is 8.3. White blood cell count 11.0. IMPRESSION: Lower gastrointestinal bleed secondary to colitis with multiple deep ulcers in the rectu m and distal colon with diffuse erythematous grainy colitis. Biopsies are pending. This could be di version colitis; however, he just had a colonoscopy 8 weeks ago which was reportedly unremarkable. Sharmaine valladares could have infectious colitis or inflammatory bowel disease. Another possibility is NSAID induced colitis given that he was taking Aleve 3 tablets twice daily for a while before presentation. Radiat ion colitis or viral colitis would be less likely. Ischemic colitis is also a consideration. Hopefu lly, the biopsies will help shed some light on this. If he has diversion colitis and the treatment w ould be takedown of the ostomy. If he has infectious colitis or NSAID induced colitis, then we shoul d see in the next few weeks that his colon should improve and go back towards normal. RECOMMENDATIONS: 1. Follow the trend of his hemoglobin and bleeding. If he has no further bleeding tomorrow and his hemoglobin is stable, then he could potentially discharge home soon. If he has any further diarrhea, then stool studies for infectious process should be obtained. 2. Await histopathology.
[2018-04-30 04:24] LABS: #Basophils 0.1 thou/uL (0.0-0.2); #Eosinphils 0.2 thou/uL (0.0-0.7); #Lymphocytes 1.5 thou/uL (1.20-3.40); #Monocytes 0.9 thou/uL (0.11-0.59); #Neutrophils 6.1 thou/uL (1.40-6.50); %Basophils 0.6 % (0.0-1.0); %Eosinophils 2.7 % (0.0-10.0); %Lymphocytes 16.8 % (21.0-51.0); %Monocytes 9.7 % (0.0-10.0); %Neutrophils 70.1 % (42.0-75.0); Hemoglobin 7.7 g/dL (14.0-18.0); Mean Corpuscular HGB CONC 30.6 g/dL (32.0-36.0); Mean Corpuscular Hemoglobin 27.5 pg (27.0-31.0); Mean Corpuscular Volume 89.9 fL (78.0-98.0); Mean Platelet Volume 8.6 fL (7.4-10.4); Platelet Count 240 thou/uL (130-400); RBC Distribution Width 15.2 % (11.5-14.5); White Blood Cell (WBC) Count 8.7 thou/uL (4.8-10.8)
[2018-04-30] MEDS: MEROPENEM 1 GM/50 ML 1 GM in Premix Bag 1 BAG IVPB SCH ×3 (04:42→19:45)
[2018-04-30] MEDS: Pantoprazole 40 MG VIAL IVP SCH (07:45)
--- NOTE | 2018-04-30 10:55 | PRG ---
DATE OF SERVICE: 04/30/2018 SUBJECTIVE: Mr. Costa had a liquidy stool with only flecks of blood in it this morning. He had no b owel movements through the night. Overall, he is doing much better. LABORATORY DATA: White blood cell count 8.7, hemoglobin 7.7, platelets 240. IMPRESSION: 1. Acute colitis. We are awaiting biopsies. This could have been due to the Aleve, which he was mona barajas. Diversion colitis is also possible. We are also evaluating for ischemic or infectious colitis . Overall, he has significantly improved. If he continues to improve, then followup colonoscopy in a month might be helpful to reassess healing and etiology. Ultimately, ileostomy takedown may be the best treatment if he does have diversion colitis. However, again we will await biopsies and followu p exam to help determine etiology. If his hemoglobin remains stable tomorrow, he can potentially be discharged home tomorrow. 2. Anemia of acute blood loss. RECOMMENDATIONS: 1. Continue supportive care. He is tolerating a regular diet. 2. Likely discharge home tomorrow. 3. Consider repeat colonoscopy or flex sig in a month.
[2018-04-30] MEDS: HumaLOG 300 UNITS/3 ML VIAL SC PRN ×2 (12:22→18:08)
--- NOTE | 2018-04-30 17:07 | PDOC.PN ---
- Subjective Encounter Start Date: 04/30/18 Encounter Start Time: 14:00 Mr. Costa was seen today in follow-up of GI bleed. He says he has not noted any more bleeding from the Ileostomy site. He denies any abdominal pain or cramping. - Objective MAR Reviewed: Yes Vital Signs & Weight: Vital Signs (12 hours) Pulse Ox 04/30/18 08:00 99 Weight Admit Weight 242 lb 3.2 oz Weight 242 lb 3.2 oz I&O: 04/29/18 04/30/18 05/01/18 06:59 06:59 06:59 Intake Total 500 530 Balance 500 530 Result Diagrams: 04/30/18 04:05 04/28/18 05:31 Additional Labs: Accuchecks 04/30/18 04/30/18 04/30/18 16:16 11:54 05:30 POC Glucose 228 H 265 H 152 H 04/29/18 04/29/18 19:37 16:35 POC Glucose 136 H 187 H Phys Exam - Physical Examination HEENT: PERRLA Respiratory: no wheezing, no rales, no rhonchi, clear to auscultation bilateral Cardiovascular: RRR, no significant murmur, no rub Gastrointestinal: soft, non-tender, no distention, positive bowel sounds Musculoskeletal: no edema, pulses present Dx/Plan (1) GIB (gastrointestinal bleeding) Code(s): K92.2 - GASTROINTESTINAL HEMORRHAGE, UNSPECIFIED Status: Acute (2) Anemia due to blood loss, acute Code(s): D62 - ACUTE POSTHEMORRHAGIC ANEMIA Status: Acute (3) Colon cancer Code(s): C18.9 - MALIGNANT NEOPLASM OF COLON, UNSPECIFIED Status: Chronic (4) HTN (hypertension) Code(s): I10 - ESSENTIAL (PRIMARY) HYPERTENSION Status: Chronic (5) Ileostomy present Code(s): Z93.2 - ILEOSTOMY STATUS Status: Chronic - Plan * GI bleed- from rectal ulcer, and Colitis- still await final pathology to aid in determination of the etiology of the colonic inflammatory process. Will continue Protonix Q12, but change to p.o.. Continue to monitor his H&H. Since Infection has not been completely ruled out- will continue antibiotics, and send him home likely on Cipro and Flagyl to complete a 7 day course * HTN- controlled- will re-start home medications in a stepwise fashion * DM- blood glucose is a bit elevated- will re-start Metformin * Hold NSIAD's and aspirin for now * Hopefully home tomorrow .
[2018-04-30] MEDS: buPROPion 75 MG TAB PO SCH (20:01)
[2018-04-30] MEDS ORDERED: Atorvastatin Calcium 40 MG TAB PO SCH (21:00)
[2018-04-30] MEDS ORDERED: Melatonin 3 MG TAB PO SCH (21:00)
[2018-05-01] MEDS: MEROPENEM 1 GM/50 ML 1 GM in Premix Bag 1 BAG IVPB SCH ×2 (04:08→11:35)
[2018-05-01 04:11] LABS: #Basophils 0.1 thou/uL (0.0-0.2); #Eosinphils 0.4 thou/uL (0.0-0.7); #Lymphocytes 1.5 thou/uL (1.20-3.40); #Monocytes 0.7 thou/uL (0.11-0.59); #Neutrophils 6.3 thou/uL (1.40-6.50); %Basophils 0.7 % (0.0-1.0); %Eosinophils 4.2 % (0.0-10.0); %Lymphocytes 16.5 % (21.0-51.0); %Monocytes 7.6 % (0.0-10.0); %Neutrophils 70.9 % (42.0-75.0); Hemoglobin 7.7 g/dL (14.0-18.0); Mean Corpuscular HGB CONC 31.3 g/dL (32.0-36.0); Mean Corpuscular Hemoglobin 27.9 pg (27.0-31.0); Mean Corpuscular Volume 89.2 fL (78.0-98.0); Mean Platelet Volume 8.6 fL (7.4-10.4); Platelet Count 271 thou/uL (130-400); RBC Distribution Width 15.3 % (11.5-14.5); Red Blood Cell (RBC) Count 2.75 mill/uL (4.70-6.10); White Blood Cell (WBC) Count 8.9 thou/uL (4.8-10.8)
[2018-05-01] MEDS: HumaLOG 300 UNITS/3 ML VIAL SC PRN ×2 (05:28→11:39)
[2018-05-01] MEDS: buPROPion 75 MG TAB PO SCH (07:58)
[2018-05-01] MEDS ORDERED: metFORMIN 500 MG TAB PO SCH (08:00)
[2018-05-01] MEDS ORDERED: Multivitamin W/ Minerals 1 TAB PO SCH (09:00)
[2018-05-01] MEDS ORDERED: NIFEdipine XL 60 MG TAB PO SCH (09:00)
--- NOTE | 2018-05-01 12:58 | PDOC.PN ---
- Subjective Encounter Start Date: 05/01/18 Encounter Start Time: 12:57 Mr. Costa was seen today in follow-up of Lower GI bleed. He has not noted any further bleeding. He says he feels fine. - Objective MAR Reviewed: Yes Vital Signs & Weight: Vital Signs (12 hours) Temp Pulse Resp BP BP Pulse Ox 05/01/18 08:00 97 05/01/18 07:57 81 133/85 05/01/18 07:29 98.7 F 81 16 133/65 97 Weight Admit Weight 242 lb 3.2 oz Weight 242 lb 3.2 oz I&O: 04/30/18 05/01/18 05/02/18 06:59 06:59 06:59 Intake Total 530 Balance 530 Result Diagrams: 05/01/18 03:29 04/28/18 05:31 Additional Labs: Accuchecks 05/01/18 05/01/18 04/30/18 11:09 05:27 19:43 POC Glucose 224 H 158 H 261 H 04/30/18 16:16 POC Glucose 228 H Phys Exam - Physical Examination HEENT: PERRLA Respiratory: no wheezing, no rales, no rhonchi, clear to auscultation bilateral Cardiovascular: RRR, no significant murmur, no rub Gastrointestinal: soft, non-tender, no distention, positive bowel sounds Musculoskeletal: no edema Dx/Plan (1) GIB (gastrointestinal bleeding) Code(s): K92.2 - GASTROINTESTINAL HEMORRHAGE, UNSPECIFIED Status: Acute (2) Anemia due to blood loss, acute Code(s): D62 - ACUTE POSTHEMORRHAGIC ANEMIA Status: Acute (3) Colon cancer Code(s): C18.9 - MALIGNANT NEOPLASM OF COLON, UNSPECIFIED Status: Chronic (4) HTN (hypertension) Code(s): I10 - ESSENTIAL (PRIMARY) HYPERTENSION Status: Chronic (5) Ileostomy present Code(s): Z93.2 - ILEOSTOMY STATUS Status: Chronic - Plan * Lower GI bleed-his H&H has remained stable * Discussed with Dr. Enriquez- letha for discharge home..
[2018-05-01 14:02] VITALS: BP 146/93; TEMP 97.5
--- NOTE | 2018-05-01 16:28 | DIS ---
DATE OF ADMISSION: 04/27/2018 DATE OF DISCHARGE: 05/01/2018 PRIMARY CARE PHYSICIAN: Jayy Vila M.D. DISCHARGE DISPOSITION: Home. PRIMARY DISCHARGE DIAGNOSES: 1. Lower gastrointestinal bleed. 2. Rectal ulcer. 3. Colitis. 4. History of colon cancer. 5. Hypertension. 6. Diabetes mellitus, type 2. DISCHARGE MEDICATIONS: Ciprofloxacin 500 mg twice a day for 4 days as well as Flagyl 500 mg t.i.d. f or 4 days. He is to continue pantoprazole 40 mg daily, multivitamin once a day, metformin 1000 mg tw ice a day, Floranex 1 tablet daily, fish oil 1000 mg daily, extra strength Tylenol q.6 hours p.r.n., nifedipine extended release 60 mg daily, melatonin 5 mg at bedtime, Imodium 2 mg twice a day, lisinop ril/hydrochlorothiazide 20/12.5 one tablet daily, Wellbutrin 75 mg twice daily, Lipitor 80 mg daily, aspirin 81 mg a day. PROCEDURES DONE DURING ADMISSION: The patient had a flexible sigmoidoscopy with biopsy. It demonstr ated multiple deep ulcers in the rectum and distal colon with some colitis with diffuse erythematous friable grainy mucosa. It could represent diversion colitis, ischemic ulcerative colitis, viral ulce rations, radiation colitis or inflammatory bowel disease. CODE STATUS: FULL CODE. ALLERGIES: MORPHINE. HOSPITAL COURSE: Mr. Costa is a pleasant 62-year-old gentleman who presented to the emergency room a fter he noted bleeding into his ostomy bag. He noticed it is being bloody bowel movement with clots. He came to the emergency room for evaluation. He was admitted to the hospital and started on max n pump inhibitor. He was seen by Gastroenterology. He underwent flexible sigmoidoscopy. The findin gs of which were rectal ulcerations as well as inflammatory process of the colon which was nonspecifi c. Biopsies were taken. His hemoglobin dropped as low as 7.7. Since the etiology of the inflammati on was yet to be determined. He will be discharged home on antibiotics in the event that this was an ischemic colitis. He did have some features of sepsis when he was admitted with elevated white bloo d cell count and tachycardia. Also, he will be following up with Dr. Enriquez to obtain the results of the biopsy which may aid in diagnosis as well. He is also to avoid anti-inflammatory medications, wh ich he does admit that he did take some occasionally. Otherwise, the patient is clinically stable an d will be discharged home today. The plan is for a repeat colonoscopy in approximately 4 weeks.
== END 2018-05-01 14:30 | disposition home or self-care (01) | DRG 872 ==
LOC: ERS 14:18 → T4-B 19:31
PROVIDERS: ADMIT Internal Medicine; ATTEND Internal Medicine
PROC: 0DBP8ZX Excision of Rectum, Via Natural or Artificial Opening Endoscopic, Diagnostic (ICD-10-PCS; principal; 2018-04-28)
DX: A41.9 Sepsis, unspecified organism (principal); D62 Acute posthemorrhagic anemia; C18.9 Malignant neoplasm of colon, unspecified; K62.6 Ulcer of anus and rectum; K94.11 Enterostomy hemorrhage; K92.1 Melena; I10 Essential (primary) hypertension; K52.9 Noninfective gastroenteritis and colitis, unspecified; E11.9 Type 2 diabetes mellitus without complications; D72.829 Elevated white blood cell count, unspecified; R00.0 Tachycardia, unspecified; E78.5 Hyperlipidemia, unspecified; E66.9 Obesity, unspecified; Z91.81 History of falling; Z68.32 Body mass index [BMI] 32.0-32.9, adult
CPT/HCPCS: 36415; 36416; 71045; 80048; 80053; 81003; 81015; 83605; 85025; 86850; 86900; 86901; 87040; 88305; 90471; 90686; 93005; 96361; 96365; 96375; C9113; G0008; J2185; J2405; J2930; J3010

== ENCOUNTER 2018-12-28 11:02 | Observation (INO) | payer OTHER ==
[2018-12-28 11:59] LABS: #Eosinphils 0.2 thou/uL (0.0-0.7); #Lymphocytes 1.2 thou/uL (1.20-3.40); #Monocytes 1.1 thou/uL (0.11-0.59); #Neutrophils 13.8 thou/uL (1.40-6.50); %Basophils 0.1 % (0.0-1.0); %Eosinophils 1.1 % (0.0-10.0); %Lymphocytes 7.5 % (21.0-51.0); %Monocytes 6.8 % (0.0-10.0); %Neutrophils 84.5 % (42.0-75.0); Hemoglobin 14.6 g/dL (14.0-18.0); Mean Corpuscular HGB CONC 30.6 g/dL (32.0-36.0); Mean Corpuscular Hemoglobin 27.1 pg (27.0-31.0); Mean Corpuscular Volume 88.7 fL (78.0-98.0); Mean Platelet Volume 9.9 fL (7.4-10.4); Platelet Count 254 thou/uL (130-400); RBC Distribution Width 14.7 % (11.5-14.5); Red Blood Cell (RBC) Count 5.39 mill/uL (4.70-6.10); White Blood Cell (WBC) Count 16.3 thou/uL (4.8-10.8)
[2018-12-28 12:22] LABS: ALT (SGPT) 22 U/L (8-55); AST (SGOT) 22 U/L (5-34); Albumin 4.1 g/dL (3.4-4.8); Alkaline Phosphatase 125 U/L (40-150); Anion Gap 17 mmol/L (10-20); BUN (Urea Nitrogen) 17 mg/dL (8.4-25.7); Bilirubin, Total 1.6 mg/dL (0.2-1.2); Calc. Creatinine Clearance 0 mL/min (70-130); Carbon Dioxide 27 mmol/L (23-31); Chloride 99 mmol/L (98-107); Estimated GFR-MDRD 48; Globulin 3.7 g/dL (2.4-3.5); Glucose 231 mg/dL (80-115); Potassium 4.2 mmol/L (3.5-5.1); Protein, Total 7.8 g/dL (5.8-8.1); Sodium 139 mmol/L (136-145)
[2018-12-28] MEDS ORDERED: metroNIDAZOLE 500 MG/100 ML BAG ONE (14:22)
[2018-12-28] MEDS ORDERED: Levofloxacin 500 mg/D5W 100 ml Premix Bag ONE (14:22)
[2018-12-28 14:35] LABS: INR-International Normal Ratio 1.1; PTT 26.8 SEC (22.9-36.1); Prothrombin Time 14.2 SEC (12.0-14.7)
[2018-12-28] MEDS ORDERED: Acetaminophen 325 MG TAB PO PRN (17:27)
[2018-12-28] MEDS ORDERED: Ondansetron ODT 4 MG TAB PO PRN (17:27)
[2018-12-28] MEDS ORDERED: Melatonin 3 MG TAB PO PRN (17:32)
[2018-12-28] MEDS ORDERED: Dextrose 5% in Water 1,000 ML IV PRN (17:41)
[2018-12-28] MEDS ORDERED: HumaLOG 300 UNITS/3 ML VIAL SC PRN ×2 (17:41)
[2018-12-28] MEDS ORDERED: Dicyclomine 20 MG TAB PO PRN (17:41)
[2018-12-28] MEDS ORDERED: Dextrose 50% Abboject 50 ML SYRINGE SLOW IVP PRN (17:41)
--- NOTE | 2018-12-28 19:06 | HP ---
PRIMARY CARE PHYSICIAN: Dr. Pickering. CHIEF COMPLAINT: Bleeding. HISTORY OF PRESENT ILLNESS: This is a 63-year-old with history of colon cancer, status post chemotherapy, radiation therapy, and surgical resection with ileostomy that was complicated, who presents to the emergency room complaining of rectal bleeding. The patient had a similar episode for which he was hospitalized in April of 2018. At that time, he was found to have colitis on flexible sigmoidoscopy. He reports similar symptoms this time. It started five days ago with passing mucus and liquid from his rectum, the following days with intermittent abdominal cramping followed by the onset of bright red bleeding as well as clots today. The patient states that when this occurs, it backs up and there was blood in his ileostomy as well. He denies any fevers, nausea, or vomiting, urine changes. He is on low-dose aspirin daily and stopped this three days ago in anticipation that his may happen. He has not had any recent trauma, or precipitant for the current symptoms. He did feel lightheaded earlier today. The patient is due to see a colorectal surgeon in 2 weeks for this history of colitis, to perform surgery, remove any damaged tissue, and evaluate for ileostomy removal. Other notable history is the patient was on antibiotics recently for an eyelid infection. He states that he completed Augmentin 1 or 2 weeks ago and was on it for 10 days. He has had no other changes in his medication, and again no precipitating factors for the current symptoms. In the emergency room, the patient received Levaquin 500 mg IV, metronidazole 500 IV, 1 L of normal saline, and 20 mg IM Bentyl and hospitalist called for admission. ALLERGIES TO MEDICINE: Morphine and NSAIDs. CURRENT MEDICATIONS: Reconciled with the patient and his last discharge summary. They are 1. Nifedipine 60 mg daily. 2. Lisinopril/hydrochlorothiazide 20/25 mg daily. 3. Bupropion 75 mg b.i.d. 4. Multivitamin daily. 5. Melatonin 5 mg at bedtime. 6. Pantoprazole 40 mg daily. 7. Tylenol as needed. 8. Atorvastatin 80 mg daily. 9. Aspirin 81 mg daily which he stopped 3 days ago. 10. Imodium 2 mg b.i.d., scheduled. PAST MEDICAL HISTORY: 1. Colon cancer, status post resection, chemotherapy, radiation therapy with ileostomy in place. 2. Postoperative anemia associated with a complicated ileostomy takedown/ reversal. 3. Diabetes mellitus, now diet controlled. 4. Hypertension. 5. Dyslipidemia. PAST SURGICAL HISTORY: 1. Tonsillectomy. 2. Back surgery/laminectomy. 3. Colon resection x2 with ileostomy placement, reversal and new ileostomy placement. SOCIAL HISTORY: The patient denies tobacco or alcohol, lives with his who is his surrogate decision maker. Her name is Almita and is a full code. FAMILY HISTORY: Significant for father who of heart disease. REVIEW OF SYSTEMS: Positive for chills that has resolved, abdominal cramping, dizziness earlier today that resolved. Negative for fevers, nausea, vomiting, chest pain, difficulty breathing or urine changes. All remaining review of systems are reviewed and negative. PHYSICAL EXAMINATION: VITAL SIGNS: Blood pressure 106/75, pulse 109, respirations 16, temperature is 98.2, sats 98% on room air. GENERAL: Awake, alert, and responsive, in no apparent distress. Able to speak in full sentences. HEENT: Pupils are equal and round. No scleral icterus. Oral mucosa is pink and moist. NECK: Supple. Nontender. LYMPHATICS: No palpable cervical or supraclavicular lymphadenopathy. LUNGS: Clear to auscultation bilaterally. No audible wheezing, rhonchi, or rales. HEART: Normal S1 and S2. Regular rate and rhythm. No significant murmur. ABDOMEN: Soft with present bowel sounds. Light brown material in the ileostomy as well as brown mucus. The patient has well healed abdominal incisions. EXTREMITIES: No clubbing, cyanosis or edema. SKIN: No visible rashes. He does have some facial flushing. NEUROLOGIC: No gross deficits. PSYCHIATRIC: Euthymic. Alert and oriented x4. DIAGNOSTIC DATA: Labs reviewed. CBC 16.3, 14.6, 47.8, 254. INR 1.1. Renal panel: 139, 4.2, 99, 27, 17, 1.48, 231. His creatinine in the last check was in April and it was 1.07. T-bili 1.6, AST 22, ALT 22, alk phos 125, total protein 7.8, albumin 4.1. IMPRESSION: 1. Hematochezia in a patient with known colitis, history of the same. 2. Leukocytosis likely secondary to above. 3. Acute kidney injury likely secondary to above as well as diuretic and adam- inhibitor treatment. 4. Hypertension, well controlled in a patient who is on an ADAM inhibitor, diuretic, and calcium channel luan. 5. Dyslipidemia. 6. Diabetes mellitus, diet controlled. PLAN: 1. Observation status in the hospital. 2. We will recheck CBC tonight and again in the morning, the patient's type and screen has been performed. 3. Clear liquid diet for now and GI consultation. 4. Holding aspirin which the patient stopped 3 days ago. 5. Holding his antihypertensives for now, add back as his blood pressure increases. Start IV fluids continuously to help with the acute kidney injury. 6. We will continue his bupropion, melatonin, Protonix, statin, and scheduled Imodium. 7. Insulin sliding scale for elevated blood sugars in a.c. and bedtime checks. 8. We will continue the Levaquin and Flagyl as well as p.r.n. Bentyl. to manage colitis 9. DVT prophylaxis, pneumatic compression devices. 10. GI prophylaxis not indicated. The patient does take a PPI and we will continue that. 11. Code status is full. 12. Surrogate decision maker is the patient's Almita. The patient is at high-risk given his age, comorbidities and current presentation. I reviewed the plan of care with the patient. He demonstrates understanding and no questions or further needs at end of evaluation. Job ID: [id number] MTDD
[2018-12-28] MEDS: Sodium Chloride 0.9% 1,000 ML IV SCH (19:23)
[2018-12-28 19:29] VITALS: BMI 30.7
[2018-12-28] MEDS: Loperamide HCl 2 MG CAP PO SCH (19:46)
[2018-12-28] MEDS: Atorvastatin Calcium 40 MG TAB PO SCH (19:46)
[2018-12-28] MEDS: buPROPion 75 MG TAB PO SCH (19:47)
[2018-12-28] MEDS: metroNIDAZOLE 500 MG in Premix Bag 1 BAG IVPB SCH (20:13)
[2018-12-28 22:52] LABS: #Eosinphils 0.1 thou/uL (0.0-0.7); #Lymphocytes 1.1 thou/uL (1.20-3.40); #Monocytes 1.9 thou/uL (0.11-0.59); #Neutrophils 16.1 thou/uL (1.40-6.50); %Eosinophils 0.7 % (0.0-10.0); %Lymphocytes 5.6 % (21.0-51.0); %Monocytes 9.7 % (0.0-10.0); Hemoglobin 12.5 g/dL (14.0-18.0); Mean Corpuscular HGB CONC 30.7 g/dL (32.0-36.0); Mean Corpuscular Hemoglobin 27.3 pg (27.0-31.0); Mean Corpuscular Volume 88.8 fL (78.0-98.0); Mean Platelet Volume 9.5 fL (7.4-10.4); Platelet Count 229 thou/uL (130-400); RBC Distribution Width 14.4 % (11.5-14.5); Red Blood Cell (RBC) Count 4.58 mill/uL (4.70-6.10); White Blood Cell (WBC) Count 19.1 thou/uL (4.8-10.8)
[2018-12-29] MEDS: metroNIDAZOLE 500 MG in Premix Bag 1 BAG IVPB SCH ×2 (05:13→16:00)
[2018-12-29] MEDS: Sodium Chloride 0.9% 1,000 ML IV SCH ×2 (05:35→17:30)
[2018-12-29 06:09] LABS: #Eosinphils 0.1 thou/uL (0.0-0.7); #Lymphocytes 1.4 thou/uL (1.20-3.40); #Monocytes 1.3 thou/uL (0.11-0.59); #Neutrophils 9.6 thou/uL (1.40-6.50); %Basophils 0.1 % (0.0-1.0); %Eosinophils 1.1 % (0.0-10.0); %Lymphocytes 11.3 % (21.0-51.0); %Monocytes 10.2 % (0.0-10.0); %Neutrophils 77.4 % (42.0-75.0); Hemoglobin 11.7 g/dL (14.0-18.0); Mean Corpuscular HGB CONC 30.5 g/dL (32.0-36.0); Mean Corpuscular Volume 88.4 fL (78.0-98.0); Mean Platelet Volume 10.1 fL (7.4-10.4); Platelet Count 213 thou/uL (130-400); RBC Distribution Width 14.4 % (11.5-14.5); Red Blood Cell (RBC) Count 4.34 mill/uL (4.70-6.10); White Blood Cell (WBC) Count 12.4 thou/uL (4.8-10.8)
[2018-12-29 06:28] LABS: Anion Gap 12 mmol/L (10-20); BUN (Urea Nitrogen) 19 mg/dL (8.4-25.7); Calc. Creatinine Clearance 107 mL/min (70-130); Calcium 9.1 mg/dL (7.8-10.44); Carbon Dioxide 25 mmol/L (23-31); Chloride 105 mmol/L (98-107); Estimated GFR-MDRD 73; Glucose 153 mg/dL (80-115); Potassium 3.3 mmol/L (3.5-5.1); Sodium 139 mmol/L (136-145)
[2018-12-29] MEDS ORDERED: Potassium Chloride 20 MEQ in Premix Bag 1 BAG IVPB SCH ×2 (08:15→12:45)
[2018-12-29] MEDS: buPROPion 75 MG TAB PO SCH ×2 (09:17→21:00)
[2018-12-29] MEDS: Loperamide HCl 2 MG CAP PO SCH ×2 (09:17→21:00)
--- NOTE | 2018-12-29 10:33 | CON ---
DATE OF CONSULTATION: 12/29/2018 REQUESTING PHYSICIAN: Dr. Selene Zhu. REASON FOR CONSULTATION: Rectal bleeding. HISTORY OF PRESENT ILLNESS: Leo Costa is a 63-year-old man followed by my GI colleague, Dr. Jose Armando Ramsay. He has a complicated gastrointestinal history. 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 He had revision but recurrent stricturing. He then had multiple attempts at outpatient balloon dilation by Dr. Ramsay that were ultimately unsuccessful. He went to [place] for stent placement with Dr. Cannon and ileostomy takedown in May 2017. However, he had an anastomotic leak with peritonitis requiring repeat laparotomy with washout and closure of the leak. The patient has had three separate presentations with acute rectal bleeding. In the past couple of years, his last admission for this was in April of 2018. At that time, endoscopy demonstrated multiple ulcerations in the rectum and rectosigmoid colon with stricturing and stool above the stricture. Biopsies were negative for viral inclusions. It was felt that this is likely a combination of chronic ischemia and radiation injury as well as some diversion colitis. The patient states he had another colonoscopy in July with Dr. Cannon. Dr. Cannon said he was able to get through the strictured area with the stent, but the stent is closing off slowly and that there is still diffuse ischemic appearing colitis. The patient is followed with Dr. Ward with Colorectal Surgery down in [place]. He actually has an upcoming appointment in a couple weeks with Dr. Ward for further preoperative testing. The eventual plan is for further partial colon resection and possible eventual ileostomy takedown. A couple of weeks ago, the patient took Augmentin for 10 days for an eyelid infection. Then about 6 days ago, the patient started having some increased liquid passage per rectum as well as some crampy anal and rectal discomfort. This progressed and he started passing some bright red blood with clots yesterday. He has had one bowel movement today also with bright red blood, but the cramping discomfort has significantly declined. He has not been passing any blood in the ileostomy bag. There is no generalized abdominal pain. Upon admission, hemoglobin was 14.6, though this has declined to 11.7 today. He is receiving IV Levaquin and Flagyl as well as Bentyl. He has no other complaints. PAST MEDICAL HISTORY: 1. 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 2. Multiple abdominal surgeries as detailed in the HPI. 3. Back surgery. 4. Diabetes. 5. Hypertension. 6. Hyperlipidemia. ALLERGIES: MORPHINE. MEDICATIONS: 1. Nifedipine. 2. Lisinopril/hydrochlorothiazide. 3. Bupropion. 4. Multivitamin. 5. Melatonin. 6. Protonix 40 mg daily. 7. Tylenol p.r.n. 8. Atorvastatin. 9. Aspirin 81 mg daily. 10. Imodium 2 mg b.i.d. SOCIAL HISTORY: No tobacco use. FAMILY HISTORY: Father had heart disease. REVIEW OF SYSTEMS: Full review of systems including constitutional, head, eyes, ears, nose, throat, GI, , cardiovascular, respiratory, musculoskeletal, neurologic systems is negative except as noted in the HPI. PHYSICAL EXAMINATION: VITAL SIGNS: Temperature 98.1, pulse 88, blood pressure 98/70, 94% oxygen saturation on room air. GENERAL: A 63-year-old man lying in bed comfortably, in no distress. SKIN: No jaundice. No rashes were palpable. EYES: No scleral icterus. Extraocular movements are intact. ENT: Mucous membranes moist. No oral lesions. LYMPH: No submandibular or supraclavicular lymphadenopathy. THYROID: Nontender to palpation. HEART: Regular rate and rhythm. LUNGS: Clear to auscultation bilaterally. ABDOMEN: Bowel sounds are present. Nondistended. Soft, nontender to palpation throughout. Ileostomy in the right lower quadrant with dark brown liquid stool in the ileostomy bag. No evidence of melena. EXTREMITIES: No peripheral edema. VESSELS: Radial pulses 2+ bilaterally. NEUROLOGIC: Cranial nerves 2 through 12 are intact bilaterally. No focal deficits. LABORATORY STUDIES: Hemoglobin 11.7, WBC 12.4, platelets 213. INR 1.1. Sodium 139, potassium 3.3, BUN 19, creatinine 1.03. ASSESSMENT AND PLAN: 1. Hematochezia. 2. 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 3. Acute blood loss anemia, mild at this time. I had a long discussion with the patient about this recurrent presentation, it is very similar to prior presentations. Usually these episodes last 2 to 3 days and then resolve. Notably, the patient has stayed away from NSAIDs at this time. I suspect this just represents his chronic ischemic/radiation colitis, for which he is undergoing workup and probably will have further surgical revision in the near future. I do not really think there is much to be gained by repeating endoscopic investigation at this time. I do think it would be worthwhile to just check the stool for C difficile to rule this out given that he had outpatient antibiotics recently. Otherwise, I agree with current antimicrobial therapy. We would observe for now. Since we are not planning to scope, he can have a regular diet at this time. Thank you for the consultation. Please call anytime with questions or concerns. Job ID: [id number]
--- NOTE | 2018-12-29 13:14 | PDOC.PN ---
- Subjective Encounter Start Date: 12/29/18 Subjective: pt up in bed no more blood stools - Objective Resuscitation Status - Order Detail: 12/28/18 17:27 Resuscitation Status Routine Resuscitation Status: FULL: Full Resuscitation Vital Signs & Weight: Vital Signs (12 hours) Temp Pulse Resp BP Pulse Ox 12/29/18 11:45 98.3 F 84 18 109/66 96 12/29/18 07:32 98.1 F 88 18 98/70 94 L 12/29/18 04:00 98.7 F 91 20 100/67 95 Weight Weight 226 lb 3.2 oz I&O: 12/28/18 12/29/18 12/30/18 06:59 06:59 06:59 Intake Total 1800 Balance 1800 Result Diagrams: 12/29/18 05:30 12/29/18 05:30 Additional Labs: Accuchecks 12/29/18 12/28/18 11:50 19:42 POC Glucose 184 H 143 H Phys Exam - Physical Examination Neck: no nodes, no JVD, supple, full ROM Respiratory: no wheezing, no rales, no rhonchi, wheezing present, clear to auscultation bilateral Cardiovascular: RRR, no significant murmur, no rub, gallop, irregular Gastrointestinal: soft, non-tender, no distention, positive bowel sounds Dx/Plan (1) GIB (gastrointestinal bleeding) Code(s): K92.2 - GASTROINTESTINAL HEMORRHAGE, UNSPECIFIED Status: Acute (2) Anemia due to blood loss, acute Code(s): D62 - ACUTE POSTHEMORRHAGIC ANEMIA Status: Acute (3) Colon cancer Code(s): C18.9 - MALIGNANT NEOPLASM OF COLON, UNSPECIFIED Status: Chronic (4) HTN (hypertension) Code(s): I10 - ESSENTIAL (PRIMARY) HYPERTENSION Status: Chronic (5) Colitis Code(s): K52.9 - NONINFECTIVE GASTROENTERITIS AND COLITIS, UNSPECIFIED Status : Acute - Plan will monitor for one day, per gi no intervention. His stools have stopped -: since this am. if pt tolerates regular diet and no more blood stools -: will discharge him in am. on abx for possible colitis -: pt to follow with colorectal surgeon in 2 weeks * . Review of Systems - Review of Systems Respiratory: negative: Cough, Dry, Shortness of Breath, Hemoptysis, SOB with Excertion, Pleuritic Pain, Sputum, Wheezing Cardiovascular: negative: chest pain, palpitations, orthopnea, paroxysmal nocturnal dyspnea, edema, light headedness, other - Medications/Allergies Allergies/Adverse Reactions: Allergies Allergy/AdvReac Type Severity Reaction Status Date / Time morphine Allergy Verified 05/28/17 08:18 Medications: Current Medications Acetaminophen (Tylenol) 650 mg PO Q6H PRN PRN Reason: Headache/Fever/Mild Pain (1-3) Atorvastatin Calcium (Lipitor) 80 mg PO HS [facility] Last Admin: 12/28/18 19:46 Dose: 80 mg Bupropion HCl (Wellbutrin) 75 mg PO BID [facility] Last Admin: 12/29/18 09:17 Dose: 75 mg Dextrose/Water (Dextrose 50%) 25 gm SLOW IVP PRN PRN PRN Reason: Hypoglycemia Dicyclomine HCl (Bentyl) 20 mg PO QID PRN PRN Reason: GI Cramping Glucagon (Glucagon) 1 mg IM PRN PRN PRN Reason: Hypoglycemia Dextrose/Water (D5w) 1,000 mls @ 0 mls/hr IV .Q0M PRN PRN Reason: Hypoglycemia Levofloxacin 500 mg/ Device 100 mls @ 100 mls/hr IVPB Q24HR [facility] Metronidazole 500 mg/ Device 100 mls @ 100 mls/hr IVPB Q8HR [facility] Last Admin: 12/29/18 05:13 Dose: 100 mls Sodium Chloride (Normal Saline 0.9%) 1,000 mls @ 125 mls/hr IV .Q8H [facility] Last Admin: 12/29/18 05:35 Dose: 1,000 mls Potassium Chloride 20 meq/ (Device) 100 mls @ 100 mls/hr IVPB NOW [facility] Stop: 12/29/18 15:00 Insulin Human Lispro (Humalog) 0 units SC .MILD SLIDING SCALE PRN PRN Reason: Mild Correctional Scale Insulin Human Lispro (Humalog) 0 units SC .BEDTIME SLIDING SC PRN PRN Reason: Bedtime Correctional Scale Loperamide HCl (Imodium) 2 mg PO BID [facility] Last Admin: 12/29/18 09:17 Dose: 2 mg Melatonin (Melatonin) 6 mg PO HS PRN PRN Reason: Insomnia Ondansetron HCl (Zofran Odt) 4 mg PO Q6H PRN PRN Reason: Nausea/Vomiting Sodium Chloride (Flush - Normal Saline) 10 ml IVF Q12HR [facility] Last Admin: 12/29/18 09:20 Dose: 10 ml Sodium Chloride (Flush - Normal Saline) 10 ml IVF PRN PRN PRN Reason: Saline Flush
[2018-12-29] MEDS: Atorvastatin Calcium 40 MG TAB PO SCH (21:00)
[2018-12-30] MEDS: Sodium Chloride 0.9% 1,000 ML IV SCH ×4 (00:14→19:30)
[2018-12-30] MEDS: metroNIDAZOLE 500 MG in Premix Bag 1 BAG IVPB SCH (00:14)
[2018-12-30] MEDS ORDERED: Vancomycin HCl 25 MG/ML Oral PO SCH (08:00)
[2018-12-30] MEDS ORDERED: metroNIDAZOLE 500 MG in Premix Bag 1 BAG IVPB SCH (08:00)
[2018-12-30] MEDS: Loperamide HCl 2 MG CAP PO SCH (08:42)
[2018-12-30] MEDS: buPROPion 75 MG TAB PO SCH ×2 (08:42→20:11)
[2018-12-30] MEDS ORDERED: Vancomycin HCl 500 MG, Sodium Chloride 0.9% 100 ML PR SCH (12:00)
[2018-12-30 12:40] LABS: #Eosinphils 0.2 thou/uL (0.0-0.7); #Lymphocytes 1.3 thou/uL (1.20-3.40); #Monocytes 0.9 thou/uL (0.11-0.59); #Neutrophils 5.4 thou/uL (1.40-6.50); %Basophils 0.1 % (0.0-1.0); %Eosinophils 2.4 % (0.0-10.0); %Lymphocytes 17.3 % (21.0-51.0); %Neutrophils 69.3 % (42.0-75.0); Hemoglobin 10.7 g/dL (14.0-18.0); Mean Corpuscular HGB CONC 31.3 g/dL (32.0-36.0); Mean Corpuscular Hemoglobin 27.8 pg (27.0-31.0); Mean Corpuscular Volume 88.7 fL (78.0-98.0); Mean Platelet Volume 9.4 fL (7.4-10.4); Platelet Count 194 thou/uL (130-400); RBC Distribution Width 14.4 % (11.5-14.5); Red Blood Cell (RBC) Count 3.87 mill/uL (4.70-6.10); White Blood Cell (WBC) Count 7.8 thou/uL (4.8-10.8)
[2018-12-30] MEDS: Saccharomyces boulardii 250 MG CAP PO SCH (12:44)
[2018-12-30 13:01] LABS: Anion Gap 11 mmol/L (10-20); BUN (Urea Nitrogen) 12 mg/dL (8.4-25.7); Calc. Creatinine Clearance 107 mL/min (70-130); Calcium 8.8 mg/dL (7.8-10.44); Carbon Dioxide 24 mmol/L (23-31); Chloride 110 mmol/L (98-107); Estimated GFR-MDRD 73; Glucose 188 mg/dL (80-115); Potassium 3.6 mmol/L (3.5-5.1); Sodium 141 mmol/L (136-145)
[2018-12-30] MEDS: metroNIDAZOLE 500 MG TAB PO SCH ×2 (15:16→20:12)
--- NOTE | 2018-12-30 16:27 | PRG ---
DATE OF SERVICE: 12/30/2018 SUBJECTIVE: Mr. Costa has been doing well today. He did have no further bleeding. In fact, no further diarrhea or stool output from the rectum since we talked yesterday. Hemoglobin drifted down a little bit to 10.7. He is tolerating his diet. Ileostomy output is normal. His stool testing did come back for C. difficile positive antigen and toxin. He was started on vancomycin enemas and I recommended oral Flagyl t.i.d. as well. OBJECTIVE: VITAL SIGNS: Temperature 98.3, pulse 76, blood pressure 122/77, 97% oxygen saturation on room air. GENERAL: No acute distress. HEART: Regular rate and rhythm. LUNGS: Clear to auscultation bilaterally. ABDOMEN: Bowel sounds present. Soft. Nontender to palpation. EXTREMITIES: No peripheral edema. LABORATORY DATA: Hemoglobin 10.7, WBC down to 7.8, platelets 194. INR 1.1. Sodium 141, potassium 3.6, BUN 12, creatinine 1.03, calcium 8.8. ASSESSMENT AND PLAN: 1. Clostridium difficile colitis. 2. 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 3. Acute blood loss anemia, stabilizing. 4. Hematochezia, resolved. I had a long discussion with the patient about this positive C. difficile result. It is unclear to what extent the C. difficile is responsible for his recent presentation, as we know that he has underlying ischemic/radiation colitis. However, in view of his recent symptomatology, we certainly do need to treat the C. difficile as a real pathogen. Unfortunately, oral vancomycin really would not be effective as he has a loop ileostomy. I have advised that he receive vancomycin enemas 500 mg per rectum 4 times daily for 2 weeks. To augment this, I would treat concomitantly with metronidazole 500 mg by mouth 3 times daily also for 2 weeks. It is unclear what the logistics are going to be if getting him the vancomycin enemas and home administration, etc. Efforts should be made to try to arrange this. However, if this is just not logistically feasible, then a satisfactory alternative would be to simply continue him on the oral Flagyl 500 mg t.i.d. x14 days. This is not as efficacious as the vancomycin and would have a higher relapse rate, but on the other hand, due to its systemic absorption, it may actually be more efficacious than the vancomycin if the enemas are not able to be set up appropriately. Anticipate the patient could be discharged home tomorrow. He will be keeping his upcoming followup with Dr. Ward, colorectal surgeon, in [place] in the next couple of weeks. Please call back anytime with questions or concerns. Job ID: [id number]
--- NOTE | 2018-12-30 17:07 | PDOC.PN ---
- Subjective Encounter Start Date: 12/30/18 Encounter Start Time: 17:06 Pt seen for followup re: C. difficile colitis. Denies any complaints, diarrhea is better. - Objective Resuscitation Status - Order Detail: 12/28/18 17:27 Resuscitation Status Routine Resuscitation Status: FULL: Full Resuscitation MAR Reviewed: Yes Vital Signs & Weight: Vital Signs (12 hours) Temp Pulse Resp BP Pulse Ox 12/30/18 11:44 98.3 F 76 18 122/77 97 12/30/18 07:46 98.1 F 77 20 107/72 97 Weight Admit Weight 226 lb 3.2 oz Weight 226 lb 3.2 oz I&O: 12/29/18 12/30/18 12/31/18 06:59 06:59 06:59 Intake Total 1800 1965 Balance 1800 1965 Result Diagrams: 12/30/18 12:32 12/30/18 12:32 Additional Labs: Accuchecks 12/30/18 12/30/18 12/29/18 11:48 04:31 19:45 POC Glucose 223 H 128 H 143 H Labs reviewed by me Phys Exam - Physical Examination Constitutional: NAD HEENT: moist MMs Neck: supple Respiratory: clear to auscultation bilateral Cardiovascular: RRR Gastrointestinal: soft, positive bowel sounds ostomy Neurological: moves all 4 limbs Psychiatric: normal affect Dx/Plan (1) Clostridium difficile colitis Code(s): A04.72 - ENTEROCOLITIS D/T CLOSTRIDIUM DIFFICILE, NOT SPCF RECUR Status: Acute Comment: continue vancomycin enemas, IV metronidazole. (2) HTN (hypertension) Code(s): I10 - ESSENTIAL (PRIMARY) HYPERTENSION Status: Chronic Comment: controlled - Plan * . Review of Systems - Review of Systems Cardiovascular: negative: chest pain, palpitations, orthopnea, paroxysmal nocturnal dyspnea, edema, light headedness Gastrointestinal: Diarrhea. negative: Nausea, Vomiting, Abdominal Pain, Constipation, Melena, Hematochezia - Medications/Allergies Allergies/Adverse Reactions: Allergies Allergy/AdvReac Type Severity Reaction Status Date / Time morphine Allergy Verified 05/28/17 08:18 Medications: Current Medications Acetaminophen (Tylenol) 650 mg PO Q6H PRN PRN Reason: Headache/Fever/Mild Pain (1-3) Atorvastatin Calcium (Lipitor) 80 mg PO HS [facility] Last Admin: 12/29/18 21:00 Dose: 80 mg Bupropion HCl (Wellbutrin) 75 mg PO BID [facility] Last Admin: 12/30/18 08:42 Dose: 75 mg Vancomycin HCl 500 mg/ Sodium (Chloride 100 ml) 0 mg CO 0300,0900,1500,2100 [facility] Dextrose/Water (Dextrose 50%) 25 gm SLOW IVP PRN PRN PRN Reason: Hypoglycemia Dicyclomine HCl (Bentyl) 20 mg PO QID PRN PRN Reason: GI Cramping Glucagon (Glucagon) 1 mg IM PRN PRN PRN Reason: Hypoglycemia Dextrose/Water (D5w) 1,000 mls @ 0 mls/hr IV .Q0M PRN PRN Reason: Hypoglycemia Sodium Chloride (Normal Saline 0.9%) 1,000 mls @ 125 mls/hr IV .Q8H [facility] Last Admin: 12/30/18 12:48 Dose: 1,000 mls Insulin Human Lispro (Humalog) 0 units SC .MILD SLIDING SCALE PRN PRN Reason: Mild Correctional Scale Insulin Human Lispro (Humalog) 0 units SC .BEDTIME SLIDING SC PRN PRN Reason: Bedtime Correctional Scale Melatonin (Melatonin) 6 mg PO HS PRN PRN Reason: Insomnia Metronidazole (Flagyl) 500 mg PO TID [facility] Last Admin: 12/30/18 15:16 Dose: 500 mg Ondansetron HCl (Zofran Odt) 4 mg PO Q6H PRN PRN Reason: Nausea/Vomiting Saccharomyces Boulardii (Florastor) 250 mg PO DAILY [facility] Last Admin: 12/30/18 12:44 Dose: 250 mg Sodium Chloride (Flush - Normal Saline) 10 ml IVF Q12HR [facility] Last Admin: 12/30/18 12:47 Dose: 10 ml Sodium Chloride (Flush - Normal Saline) 10 ml IVF PRN PRN PRN Reason: Saline Flush
[2018-12-30] MEDS: Atorvastatin Calcium 40 MG TAB PO SCH (20:11)
[2018-12-30] MEDS: Vancomycin HCl 500 MG, Sodium Chloride 0.9% 100 ML PR SCH (21:19)
[2018-12-31] MEDS: Vancomycin HCl 500 MG, Sodium Chloride 0.9% 100 ML PR SCH ×3 (02:59→15:08)
[2018-12-31] MEDS: Sodium Chloride 0.9% 1,000 ML IV SCH ×2 (02:59→11:05)
[2018-12-31] MEDS: buPROPion 75 MG TAB PO SCH (08:50)
[2018-12-31] MEDS: Saccharomyces boulardii 250 MG CAP PO SCH (08:50)
[2018-12-31] MEDS: metroNIDAZOLE 500 MG TAB PO SCH ×2 (08:50→15:07)
[2018-12-31 16:02] VITALS: BP 117/73; TEMP 98.6
--- NOTE | 2018-12-31 22:26 | DIS ---
DATE OF ADMISSION: 12/28/2018 DATE OF DISCHARGE: 12/31/2018 PRIMARY CARE PROVIDER: Dr. Jayy Vila. DISCHARGE DIAGNOSIS: Clostridium difficile colitis. CONDITION OF PATIENT ON THE DAY OF DISCHARGE: Stable. I assessed Mr. Costa on the day of discharge. He denies any chest pain or shortness of breath. Vital signs are stable. S1 and S2 are heard, regular. Lungs are clear to auscultation bilaterally. DISCHARGE MEDICATIONS: In addition to his home medications as dictated by Dr. Zhu in history and physical note dated 12/28/2018, he is being discharged on: 1. Florastor 250 mg daily. 2. Flagyl 500 mg 3 times a day for 2 weeks. 3. Vancomycin enema 500 mg 4 times a day for 2 weeks. CONSULTATIONS DURING THIS HOSPITALIZATION: Gastroenterology, Dr. Connors. HOSPITAL COURSE: Mr. Costa is a pleasant 63-year-old gentleman, who was admitted to [facility] on 12/28/2018, for rectal bleeding. He was seen by Gastroenterology Service. He was found to be positive for Clostridium difficile infection. He has been started on vancomycin enemas and oral metronidazole. He is receiving prescriptions for both. FOLLOWUP APPOINTMENTS: He has been advised to follow up with his primary care provider in 3 to 5 days' time. He will also follow up with his sample wrapper in [place]. Many thanks for allowing me to participate in your patient's care. Please feel free to contact me with any questions or concerns. DISCHARGE DESTINATION: Home. Job ID: [id number]
--- NOTE | 2019-01-02 10:30 | DIS ---
DATE OF ADMISSION: 12/28/2018 DATE OF DISCHARGE: 12/31/2018 ADDENDUM: Mr. Costa has also been advised to discontinue the use of Imodium given his Clostridium difficile colitis. Job ID: [id number]
== END 2018-12-31 17:52 | disposition home or self-care (01) ==
LOC: ERS 11:02 → T4-B 15:00
PROVIDERS: ADMIT Internal Medicine; ATTEND Internal Medicine
DX: A04.72 Enterocolitis due to Clostridium difficile, not specified as recurrent (principal); K92.1 Melena; D72.829 Elevated white blood cell count, unspecified; E11.9 Type 2 diabetes mellitus without complications; I10 Essential (primary) hypertension; E78.5 Hyperlipidemia, unspecified; N17.9 Acute kidney failure, unspecified; D62 Acute posthemorrhagic anemia; K52.0 Gastroenteritis and colitis due to radiation; K55.1 Chronic vascular disorders of intestine; Z85.038 Personal history of other malignant neoplasm of large intestine; Z79.82 Long term (current) use of aspirin; Z79.899 Other long term (current) drug therapy; Z88.5 Allergy status to narcotic agent; Z88.6 Allergy status to analgesic agent; Z90.49 Acquired absence of other specified parts of digestive tract; Z93.2 Ileostomy status; Z98.890 Other specified postprocedural states
CPT/HCPCS: 36415; 36416; 80048; 80053; 82274; 85025; 85610; 85730; 86850; 86900; 86901; 87324; 87449; 87493; 96361; 96365; 96366; 96367; 96372; 96375; 96376; G0378; J0500; J1956; J3370; J3480; J3490

== ENCOUNTER 2019-03-23 08:53 | Outpatient (CLI) | payer OTHER ==
[2019-03-23 11:24] LABS: ALT (SGPT) 33 U/L (8-55); AST (SGOT) 22 U/L (5-34); Albumin 4.4 g/dL (3.4-4.8); Alkaline Phosphatase 102 U/L (40-110); Anion Gap 11 mmol/L (10-20); BUN (Urea Nitrogen) 12 mg/dL (8.4-25.7); Bilirubin, Total 1.1 mg/dL (0.2-1.2); Calc. Creatinine Clearance 0 mL/min (70-130); Calcium 9.6 mg/dL (7.8-10.44); Carbon Dioxide 25 mmol/L (23-31); Chloride 109 mmol/L (98-107); Estimated GFR-MDRD 61; Globulin 3.2 g/dL (2.4-3.5); Glucose 147 mg/dL (80-115); Protein, Total 7.6 g/dL (5.8-8.1); Sodium 141 mmol/L (136-145)
== END 2019-03-23 08:54 | disposition home or self-care (01) ==
LOC: LABBT 08:53
PROVIDERS: ATTEND Internal Medicine Cardiovascular Disease
DX: Z01.812 Encounter for preprocedural laboratory examination (principal); R94.39 Abnormal result of other cardiovascular function study
CPT/HCPCS: 80053

== ENCOUNTER 2019-03-29 05:58 | Day surgery (SDC) | payer OTHER ==
[2019-03-23 09:49] VITALS: BMI 29.8
[2019-03-29] MEDS ORDERED: Diazepam 5 MG TAB ONE (06:27)
[2019-03-29 06:33] LABS: #Eosinphils 0.1 thou/uL (0.0-0.7); #Lymphocytes 1.3 thou/uL (1.20-3.40); #Monocytes 0.8 thou/uL (0.11-0.59); #Neutrophils 6.5 thou/uL (1.40-6.50); %Basophils 0.2 % (0.0-1.0); %Eosinophils 1.3 % (0.0-10.0); %Lymphocytes 14.3 % (21.0-51.0); %Monocytes 9.6 % (0.0-10.0); %Neutrophils 74.6 % (42.0-75.0); Hemoglobin 15.6 g/dL (14.0-18.0); Mean Corpuscular Hemoglobin 26.7 pg (27.0-31.0); Mean Platelet Volume 10.9 fL (7.4-10.4); Platelet Count 165 thou/uL (130-400); Red Blood Cell (RBC) Count 5.85 mill/uL (4.70-6.10); White Blood Cell (WBC) Count 8.7 thou/uL (4.8-10.8)
[2019-03-29] MEDS ORDERED: Lidocaine 1% (PF) 30 ML VIAL ONE (06:42)
[2019-03-29] MEDS ORDERED: Midazolam HCl 2 mg/2 ml Vial ONE (07:32)
[2019-03-29] MEDS ORDERED: Fentanyl 100 MCG/2 ML VIAL ONE (07:32)
[2019-03-29] MEDS ORDERED: diphenhydrAMINE 50 MG/ML VIAL ONE (08:03)
[2019-03-29] MEDS ORDERED: Iopamidol 370 76% 100 ML VIAL ONE (09:41)
--- NOTE | 2019-03-30 08:37 | DIS ---
DATE OF ADMISSION: 03/29/2019 DATE OF DISCHARGE: 03/29/2019 Mr. 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 The patient is cleared to have noncardiac surgery. In the meantime, we will put him on aspirin 81 mg a day, to stop 10 days before surgery. Also resume lisinopril 10 mg a day. Asked him to see us in about 6 weeks. Job ID: [id number]
== END 2019-03-29 13:05 | disposition home or self-care (01) ==
LOC: CCL 05:58
PROVIDERS: ATTEND Internal Medicine Cardiovascular Disease
PROC: 4A023N7 Measurement of Cardiac Sampling and Pressure, Left Heart, Percutaneous Approach (ICD-10-PCS; principal; 2019-03-29)
DX: I25.10 Atherosclerotic heart disease of native coronary artery without angina pectoris (principal); I10 Essential (primary) hypertension; E11.9 Type 2 diabetes mellitus without complications; E78.00 Pure hypercholesterolemia, unspecified; E78.5 Hyperlipidemia, unspecified; Z79.84 Long term (current) use of oral hypoglycemic drugs; Z79.899 Other long term (current) drug therapy; Z88.5 Allergy status to narcotic agent
CPT/HCPCS: 76942; 85025; 93458; 99152; C1769; J1200; J1644; J2001; J2250; J3010; Q9967

== ENCOUNTER 2021-10-28 11:54 | Outpatient (CLI) | payer MEDICARE, OTHER ==
[2021-10-29 00:48] LABS: SARS-CoV-2 PCR by NAA Not Detected (NotDetected)
== END 2021-10-28 11:55 | disposition home or self-care (01) ==
LOC: LABBT 11:54
PROVIDERS: ATTEND Internal Medicine
DX: Z20.822 Contact with and (suspected) exposure to COVID-19 (principal)
CPT/HCPCS: U0003; U0005

== ENCOUNTER 2021-10-30 08:54 | Day surgery (SDC) | payer MEDICARE, OTHER ==
[2021-10-28 15:05] VITALS: BMI 27.9
[2021-10-30] MEDS ORDERED: Lidocaine 4% PF 5 ML AMP NEB SCH (09:45)
[2021-10-30] MEDS ORDERED: Sodium Chloride 0.9% 1,000 ML IV SCH (09:45)
[2021-10-30] MEDS ORDERED: Famotidine/PF 20 mg/2ml Vial ONE (10:53)
[2021-10-30] MEDS ORDERED: fentaNYL Citrate/PF 100 MCG/2 ML SYRINGE ONE (10:54)
[2021-10-30] MEDS ORDERED: Rocuronium Bromide 10 MG/ML (10ML VIAL) ONE (11:08)
[2021-10-30] MEDS ORDERED: Glycopyrrolate 0.2 MG/ML 5 ML SYRINGE ONE (11:08)
[2021-10-30] MEDS ORDERED: Ketorolac Tromethamine 30 MG/ML VIAL ONE (11:08)
[2021-10-30] MEDS ORDERED: Ondansetron PF 4 MG/2 ML Vial ONE (11:08)
[2021-10-30] MEDS ORDERED: PROPOFOL 200 MG/20 ML VIAL ONE (11:08)
[2021-10-30] MEDS ORDERED: PHENYLEPHRINE-NS 100 MCG/ML 10 ML SYRINGE ONE (11:08)
[2021-10-30] MEDS ORDERED: Lidocaine 1% PF 5 ML VIAL ONE (11:08)
== END 2021-10-30 14:12 | disposition home or self-care (01) ==
LOC: SDC 08:54
PROVIDERS: ATTEND Internal Medicine
PROC: 07978ZX Drainage of Thorax Lymphatic, Via Natural or Artificial Opening Endoscopic Approach, Diagnostic (ICD-10-PCS; principal; 2021-10-30)
DX: C77.1 Secondary and unspecified malignant neoplasm of intrathoracic lymph nodes (principal); E78.00 Pure hypercholesterolemia, unspecified; G47.33 Obstructive sleep apnea (adult) (pediatric); E78.5 Hyperlipidemia, unspecified; I10 Essential (primary) hypertension; G62.9 Polyneuropathy, unspecified; Z85.038 Personal history of other malignant neoplasm of large intestine; Z86.16 Personal history of COVID-19; Z79.82 Long term (current) use of aspirin; Z79.84 Long term (current) use of oral hypoglycemic drugs; Z79.899 Other long term (current) drug therapy; Z88.5 Allergy status to narcotic agent; Z90.49 Acquired absence of other specified parts of digestive tract
CPT/HCPCS: 88172; 88173; 88305; 88341; 88342; J1885; J2405; J2704; S0028

== ENCOUNTER 2022-01-02 07:51 | Outpatient (CLI) | payer MEDICARE, OTHER | END 2022-01-02 07:52 | disposition home or self-care (01) | LOC: LABBT 07:51 | PROVIDERS: ATTEND Surgery | DX: Z01.812 Encounter for preprocedural laboratory examination (principal); C20 Malignant neoplasm of rectum; Z20.822 Contact with and (suspected) exposure to COVID-19 | CPT/HCPCS: 87811 ==

== ENCOUNTER 2022-01-07 11:32 | Day surgery (SDC) | payer MEDICARE, OTHER ==
[2022-01-06 11:07] VITALS: BMI 28.5
[~2022-01-07 11:32] MED LIST changes: -Calcium Chloride 1 GM/10 ML Abboject SYRINGE ONE; -Heparin 1,000 UNITS/ML VIAL ONE; -ISOVUE-370 76%-LOCM 1 ML ONE; +Ondansetron PF 4 MG/2 ML Vial ONE; -PHENYLEPHRINE-NS 100 MCG/ML 10 ML SYRINGE ONE; +PROPOFOL 200 MG/20 ML VIAL ONE; -Succinylcholine Chloride 20 MG/ML 10 ml SYRINGE FS ONE; -Vecuronium 10 MG VIAL ONE; +diphenhydrAMINE 50 MG/ML VIAL ONE
[2022-01-07] MEDS ORDERED: Lidocaine 1% w/Epinephrine 1:100K 20 ML VIAL ONE (14:45)
[2022-01-07] MEDS ORDERED: Bupivacaine 0.25% HCL 30 ML VIAL ONE (14:45)
[2022-01-07] MEDS ORDERED: Dexmedetomidine 200 MCG/2 ML VIAL ONE (14:57)
[2022-01-07] MEDS ORDERED: fentaNYL Citrate/PF 100 MCG/2 ML SYRINGE ONE (14:57)
[2022-01-07] MEDS ORDERED: Sodium Chloride 0.9% 100 ML ONE (15:12)
[2022-01-07] MEDS ORDERED: CEFAZOLIN 2 GM VIAL ONE (15:12)
== END 2022-01-07 16:49 | disposition home or self-care (01) ==
LOC: SDC 11:32
PROVIDERS: ATTEND Surgery
PROC: 0JH60WZ Insertion of Totally Implantable Vascular Access Device into Chest Subcutaneous Tissue and Fascia, Open Approach (ICD-10-PCS; principal; 2022-01-07)
PROC: 02HV33Z Insertion of Infusion Device into Superior Vena Cava, Percutaneous Approach (ICD-10-PCS; 2022-01-07)
DX: C20 Malignant neoplasm of rectum (principal); C79.9 Secondary malignant neoplasm of unspecified site; G47.33 Obstructive sleep apnea (adult) (pediatric); E78.5 Hyperlipidemia, unspecified; I10 Essential (primary) hypertension; Z88.5 Allergy status to narcotic agent; Z88.6 Allergy status to analgesic agent
CPT/HCPCS: 71045; C1788; J0690; J1200; J1642; J2405; J2704; J3490; S0020

== ENCOUNTER 2022-11-03 13:55 | Outpatient (CLI) | payer MEDICARE, OTHER | END 2022-11-03 13:56 | disposition home or self-care (01) | LOC: SCSMRI 13:55 | PROVIDERS: ATTEND Internal Medicine Hematology & Oncology | DX: C20 Malignant neoplasm of rectum (principal); R42 Dizziness and giddiness | CPT/HCPCS: 70553; 80053 ==